=== PATIENT | female | born 1960 | race Caucasian/White ===

== ENCOUNTER 2016-06-07 15:23 | Emergency (ER) | payer MEDICAID ==
[~2016-06-07] VITALS: Ht 172.7 cm; Wt 135.0 kg
[~2016-06-07 15:23] MED LIST: AMIT1TAB79 PO; GABA600T PO; HYDR-3533 PO; INVE9TAB PO; LEVO75TA3 PO; POTA-163 PO; PROC90TA PO; VIST25CA PO; ZOLO100T PO
[2016-06-07 15:30] VITALS: BP 182/88; PULSE 93; RESP 20; TEMP 98.1; O2SAT 94
--- NOTE | 2016-06-07 15:33 | PD ---
HPI Chief Complaint: bleeding Time Seen by Provider: 15:32 Travel History International Travel<30 days: No Contact w/Intl Traveler<30days: No History of Present Illness HPI 55-year-old female with history of CHF, COPD, CVA, DM, GERD, hep C, hypertension recurrent right hip dislocation, status post hip replacement at [facility] presents to the ED for evaluation of postoperative bleeding. According to [facility]pc paperwork the patient has soaked through 2 trauma dressings this morning from her surgical site. On presentation the patient complains of nausea, vomiting, increased urinary urgency, shortness of breath. She endorses chronic, nonproductive cough, no worse today. She denies chest pain, abdominal pain. The patient is a poor historian, unable to provide the details of her recent surgery. PFSH Past Medical History Arthritis: Yes Asthma: No Autoimmune Disease: No Blood Disorders: No Bipolar Disorder: Yes Anxiety: Yes Depression: Yes Heart Rhythm Problems: No Cancer: Yes (tumor utero) Cardiovascular Problems: Yes High Cholesterol: Yes Chemotherapy: No Chest Pain: No Congestive Heart Failure: Yes COPD: Yes Cerebrovascular Accident: Yes Coronary Artery Disease: No Diabetes: Yes Diminished Hearing: No Endocrine: Yes Gastrointestinal Disorders: No GERD: Yes Glaucoma: No Genitourinary: No Headaches: Yes Hepatitis: Yes (HEP C POS) Hiatal Hernia: No Hypertension: Yes Immune Disorder: No Implanted Vascular Access Dvce: Yes Musculoskeletal: Yes Neurologic: Yes Psychiatric: Yes Reproductive: Yes (HYSTERECTOMY) Respiratory: Yes (COPD) Migraines: Yes Myocardial Infarction: No Radiation Therapy: No Seizures: Yes Sickle Cell Disease: No Sleep Apnea: No Thyroid Disease: Yes (Hypothyroidism) Ulcer: No Menopausal: Yes : 4 Para: 2 Miscarriage: 2 Past Surgical History Abdominal Surgery: Yes (APPENDECTOMY) AICD: No Appendectomy: Yes (1997) Arteriovenous Shunt: No Body Medical Devices: BACK FUSION AND ARLENE Cardiac Surgery: No Ear Surgery: No Endocrine Surgery: No Eye Surgery: No Genitourinary Surgery: No Gynecologic Surgery: Yes (HYSTERECTOMY) Hysterectomy: Yes Insulin Pump: No Joint Replacement: Yes (RIGHT HIP) Neurologic Surgery: Yes (EVACUATE SUBDURAL HEMATOMA) Oral Surgery: No Pacemaker: No Thoracic Surgery: No Other Surgery: Yes (BACK SURGERY) Social History Alcohol Use: Yes Tobacco Use: Yes (2 CIGS/DAY) Substance Use: Yes (MARIJUANA) Allergies-Medications (Allergen,Severity, Reaction): Coded Allergies: Dilantin (Verified Allergy, Severe, LIVER PROBLEMS, 05/15/16) *MDRO Multi-Drug Resistant Organism (Verified Adverse Reaction, Unknown, 05/10/16) 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 - 11/19/2015 Reported Meds & Prescriptions Reported Meds & Active Scripts Active Reported Levothyroxine (Levothyroxine Sodium) 25 Mcg Tab 25 Mcg PO DAILY Sertraline (Sertraline HCl) 100 Mg Tab 100 Mg PO DAILY Hydroxyzine HCl 50 Mg Tab 50 Mg PO HS Nifedipine ER 24 HR (Nifedipine) 60 Mg Tab 60 Mg PO DAILY Carvedilol 12.5 Mg Tab 12.5 Mg PO BID K-Tab (Potassium Chloride) 10 Meq Tab 10 Meq PO BID Duoneb (Ipratropium-Albuterol Neb) 0.5-2.5 Mg/3 Ml Neb 1 Nebule INH Q6HR NEB Lisinopril 20 Mg Tab 20 Mg PO DAILY Hydrochlorothiazide 25 Mg Tab 25 Mg PO DAILY Tizanidine (Tizanidine HCl) 4 Mg Cap 4 Mg PO Q12HR Tramadol (Tramadol HCl) 50 Mg Tab 50 Mg PO Q6H PRN Oxycodone (Oxycodone HCl) 5 Mg Cap 5 Mg PO Q4H PRN Invega (Paliperidone ER) 6 Mg Tab 6 Mg PO DAILY Aspirin 325 Mg Tab 325 Mg PO DAILY Review of Systems Except as stated in HPI: all other systems reviewed are Neg Physical Exam Narrative GENERAL: Well-nourished, well-developed chronically ill-appearing white female, occasional retching SKIN: Warm and dry. The surgical incision on the right anterior lateral hip is well healing without signs of infection. There is a subcentimeter area of serosanguineous and bloody drainage. HEAD: Normocephalic. EYES: No scleral icterus. No injection or drainage. NECK: Supple, trachea midline. No JVD or lymphadenopathy. CARDIOVASCULAR: Regular rate and rhythm without murmurs, gallops, or rubs. 2+ DP and radial pulses bilaterally. RESPIRATORY: Breath sounds equal bilaterally. Diffuse expiratory wheezing in all lung [place]. No accessory muscle use. GASTROINTESTINAL: Abdomen soft, non-tender, nondistended. Active bowel sounds. MUSCULOSKELETAL: No cyanosis, or edema. BACK: Nontender without obvious deformity. No CVA tenderness. Data Data Last Documented VS Vital Signs Date Time Temp Pulse Resp B/P Pulse Ox O2 Delivery O2 Flow Rate FiO2 06/07/16 18:00 90 16 160/82 95 Room Air 06/07/16 17:37 2.00 06/07/16 15:30 98.1 Orders Iv Access Insert/Monitor (06/07/16 15:31) Complete Blood Count With Diff (06/07/16 15:31) Act Partial Throm Time (Ptt) (06/07/16 15:31) Prothrombin Time / Inr (Pt) (06/07/16 15:31) Ondansetron Inj (Zofran Inj) (06/07/16 16:30) Morphine Inj (Morphine Inj) (06/07/16 16:30) Sodium Chlorid 0.9% 500 Ml Inj (Ns 500 M (06/07/16 16:30) Promethazine Inj (Phenergan Inj) (06/07/16 17:15) Chest, Single Ap (06/07/16 ) Albuterol-Ipratropium Neb (Duoneb Neb) (06/07/16 17:15) Urinalysis - C+S If Indicated (06/07/16 17:26) Labs Laboratory Tests Test 06/07/16 06/07/16 15:30 17:30 White Blood Count 22.2 TH/MM3 Red Blood Count 3.48 MIL/MM3 Hemoglobin 8.3 GM/DL Hematocrit 25.6 % Mean Corpuscular Volume 73.5 FL Mean Corpuscular Hemoglobin 23.9 PG Mean Corpuscular Hemoglobin 32.5 % Concent Red Cell Distribution Width 18.0 % Platelet Count 296 TH/MM3 Mean Platelet Volume 8.7 FL Neutrophils (%) (Auto) 88.8 % Lymphocytes (%) (Auto) 3.1 % Monocytes (%) (Auto) 7.7 % Eosinophils (%) (Auto) 0.0 % Basophils (%) (Auto) 0.4 % Neutrophils # (Auto) 19.7 TH/MM3 Lymphocytes # (Auto) 0.7 TH/MM3 Monocytes # (Auto) 1.7 TH/MM3 Eosinophils # (Auto) 0.0 TH/MM3 Basophils # (Auto) 0.1 TH/MM3 CBC Comment AUTO DIFF Differential Comment AUTO DIFF CONFIRMED Platelet Estimate NORMAL Platelet Morphology Comment NORMAL Prothrombin Time 10.1 SEC Prothromb Time International 0.9 RATIO Ratio Activated Partial 30.5 SEC Thromboplast Time Urine Color YELLOW Urine Turbidity CLEAR Urine pH 6.5 Urine Specific [place] 1.011 Urine Protein TRACE mg/dL Urine Glucose (UA) NEG mg/dL Urine Ketones NEG mg/dL Urine Occult Blood NEG Urine Nitrite NEG Urine Bilirubin NEG Urine Urobilinogen LESS THAN 2.0 MG/DL Urine Leukocyte Esterase NEG Urine RBC LESS THAN 1 /hpf Urine WBC LESS THAN 1 /hpf Urine Squamous Epithelial 1 /hpf Cells Urine Bacteria RARE /hpf Urine Mucus FEW /lpf Microscopic Urinalysis Comment CULT NOT INDICATED MDM Medical Decision Making Medical Screen Exam Complete: Yes Emergency Medical Condition: Yes Differential Diagnosis Postsurgical bleeding versus wound infection versus anemia versus UTI versus COPD exacerbation versus other Narrative Course 55-year-old female with history of multiple medical comorbidities, status post hip replacement at [facility] presents to the ED for evaluation of postoperative bleeding. According to [facility]pc paperwork the patient has soaked through 2 trauma dressings this morning from her surgical site. On presentation the patient complains of nausea, vomiting, increased urinary urgency, shortness of breath. She endorses chronic, nonproductive cough, no worse today. She denies chest pain, abdominal pain. The patient is a poor historian, unable to provide the details of her recent surgery. Vitals reviewed. Physical exam reveals a chronically ill-appearing white female, occasionally retching. The surgical wound on the right anterior lateral hip is well healing, without signs of infection. There is a subcentimeter break in the suture line that is oozing a small amount of mixed blood and serosanguineous fluid. Pressure was applied to this area for 3 minutes which did improve the bleeding. Patient was administered a 500 mL fluid bolus, IV morphine and Zofran. Retching continued, thus administered IM Phenergan. CBC reveals WBC is 22.2, 88% neutrophils, hemoglobin 8.3. INR 0.9. No culture indicated of the UA. Call was placed to [facility] orthopedic residents. They state the surgery was performed by Dr. Trevon James. Patient was DC'd yesterday with a hemoglobin of 8.2. Follow-up scheduled July 17. They agreed to move the follow-up to June 09. I discussed the patient, workup and plan of care with Dr. Murillo. She agrees that the patient is stable for discharge to the [facility]pc and close follow-up by orthopedics in 2 days in [place]. Diagnosis Primary Impression: Encounter for wound re-check Additional Impressions: COPD exacerbation Bleeding from right hip wound Qualified Code: T79.2XXA - Bleeding from right hip wound, initial encounter Referrals: Orthopedist Additional Instructions: Resume previously prescribed medications. I spoke with the orthopedic team at [facility]. The patient has a follow- up appointment on June 09 for reevaluation of her surgical wound. Follow-up with orthopedist at [facility] as discussed. Return to the ED for any urgent or emergent medical condition. Disposition: 03 DISCHARGE TO SNF Condition: Stable Cookie Zhou Jun 07, 2016 15:33
[2016-06-07] MEDS ORDERED: LISI-515 PO (15:57)
[2016-06-07] MEDS ORDERED: ASPI325T PO (15:57)
[2016-06-07] MEDS ORDERED: CARV12.52 PO (15:57)
[2016-06-07] MEDS ORDERED: LEVO25TA4 PO (15:57)
[2016-06-07] MEDS ORDERED: HYDR25TA5 PO (15:57)
[2016-06-07] MEDS ORDERED: K-TA10TA PO (15:57)
[2016-06-07] MEDS ORDERED: INVE6TAB3 PO (15:57)
[2016-06-07] MEDS ORDERED: HYDR50TA94 PO (15:57)
[2016-06-07] MEDS ORDERED: OXYC1CAP PO (15:57)
[2016-06-07] MEDS ORDERED: NIFE60TA58 PO (15:57)
[2016-06-07] MEDS ORDERED: SERT-129 PO (15:57)
[2016-06-07] MEDS ORDERED: TRAM50TA PO (15:57)
[2016-06-07] MEDS ORDERED: IPRASOL INH (15:57)
[2016-06-07] MEDS ORDERED: TIZA4CAP3 PO (15:57)
[2016-06-07 16:09] LABS: AUTOMATED NEUTROPHIL # 19.7 TH/MM3 (1.8-7.7); BASOPHIL # 0.1 TH/MM3 (0-0.2); BASOPHIL % 0.4 % (0.0-2.0); HEMATOCRIT 25.6 % (35.0-46.0); LYMPH % 3.1 % (9.0-44.0); LYMPHOCYTE # 0.7 TH/MM3 (1.0-4.8); MEAN CELL VOLUME 73.5 FL (80.0-100.0); MEAN CORPUSCULAR HEMOGLOBIN 23.9 PG (27.0-34.0); MEAN CORPUSCULAR HGB CONC 32.5 % (32.0-36.0); MONO % 7.7 % (0.0-8.0); NEUT % 88.8 % (16.0-70.0); PLATELET COUNT 296 TH/MM3 (150-450); RED BLOOD COUNT 3.48 MIL/MM3 (4.00-5.30); WHITE BLOOD COUNT 22.2 TH/MM3 (4.0-11.0)
[2016-06-07 16:10] LABS: HEMO FLAGS AUTO DIFF
[2016-06-07 16:27] LABS: APTT (PATIENT) 30.5 SEC (24.3-30.1); INTERNATIONAL NORMALIZED RATIO 0.9 RATIO; PROTHROMBIN TIME - PATIENT 10.1 SEC (9.8-11.6)
[2016-06-07] MEDS ORDERED: ONDANSETRON HCL 4 MG/2 ML VIAL IV PUSH ONE (16:30)
[2016-06-07] MEDS ORDERED: MORPHINE SULFATE 4 MG/ML INJ IV PUSH ONE (16:30)
[2016-06-07] MEDS ORDERED: SODIUM CHLORID 0.9% 500 ML INJ 500 ML IV ONE (16:30)
[2016-06-07 16:42] LABS: PLATELET ESTIMATE SMEAR NORMAL (NORMAL); PLATELET MORPHOLOGY NORMAL (NORMAL); SCAN/DIFF AUTO DIFF CONFIRMED
[2016-06-07 17:00] VITALS: BP 197/90; PULSE 84; RESP 16; O2SAT 98
[2016-06-07] MEDS ORDERED: PROMETHAZINE INJ 25 MG/ML VIAL IM ONE (17:15)
[2016-06-07] MEDS: RESP: ALBUTEROL 2.5 MG/IPRATROPIUM 0.5 MG NEB (SCH) INH ×2 (17:30→17:34)
[2016-06-07 17:37] VITALS: O2SAT 97
[2016-06-07 18:00] VITALS: BP 160/82; PULSE 90; RESP 16; O2SAT 95
--- NOTE | 2016-06-07 18:02 | RADRPT ---
EXAM DATE/TIME: 06/07/2016 17:15 [facility] COMPARISON: CHEST SINGLE AP, November 21, 2015, 6:43. INDICATIONS : Chest discomfort, abdominal pain starting today MEDICAL HISTORY : Hypertension. Cardiovascular disease. Hepatitis C. SURGICAL HISTORY : None. ENCOUNTER: Initial ACUITY: 1 day PAIN SCORE: 0/10 LOCATION: Bilateral chest FINDINGS: The heart size is normal. The lungs are clear. Costophrenic angles are clear. Surgical hardware is seen in the lower thoracic spine. CONCLUSION: No acute abnormality is seen. Adam Greer MD on June 07, 2016 at 17:59 Board Certified Radiologist. This report was verified electronically.
[2016-06-07 18:50] LABS: BACTERIA, URINE RARE /hpf; BLOOD, URINE NEG (NEG); COMMENT (UR) CULT NOT INDICATED; CULTURE IF INDICATED CULT NOT INDICATED; GLUCOSE,URINE NEG (NEG); KETONE, URINE NEG (NEG); MUCUS URINE FEW /lpf (OCC); NITRITE,URINE NEG (NEG); PH, URINE 6.5 (5.0-8.5); SQUAMOUS EPITHELIAL CELL URINE 1 /hpf (0-5); URINE COLOR YELLOW (YELLW/STRAW)
== END 2016-06-07 21:08 ==
LOC: NEPA 15:23
DX: J44.1 Chronic obstructive pulmonary disease with (acute) exacerbation (principal); M96.830 Postprocedural hemorrhage of a musculoskeletal structure following a musculoskeletal system procedure; R11.2 Nausea with vomiting, unspecified; R05 Cough; I50.9 Heart failure, unspecified; E11.9 Type 2 diabetes mellitus without complications; K21.9 Gastro-esophageal reflux disease without esophagitis; I10 Essential (primary) hypertension; E78.00 Pure hypercholesterolemia, unspecified; B19.20 Unspecified viral hepatitis C without hepatic coma; E03.9 Hypothyroidism, unspecified; Z72.0 Tobacco use; Z86.59 Personal history of other mental and behavioral disorders; Z87.39 Personal history of other diseases of the musculoskeletal system and connective tissue; Z86.73 Personal history of transient ischemic attack (TIA), and cerebral infarction without residual deficits; Y83.8 Other surgical procedures as the cause of abnormal reaction of the patient, or of later complication, without mention of misadventure at the time of the procedure
CPT/HCPCS: 71010; 81001; 85025; 85610; 85730; 94640; 94664; 96361; 96372; 96374; 96375; 99284; J2270; J2405; J2550; J7040

== ENCOUNTER 2016-07-01 15:08 | Inpatient (IN) | payer MEDICAID ==
[~2016-07-01] VITALS: Ht 172.7 cm; Wt 89.0 kg
[~2016-07-01 15:08] MED LIST changes: -AMIT1TAB79 PO; +ASPI325T PO; +CARV12.52 PO; -GABA600T PO; -HYDR-3533 PO; +HYDR25TA5 PO; +HYDR50TA94 PO; +INVE6TAB3 PO; -INVE9TAB PO; +IPRASOL INH; +K-TA10TA PO; +LEVO25TA4 PO; -LEVO75TA3 PO; +LISI-515 PO; +NIFE60TA58 PO; +OXYC1CAP PO; -POTA-163 PO; -PROC90TA PO; +SERT-129 PO; +TIZA4CAP3 PO; +TRAM50TA PO; -VIST25CA PO; -ZOLO100T PO
[2016-07-01] MEDS ORDERED: MORPHINE SULFATE 4 MG/ML INJ IM ONE (15:45)
--- NOTE | 2016-07-01 16:32 | PD ---
HPI Chief Complaint: Pain: Acute or Chronic Time Seen by Provider: 15:33 Travel History International Travel<30 days: No Contact w/Intl Traveler<30days: No History of Present Illness HPI Patient is a 55-year-old female who presents the emergency department with complaint of right knee pain. Patient has previous hip arthroplasty. She had a mechanical fall yesterday, falling and hitting her right anterior knee. Since she has had severe pain and is unable to ambulate. She has been scooting around her house and a [place] office chair. Patient denies any numbness or tingling. EMS noted significant swelling to the right knee, lateral tenderness to palpation but good distal sensation and pulses. Given morphine en route with improvement of her symptoms. PFSH Past Medical History Arthritis: Yes Asthma: No Autoimmune Disease: No Blood Disorders: No Bipolar Disorder: Yes Anxiety: Yes Depression: Yes Heart Rhythm Problems: No Cancer: Yes (tumor utero) Cardiovascular Problems: Yes High Cholesterol: Yes Chemotherapy: No Chest Pain: No Congestive Heart Failure: Yes COPD: Yes Cerebrovascular Accident: Yes Coronary Artery Disease: No Diabetes: Yes Diminished Hearing: No Endocrine: Yes Gastrointestinal Disorders: No GERD: Yes Glaucoma: No Genitourinary: No Headaches: Yes Hepatitis: Yes (HEP C POS) Hiatal Hernia: No Hypertension: Yes Immune Disorder: No Implanted Vascular Access Dvce: Yes Musculoskeletal: Yes Neurologic: Yes Psychiatric: Yes Reproductive: Yes (HYSTERECTOMY) Respiratory: Yes (COPD) Migraines: Yes Myocardial Infarction: No Radiation Therapy: No Seizures: Yes Sickle Cell Disease: No Sleep Apnea: No Thyroid Disease: Yes (Hypothyroidism) Ulcer: No Menopausal: Yes : 4 Para: 2 Miscarriage: 2 Past Surgical History Abdominal Surgery: Yes AICD: No Appendectomy: Yes (1997) Arteriovenous Shunt: No Body Medical Devices: BACK FUSION AND ARLENE Cardiac Surgery: No Ear Surgery: No Endocrine Surgery: No Eye Surgery: No Genitourinary Surgery: No Gynecologic Surgery: Yes Hysterectomy: Yes Insulin Pump: No Joint Replacement: Yes (RIGHT HIP) Neurologic Surgery: Yes (EVACUATE SUBDURAL HEMATOMA) Oral Surgery: No Pacemaker: No Thoracic Surgery: No Other Surgery: Yes (BACK SURGERY) Social History Alcohol Use: Yes Tobacco Use: Yes (2 CIGS/DAY) Substance Use: Yes (MARIJUANA) Allergies-Medications (Allergen,Severity, Reaction): Coded Allergies: Dilantin (Verified Allergy, Severe, LIVER PROBLEMS, 07/01/16) *MDRO Multi-Drug Resistant Organism (Verified Adverse Reaction, Unknown, ) 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 - 11/19/2015 Reported Meds & Prescriptions Reported Meds & Active Scripts Active Reported Levothyroxine (Levothyroxine Sodium) 25 Mcg Tab 25 Mcg PO DAILY Sertraline (Sertraline HCl) 100 Mg Tab 100 Mg PO DAILY Hydroxyzine HCl 50 Mg Tab 50 Mg PO HS Nifedipine ER 24 HR (Nifedipine) 60 Mg Tab 60 Mg PO DAILY Carvedilol 12.5 Mg Tab 12.5 Mg PO BID K-Tab (Potassium Chloride) 10 Meq Tab 10 Meq PO BID Duoneb (Ipratropium-Albuterol Neb) 0.5-2.5 Mg/3 Ml Neb 1 Nebule INH Q6HR NEB Lisinopril 20 Mg Tab 20 Mg PO DAILY Hydrochlorothiazide 25 Mg Tab 25 Mg PO DAILY Tizanidine (Tizanidine HCl) 4 Mg Cap 4 Mg PO Q12HR Tramadol (Tramadol HCl) 50 Mg Tab 50 Mg PO Q6H PRN Oxycodone (Oxycodone HCl) 5 Mg Cap 5 Mg PO Q4H PRN Invega (Paliperidone ER) 6 Mg Tab 6 Mg PO DAILY Aspirin 325 Mg Tab 325 Mg PO DAILY Review of Systems Except as stated in HPI: all other systems reviewed are Neg Physical Exam Narrative GENERAL: Disheveled adult female appearing older than stated age in no acute distress SKIN: Warm and dry. HEAD: Normocephalic. EYES: No scleral icterus. No injection or drainage. ENT: Poor dentition Mucous membranes pink and moist. NECK: Supple no midline tenderness to palpation CARDIOVASCULAR: Regular rate and rhythm. RESPIRATORY: No accessory muscle use. GASTROINTESTINAL: Obese MUSCULOSKELETAL: Right knee with swelling, joint effusion. Patient has lateral tenderness to palpation over the lateral tibial plateau. This extends into the distal fibula. There is no obvious crepitus but her exam is limited due to pain and swelling. Patient is not able to fully extend the knee, preferring to keep it flexed approximately 15 short of full extension. She is able to flex only to 45. Distal sensation and pulses are intact. NEUROLOGICAL: Awake and alert. Normal speech. PSYCHIATRIC: Appropriate mood and affect; insight and judgment normal. Data Data Last Documented VS Vital Signs Date Time Temp Pulse Resp B/P Pulse Ox O2 Delivery O2 Flow Rate FiO2 07/01/16 16:38 99.0 78 20 109/65 97 Orders Femur (Ap & Lat/2vws) (07/01/16 15:33) Hip, Uni(Ap&Lat) Wo Ap Pelvis (07/01/16 15:33) Morphine Inj (Morphine Inj) (07/01/16 15:45) Knee, Complete (4vws) (07/01/16 ) Complete Blood Count With Diff (07/01/16 16:43) Comprehensive Metabolic Panel (07/01/16 16:43) Prothrombin Time / Inr (Pt) (07/01/16 16:43) Act Partial Throm Time (Ptt) (07/01/16 16:43) Type And Screen (07/01/16 16:43) Ct Knee W/O Contrast (07/01/16 ) Support Splint (07/01/16 16:47) Consult Orthopedic (07/01/16 16:55) MDM Medical Decision Making Medical Screen Exam Complete: Yes Emergency Medical Condition: Yes Medical Record Reviewed: Yes Differential Diagnosis 55-year-old female here with complaint of right knee pain after mechanical fall yesterday. Differential includes tibial plateau fracture, joint effusion, ligamentous or meniscal injury, distal fibular fracture, internal derangement of the knee. Narrative Course Patient given 4 mg IM morphine. X-rays of the right hip, femur, knee were obtained and by my read shows a right tibial plateau fracture. I spoke with orthopedic surgery, Dr. Kelly's nurse practitioner who recommends consult with Dr. Flores and admission for further management. Preoperative laboratory testing ordered and patient will be admitted by Dr. Wills. Diagnosis Primary Impression: Tibial plateau fracture, right Qualified Code: S82.141A - Tibial plateau fracture, right, closed, initial encounter Admitting Information Admitting Physician Requests: Admit Aylin Plaza MD Jul 01, 2016 16:32
[2016-07-01 16:38] VITALS: BP 109/65; PULSE 78; RESP 20; TEMP 99; O2SAT 97
--- NOTE | 2016-07-01 17:05 | RADRPT ---
EXAM DATE/TIME: 07/01/2016 15:50 [facility] COMPARISON: No previous studies available for comparison. INDICATIONS : Right knee pain after falling in the kitchen today. MEDICAL HISTORY : Hypertension. Diabetes mellitus type II. Chronic obstructive pulmonary disease. Smoker. Arthritis . SURGICAL HISTORY : Tibial rosemary placement. ENCOUNTER: Initial ACUITY: 1 day PAIN SCORE: 10/10 LOCATION: Right knee. FINDINGS: A standard 4 view examination of the right knee was obtained and demonstrates postsurgical changes wi th intramedullary rosemary tibia. There is a comminuted fracture deformity involving the lateral tibial pl ateau with mild depression of approximately 6-7 mm. There are multiple ill-defined fracture lines rosita t extend into the central portion of the joint. The distal femur and patella are intact. There is an old fracture deformity of the proximal fibula. There is adjacent soft tissue swelling. CONCLUSION: 1. Comminuted fracture deformity of the lateral tibial plateau with mild depression. 2. Osteopenia and postsurgical change. Julio Rosales MD on July 01, 2016 at 17:01 Board Certified Radiologist. This report was verified electronically.
--- NOTE | 2016-07-01 17:06 | RADRPT ---
EXAM DATE/TIME: 07/01/2016 15:50 [facility] COMPARISON: KNEE RIGHT COMPLETE (4VWS), July 01, 2016, 15:50. INDICATIONS : Right femur pain after falling in the kitchen today. MEDICAL HISTORY : Hypertension. Diabetes mellitus type II. Chronic obstructive pulmonary disease. Arthritis. Smoker . SURGICAL HISTORY : Total right hip replacement and a right tibial rosemary placement. ENCOUNTER: Initial ACUITY: 1 day PAIN SCORE: 10/10 LOCATION: Right hip. FINDINGS: AP and lateral views of the right femur were obtained and demonstrate the patient status post right h ip arthroplasty. The arthroplasty components are intact. Diffuse osteopenia. The fractured lateral ti bial plateau is again visualized. CONCLUSION: 1. No evidence of femur fracture. 2. The known fracture of the lateral tibial plateau is again visualized. Julio Rosales MD on July 01, 2016 at 17:03 Board Certified Radiologist. This report was verified electronically.
[2016-07-01 17:16] VITALS: BP 121/76; PULSE 86; RESP 19; O2SAT 93
[2016-07-01 17:22] LABS: AUTOMATED NEUTROPHIL # 15.7 TH/MM3 (1.8-7.7); BASOPHIL # 0.1 TH/MM3 (0-0.2); BASOPHIL % 0.4 % (0.0-2.0); EOSINOPHIL # 0.2 TH/MM3 (0-0.4); EOSINOPHIL % 0.9 % (0.0-4.0); HEMATOCRIT 25.7 % (35.0-46.0); LYMPH % 5.3 % (9.0-44.0); MEAN CELL VOLUME 73.2 FL (80.0-100.0); MEAN CORPUSCULAR HEMOGLOBIN 23.4 PG (27.0-34.0); MEAN CORPUSCULAR HGB CONC 31.9 % (32.0-36.0); MONO % 8.7 % (0.0-8.0); NEUT % 84.7 % (16.0-70.0); PLATELET COUNT 285 TH/MM3 (150-450); RED BLOOD COUNT 3.51 MIL/MM3 (4.00-5.30); RED CELL DISTRIBUTION WIDTH 18.4 % (11.6-17.2); WHITE BLOOD COUNT 18.5 TH/MM3 (4.0-11.0)
--- NOTE | 2016-07-01 17:22 | RADRPT ---
EXAM DATE/TIME: 07/01/2016 15:50 [facility] COMPARISON: HIP RIGHT (AP&LAT 2/3VWS) WO AP PELVIS, May 15, 2016, 19:55. INDICATIONS : Right hip pain after falling in the kitchen today. MEDICAL HISTORY : Hypertension. Chronic obstructive pulmonary disease. Diabetes mellitus type II. Arthritis. Smoker . SURGICAL HISTORY : Total hip replacement. ENCOUNTER: Initial ACUITY: 1 day PAIN SCORE: 10/10 LOCATION: Right hip. FINDINGS: A two view examination of the right hip was performed. There is an intact right total hip arthroplast y. The stem of the femoral component is secured with a cerclage. No dislocation or fracture. There ap pears to be a chronic avulsion fracture presumably off of the greater trochanter, unchanged from henrietta krueger. CONCLUSION: 1. Intact right total hip arthroplasty without fracture or dislocation. 2. Ossific fragment cephalad to the greater trochanter was present previously and is characteristic o f a chronic avulsion injury. Sotero Prabhakar MD on July 01, 2016 at 17:19 Board Certified Radiologist. This report was verified electronically.
[2016-07-01 17:30] LABS: APTT (PATIENT) 21.5 SEC (24.3-30.1); PROTHROMBIN TIME - PATIENT 10.5 SEC (9.8-11.6)
[2016-07-01 17:33] LABS: HEMO FLAGS AUTO DIFF
[2016-07-01 17:37] LABS: ALT (GPT) 28 U/L (10-53); ANION GAP 11 MEQ/L (5-15); AST (GOT) 18 U/L (15-37); BICARBONATE 23.4 MEQ/L (21.0-32.0); BLOOD UREA NITROGEN 25 MG/DL (7-18); CHLORIDE 99 MEQ/L (98-107); GLOMERULAR FILTRATION RATE 32 ML/MIN (>89); POTASSIUM 4.2 MEQ/L (3.5-5.1); SODIUM (NA) 133 MEQ/L (136-145)
[2016-07-01 17:40] LABS: ALKALINE PHOSPHATASE 145 U/L (45-117); TOTAL BILIRUBIN ADULT 0.4 MG/DL (0.2-1.0)
[2016-07-01] MEDS ORDERED: ACETAMINOPHEN 325 MG TAB PO PRN (17:45)
[2016-07-01] MEDS: SODIUM CHLOR 0.9% 1000 ML INJ 1,000 ML IV SCH (18:00)
[2016-07-01 18:04] LABS: BANDS 4 % (0-6); NEUTROPHIL # MANUAL DIFF 15.7 TH/MM3 (1.8-7.7); OVALOCYTES 1+ (NORMAL); PLATELET ESTIMATE SMEAR NORMAL (NORMAL); PLATELET MORPHOLOGY NORMAL (NORMAL); POLYS (SEG NEUTROPHILS) 81 % (16-70); SCAN/DIFF FINAL DIFF MANUAL; WBC DIFF SAMPLE 100
[2016-07-01] MEDS ORDERED: ONDANSETRON HCL 4 MG/2 ML VIAL IV PUSH PRN (18:15)
--- NOTE | 2016-07-01 18:17 | HHI.HP ---
[facility] [place] [facility] Admission Diagnosis right tibial plateau fracture Diagnoses: Chief Complaint: Knee pain Travel History International Travel<30 Days: No Contact w/Intl Traveler <30 Da: No Traveled to Known Affected Are: No History of Present Illness 55-year-old female with a past medical history of HTN, mood disorder, COPD, hep C, GERD, hypothyroidism, chronic back pain who presented with right knee pain after a fall. The patient states that last night she was ambulating at home, tripped on her cane, and landed hard on her right knee. She didn't have a bruise or anything on it, so she did not come to the hospital immediately. She denies any loss of consciousness or head trauma. Today she is having severe pain in her knee, 14/10 in severity. She is having back spasms that radiate down her right leg. She states that she had hip surgery last month and has been in rehabilitation until recently. She is asking for pain medication and to know about the surgery. Review of Systems Except as stated in HPI: all other systems reviewed are Neg Past Family Social History Past Medical History Hypertension Hypothyroidism COPD Chronic back pain Hepatitis C, currently undergoing treatment GERD Anxiety/depression/schizophrenia Past Surgical History Hysterectomy Back surgery Appendectomy Right hip surgery Stomach surgery Left hand surgery Jaw surgery Reported Medications Sertraline (Sertraline HCl) 100 Mg Tab 100 Mg PO DAILY Hydroxyzine HCl 50 Mg Tab 200 Mg PO HS Nifedipine ER 24 HR (Nifedipine) 60 Mg Tab 60 Mg PO DAILY Carvedilol 12.5 Mg Tab 12.5 Mg PO BID K-Tab (Potassium Chloride) 10 Meq Tab 10 Meq PO BID Duoneb (Ipratropium-Albuterol Neb) 0.5-2.5 Mg/3 Ml Neb 1 Nebule INH Q6HR NEB Lisinopril 20 Mg Tab 20 Mg PO DAILY Hydrochlorothiazide 25 Mg Tab 25 Mg PO DAILY Tizanidine (Tizanidine HCl) 4 Mg Cap 4 Mg PO Q12HR Invega (Paliperidone ER) 6 Mg Tab 6 Mg PO DAILY Aspirin 325 Mg Tab 325 Mg PO DAILY Levothyroxine (Levothyroxine Sodium) 25 Mcg Tab 25 Mcg PO DAILY Allergies: Coded Allergies: Dilantin (Verified Allergy, Severe, LIVER PROBLEMS, 07/01/16) *MDRO Multi-Drug Resistant Organism (Verified Adverse Reaction, Unknown, ) 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 - 11/19/2015 Active Ordered Medications Current Medications Medications (Trade) Dose Ordered Sig/Nelly Route Start Time Stop Time Status Last Admin Acetaminophen 650 mg 650 mg Q4H PRN PO 07/01/16 17:45 (NS 1000 ml Inj) 1,000 ml @ 100 mls/hr Q10H IV 07/01/16 17:45 07/01/16 18:00 Family History Hypertension Diabetes COPD Social History Continues to smoke, but is cutting back Denies any alcohol use Lives at home with 2 roommates Uses a rolling walker and a cane for ambulation Physical Exam Vital Signs Vital Signs Date Time Temp Pulse Resp B/P Pulse Ox O2 Delivery O2 Flow Rate FiO2 07/01/16 17:16 86 19 121/76 93 Nasal Cannula 2 07/01/16 16:38 99.0 78 20 109/65 97 Physical Exam GENERAL: Well-developed well-nourished. In no acute distress. SKIN: Warm and dry. Postsurgical scars on the back and right hip. HEENT: Normocephalic. Pupils equal and round. Mucous membranes pink and moist. CARDIOVASCULAR: Regular rate and rhythm. No murmur appreciated. RESPIRATORY: No accessory muscle use. Clear to auscultation. Breath sounds equal bilaterally. No wheezing. GASTROINTESTINAL: Abdomen soft, non-tender, nondistended. Bowel sounds x4. MUSCULOSKELETAL: Right knee immobilizer. No clubbing or cyanosis. No edema. NEUROLOGICAL: Awake and alert. No focal neurological deficits. Moves upper and lower extremities spontaneously. Normal speech. PSYCHIATRIC: Appropriate mood and affect; insight and judgment normal. Laboratory Laboratory Tests Test 07/01/16 17:05 White Blood Count 18.5 Red Blood Count 3.51 Hemoglobin 8.2 Hematocrit 25.7 Mean Corpuscular Volume 73.2 Mean Corpuscular Hemoglobin 23.4 Mean Corpuscular Hemoglobin 31.9 Concent Red Cell Distribution Width 18.4 Platelet Count 285 Mean Platelet Volume 8.5 Neutrophils (%) (Auto) 84.7 Lymphocytes (%) (Auto) 5.3 Monocytes (%) (Auto) 8.7 Eosinophils (%) (Auto) 0.9 Basophils (%) (Auto) 0.4 Neutrophils # (Auto) 15.7 Lymphocytes # (Auto) 1.0 Monocytes # (Auto) 1.6 Eosinophils # (Auto) 0.2 Basophils # (Auto) 0.1 CBC Comment AUTO DIFF Prothrombin Time 10.5 Prothromb Time International 1.0 Ratio Activated Partial 21.5 Thromboplast Time Sodium Level 133 Potassium Level 4.2 Chloride Level 99 Carbon Dioxide Level 23.4 Anion Gap 11 Blood Urea Nitrogen 25 Creatinine 1.67 Estimat Glomerular Filtration 32 Rate Random Glucose 131 Calcium Level 8.5 Total Bilirubin 0.4 Aspartate Amino Transf 18 (AST/SGOT) Alanine Aminotransferase 28 (ALT/SGPT) Alkaline Phosphatase 145 Total Protein 7.0 Albumin 2.8 Blood Type O POSITIVE Result Diagram: 07/01/16 1705 07/01/16 1705 Imaging Last Impressions Hip X-Ray 07/01/16 1533 Signed Impressions: Service Date/Time: Friday, July 01, 2016 15:50 - CONCLUSION: 1. Intact right total hip arthroplasty without fracture or dislocation. 2. Ossific fragment cephalad to the greater trochanter was present previously and is characteristic of a chronic avulsion injury. Sotero Prabhakar MD Femur X-Ray 07/01/16 1533 Signed Impressions: Service Date/Time: Friday, July 01, 2016 15:50 - CONCLUSION: 1. No evidence of femur fracture. 2. The known fracture of the lateral tibial plateau is again visualized. Julio Rosales MD Knee X-Ray 07/01/16 0000 Signed Impressions: Service Date/Time: Friday, July 01, 2016 15:50 - CONCLUSION: 1. Comminuted fracture deformity of the lateral tibial plateau with mild depression. 2. Osteopenia and postsurgical change. Julio Rosales MD Assessment and Plan Assessment and Plan 55-year-old female with a past medical history of HTN, mood disorder, COPD, hep C, GERD, hypothyroidism, chronic back pain who presented with right knee pain after a fall Right tibial plateau fracture: Images reviewed: Knee x-ray revealed comminuted fracture deformity at the lateral tibial plateau with mild depression. Hip x-ray with intact right total hip arthroplasty without fracture or dislocation. Femur x-ray with left femur fracture. -Orthopedics were consulted in the ED, will keep nothing by mouth after midnight -Pain control with IV Dilaudid -Activity and rehabilitation efforts per orthopedic -Hold home aspirin CKD stage III: Creatinine 1.67, previously 1.53 on 04/22/16. Monitor. Avoid nephrotoxins. IVF. Leukocytosis: Chronic upon review of previous labs. Afebrile. Recommended outpatient hematology follow-up. Hypertension: Chronic, stable. Continue home BP medications as indicated. Monitor and adjust medications as needed. COPD: Not in exacerbation. Scheduled nebs. O2 and nebs as needed. GERD: Continue PPI Mood disorder: Continue Zoloft and and vague. Hypothyroidism: Continue levothyroxine. DVT prophylaxis: Per orthopedics. Written by Lance Ruiz, acting as scribe for Dr. Leung on 07/01/16 at 18:05. Discussed Condition With Patient Attending Statement patient was seen and examined. 55 y/o female who presented with pain to the right knee after a fall- found to have tibial fracture. continue with pain control. ortho consulted. rest of assessment and plan as noted above. Lance Ruiz Jul 01, 2016 18:17 Modesto Leung MD Jul 01, 2016 18:34
[2016-07-01 19:26] VITALS: BP 170/66; PULSE 103; RESP 20; O2SAT 98
--- NOTE | 2016-07-01 19:37 | RADRPT ---
EXAM DATE/TIME: 07/01/2016 17:26 [facility] COMPARISON: KNEE RIGHT COMPLETE (4VWS), July 01, 2016, 15:50. INDICATIONS : Fall last night on right knee; status-post hip replacement 4 weeks ago. RADIATION DOSE: 33.39 CTDIvol (mGy) MEDICAL HISTORY : Cardiovascular disease. Hypertension. Hepatitis C. SURGICAL HISTORY : Hip replacement. ENCOUNTER: Initial ACUITY: 1 day PAIN SCALE: 10/10 LOCATION: Right knee TECHNIQUE: Volumetric scanning of the knee was performed. Using automated exposure control and a djustment of the mA and/or kV according to patient size, radiation dose was kept as low as reasonably achievable to obtain optimal diagnostic quality images. FINDINGS: The patient has a comminuted fracture of the tibial plateau involving the lateral and c entral aspects of the tibial plateau. The medial plateau is relatively spared. There is some depres tony of the central aspect of the lateral tibial plateau in the order of 10 to 11 mm. There is also a nondisplaced acute fracture at the proximal aspect of the fibula. There is a healed fracture defor mity at the more distal aspect of the proximal fibula. The patient has an intramedullary rosemary in place in the tibia. The distal femur appears intact. The patella is intact. There is a mild effusion. There is increased soft-tissue swelling in the anterior and lateral soft tissues. CONCLUSION: Comminuted proximal tibial fracture with some depression of the central aspect of the lateral tibial plateau in the order of 10 to 11 mm. Adam Greer MD on July 01, 2016 at 18:24 Board Certified Radiologist. This report was verified electronically.
[2016-07-01] MEDS: HYDROmorphone HCL PF 1 MG/ML VIAL IV PUSH PRN (19:46)
[2016-07-01] MEDS: PANTOPRAZOLE SOD 40 MG DELAYED RELEASE TAB PO SCH (20:00)
[2016-07-01] MEDS: CARVEDILOL 12.5 MG TAB PO SCH (21:00)
[2016-07-01 23:42] VITALS: BP 131/84; PULSE 97; RESP 24; O2SAT 94
[2016-07-02] MEDS: HYDROmorphone HCL PF 1 MG/ML VIAL IV PUSH PRN ×4 (00:08→12:35)
[2016-07-02] MEDS: SODIUM CHLOR 0.9% 1000 ML INJ 1,000 ML IV SCH ×2 (03:45→23:45)
[2016-07-02 03:51] VITALS: O2SAT 94
[2016-07-02 05:05] VITALS: BP 115/72; PULSE 89; RESP 20; O2SAT 98
[2016-07-02] MEDS: LEVOTHYROXINE SODIUM 25 MCG TAB PO SCH (05:52)
[2016-07-02 05:56] VITALS: BP 145/84; PULSE 93; RESP 20
[2016-07-02] MEDS: RESP: ALBUTEROL 1.25 MG/3 ML NEB (PRN) NEB ×2 (05:56→20:32)
[2016-07-02] MEDS ORDERED: PROPOFOL 200 MG/20 ML AMP IV ONE (07:30)
[2016-07-02] MEDS ORDERED: PHENYLEPH/NS 1000 MCG/10 ML SYR IV ONE (07:31)
[2016-07-02] MEDS ORDERED: ONDANSETRON HCL 4 MG/2 ML VIAL IV PUSH ONE (07:31)
[2016-07-02] MEDS ORDERED: LACTATED RINGER'S 1000 ML INJ 1,000 ML IV ONE (07:31)
[2016-07-02] MEDS ORDERED: NEOSTIGMINE 3 MG/3 ML SYR IV ONE (07:31)
--- NOTE | 2016-07-02 07:49 | HHI.PR ---
Subjective Remarks f/u; right tibia fracture complaining of severe pain to the right knee. otherwise no other complaints. Objective Vitals Vital Signs Date Time Temp Pulse Resp B/P Pulse Ox O2 Delivery O2 Flow Rate FiO2 07/02/16 05:56 93 20 145/84 07/02/16 05:05 89 20 115/72 98 Nasal Cannula 2 07/02/16 04:31 16 07/02/16 03:51 94 Nasal Cannula 2.00 07/02/16 01:56 20 07/01/16 23:42 97 24 131/84 94 Nasal Cannula 2 07/01/16 19:26 103 20 170/66 98 Nasal Cannula 07/01/16 17:16 86 19 121/76 93 Nasal Cannula 2 07/01/16 16:38 99.0 78 20 109/65 97 I/O 07/01/16 07/01/16 07/01/16 07/02/16 07/02/16 07/02/16 07:00 15:00 23:00 07:00 15:00 23:00 Output Total 700 ml Balance -700 ml Output Urine Total 700 ml # Voids 0 Result Diagram: 07/01/16 1705 07/01/16 1705 Imaging Last Impressions Hip X-Ray 07/01/16 1533 Signed Impressions: Service Date/Time: Friday, July 01, 2016 15:50 - CONCLUSION: 1. Intact right total hip arthroplasty without fracture or dislocation. 2. Ossific fragment cephalad to the greater trochanter was present previously and is characteristic of a chronic avulsion injury. Sotero Prabhakar MD Femur X-Ray 07/01/16 1533 Signed Impressions: Service Date/Time: Friday, July 01, 2016 15:50 - CONCLUSION: 1. No evidence of femur fracture. 2. The known fracture of the lateral tibial plateau is again visualized. Julio Rosales MD Lower Extremity CT 07/01/16 0000 Signed Impressions: Service Date/Time: Friday, July 01, 2016 17:26 - CONCLUSION: Comminuted proximal tibial fracture with some depression of the central aspect of the lateral tibial plateau in the order of 10 to 11 mm. Adam Greer MD Knee X-Ray 07/01/16 0000 Signed Impressions: Service Date/Time: Bindu, July 01, 2016 15:50 - CONCLUSION: 1. Comminuted fracture deformity of the lateral tibial plateau with mild depression. 2. Osteopenia and postsurgical change. Julio Rosaels MD Objective Remarks GENERAL: This is a well-nourished, well-developed patient, in no apparent distress. CARDIOVASCULAR: Regular rate and regular rhythm without murmurs, gallops, or rubs. RESPIRATORY: Clear to auscultation. Breath sounds equal bilaterally. No wheezes , rales, or rhonchi. GASTROINTESTINAL: Abdomen soft, non-tender, nondistended. Normal, active bowel sounds MUSCULOSKELETAL: right knee in immobilizer NEURO: Alert & Oriented x4 to person, place, time, situation. Moves all ext x4 Procedures none Medications and IVs Current Medications Morphine Sulfate (Morphine Inj) 4 mg ONCE ONCE IM Last administered on 16:37; Start 07/01/16 at 15:45; Stop 07/01/16 at 15:46; Status DC Acetaminophen 650 mg 650 mg Q4H PRN PO FEVER; Start 07/01/16 at 17:45 Sodium Chloride (NS 1000 ml Inj) 1,000 ml @ 100 mls/hr Q10H IV Last administered on 07/02/16 03:45; Start 07/01/16 at 17:45 Hydromorphone HCl (Dilaudid Pf Inj) 0.5 mg Q4H PRN IV PUSH PAIN < 5 Last administered on 07/02/16 02:04; Start 07/01/16 at 18:15 Hydromorphone HCl (Dilaudid Pf Inj) 1 mg Q4H PRN IV PUSH PAIN > 5 Last administered on 07/02/16 05:54; Start 07/01/16 at 18:15 Ondansetron HCl (Zofran Inj) 4 mg Q8HR PRN IV PUSH NAUSEA Last administered on 07/02/16 00:09; Start 07/01/16 at 18:15 Carvedilol (Coreg) 12.5 mg BID PO Last administered on 07/01/16 21:00; Start 07/01/16 at 21:00 Albuterol/ Ipratropium (Duoneb Neb) 1 ampule Q6HR NEB PRN NEB SHORTNESS OF BREATH; Start 07/01/16 at 19:15 Levothyroxine Sodium (Synthroid) 25 mcg DAILY@06 PO Last administered on 05:52; Start 07/02/16 at 06:00 Lisinopril (Prinivil) 20 mg DAILY PO ; Start 07/02/16 at 09:00 Nifedipine (Procardia Xl) 60 mg DAILY PO ; Start 07/02/16 at 09:00 Paliperidone Palmitate (Invega Er) 6 mg DAILY PO ; Start 07/02/16 at 09:00 Sertraline HCl (Zoloft) 100 mg DAILY PO ; Start 07/02/16 at 09:00 Albuterol Sulfate (Albuterol Neb) 1.25 mg Q4HR NEB PRN NEB SHORTNESS OF BREATH Last administered on 07/02/16 05:56; Start 07/01/16 at 18:15 Pantoprazole Sodium (Protonix) 40 mg DAILY PO Last administered on 07/01/16 20 :00; Start 07/01/16 at 20:00 A/P Assessment and Plan A/P Right tibial plateau fracture: Images reviewed: Knee x-ray revealed comminuted fracture deformity at the lateral tibial plateau with mild depression. Hip x-ray with intact right total hip arthroplasty without fracture or dislocation. Femur x-ray with left femur fracture. -Orthopedics consulted. -Pain control with IV Dilaudid -Activity and rehabilitation efforts per orthopedic -Hold home aspirin CKD stage III: Creatinine 1.67, previously 1.53 on 04/22/16. Monitor. Avoid nephrotoxins. IVF. Leukocytosis: Chronic upon review of previous labs. Afebrile. Recommended outpatient hematology follow-up. Hypertension: Chronic, stable. Continue home BP medications as indicated. Monitor and adjust medications as needed. COPD: Not in exacerbation. Scheduled nebs. O2 and nebs as needed. GERD: Continue PPI Mood disorder: Continue Zoloft and and vague. Hypothyroidism: Continue levothyroxine. DVT prophylaxis: Per orthopedics. Modesto Leung MD Jul 02, 2016 07:49
[2016-07-02 08:00] VITALS: BP 121/78; PULSE 90; RESP 18; O2SAT 94
[2016-07-02] MEDS ORDERED: HYDROmorphone HCL PF 1 MG/ML VIAL IV PUSH ONE (08:00)
[2016-07-02] MEDS: PANTOPRAZOLE SOD 40 MG DELAYED RELEASE TAB PO SCH (08:03)
[2016-07-02] MEDS: LISINOPRIL 20 MG TAB PO SCH (08:03)
[2016-07-02] MEDS: CARVEDILOL 12.5 MG TAB PO SCH (08:03)
[2016-07-02 08:24] VITALS: O2SAT 94
[2016-07-02] MEDS: PALIPERIDONE ER 6 MG TAB PO SCH (08:45)
[2016-07-02] MEDS: SERTRALINE HCL 100 MG TAB PO SCH (08:45)
[2016-07-02] MEDS: NIFEdipine 60 MG SUSTAINED RELEASE TAB PO SCH (08:45)
--- NOTE | 2016-07-02 11:54 | MB ---
cc: ILDA SPENCE DATE OF CONSULTATION: 07/02/2016 REASON FOR CONSULTATION Right tibial plateau fracture. CONSULTING PHYSICIAN Dr. Leung. HISTORY OF PRESENT ILLNESS Fay is a 55-year-old female who has a history of hypertension, mood disorder, COPD, hepatitis, reflux, hypothyroidism, chronic back pain. She was at home when she tripped on her cane and fell. She landed hard on her right leg. She had immediate right leg and knee pain. She was unable to stand or ambulate. She denies hitting her head. She had no loss of consciousness. She denies dizziness or syncope. She presented to the emergency room where x-rays revealed a displaced right tibial plateau fracture. She is currently awake and alert in the emergency department. Her only complaint is her right knee pain. She is also having some muscle spasms in her back. PAST MEDICAL HISTORY ILLNESSES 1. Hypertension. 2. Hypothyroidism. 3. COPD. 4. Hepatitis C. 5. Reflux. SURGERIES 1. Hysterectomy. 2. Appendectomy. 3. Right hip surgery. 4. Left hand surgery. 5. Lumbar spine surgery. MEDICATIONS Medications include: 1. Sertraline. 2. Nifedipine. 3. Carvedilol. 4. Potassium. 5. DuoNeb. 6. Lisinopril - hydrochlorothiazide. 7. Tizanidine. 8. Aspirin. 9. Levothyroxine. ALLERGIES DILANTIN. FAMILY HISTORY Positive for hypertension, diabetes and COPD. SOCIAL HISTORY The patient smokes. She denies alcohol use. She lives at home with a roommate. She uses a walker or a cane for ambulation. REVIEW OF SYSTEMS The patient denies headache, visual changes, neck pain, chest pain, shortness of breath, abdominal pain, nausea, vomiting or recent weight loss. She complains of some muscle spasms in her back as well as right knee pain. PHYSICAL EXAMINATION GENERAL: The patient is a well-developed, well-nourished 55-year-old female in no acute distress. She is awake and alert. She is alert and oriented x3. VITAL SIGNS: Temperature 99.0, pulse 97, respirations 24, blood pressure 131/84, O2 sat 94% on 2 liters nasal cannula. HEAD: The patient is normocephalic. Pupils are equal. NECK: Soft, nontender. Trachea is midline. ABDOMEN: Soft, nontender, nondistended. EXTREMITIES: Examination of bilateral upper extremities reveals no significant pain with shoulder, elbow or wrist motion. She has intact sensation in all fingers. She has good cap refill in all fingers. Radial pulses are palpable. Examination of the left leg reveals no pain with hip, knee or ankle motion. Skin is intact. Sensation is intact in the left foot. Dorsalis pedis pulse is palpable. Examination of right leg reveals no tenderness on her hip, ankle or foot. Calf and thigh compartments are soft. She has pain with knee motion. She has mild swelling around the knee. Skin is intact. She has pain with any motion. Sensation is intact to right foot. X-RAYS X-rays of right knee were reviewed. X-rays reveal a comminuted depressed right lateral tibial plateau fracture. She has intramedullary nail in the right tibia. IMPRESSION 1. COPD. 2. Hypertension. 3. Hypothyroidism. 4. Hepatitis C. 5. Displaced right lateral tibial plateau fracture. PLAN Treatment options were discussed with the patient. At this point I would recommend open reduction, internal fixation of right tibial plateau with allograft bone grafting. Risks of surgery include bleeding, infection, injuries to arteries, nerves and blood vessels, knee stiffness, knee arthritis, painful hardware, as well as medical complications including blood clot, stroke, heart attack and . All questions were answered. I will plan on surgery today. A mid-level provider in my office (nurse practitioner or physician urgent care physician assistant) may see this patient on follow-up visits and continue to implement the objectives of this plan including: Starting or adjusting medications, injections , cast application, orthotics, brace application, physical therapy, radiological studies (including x-ray, MRI, CT, ultrasound, bone scan), vascular studies, neurologic studies, specialist consultation, and proceeding with surgical management, as appropriate. MD KIRILL Sage/JULY /11:26 AM /11:38 AM SHAHLA
[2016-07-02] MEDS ORDERED: INSULIN HUMAN REGULAR 1,000 UNITS/10 ML VIAL SQ PRN (12:00)
[2016-07-02] MEDS ORDERED: SODIUM CHLORID 0.9% 500 ML IV SCH (12:00)
[2016-07-02] MEDS ORDERED: METOPROLOL TARTRATE 25 MG TAB PO PRN (12:00)
[2016-07-02] MEDS ORDERED: LACTATED RINGER'S 1000 ML IV SCH (12:00)
[2016-07-02 12:26] LABS: AUTOMATED NEUTROPHIL # 16.1 TH/MM3 (1.8-7.7); BASOPHIL # 0.1 TH/MM3 (0-0.2); BASOPHIL % 0.3 % (0.0-2.0); EOSINOPHIL # 0.3 TH/MM3 (0-0.4); EOSINOPHIL % 1.6 % (0.0-4.0); HEMATOCRIT 24.3 % (35.0-46.0); LYMPH % 5.1 % (9.0-44.0); MEAN CELL VOLUME 72.8 FL (80.0-100.0); MEAN CORPUSCULAR HEMOGLOBIN 23.1 PG (27.0-34.0); MEAN CORPUSCULAR HGB CONC 31.7 % (32.0-36.0); MONO % 7.7 % (0.0-8.0); NEUT % 85.3 % (16.0-70.0); PLATELET COUNT 243 TH/MM3 (150-450); RED BLOOD COUNT 3.33 MIL/MM3 (4.00-5.30); RED CELL DISTRIBUTION WIDTH 17.9 % (11.6-17.2); WHITE BLOOD COUNT 18.9 TH/MM3 (4.0-11.0)
[2016-07-02 12:30] LABS: HEMO FLAGS AUTO DIFF
[2016-07-02 12:36] LABS: BICARBONATE 26.3 MEQ/L (21.0-32.0); POTASSIUM 4.4 MEQ/L (3.5-5.1)
[2016-07-02 13:19] LABS: OVALOCYTES 1+ (NORMAL)
[2016-07-02 13:20] LABS: SCAN/DIFF AUTO DIFF CONFIRMED
[2016-07-02] MEDS ORDERED: GENTAMICIN SULFATE 80 MG/2 ML VIAL ONE (17:49)
[2016-07-02] MEDS ORDERED: BUPIVACAINE/EPINEPHRINE 0.25% PF 30 ML VIAL ONE (17:54)
[2016-07-02] MEDS ORDERED: VANCOMYCIN HCL 1000 MG VIAL ONE (18:34)
[2016-07-02] MEDS ORDERED: ACETAMINOPHEN 1000 MG/100 ML VIAL IV ONE (18:47)
[2016-07-02] MEDS ORDERED: HYDROmorphone HCL PF 2 MG/ML VIAL ONE (19:27)
--- NOTE | 2016-07-02 20:05 | PD.OP ---
cc: Nic Flores MD Operative Report Date of Surgery: Jul 02, 2016 Preoperative Diagnosis: Comminuted right tibial plateau fracture Postoperative Diagnosis: Procedure: Open reduction internal fixation right lateral tibial plateau Anesthesia: Gen. Surgeon: Nic Flores Income Tax Administrator(s): Eduar Richards PA-C The surgical procedure was assisted by my physician faculty i on call medical assistant. My P.A. presence was necessary throughout this case for the manipulation and positioning of the surgical extremity. My P.A. was assisting me throughout the duration of this procedure. The skill set of a physician faculty i on call medical assistant was medically necessary to complete this procedure. During the surgical case the surgical services coordinator was working at the back table and the physician faculty i on call medical assistant was directly assisting me. Operation and Findings: This patient was seen and evaluated preoperatively. Patient sustained an injury resulting a tibial plateau fracture. Informed consent was obtained preoperatively after detailed discussion of the risks and benefits of surgery. Risk of surgery including bleeding, infection, nonunion, painful hardware, stiffness, loss of motion, arthritis, need for knee replacement, as well as medical complications including blood clots, stroke, heart attack, and were discussed. I also discussed the possibility of using allograft bone graft . Preoperatively the operative site was marked. Patient was brought to the operating room and placed on the operating room table. Intravenous sedation and general endotracheal anesthesia were administered. IV antibiotics were given and a time out procedure was preformed. The operative leg was prepped with alcohol followed by Hibiclens and draped in the usual sterile fashion. Procedure began with a 4-inch curvilinear incision over the anterolateral knee. Subcutaneous tissue was treated with Bovie. Iliotibial band was split in line with fibers. A sub-meniscal arthrotomy was created and the lateral articular surface was visualized. There was significant comminution and depression of the articular surface. A window was made in the metaphyseal region and bone tamps used to elevate the articular surface. Articular surface reduced into excellent alignment. K-wires were used for provisional fixation. At this point cancellous bone graft was packed under the articular surface using a bone tamp. The cortical fragments were now reduced. Fluoroscopy revealed excellent alignment of fracture. A Synthes proximal tibial plate was selected. The plate was provisionally held with K-wires. 3.5 cortical screws were used compress plate to bone distally, and a periarticular clamp was used to compress the medial and lateral tibial plateau fracture fragments together. Multiple locking screws were now placed proximally. Additional screws were placed in the shaft. K-wires were removed. Final fluoroscopy showed excellent alignment of fracture with well- placed hardware. The incision was thoroughly irrigated. Arthrotomy and iliotibial band closed with #1 Vicryl,. Subcutaneous tissues closed with 3-0 Vicryl and skin was closed with felipe. Sterile dressings were applied. The patient was transferred to recovery in stable condition. Nic Flores MD Jul 02, 2016 20:05
--- NOTE | 2016-07-02 20:10 | RADRPT ---
EXAM DATE/TIME: 07/02/2016 19:48 [facility] COMPARISON: No previous studies available for comparison. INDICATIONS : ORIF right tibial plateau. MEDICAL HISTORY : None. SURGICAL HISTORY : ORIF right tibia IM rosemary. ENCOUNTER: Subsequent ACUITY: 2 days PAIN SCORE: Non-responsive. LOCATION: Right proximal tibia. FINDINGS: 3 views of the right knee have been obtained from the OR. There is a rosemary through the tibia. There is a surgical plate along the lateral proximal tibia secured by multiple screws. The knee joint appears normally aligned. There is a healed fracture deformity of the proximal fibula. CONCLUSION: Status post ORIF. Adam Greer MD on July 02, 2016 at 20:06 Board Certified Radiologist. This report was verified electronically.
[2016-07-02] MEDS ORDERED: MISCELLANEOUS PHARMACY INFORMATION XX ONE (20:15)
[2016-07-02] MEDS ORDERED: Post-op Orders (for Pharmacy) MISC XX ONE (20:15)
[2016-07-02] MEDS ORDERED: ACETAMINOPHEN/HYDROcodone 325 MG/10 MG TAB PO PRN ×2 (20:15)
[2016-07-02] MEDS ORDERED: MORPHINE SULFATE 4 MG/ML INJ IV PUSH PRN (20:15)
[2016-07-02] MEDS ORDERED: SODIUM CHLORIDE 0.9% FLUSH 5 ML FLUSH IVF PRN (20:15)
[2016-07-02] MEDS ORDERED: NALOXONE HCL 0.4 MG/ML AMP IV PRN (20:15)
[2016-07-02] MEDS ORDERED: MISCELLANEOUS NURSING INFORMATION XX PRN (20:15)
[2016-07-02] MEDS ORDERED: DO NOT ADM ANY ANTICOAGULANT DRUGS XX PRN (20:34)
[2016-07-02] MEDS ORDERED: fentaNYL CITRATE 250 MCG/5 ML AMP ONE (20:37)
[2016-07-02] MEDS ORDERED: MIDAZOLAM HCL 2 MG/2 ML VIAL ONE (20:37)
[2016-07-02] MEDS ORDERED: ERGOCALCIFEROL (VIT D2) 50,000 UNIT CAP PO SCH (21:00)
[2016-07-02] MEDS: KETOROLAC TROMETHAMINE 30 MG/ML (IVP) VIAL IVP SCH (22:00)
[2016-07-02] MEDS: PCA - TOTAL MG MORPHINE DELIVERED PER SHIFT SCH (22:00)
[2016-07-03] MEDS: ceFAZolin 2 GM PREMIX 50 ML IV SCH ×3 (02:00→18:05)
[2016-07-03 04:02] LABS: HEMATOCRIT 21.6 % (35.0-46.0)
[2016-07-03 04:10] LABS: REVIEW FLAG FINAL
[2016-07-03] MEDS: MORPHINE SULFATE 30 MG/30 ML PCA IV SCH ×2 (04:57→09:43)
[2016-07-03] MEDS: VANCOMYCIN INJ 1,000 MG in SODIUM CHLOR 0.9% 250 ML INJ 250 ML IV SCH ×2 (06:00→18:05)
[2016-07-03] MEDS: PCA - TOTAL MG MORPHINE DELIVERED PER SHIFT SCH ×3 (06:00→22:00)
[2016-07-03] MEDS: KETOROLAC TROMETHAMINE 30 MG/ML (IVP) VIAL IVP SCH ×2 (06:00→13:25)
[2016-07-03] MEDS: LEVOTHYROXINE SODIUM 25 MCG TAB PO SCH (06:00)
--- NOTE | 2016-07-03 07:40 | PD.ORT.PN ---
Subjective Subjective Remarks Fall with significant pain to right knee. X-rays diagnosed tibia plateau fracture Objective Vitals Vital Signs Date Time Temp Pulse Resp B/P Pulse Ox O2 Delivery O2 Flow Rate FiO2 07/03/16 04:57 14 07/02/16 22:00 85 14 135/78 95 Nasal Cannula 4 07/02/16 21:30 98.8 85 16 142/82 95 Nasal Cannula 4 07/02/16 21:15 85 15 127/83 95 Nasal Cannula 4 07/02/16 21:00 86 16 139/86 92 Simple Mask 10 07/02/16 20:45 92 15 130/83 95 Simple Mask 10 07/02/16 20:30 98.7 86 14 128/65 95 Simple Mask 10 07/02/16 08:24 94 Nasal Cannula 5.00 07/02/16 08:00 90 18 121/78 94 Nasal Cannula 3 I/O 07/02/16 07/02/16 07/02/16 07/03/16 07/03/16 07/03/16 07:00 15:00 23:00 07:00 15:00 23:00 Intake Total 1000 ml Output Total 700 ml 1000 ml Balance -700 ml 0 ml Intake Other 1000 ml Output Urine Total 700 ml 950 ml Estimated Blood Loss 50 ml # Voids 0 Result Diagram: 07/03/16 0343 07/02/16 1212 Imaging Last 72 hours Impressions Knee X-Ray 07/02/16 0000 Signed Impressions: Service Date/Time: Saturday, July 02, 2016 19:48 - CONCLUSION: Status post ORIF. Adam Greer MD Hip X-Ray 07/01/16 1533 Signed Impressions: Service Date/Time: Friday, July 01, 2016 15:50 - CONCLUSION: 1. Intact right total hip arthroplasty without fracture or dislocation. 2. Ossific fragment cephalad to the greater trochanter was present previously and is characteristic of a chronic avulsion injury. Sotero Prabhakar MD Femur X-Ray 07/01/16 1533 Signed Impressions: Service Date/Time: Friday, July 01, 2016 15:50 - CONCLUSION: 1. No evidence of femur fracture. 2. The known fracture of the lateral tibial plateau is again visualized. Anna Rosales MD Lower Extremity CT 07/01/16 0000 Signed Impressions: Service Date/Time: Friday, July 01, 2016 17:26 - CONCLUSION: Comminuted proximal tibial fracture with some depression of the central aspect of the lateral tibial plateau in the order of 10 to 11 mm. Adam Greer MD Knee X-Ray 07/01/16 0000 Signed Impressions: Service Date/Time: Friday, July 01, 2016 15:50 - CONCLUSION: 1. Comminuted fracture deformity of the lateral tibial plateau with mild depression. 2. Osteopenia and postsurgical change. Anna Rosales MD Objective Remarks Bilateral upper extremities: Full range of motion neurovascular intact Left lower extremity: Full range of motion neurovascular intact Right lower extremity: Clean dry dressings intact. Knee immobilizer in place. Distally intact sensation with strong dorsal flexion plantar flexion of foot Assessment & Plan Assessment and Plan Right severely comminuted tibial plateau fracture status post open reduction internal fixation POD 1 Nonweightbearing right lower extremity No active leglifts or quad sets Lovenox Transfuse 2 units of packed red blood cells due to low H&H with hemoglobin of 6.8 Repeat H&H tomorrow morning Rehabilitation versus home discharge ANNA VAZQUEZ PA-C Jul 03, 2016 07:40
[2016-07-03] MEDS ORDERED: ENOXAPARIN SODIUM 30 MG/0.3 ML SYRINGE SQ SCH (08:00)
[2016-07-03 08:13] VITALS: O2SAT 98
[2016-07-03] MEDS: RESP: ALBUTEROL 2.5 MG/IPRATROPIUM 0.5 MG NEB (PRN) NEB ×2 (08:13→11:18)
[2016-07-03 08:20] VITALS: TEMP 97.9
[2016-07-03] MEDS: LACTATED RINGER'S 1000 ML INJ 1,000 ML IV SCH ×2 (08:32→09:31)
[2016-07-03] MEDS: CALCIUM/VITAMIN D 250 MG/125 U TAB PO SCH ×3 (09:00→18:06)
[2016-07-03] MEDS: SERTRALINE HCL 100 MG TAB PO SCH (09:00)
[2016-07-03] MEDS: DOCUSATE SODIUM 50 MG/SENNA 8.6 MG TAB PO SCH ×2 (09:00→21:00)
[2016-07-03] MEDS: NIFEdipine 60 MG SUSTAINED RELEASE TAB PO SCH (09:00)
[2016-07-03] MEDS: CHOLECALCIFEROL (VIT D3) 1000 UNIT TAB PO SCH (09:00)
[2016-07-03] MEDS: PANTOPRAZOLE SOD 40 MG DELAYED RELEASE TAB PO SCH (09:00)
[2016-07-03] MEDS: PALIPERIDONE ER 6 MG TAB PO SCH (09:36)
[2016-07-03] MEDS: LISINOPRIL 20 MG TAB PO SCH (09:36)
[2016-07-03] MEDS: SODIUM CHLORIDE 0.9% FLUSH 5 ML FLUSH IVF SCH ×2 (09:44→21:00)
[2016-07-03] MEDS: CARVEDILOL 12.5 MG TAB PO SCH ×2 (09:45→21:00)
[2016-07-03] MEDS: SODIUM CHLOR 0.9% 1000 ML INJ 1,000 ML IV SCH ×3 (09:45→19:45)
[2016-07-03 12:45] VITALS: BP 130/60; PULSE 83; RESP 18; TEMP 97; O2SAT 96
--- NOTE | 2016-07-03 13:32 | HHI.PR ---
Subjective Remarks with mild wheezing but in no acute distress. pain is fairly controlled. received PRBC transfusion. d/w the RN. Objective Vitals Vital Signs Date Time Temp Pulse Resp B/P Pulse Ox O2 Delivery O2 Flow Rate FiO2 07/03/16 12:45 97.0 83 18 130/60 96 07/03/16 11:15 98.2 79 15 110/65 95 Nasal Cannula 2 07/03/16 09:43 15 07/03/16 08:30 97.9 78 14 96/71 95 Nasal Cannula 2 07/03/16 08:20 97.9 07/03/16 08:13 98 Nasal Cannula 4.00 07/03/16 07:00 79 13 109/46 94 Nasal Cannula 2 07/03/16 06:00 98.0 80 15 116/80 96 Nasal Cannula 2 07/03/16 05:00 78 16 109/57 97 Nasal Cannula 2 07/03/16 04:57 14 07/03/16 04:00 98.1 78 15 97/52 93 Nasal Cannula 2 07/03/16 03:00 78 15 100/57 93 Nasal Cannula 2 07/03/16 02:00 79 16 119/65 97 Nasal Cannula 2 07/03/16 01:00 85 16 119/65 97 Nasal Cannula 4 07/03/16 00:00 98.1 79 13 126/65 95 Nasal Cannula 4 07/02/16 23:00 84 15 136/67 94 Nasal Cannula 4 07/02/16 22:00 85 14 135/78 95 Nasal Cannula 4 07/02/16 21:30 98.8 85 16 142/82 95 Nasal Cannula 4 07/02/16 21:15 85 15 127/83 95 Nasal Cannula 4 07/02/16 21:00 86 16 139/86 92 Simple Mask 10 07/02/16 20:45 92 15 130/83 95 Simple Mask 10 07/02/16 20:30 98.7 86 14 128/65 95 Simple Mask 10 I/O 07/02/16 07/02/16 07/02/16 07/03/16 07/03/16 07/03/16 07:00 15:00 23:00 07:00 15:00 23:00 Intake Total 1550 ml 453 ml 945 ml Output Total 700 ml 1300 ml 350 ml 150 ml Balance -700 ml 250 ml 103 ml 795 ml Intake Oral 200 ml 150 ml 100 ml IV Total 350 ml 303 ml 345 ml Packed Cells 500 ml Other 1000 ml Output Urine Total 700 ml 1250 ml 350 ml 150 ml Estimated Blood Loss 50 ml # Voids 0 Result Diagram: 07/03/16 0343 07/02/16 1212 Imaging Last Impressions Knee X-Ray 07/02/16 0000 Signed Impressions: Service Date/Time: Saturday, July 02, 2016 19:48 - CONCLUSION: Status post ORIF. Adma Greer MD Hip X-Ray 07/01/16 1533 Signed Impressions: Service Date/Time: Friday, July 01, 2016 15:50 - CONCLUSION: 1. Intact right total hip arthroplasty without fracture or dislocation. 2. Ossific fragment cephalad to the greater trochanter was present previously and is characteristic of a chronic avulsion injury. Sotero Prabhakar MD Femur X-Ray 07/01/16 1533 Signed Impressions: Service Date/Time: Friday, July 01, 2016 15:50 - CONCLUSION: 1. No evidence of femur fracture. 2. The known fracture of the lateral tibial plateau is again visualized. Julio Rosales MD Lower Extremity CT 07/01/16 0000 Signed Impressions: Service Date/Time: Friday, July 01, 2016 17:26 - CONCLUSION: Comminuted proximal tibial fracture with some depression of the central aspect of the lateral tibial plateau in the order of 10 to 11 mm. Adam Greer MD Objective Remarks GENERAL: This is a well-nourished, well-developed patient, in no apparent distress. CARDIOVASCULAR: Regular rate and regular rhythm without murmurs, gallops, or rubs. RESPIRATORY: Clear to auscultation. Breath sounds equal bilaterally. No wheezes , rales, or rhonchi. GASTROINTESTINAL: Abdomen soft, non-tender, nondistended. Normal, active bowel sounds MUSCULOSKELETAL: right knee in immobilizer NEURO: Alert & Oriented x4 to person, place, time, situation. Moves all ext x4 Procedures ORIF right tibia fracture Medications and IVs Current Medications Morphine Sulfate (Morphine Inj) 4 mg ONCE ONCE IM Last administered on t 16:37; Start 07/01/16 at 15:45; Stop 07/01/16 at 15:46; Status DC Acetaminophen 650 mg 650 mg Q4H PRN PO FEVER; Start 07/01/16 at 17:45 Sodium Chloride (NS 1000 ml Inj) 1,000 ml @ 100 mls/hr Q10H IV Last administered on 07/02/16 03:45; Start 07/01/16 at 17:45 Hydromorphone HCl (Dilaudid Pf Inj) 0.5 mg Q4H PRN IV PUSH PAIN < 5 Last administered on 07/02/16 02:04; Start 07/01/16 at 18:15 Hydromorphone HCl (Dilaudid Pf Inj) 1 mg Q4H PRN IV PUSH PAIN > 5 Last administered on 07/02/16 12:35; Start 07/01/16 at 18:15 Ondansetron HCl (Zofran Inj) 4 mg Q8HR PRN IV PUSH NAUSEA Last administered on 07/02/16 00:09; Start 07/01/16 at 18:15 Carvedilol (Coreg) 12.5 mg BID PO Last administered on 07/03/16 09:45; Start 07/01/16 at 21:00 Albuterol/ Ipratropium (Duoneb Neb) 1 ampule Q6HR NEB PRN NEB SHORTNESS OF BREATH Last administered on 07/03/16 11:18; Start 07/01/16 at 19:15 Levothyroxine Sodium (Synthroid) 25 mcg DAILY@06 PO Last administered on 06:00; Start 07/02/16 at 06:00 Lisinopril (Prinivil) 20 mg DAILY PO Last administered on 07/03/16 09:36; Start 07/02/16 at 09:00 Nifedipine (Procardia Xl) 60 mg DAILY PO Last administered on 07/03/16 09:00; Start 07/02/16 at 09:00 Paliperidone Palmitate (Invega Er) 6 mg DAILY PO Last administered on 09:36; Start 07/02/16 at 09:00 Sertraline HCl (Zoloft) 100 mg DAILY PO Last administered on 07/03/16 09:00; Start 07/02/16 at 09:00 Albuterol Sulfate (Albuterol Neb) 1.25 mg Q4HR NEB PRN NEB SHORTNESS OF BREATH Last administered on 07/02/16 20:32; Start 07/01/16 at 18:15 Pantoprazole Sodium (Protonix) 40 mg DAILY PO Last administered on 07/03/16 09 :00; Start 07/01/16 at 20:00 Hydromorphone HCl 0.5 mg 0.5 mg ONCE ONCE IV PUSH Last administered on 08:03; Start 07/02/16 at 08:00; Stop 07/02/16 at 08:01; Status DC Lactated Ringer's 1,000 ml @ 30 mls/hr Q24H IV ; Start 07/02/16 at 12:00; Stop 07/02/16 at 21:13; Status DC Sodium Chloride (NS 500 ml Inj) 500 ml @ 30 mls/hr [id number] IV ; Start 07/02/16 at 12:00; Stop 07/02/16 at 21:13; Status DC Insulin Human Regular (NovoLIN R INJ) See Protocol Table ... UNSCH X1 PRN SQ SEE PROTOCOL; Start 07/02/16 at 12:00; Stop 07/03/16 at 11:59; Status DC Metoprolol Tartrate (Lopressor) 25 mg UNSCH X1 PRN PO SEE LABEL COMMENTS; Start 07/02/16 at 12:00; Stop 07/03/16 at 11:59; Status DC Gentamicin Sulfate (Gentamicin Inj) 240 mg STK-MED ONCE .ROUTE Last administered on 07/02/16 19:13; Start 07/02/16 at 17:49; Stop 07/02/16 at 17:50 ; Status DC Bupivacaine HCl/ Epinephrine Bitart (Marcaine-Epi Pf 0.25% Inj) 30 ml STK-MED ONCE .ROUTE ; Start 07/02/16 at 17:54; Stop 07/02/16 at 17:55; Status DC Vancomycin HCl (Vancomycin Inj) 1,000 mg STK-MED ONCE .ROUTE ; Start 07/02/16 at 18:34; Stop 07/02/16 at 18:35; Status DC Acetaminophen (Ofirmev Inj) 1,000 mg STK-MED ONCE IV ; Start 07/02/16 at 18:47; Stop 07/02/16 at 18:48; Status DC Hydromorphone HCl 2 mg 2 mg STK-MED ONCE .ROUTE ; Start 07/02/16 at 19:27; Stop 07/02/16 at 19:28; Status DC Lactated Ringer's (Lr 1000 ml Inj) 1,000 ml @ 80 mls/hr [id number] IV Last administered on 07/03/16 09:31; Start 07/02/16 at 20:02 IV Flush (NS Flush) 2 ml UNSCH PRN IVF FLUSH AFTER USING IV ACCESS; Start 07/02 at 20:15 IV Flush (NS Flush) 2 ml BID IVF Last administered on 07/03/16 09:44; Start at 21:00 Miscellaneous Information (Post-op Orders (for Pharmacy)) STAT ONCE XX ; Start 07/02/16 at 20:15; Stop 07/02/16 at 20:22; Status DC Enoxaparin Sodium (Lovenox Inj) 30 mg Q24H SQ ; Start 07/03/16 at 08:00; Stop at 08:53; Status DC Senna/Docusate Sodium 1 tab 1 tab BID PO Last administered on 07/03/16 09:00; Start 07/02/16 at 21:00 Cefazolin Sodium/ Dextrose 50 ml @ 100 mls/hr Q8H IV Last administered on 07/03 11:26; Start 07/03/16 at 02:00; Stop 07/04/16 at 18:29 Vancomycin HCl/ Sodium Chloride (Vancomycin Inj/ NS 250 ml Inj) 250 ml @ 250 mls/hr Q12H IV Last administered on 07/03/16 06:00; Start 07/03/16 at 06:00; Stop 07/04/16 at 06:59 Miscellaneous Information UNSCH PRN XX SEE LABEL COMMENTS; Start 07/02/16 at 20:15 Miscellaneous Medication ([facility] Information) ONCE ONCE XX ; Start at 20:15; Stop 07/02/16 at 20:21; Status DC Acetaminophen/ Hydrocodone Bitart ([place] 10-325 Mg) 1 tab Q3H PRN PO PAIN LESS THAN 5 ON SCALE; Start 07/02/16 at 20:15 Acetaminophen/ Hydrocodone Bitart ([place] 10-325 Mg) 2 tab Q6H PRN PO PAIN GREATER THAN/EQUAL TO 5; Start 07/02/16 at 20:15 Ketorolac Tromethamine (Toradol Inj) 30 mg Q8HR IVP Last administered on 13:25; Start 07/02/16 at 22:00; Stop 07/03/16 at 22:01 Calcium/Vitamin D (Oscal-D 250-125) 250 mg TID PO Last administered on 13:25; Start 07/03/16 at 09:00 Naloxone HCl (Narcan Inj) 0.4 mg UNSCH PRN IV RESPIRATORY RATE LESS THAN 10; Start 07/02/16 at 20:15 Morphine Sulfate (Morphine 1 Mg/ ml [employer]) 30 mg UNSCH IV Last administered on 09:43; Start 07/02/16 at 20:15; Stop 07/04/16 at 20:14 [employer] Dosage Infused (Pha) 1 Q8HR .XX ; Start 07/02/16 at 22:00; Stop 07/04/16 at 21:59 Morphine Sulfate (Morphine Inj) 4 mg Q3H PRN IV PUSH break thru pain; Start at 20:15 Cholecalciferol (Vitamin D3) 1,000 units DAILY PO Last administered on 09:00; Start 07/03/16 at 09:00 Ergocalciferol (Drisdol) 50,000 units Q7D PO Last administered on 07/02/16 21: 00; Start 07/02/16 at 21:00 Midazolam HCl (Versed Inj) 2 mg STK-MED ONCE .ROUTE ; Start 07/02/16 at 20:37; Stop 07/02/16 at 20:38; Status DC Fentanyl Citrate (fentaNYL INJ) 250 mcg STK-MED ONCE .ROUTE ; Start 07/02/16 at 20:37; Stop 07/02/16 at 20:38; Status DC Miscellaneous Information ALL NURSING DEPARTME... UNSCH PRN XX SEE LABEL COMMENTS; Start 07/02/16 at 20:34; Stop 07/03/16 at 20:33 Enoxaparin Sodium (Lovenox Inj) 30 mg Q24H SQ ; Start 07/03/16 at 19:00 A/P Assessment and Plan A/P Right tibial plateau fracture: Knee x-ray revealed comminuted fracture deformity at the lateral tibial plateau with mild depression. Hip x-ray with intact right total hip arthroplasty without fracture or dislocation. Femur x-ray with left femur fracture. -s/p ORIF -continue with pain control -continue PT -ortho following. -anemia; post-op; transfused with PRBC today- will check CBC in am. CKD stage III: stable- will monitor. Leukocytosis: Chronic upon review of previous labs. Afebrile. Recommended outpatient hematology follow-up. Hypertension: Chronic, stable. Continue home BP medications as indicated. Monitor and adjust medications as needed. COPD: Scheduled nebs. O2 and nebs as needed. GERD: Continue PPI Mood disorder: Continue Zoloft and and vague. Hypothyroidism: Continue levothyroxine. DVT prophylaxis: on lovenox- Per orthopedics. Modesto Leung MD Jul 03, 2016 13:32
[2016-07-03 16:00] VITALS: BP 95/54; PULSE 88; RESP 18; TEMP 96.9; O2SAT 92
[2016-07-03] MEDS: ENOXAPARIN SODIUM 30 MG/0.3 ML SYRINGE SQ SCH (18:13)
[2016-07-03 20:00] VITALS: BP 110/57; PULSE 94; RESP 22; TEMP 98.2; O2SAT 90
[2016-07-03] MEDS ORDERED: HYDR-3366 PO (21:58)
[2016-07-03] MEDS ORDERED: XARE10TA PO (21:58)
[2016-07-03] MEDS ORDERED: WALKER/ADULT/FO1 MIS (22:01)
[2016-07-03] MEDS ORDERED: MISC-163 (22:01)
[2016-07-04] VITALS: BP 119/74; PULSE 93; RESP 20; TEMP 97.5; O2SAT 90
[2016-07-04] MEDS: KETOROLAC TROMETHAMINE 30 MG/ML (IVP) VIAL IVP SCH (00:11)
[2016-07-04] MEDS: LACTATED RINGER'S 1000 ML INJ 1,000 ML IV SCH ×2 (00:12→10:18)
[2016-07-04] MEDS: MORPHINE SULFATE 30 MG/30 ML PCA IV SCH (00:25)
[2016-07-04] MEDS: ceFAZolin 2 GM PREMIX 50 ML IV SCH ×3 (01:27→17:03)
[2016-07-04 04:00] VITALS: BP 121/72; PULSE 85; RESP 20; TEMP 95.6; O2SAT 95
[2016-07-04] MEDS: SODIUM CHLOR 0.9% 1000 ML INJ 1,000 ML IV SCH ×2 (05:45→15:45)
--- NOTE | 2016-07-04 06:38 | PD.ORT.PN ---
Subjective Subjective Remarks Pain controlled no new complaints Objective Vitals Vital Signs Date Time Temp Pulse Resp B/P Pulse Ox O2 Delivery O2 Flow Rate FiO2 07/04/16 00:25 18 07/04/16 00:00 97.5 93 20 119/74 90 07/03/16 22:00 18 07/03/16 20:00 98.2 94 22 110/57 90 07/03/16 16:00 96.9 88 18 95/54 92 07/03/16 13:27 16 07/03/16 12:45 97.0 83 18 130/60 96 07/03/16 11:15 98.2 79 15 110/65 95 Nasal Cannula 2 07/03/16 09:43 15 07/03/16 09:30 07/03/16 08:30 97.9 78 14 96/71 95 Nasal Cannula 2 07/03/16 08:20 97.9 07/03/16 08:13 98 Nasal Cannula 4.00 07/03/16 07:00 79 13 109/46 94 Nasal Cannula 2 I/O 07/03/16 07/03/16 07/03/16 07/04/16 07/04/16 07/04/16 07:00 15:00 23:00 07:00 15:00 23:00 Intake Total 453 ml 1185 ml 780 ml Output Total 350 ml 150 ml 700 ml Balance 103 ml 1035 ml 80 ml Intake Oral 150 ml 340 ml 780 ml IV Total 303 ml 345 ml Packed Cells 500 ml Output Urine Total 350 ml 150 ml 700 ml # Bowel Movements 1 Result Diagram: 07/03/16 0343 07/02/16 1212 Imaging Last 72 hours Impressions Knee X-Ray 07/02/16 0000 Signed Impressions: Service Date/Time: Saturday, July 02, 2016 19:48 - CONCLUSION: Status post ORIF. Adam Greer MD Hip X-Ray 07/01/16 1533 Signed Impressions: Service Date/Time: Friday, July 01, 2016 15:50 - CONCLUSION: 1. Intact right total hip arthroplasty without fracture or dislocation. 2. Ossific fragment cephalad to the greater trochanter was present previously and is characteristic of a chronic avulsion injury. Sotero Prabhakar MD Femur X-Ray 07/01/16 1533 Signed Impressions: Service Date/Time: Friday, July 01, 2016 15:50 - CONCLUSION: 1. No evidence of femur fracture. 2. The known fracture of the lateral tibial plateau is again visualized. Julio Rosales MD Lower Extremity CT 07/01/16 0000 Signed Impressions: Service Date/Time: Friday, July 01, 2016 17:26 - CONCLUSION: Comminuted proximal tibial fracture with some depression of the central aspect of the lateral tibial plateau in the order of 10 to 11 mm. Adam Greer MD Knee X-Ray 07/01/16 0000 Signed Impressions: Service Date/Time: Friday, July 01, 2016 15:50 - CONCLUSION: 1. Comminuted fracture deformity of the lateral tibial plateau with mild depression. 2. Osteopenia and postsurgical change. Julio Rosales MD Objective Remarks Bilateral upper extremities: Full range of motion neurovascular intact Left lower extremity: Full range of motion neurovascular intact Right lower extremity: Clean dry dressings intact. Knee immobilizer in place. Distally intact sensation with strong dorsal flexion plantar flexion of foot Assessment & Plan Assessment and Plan Right severely comminuted tibial plateau fracture status post open reduction internal fixation POD 2 Nonweightbearing right lower extremity No active leglifts or quad sets Lovenox Plan for discharge to rehabilitation Thursday or when bed available Follow-up with Dr. Flores or JOSE in 2 weeks JULIO VAZQUEZ PA-C Jul 04, 2016 06:38
[2016-07-04] MEDS: VANCOMYCIN INJ 1,000 MG in SODIUM CHLOR 0.9% 250 ML INJ 250 ML IV SCH (06:48)
[2016-07-04 07:04] LABS: AUTOMATED NEUTROPHIL # 14.3 TH/MM3 (1.8-7.7); BASOPHIL # 0.1 TH/MM3 (0-0.2); BASOPHIL % 0.5 % (0.0-2.0); EOSINOPHIL # 0.4 TH/MM3 (0-0.4); EOSINOPHIL % 2.1 % (0.0-4.0); HEMATOCRIT 29.2 % (35.0-46.0); LYMPH % 6.8 % (9.0-44.0); LYMPHOCYTE # 1.2 TH/MM3 (1.0-4.8); MEAN CELL VOLUME 75.5 FL (80.0-100.0); MEAN CORPUSCULAR HEMOGLOBIN 24.5 PG (27.0-34.0); MEAN CORPUSCULAR HGB CONC 32.5 % (32.0-36.0); MONO % 9.3 % (0.0-8.0); NEUT % 81.3 % (16.0-70.0); PLATELET COUNT 184 TH/MM3 (150-450); RED BLOOD COUNT 3.86 MIL/MM3 (4.00-5.30); RED CELL DISTRIBUTION WIDTH 18.5 % (11.6-17.2); WHITE BLOOD COUNT 17.6 TH/MM3 (4.0-11.0)
[2016-07-04 07:10] LABS: HEMO FLAGS AUTO DIFF
[2016-07-04 07:57] LABS: BANDS 5 % (0-6); EOSINOPHILS 2 % (0-4); NEUTROPHIL # MANUAL DIFF 15.3 TH/MM3 (1.8-7.7); POLYS (SEG NEUTROPHILS) 82 % (16-70); WBC DIFF SAMPLE 100
[2016-07-04 07:58] LABS: PLATELET ESTIMATE SMEAR NORMAL (NORMAL); PLATELET MORPHOLOGY NORMAL (NORMAL); SCAN/DIFF FINAL DIFF MANUAL
[2016-07-04 08:00] VITALS: BP 158/82; PULSE 96; RESP 20; TEMP 97.6; O2SAT 93
[2016-07-04 09:03] VITALS: O2SAT 88
[2016-07-04] MEDS: PCA - TOTAL MG MORPHINE DELIVERED PER SHIFT SCH ×2 (09:18→13:31)
[2016-07-04] MEDS: PANTOPRAZOLE SOD 40 MG DELAYED RELEASE TAB PO SCH (09:19)
[2016-07-04] MEDS: PALIPERIDONE ER 6 MG TAB PO SCH (09:19)
[2016-07-04] MEDS: SODIUM CHLORIDE 0.9% FLUSH 5 ML FLUSH IVF SCH (09:19)
[2016-07-04] MEDS: CARVEDILOL 12.5 MG TAB PO SCH (09:20)
[2016-07-04] MEDS: DOCUSATE SODIUM 50 MG/SENNA 8.6 MG TAB PO SCH (09:20)
[2016-07-04] MEDS: SERTRALINE HCL 100 MG TAB PO SCH (09:20)
[2016-07-04] MEDS: CHOLECALCIFEROL (VIT D3) 1000 UNIT TAB PO SCH (09:20)
[2016-07-04] MEDS: NIFEdipine 60 MG SUSTAINED RELEASE TAB PO SCH (09:21)
[2016-07-04] MEDS: LISINOPRIL 20 MG TAB PO SCH (09:21)
[2016-07-04] MEDS: CALCIUM/VITAMIN D 250 MG/125 U TAB PO SCH ×3 (09:21→17:03)
[2016-07-04 12:00] VITALS: BP 121/80; PULSE 88; RESP 20; TEMP 96.1; O2SAT 94
--- NOTE | 2016-07-04 12:33 | HHI.PR ---
Subjective Remarks in no acute distress. pain is fairly controlled. no fever. Objective Vitals Vital Signs Date Time Temp Pulse Resp B/P Pulse Ox O2 Delivery O2 Flow Rate FiO2 07/04/16 09:18 18 07/04/16 09:03 88 Nasal Cannula 4.00 07/04/16 08:00 97.6 96 20 158/82 93 07/04/16 04:00 95.6 85 20 121/72 95 07/04/16 00:25 18 07/04/16 00:00 97.5 93 20 119/74 90 07/03/16 22:00 18 07/03/16 20:00 98.2 94 22 110/57 90 07/03/16 16:00 96.9 88 18 95/54 92 07/03/16 13:27 16 07/03/16 12:45 97.0 83 18 130/60 96 I/O 07/03/16 07/03/16 07/03/16 07/04/16 07/04/16 07/04/16 07:00 15:00 23:00 07:00 15:00 23:00 Intake Total 453 ml 1185 ml 780 ml 240 ml Output Total 350 ml 150 ml 700 ml 315 ml Balance 103 ml 1035 ml 80 ml -75 ml Intake Oral 150 ml 340 ml 780 ml 240 ml IV Total 303 ml 345 ml Packed Cells 500 ml Output Urine Total 350 ml 150 ml 700 ml 315 ml # Bowel Movements 1 0 Result Diagram: 07/04/16 0609 07/02/16 1212 Imaging Last Impressions Knee X-Ray 07/02/16 0000 Signed Impressions: Service Date/Time: Saturday, July 02, 2016 19:48 - CONCLUSION: Status post ORIF. Adam Greer MD Hip X-Ray 07/01/16 1533 Signed Impressions: Service Date/Time: Friday, July 01, 2016 15:50 - CONCLUSION: 1. Intact right total hip arthroplasty without fracture or dislocation. 2. Ossific fragment cephalad to the greater trochanter was present previously and is characteristic of a chronic avulsion injury. Sotero Prabhakar MD Femur X-Ray 07/01/16 1533 Signed Impressions: Service Date/Time: Friday, July 01, 2016 15:50 - CONCLUSION: 1. No evidence of femur fracture. 2. The known fracture of the lateral tibial plateau is again visualized. Julio Rosales MD Lower Extremity CT 07/01/16 0000 Signed Impressions: Service Date/Time: Friday, July 01, 2016 17:26 - CONCLUSION: Comminuted proximal tibial fracture with some depression of the central aspect of the lateral tibial plateau in the order of 10 to 11 mm. Adam Greer MD Objective Remarks GENERAL: This is a well-nourished, well-developed patient, in no apparent distress. CARDIOVASCULAR: Regular rate and regular rhythm without murmurs, gallops, or rubs. RESPIRATORY: Clear to auscultation. Breath sounds equal bilaterally. No wheezes , rales, or rhonchi. GASTROINTESTINAL: Abdomen soft, non-tender, nondistended. Normal, active bowel sounds MUSCULOSKELETAL: right knee in immobilizer NEURO: Alert & Oriented x4 to person, place, time, situation. Moves all ext x4 Procedures ORIF right tibia fracture Medications and IVs Current Medications Morphine Sulfate (Morphine Inj) 4 mg ONCE ONCE IM Last administered on 16:37; Start 07/01/16 at 15:45; Stop 07/01/16 at 15:46; Status DC Acetaminophen 650 mg 650 mg Q4H PRN PO FEVER; Start 07/01/16 at 17:45 Sodium Chloride (NS 1000 ml Inj) 1,000 ml @ 100 mls/hr Q10H IV Last administered on 07/02/16 03:45; Start 07/01/16 at 17:45 Hydromorphone HCl (Dilaudid Pf Inj) 0.5 mg Q4H PRN IV PUSH PAIN < 5 Last administered on 07/02/16 02:04; Start 07/01/16 at 18:15 Hydromorphone HCl (Dilaudid Pf Inj) 1 mg Q4H PRN IV PUSH PAIN > 5 Last administered on 07/02/16 12:35; Start 07/01/16 at 18:15 Ondansetron HCl (Zofran Inj) 4 mg Q8HR PRN IV PUSH NAUSEA Last administered on 07/02/16 00:09; Start 07/01/16 at 18:15 Carvedilol (Coreg) 12.5 mg BID PO Last administered on 07/04/16 09:20; Start 07/01/16 at 21:00 Albuterol/ Ipratropium (Duoneb Neb) 1 ampule Q6HR NEB PRN NEB SHORTNESS OF BREATH Last administered on 07/03/16 11:18; Start 07/01/16 at 19:15 Levothyroxine Sodium (Synthroid) 25 mcg DAILY@06 PO Last administered on 06:00; Start 07/02/16 at 06:00 Lisinopril (Prinivil) 20 mg DAILY PO Last administered on 07/04/16 09:21; Start 07/02/16 at 09:00 Nifedipine (Procardia Xl) 60 mg DAILY PO Last administered on 07/04/16 09:21; Start 07/02/16 at 09:00 Paliperidone Palmitate (Invega Er) 6 mg DAILY PO Last administered on 09:19; Start 07/02/16 at 09:00 Sertraline HCl (Zoloft) 100 mg DAILY PO Last administered on 07/04/16 09:20; Start 07/02/16 at 09:00 Albuterol Sulfate (Albuterol Neb) 1.25 mg Q4HR NEB PRN NEB SHORTNESS OF BREATH Last administered on 07/02/16 20:32; Start 07/01/16 at 18:15 Pantoprazole Sodium (Protonix) 40 mg DAILY PO Last administered on 07/04/16 09 :19; Start 07/01/16 at 20:00 Hydromorphone HCl 0.5 mg 0.5 mg ONCE ONCE IV PUSH Last administered on 08:03; Start 07/02/16 at 08:00; Stop 07/02/16 at 08:01; Status DC Lactated Ringer's 1,000 ml @ 30 mls/hr Q24H IV ; Start 07/02/16 at 12:00; Stop 07/02/16 at 21:13; Status DC Sodium Chloride (NS 500 ml Inj) 500 ml @ 30 mls/hr [id number] IV ; Start 07/02/16 at 12:00; Stop 07/02/16 at 21:13; Status DC Insulin Human Regular (NovoLIN R INJ) See Protocol Table ... UNSCH X1 PRN SQ SEE PROTOCOL; Start 07/02/16 at 12:00; Stop 07/03/16 at 11:59; Status DC Metoprolol Tartrate (Lopressor) 25 mg UNSCH X1 PRN PO SEE LABEL COMMENTS; Start 07/02/16 at 12:00; Stop 07/03/16 at 11:59; Status DC Gentamicin Sulfate (Gentamicin Inj) 240 mg STK-MED ONCE .ROUTE Last administered on 07/02/16t 19:13; Start 07/02/16 at 17:49; Stop 07/02/16 at 17:50 ; Status DC Bupivacaine HCl/ Epinephrine Bitart (Marcaine-Epi Pf 0.25% Inj) 30 ml STK-MED ONCE .ROUTE ; Start 07/02/16 at 17:54; Stop 07/02/16 at 17:55; Status DC Vancomycin HCl (Vancomycin Inj) 1,000 mg STK-MED ONCE .ROUTE ; Start 07/02/16 at 18:34; Stop 07/02/16 at 18:35; Status DC Acetaminophen (Ofirmev Inj) 1,000 mg STK-MED ONCE IV ; Start 07/02/16 at 18:47; Stop 07/02/16 at 18:48; Status DC Hydromorphone HCl 2 mg 2 mg STK-MED ONCE .ROUTE ; Start 07/02/16 at 19:27; Stop 07/02/16 at 19:28; Status DC Lactated Ringer's (Lr 1000 ml Inj) 1,000 ml @ 80 mls/hr [id number] IV Last administered on 07/04/16t 10:18; Start 07/02/16 at 20:02 IV Flush (NS Flush) 2 ml UNSCH PRN IVF FLUSH AFTER USING IV ACCESS; Start 07/02 at 20:15 IV Flush (NS Flush) 2 ml BID IVF Last administered on 07/04/16t 09:19; Start at 21:00 Miscellaneous Information (Post-op Orders (for Pharmacy)) STAT ONCE XX ; Start 07/02/16 at 20:15; Stop 07/02/16 at 20:22; Status DC Enoxaparin Sodium (Lovenox Inj) 30 mg Q24H SQ ; Start 07/03/16 at 08:00; Stop at 08:53; Status DC Senna/Docusate Sodium 1 tab 1 tab BID PO Last administered on 07/04/16 09:20; Start 07/02/16 at 21:00 Cefazolin Sodium/ Dextrose 50 ml @ 100 mls/hr Q8H IV Last administered on 07/04 09:19; Start 07/03/16 at 02:00; Stop 07/04/16 at 18:29 Vancomycin HCl/ Sodium Chloride (Vancomycin Inj/ NS 250 ml Inj) 250 ml @ 250 mls/hr Q12H IV Last administered on 07/04/16 06:48; Start 07/03/16 at 06:00; Stop 07/04/16 at 06:59; Status DC Miscellaneous Information UNSCH PRN XX SEE LABEL COMMENTS; Start 07/02/16 at 20:15 Miscellaneous Medication ([facility] Information) ONCE ONCE XX ; Start at 20:15; Stop 07/02/16 at 20:21; Status DC Acetaminophen/ Hydrocodone Bitart (Barney 10-325 Mg) 1 tab Q3H PRN PO PAIN LESS THAN 5 ON SCALE Last administered on 07/04/16 10:18; Start 07/02/16 at 20:15 Acetaminophen/ Hydrocodone Bitart ([place]ney 10-325 Mg) 2 tab Q6H PRN PO PAIN GREATER THAN/EQUAL TO 5; Start 07/02/16 at 20:15 Ketorolac Tromethamine (Toradol Inj) 30 mg Q8HR IVP Last administered on 00:11; Start 07/02/16 at 22:00; Stop 07/03/16 at 22:01; Status DC Calcium/Vitamin D (Oscal-D 250-125) 250 mg TID PO Last administered on 09:21; Start 07/03/16 at 09:00 Naloxone HCl (Narcan Inj) 0.4 mg UNSCH PRN IV RESPIRATORY RATE LESS THAN 10; Start 07/02/16 at 20:15 Morphine Sulfate (Morphine 1 Mg/ ml BUSINESS OFFICE MANAGER) 30 mg UNSCH IV Last administered on 00:25; Start 07/02/16 at 20:15; Stop 07/04/16 at 20:14 BUSINESS OFFICE MANAGER Dosage Infused (Pha) 1 Q8HR .XX Last administered on 07/04/16 09:18; Start 07/02/16 at 22:00; Stop 07/04/16 at 21:59 Morphine Sulfate (Morphine Inj) 4 mg Q3H PRN IV PUSH break thru pain; Start at 20:15 Cholecalciferol (Vitamin D3) 1,000 units DAILY PO Last administered on 09:20; Start 07/03/16 at 09:00 Ergocalciferol (Drisdol) 50,000 units Q7D PO Last administered on 07/02/16 21: 00; Start 07/02/16 at 21:00 Midazolam HCl (Versed Inj) 2 mg STK-MED ONCE .ROUTE ; Start 07/02/16 at 20:37; Stop 07/02/16 at 20:38; Status DC Fentanyl Citrate (fentaNYL INJ) 250 mcg STK-MED ONCE .ROUTE ; Start 07/02/16 at 20:37; Stop 07/02/16 at 20:38; Status DC Miscellaneous Information ALL NURSING DEPARTME... UNSCH PRN XX SEE LABEL COMMENTS; Start 07/02/16 at 20:34; Stop 07/03/16 at 20:33; Status DC Enoxaparin Sodium (Lovenox Inj) 30 mg Q24H SQ Last administered on 07/03/16 18 :13; Start 07/03/16 at 19:00 A/P Assessment and Plan A/P Right tibial plateau fracture: Knee x-ray revealed comminuted fracture deformity at the lateral tibial plateau with mild depression. Hip x-ray with intact right total hip arthroplasty without fracture or dislocation. Femur x-ray with left femur fracture. -s/p ORIF -continue with pain control -continue PT -ortho following. -anemia; post-op; transfused with PRBC- H/H improved. CKD stage III: stable- will monitor. Leukocytosis: Chronic upon review of previous labs. Afebrile. Recommended outpatient hematology follow-up. Hypertension: Chronic, stable. Continue home BP medications as indicated. Monitor and adjust medications as needed. COPD: Scheduled nebs. O2 and nebs as needed. GERD: Continue PPI Mood disorder: Continue Zoloft and and vague. Hypothyroidism: Continue levothyroxine. DVT prophylaxis: on lovenox- Per orthopedics. Modesto Leung MD Jul 04, 2016 12:33
[2016-07-04] MEDS ORDERED: VITA100018 PO (17:07)
[2016-07-04] MEDS ORDERED: OYST250T4 PO (17:07)
--- NOTE | 2016-07-04 17:10 | HHI.DS ---
Discharge Summary Admission Date Jul 01, 2016 at 16:59 Discharge Date: Jul 04, 2016 Admitting Diagnosis right tibial plateau fracture (1) Tibial plateau fracture, right ICD Code: S82.141A Diagnosis: Principal Procedures ORIF right tibia fracture Brief History - From Admission 55-year-old female with a past medical history of HTN, mood disorder, COPD, hep C, GERD, hypothyroidism, chronic back pain who presented with right knee pain after a fall. The patient states that last night she was ambulating at home, tripped on her cane, and landed hard on her right knee. She didn't have a bruise or anything on it, so she did not come to the hospital immediately. She denies any loss of consciousness or head trauma. Today she is having severe pain in her knee, 14/10 in severity. She is having back spasms that radiate down her right leg. She states that she had hip surgery last month and has been in rehabilitation until recently. She is asking for pain medication and to know about the surgery. CBC/BMP: 07/04/16 0609 07/02/16 1212 Significant Findings Laboratory Tests Test 07/02/16 07/03/16 07/04/16 12:12 03:43 06:09 White Blood Count 18.9 TH/MM3 17.6 TH/MM3 (4.0-11.0) (4.0-11.0) Red Blood Count 3.33 MIL/MM3 3.86 MIL/MM3 (4.00-5.30) (4.00-5.30) Hemoglobin 7.7 GM/DL 6.8 GM/DL 9.5 GM/DL (11.6-15.3) (11.6-15.3) (11.6-15.3) Hematocrit 24.3 % 21.6 % 29.2 % (35.0-46.0) (35.0-46.0) (35.0-46.0) Mean Corpuscular Volume 72.8 FL 75.5 FL (80.0-100.0) (80.0-100.0) Mean Corpuscular Hemoglobin 23.1 PG 24.5 PG (27.0-34.0) (27.0-34.0) Mean Corpuscular Hemoglobin 31.7 % Concent (32.0-36.0) Red Cell Distribution Width 17.9 % 18.5 % (11.6-17.2) (11.6-17.2) Neutrophils (%) (Auto) 85.3 % 81.3 % (16.0-70.0) (16.0-70.0) Lymphocytes (%) (Auto) 5.1 % 6.8 % (9.0-44.0) (9.0-44.0) Neutrophils # (Auto) 16.1 TH/MM3 14.3 TH/MM3 (1.8-7.7) (1.8-7.7) Monocytes # (Auto) 1.5 TH/MM3 1.6 TH/MM3 (0-0.9) (0-0.9) Basophilic Stippling FAINT (NORMAL) Ovalocytes 1+ (NORMAL) Sodium Level 132 MEQ/L (136-145) Blood Urea Nitrogen 19 MG/DL (7-18) Creatinine 1.17 MG/DL (0.50-1.00) Estimat Glomerular Filtration 48 ML/MIN (>89) Rate Random Glucose 126 MG/DL (74-106) Monocytes (%) (Auto) 9.3 % (0.0-8.0) Neutrophils % (Manual) 82 % (16-70) Lymphocytes % 6 % (9-44) Neutrophils # (Manual) 15.3 TH/MM3 (1.8-7.7) PE at Discharge GENERAL: This is a well-nourished, well-developed patient, in no apparent distress. CARDIOVASCULAR: Regular rate and regular rhythm without murmurs, gallops, or rubs. RESPIRATORY: Clear to auscultation. Breath sounds equal bilaterally. No wheezes , rales, or rhonchi. GASTROINTESTINAL: Abdomen soft, non-tender, nondistended. Normal, active bowel sounds MUSCULOSKELETAL: right knee in immobilizer NEURO: Alert & Oriented x4 to person, place, time, situation. Moves all ext x4 Hospital Course Right tibial plateau fracture: Knee x-ray revealed comminuted fracture deformity at the lateral tibial plateau with mild depression. Hip x-ray with intact right total hip arthroplasty without fracture or dislocation. Femur x-ray with left femur fracture. -s/p ORIF -continue with pain control -continue PT -ortho following. -anemia; post-op; transfused with PRBC- H/H improved. CKD stage III: stable- will monitor. Leukocytosis: Chronic upon review of previous labs. Afebrile. Recommended outpatient hematology follow-up. Hypertension: Chronic, stable. Continue home BP medications as indicated. Monitor and adjust medications as needed. COPD: Scheduled nebs. O2 and nebs as needed. GERD: Continue PPI Mood disorder: Continue Zoloft and and vague. Hypothyroidism: Continue levothyroxine. DVT prophylaxis: on lovenox- Per orthopedics. voiding trial at SNF. Pt Condition on Discharge: Fair Discharge Disposition: Discharge to SNF Discharge Time: <= 30 minutes Discharge Instructions DIET: Follow Instructions for: Heart Healthy Diet Activities you can perform: Regular-No Restrictions Other Activity Instructions: per ortho. Follow up Referrals: Orthopedics - 2 Weeks @ [facility] with Nic Gordon MD PCP Follow-up New Medications: 3-in-1 Bedside Toilet (3-in-1 Bedside Toilet) 1 Mis Mis 1 EA .ROUTE DIRECTED #1 EA Hydrocodone-Acetaminophen ([place]) 10-325 Mg Tab 1 TAB PO Q4H PRN PAIN #60 Ref 0 TAB Rivaroxaban (Xarelto) 10 Mg Tab 10 MG PO DAILY Blood Clot Prevention #21 Ref 0 TAB Walker/Adult/Folding (Walker/Adult/Folding) 1 Mis Mis 1 EA .ROUTE DIRECTED #1 Ref 0 EA Calcium Carbonate-Cholecalciferol (Oyster Shell Calcium/Vitamin D) 250-125 Mg- Unit Tab 250 MG PO TID vitamin supplement Days 30 Ref 0 TAB Cholecalciferol (Vitamin D3) 1,000 Unit Tab 1000 UNITS PO DAILY vitamin supplement Days 30 Ref 0 TAB Continued Medications: Carvedilol (Carvedilol) 12.5 Mg Tab 12.5 MG PO BID #60 Ref 0 TAB Hydrochlorothiazide (Hydrochlorothiazide) 25 Mg Tab 25 MG PO DAILY #30 Ref 0 TAB Hydroxyzine HCl (Hydroxyzine HCl) 50 Mg Tab 200 MG PO HS Ref 0 TAB Ipratropium-Albuterol Neb (Duoneb) 0.5-2.5 Mg/3 Ml Neb 1 NEBULE INH Q6HR NEB Breathing Treatment #120 Ref 0 NEBULE Levothyroxine (Levothyroxine) 25 Mcg Tab 25 MCG PO DAILY Thyroid #30 Ref 0 TAB Lisinopril (Lisinopril) 20 Mg Tab 20 MG PO DAILY #30 Ref 0 TAB Nifedipine ER 24 HR (Nifedipine ER 24 HR) 60 Mg Tab 60 MG PO DAILY #30 Ref 0 TAB Paliperidone ER (Invega) 6 Mg Tab 6 MG PO DAILY Schizophrenia #30 Ref 0 TAB Potassium Chloride ER (K-Tab) 10 Meq Tab 10 MEQ PO BID Electrolyte Replacement #60 Ref 0 TAB Sertraline (Sertraline) 100 Mg Tab 100 MG PO DAILY #30 Ref 0 TAB Tizanidine (Tizanidine) 4 Mg Cap 4 MG PO Q12HR Muscle Spasm Ref 0 CAP Discontinued Medications: Aspirin (Aspirin) 325 Mg Tab 325 MG PO DAILY #30 Ref 0 TAB Modesto Leung MD Jul 04, 2016 17:10
--- NOTE | 2016-07-04 17:13 | HHI.DCPOC ---
Discharge Care Plan Diagnosis: (1) Tibial plateau fracture, right Your Health Problems Are: Difficulty with ADL Chronic Pain Goals to Promote Your Health * To prevent worsening of your condition and complications * To maintain your health at the optimal level Directions to Meet Your Goals Take your medications as prescribed Follow your dietary instruction Follow activity as directed Keep your appointments as scheduled Take your immunizations and boosters as scheduled If your symptoms worsen call your PCP, if no PCP go to Urgent Care Center or Emergency Room Smoking is Dangerous to Your Health. Avoid second hand smoke Call the 24-hour hour crisis hotline for domestic abuse at Modesto Leung MD Jul 04, 2016 17:13
[2016-07-04] MEDS: ENOXAPARIN SODIUM 30 MG/0.3 ML SYRINGE SQ SCH (18:46)
--- NOTE | 2016-07-05 13:43 | PQ ---
Physician Query Response Document PATIENT: KEYONA PABLO : 1960 ADMIT DATE: 07/01/2016 4:59 PM DISCH DATE: 07/04/2016 7:00 PM RESPONDING PROVIDER #: [email or web address] QUERY TEXT: Anemia Type Anemia is documented in the Medical Record. Please specify the cause (includes suspected or probable cause) Such as: -- Due to acute blood loss -- Due to chronic blood loss -- Due to iron deficiency -- Due to postoperative blood loss -- Due to chronic disease -- Other, please specify The patient's Clinical Indicators include: 07/01/16 Admission Diagnosis right tibial plateau fracture 07/02/16 S/P ORIF RT TIBIAL PLATEAU FX 07/03/16 PER PROGRESS NOTE - -anemia; post-op; transfused with PRBC today- will check CBC in am. CLINICAL INDICATORS: 07/01/16 H/H - 8.2 / 25.7 L 07/02/16 H/H - 7.7 / 24.3 L 07/03/16 H/H - 6.8 (Critical Low) / 21.6 L Query created by: Janna Geiger on 07/03/2016 2:12 PM RESPONSE TEXT: Anemia/ due to post-op blood loss. Electronically signed by: Modesto Leung MD 07/05/2016 1:39 PM
== END 2016-07-04 19:00 | DRG 493 ==
LOC: NEPA 15:08 → NEDA 16:59 → NEDH 23:31 → HPAC 07-03 00:07 → N06B 07-03 12:50
PROVIDERS: ADMIT Internal Medicine; ATTEND Internal Medicine
PROC: 0QSG04Z Reposition Right Tibia with Internal Fixation Device, Open Approach (ICD-10-PCS; principal; 2016-07-01)
PROC: 30273N1 Transfusion of Nonautologous Red Blood Cells into Products of Conception, Circulatory, Percutaneous Approach (ICD-10-PCS; 2016-07-03)
DX: S82.141A Displaced bicondylar fracture of right tibia, initial encounter for closed fracture (principal); D62 Acute posthemorrhagic anemia; E11.22 Type 2 diabetes mellitus with diabetic chronic kidney disease; I13.0 Hypertensive heart and chronic kidney disease with heart failure and stage 1 through stage 4 chronic kidney disease, or unspecified chronic kidney disease; I50.9 Heart failure, unspecified; R56.9 Unspecified convulsions; D72.829 Elevated white blood cell count, unspecified; B19.20 Unspecified viral hepatitis C without hepatic coma; E03.9 Hypothyroidism, unspecified; E78.00 Pure hypercholesterolemia, unspecified; F17.200 Nicotine dependence, unspecified, uncomplicated; J44.9 Chronic obstructive pulmonary disease, unspecified; N18.3 Chronic kidney disease, stage 3 (moderate); W01.0XXA Fall on same level from slipping, tripping and stumbling without subsequent striking against object, initial encounter; Y92.009 Unspecified place in unspecified non-institutional (private) residence as the place of occurrence of the external cause; Z86.73 Personal history of transient ischemic attack (TIA), and cerebral infarction without residual deficits; Z96.641 Presence of right artificial hip joint; K21.9 Gastro-esophageal reflux disease without esophagitis; G43.909 Migraine, unspecified, not intractable, without status migrainosus; M54.9 Dorsalgia, unspecified; M19.90 Unspecified osteoarthritis, unspecified site
CPT/HCPCS: 36430; 73502; 73552; 73560; 73564; 73700; 76000; 80048; 80053; 82652; 85007; 85014; 85018; 85025; 85027; 85610; 85730; 86850; 86900; 86901; 86920; 94150; 94640; 94664; 96374; C1713; J0131; J0690; J1170; J1580; J1650; J1885; J2250; J2270; J2370; J2405; J2710; J3010; J3370; J7030; J7050; J7120; J7613; L1830; P9016

== ENCOUNTER → 2016-11-26 | Outpatient (CLI) | payer MEDICAID ==
[~2016-11-26] MED LIST changes: -ASPI325T PO; +HYDR-3366 PO; +MISC-163; -OXYC1CAP PO; +OYST250T4 PO; -TRAM50TA PO; +VITA100018 PO; +WALKER/ADULT/FO1 MIS; +XARE10TA PO
== END ==
LOC: HORT 09:13
PROVIDERS: ATTEND Physician Assistant
DX: Z47.89 Encounter for other orthopedic aftercare (principal)
CPT/HCPCS: L1810

== ENCOUNTER 2017-02-19 05:15 | Observation (INO) | payer MEDICAID ==
[~2017-02-19] VITALS: Ht 174 cm; Wt 95.0 kg
[2017-02-19] MEDS ORDERED: LACTATED RINGER'S 1000 ML IV PRN (05:45)
[2017-02-19] MEDS ORDERED: METOPROLOL TARTRATE 25 MG TAB PO PRN (05:45)
[2017-02-19] MEDS ORDERED: POVIDONE IODINE 5% (ANTISEPSIS KIT) 4 APPLICATIONS EACH NARE PRN (05:45)
[2017-02-19] MEDS ORDERED: SODIUM CHLORID 0.9% 500 ML IV PRN (05:45)
[2017-02-19] MEDS ORDERED: CHLORHEXIDINE GLUCONATE 2 % 1 PACK (2 CLOTHS) TOPICAL PRN (05:45)
[2017-02-19] MEDS ORDERED: INSULIN HUMAN REGULAR 1,000 UNITS/10 ML VIAL SQ PRN (05:45)
[2017-02-19] MEDS ORDERED: CHLORHEXIDINE GLUCONATE 4% SOLN 120 ML BTL TOPICAL SCH (06:00)
[2017-02-19] MEDS ORDERED: VANCOMYCIN HCL 1000 MG VIAL ONE (06:57)
[2017-02-19] MEDS ORDERED: GENTAMICIN SULFATE 80 MG/2 ML VIAL ONE (06:58)
[2017-02-19] MEDS ORDERED: ceFAZolin INJ 1,000 MG VIAL ONE (06:58)
[2017-02-19] MEDS ORDERED: ACETAMINOPHEN 1000 MG/100 ML 0 ML IV ONE (07:00)
[2017-02-19] MEDS ORDERED: FAMOTIDINE 20 MG/2 ML VIAL ONE (07:00)
[2017-02-19 09:29] LABS: HEMATOCRIT 29.6 % (35.0-46.0); MEAN CELL VOLUME 81.7 FL (80.0-100.0); MEAN CORPUSCULAR HEMOGLOBIN 27.2 PG (27.0-34.0); MEAN CORPUSCULAR HGB CONC 33.2 % (32.0-36.0); PLATELET COUNT 239 TH/MM3 (150-450); RED BLOOD COUNT 3.62 MIL/MM3 (4.00-5.30); RED CELL DISTRIBUTION WIDTH 17.1 % (11.6-17.2); REVIEW FLAG FINAL; WHITE BLOOD COUNT 10.2 TH/MM3 (4.0-11.0)
[2017-02-19 09:53] LABS: BICARBONATE 24.1 MEQ/L (21.0-32.0); POTASSIUM 4.4 MEQ/L (3.5-5.1)
[2017-02-19] MEDS ORDERED: HYDR-3366 PO (10:07)
--- NOTE | 2017-02-19 10:12 | PD.OP ---
cc: Nic Flores MD Operative Report Date of Surgery: Feb 19, 2017 Preoperative Diagnosis: Painful hardware right tibia, post traumatic arthritis right knee Postoperative Diagnosis: Procedure: Removal of proximal tibial plate, removal intramedullary nail right tibia Anesthesia: Gen. Surgeon: Nic Flores [place] Polisher(s): ALIZE Antonio PA-C The surgical procedure was assisted by my physician personalized living assistant. My P.A. presence was necessary throughout this case for the manipulation and positioning of the surgical extremity. My P.A. was assisting me throughout the duration of this procedure. The skill set of a physician personalized living assistant was medically necessary to complete this procedure. During the surgical case the ophthalmic surgical assistant was working at the back table and the physician personalized living assistant was directly assisting me. Operation and Findings: Fay previously sustained a severely comminuted right tibial plateau fracture and tibial shaft fracture treated with surgical open reduction internal fixation and intramedullary nail fixation. Informed consent was obtained for removal of hardware including the intramedullary nail in the tibial plate. Patient developed significant posttraumatic arthritis as well as painful hardware. Operative site was marked. She wass brought to operating and IV sedation and general anesthesia. IV antibiotics were administered. Timeout procedure was performed. Right leg was prepped with alcohol followed by Hibiclens and draped usual sterile fashion. Procedure began with removal of the proximal tibial plate. A 4 inch incision was made through previous scar along the anterior lateral tibia. Subcutaneous tissues dissected with Bovie. Iliotibial band was split in line with fibers. The proximal plate was exposed. Screws were loosened and removed. The plate was elevated and removed. There were multiple additional screws proximally. These were each removed through small percutaneous incisions. Next attention was turned intramedullary nail. A 2 inch incision was made over the medial aspect of the patellar tendon. A medial parapatellar arthrotomy was created. Fluoroscopy was used to help localize the nail. At this 3 of the distal interlocking screws were removed. Small percutaneous incisions were made directly over the screws. Each screw was removed with a screwdriver. The fourth distal screw was also identified. Next an insertion handle was screwed into the top of the nail. Once the extraction handle was attached to the nail, the fourth distal screw was removed. The nail was now back slapped and completely removed. Fluoroscopy confirmed removal of all hardware. Patient is developing significant posttraumatic arthritis of the knee. She will likely need future total knee replacement. Incisions were thoroughly irrigated. Fascia was closed with #1 Vicryl, subcutaneous tissues closed with 3-0 Vicryl, and skin was closed with felipe. Sterile dressings were applied. Patient was transferred to recovery room in stable condition. Nic Flores MD Feb 19, 2017 10:12
[2017-02-19] MEDS ORDERED: ONDANSETRON HCL 4 MG/2 ML VIAL IV PUSH PRN (10:15)
[2017-02-19] MEDS ORDERED: SODIUM CHLORIDE 0.9% FLUSH 10 ML FLUSH IV FLUSH PRN (10:15)
[2017-02-19] MEDS ORDERED: DO NOT ADM ANY ANTICOAGULANT DRUGS PRN (10:44)
[2017-02-19] MEDS ORDERED: *RESP: ALBUTEROL 2.5 MG/3 ML NEB (PRN) PERIprocedural Use ONLY NEB ONE (11:19)
[2017-02-19] MEDS ORDERED: *morphine SULFATE 8 MG/ML PERIprocedure ONLY ONE (11:19)
[2017-02-19] MEDS ORDERED: ACETAMINOPHEN/HYDROcodone 325 MG/7.5 MG TAB PO PRN (11:30)
[2017-02-19] MEDS: MORPHINE SULFATE 4 MG/ML INJ IV PUSH PRN ×2 (13:49→17:19)
--- NOTE | 2017-02-19 14:06 | EKG ---
Date Performed: 02/19/2017 Time Performed: 07:03:39 PTAGE: 56 years EKG: Sinus rhythm LOW QRS VOLTAGE IN PRECORDIAL LEADS POSSIBLE ANTERIOR MYOCARDIAL INFARCTION , OF INDETERMINATE AGE M ODERATE T-WAVE ABNORMALITY, CONSIDER LATERAL ISCHEMIA ABNORMAL ECG PREVIOUS TRACING : 11/18/2015 08.15 Since prior tracing, the anterior infarct age undetermined is new. Diffuse T-wave changes are new, consider ischemia. Clinical correlation recommended. DOCTOR: Vahe Ruelas Interpretating Date/Time 02/19/2017 14:04:56
[2017-02-19] MEDS ORDERED: NEOSTIGMINE 3 MG/3 ML SYR IV ONE (14:15)
[2017-02-19] MEDS ORDERED: ROCURONIUM INJ 50 MG/5 ML SYRINGE IV PUSH ONE (14:15)
[2017-02-19] MEDS ORDERED: DEXAMETHASONE SOD PHOS 4 MG/ML VIAL IV ONE (14:15)
[2017-02-19] MEDS ORDERED: PROPOFOL 200 MG/20 ML AMP IV ONE (14:15)
[2017-02-19] MEDS ORDERED: LIDOCAINE HCL 1% PF 5 ML AMPULE OTHER ONE (14:15)
[2017-02-19] MEDS ORDERED: MIDAZOLAM HCL 2 MG/2 ML VIAL IV ONE (14:15)
[2017-02-19] MEDS ORDERED: ONDANSETRON HCL 4 MG/2 ML VIAL IV PUSH ONE (14:15)
[2017-02-19] MEDS ORDERED: GLYCOPYRROLATE 1 MG/5 ML SYRINGE IV PUSH ONE (14:15)
[2017-02-19] MEDS ORDERED: SODIUM CHLOR 0.9% 1000 ML INJ 1,000 ML IV SCH (14:30)
--- NOTE | 2017-02-19 14:43 | PD.CONS ---
HPI Service [facility] Hospitalists Consult Requested By Dr. Flores Reason for Consult Medical management Primary Care Physician Adam Orozco MD Diagnoses: (1) Chronic diastolic CHF (congestive heart failure) (2) Hyponatremia (3) Hypothyroid (4) COPD (chronic obstructive pulmonary disease) (5) CKD (chronic kidney disease), stage III (6) Hypertension (7) Diabetes History of Present Illness The patient is a 56-year-old female seen in PACU following surgical removal of hardware in the right tibia. Hospitalist consultation was requested for medical management. Patient was noted on labs this morning to have a sodium of 122. Repeat 3 hours later was 124. She was given 1 L of LR and 1 L of normal saline during the surgery. She is now on normal saline at 30 mL per hour. She is awake and does answer questions, although she just received morphine for pain control , and is somewhat sedated. She denies headache or vision changes. She reports chronic cough and shortness of breath that is unchanged recently. This is attributed to COPD. She denies chest pain, nausea, vomiting, diarrhea, constipation. Review of Systems Constitutional: DENIES: Fever, Chills, Night Sweats Eyes: DENIES: Blurred vision, Vision loss Ears, nose, mouth, throat: DENIES: Hearing loss Respiratory: COMPLAINS OF: Cough, Wheezing, Shortness of breath, DENIES: Sputum production Cardiovascular: DENIES: Chest pain, Palpitations, Dyspnea on Exertion, Lower Extremity Edema Gastrointestinal: DENIES: Abdominal pain, Constipation, Diarrhea, Nausea, Vomiting Genitourinary: DENIES: Urinary frequency, Urinary incontinence, Urgency, Hematuria, Dysuria, Nocturia Musculoskeletal: COMPLAINS OF: Joint pain, DENIES: Muscle aches Integumentary: DENIES: Pruritus, Rash Hematologic/lymphatic: DENIES: Bruising Neurologic: DENIES: Headache Past Family Social History Allergies: Coded Allergies: phenytoin (Unverified Allergy, Severe, LIVER PROBLEMS, 02/19/17) *MDRO Multi-Drug Resistant Organism (Verified Adverse Reaction, Unknown, 02/19/17) 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 - 11/19/2015 Past Medical History Hypertension Hypothyroidism COPD Chronic back pain Hepatitis C GERD Anxiety/depression Schizophrenia Chronic diastolic CHF Past Surgical History Hysterectomy Back surgery Appendectomy Right hip surgery Stomach surgery Left hand surgery Jaw surgery Reported Medications DuoNeb every 6 hours Tizanidine 4 mg every 12 hours Carvedilol 12.5 mg twice a day Nifedipine ER 60 mg daily Lisinopril 20 mg daily [place] 10/325 as needed Sertraline 100 mg daily Invega 6 mg daily Hydroxyzine 200 mg daily at bedtime Calcium with vitamin D 3 times a day Potassium chloride 10 mEq twice a day HCTZ 25 mg daily Levothyroxine 25 g daily Vitamin D3 1000 units daily Family History Mother had bone cancer. Hypertension Diabetes COPD Social History Quit smoking 6 months ago. Denies alcohol or illicit drug use. Physical Exam Vital Signs Vital Signs Date Time Temp Pulse Resp B/P (MAP) Pulse Ox O2 Delivery O2 Flow Rate FiO2 02/19/17 13:54 15 02/19/17 10:40 97.8 75 16 138/80 (99) 93 Nasal Cannula 4 02/19/17 06:54 97.0 64 24 116/72 (87) 96 Physical Exam GENERAL: Obese female in no acute distress. Seen in PACU. HEENT: Normocephalic, atraumatic. Pupils equal, round and reactive. Extraocular movements intact. No scleral icterus. No injection or drainage. Oropharynx is clear. Mucous membranes are moist. CARDIOVASCULAR: Regular rate and rhythm without murmurs, gallops, or rubs. RESPIRATORY: Clear to auscultation. No wheezes, rales, or rhonchi. Breathing is non-labored. GASTROINTESTINAL: Abdomen soft, non-tender, nondistended. EXTREMITIES: No lower extremity edema. No calf tenderness. Right lower extremity heavily bandaged and in a splint. PSYCH: Somewhat sedated from pain medication, but answers questions appropriately. Laboratory Laboratory Tests Test 02/19/17 09:01 02/19/17 12:18 White Blood Count 10.2 Red Blood Count 3.62 Hemoglobin 9.8 Hematocrit 29.6 Mean Corpuscular Volume 81.7 Mean Corpuscular Hemoglobin 27.2 Mean Corpuscular Hemoglobin Concent 33.2 Red Cell Distribution Width 17.1 Platelet Count 239 Mean Platelet Volume 8.9 Blood Urea Nitrogen 22 Creatinine 1.58 Random Glucose 86 Calcium Level 8.6 Sodium Level 122 124 Potassium Level 4.4 Chloride Level 89 Carbon Dioxide Level 24.1 Anion Gap 9 Estimat Glomerular Filtration Rate 34 Result Diagram: 02/19/17 0901 02/19/17 1218 Assessment and Plan Assessment and Plan 1. Status post removal of hardware from tibia. Management per orthopedic surgery. Continue pain control. 2. Hyponatremia: We'll give IV normal saline. Sodium has increased slightly during the day today. Caution with IV fluids due to reported history of CHF. Recheck sodium level later today and again tomorrow. 3. Anxiety/depression: Resume home medications. 4. Hypertension: Continue nifedipine, lisinopril, carvedilol, HCTZ. 5. Hypothyroidism: Continue Synthroid. 6. COPD: Continue supplemental oxygen, bronchodilators. 7. Chronic diastolic congestive heart failure: Caution with IV fluids. Check 2- D echocardiogram. Most recent echocardiogram available was more than a year ago and showed grade 1 diastolic dysfunction with normal systolic function. 8. DVT prophylaxis: Per orthopedic surgery. Brent Cota MD Feb 19, 2017 14:43
--- NOTE | 2017-02-19 15:55 | RADRPT ---
EXAM DATE/TIME: 02/19/2017 09:58 [facility] COMPARISON: KNEE RIGHT LTD (1 OR 2 VWS), July 02, 2016, 19:48. KNEE RIGHT COMPLETE (4VWS), July 01, 2016 , 15:50. INDICATIONS : Hardware removal right tib. MEDICAL HISTORY : None. SURGICAL HISTORY : ORIF right tibia IM rosemary. ORIF right tibial plateau. ENCOUNTER: Initial ACUITY: 1 day PAIN SCORE: Non-responsive. LOCATION: Right Tib fib. FINDINGS: Limited single projection examination of the right tibia and fibula reveals interval removal of IM ro d in proximal tibial lateral cortical sideplate and screws. CONCLUSION: Hardware removal as above Adam Kenny MD on February 19, 2017 at 15:52 Board Certified Radiologist. This report was verified electronically.
[2017-02-19] MEDS: RESP: ALBUTEROL 2.5 MG/IPRATROPIUM 0.5 MG NEB (SCH) INH (16:00)
[2017-02-19] MEDS: CALCIUM/VITAMIN D 250 MG/125 U TAB PO SCH (18:00)
[2017-02-19 19:15] VITALS: BP 140/77; PULSE 75; RESP 18; TEMP 97.2; O2SAT 98
[2017-02-19] MEDS: CARVEDILOL 12.5 MG TAB PO SCH (20:07)
[2017-02-19] MEDS: SODIUM CHLORIDE 0.9% FLUSH 10 ML FLUSH IV FLUSH SCH (20:07)
[2017-02-19] MEDS ORDERED: hydrOXYzine HCL 50 MG TAB PO SCH (21:00)
[2017-02-19] MEDS: ACETAMINOPHEN/HYDROcodone 325 MG/10 MG TAB PO PRN (22:15)
[2017-02-19 23:30] VITALS: BP 133/72; PULSE 71; RESP 18; TEMP 98; O2SAT 98
[2017-02-20] MEDS: RESP: ALBUTEROL 2.5 MG/IPRATROPIUM 0.5 MG NEB (SCH) INH ×4 (01:26→16:00)
[2017-02-20] MEDS: ACETAMINOPHEN/HYDROcodone 325 MG/10 MG TAB PO PRN ×3 (03:35→13:14)
[2017-02-20 03:50] VITALS: BP 119/64; PULSE 72; RESP 18; TEMP 96.7; O2SAT 93
[2017-02-20 05:11] VITALS: O2SAT 98
[2017-02-20] MEDS ORDERED: LEVOTHYROXINE SODIUM 25 MCG TAB PO SCH (06:00)
--- NOTE | 2017-02-20 06:38 | PD.ORT.PN ---
Subjective Subjective Remarks POD 1 s/p NICHOLAS right tibia reports pain. has not been out of bed yet. reports that has stairs at home and has no help. she is concerned about going home Objective Vitals Vital Signs Date Time Temp Pulse Resp B/P (MAP) Pulse Ox O2 Delivery O2 Flow Rate FiO2 02/20/17 05:11 98 Nasal Cannula 2.00 02/20/17 03:50 96.7 72 18 119/64 (82) 93 02/19/17 23:30 98.0 71 18 133/72 (92) 98 02/19/17 19:15 97.2 75 18 140/77 (98) 98 02/19/17 17:00 74 23 141/60 (87) 94 Nasal Cannula 2 02/19/17 16:00 98.8 75 19 141/73 (95) 97 Nasal Cannula 2 02/19/17 15:00 72 22 125/76 (92) 97 Nasal Cannula 2 02/19/17 14:45 77 16 105/65 (78) 95 Nasal Cannula 3 02/19/17 14:00 75 16 100/66 (77) 94 Nasal Cannula 3 02/19/17 13:54 15 02/19/17 13:00 72 16 142/68 (92) 97 Nasal Cannula 2 02/19/17 12:00 97.7 74 16 125/73 (90) 95 Nasal Cannula 2 02/19/17 11:45 74 15 128/68 (88) 97 Nasal Cannula 3 02/19/17 11:30 75 15 141/67 (91) 96 Nasal Cannula 3 02/19/17 11:15 74 15 138/69 (92) 95 Nasal Cannula 3 02/19/17 11:00 72 15 150/73 (98) 97 Nasal Cannula 4 02/19/17 10:45 76 15 138/80 (99) 95 Nasal Cannula 4 02/19/17 10:40 97.8 75 16 138/80 (99) 93 Nasal Cannula 4 02/19/17 06:54 97.0 64 24 116/72 (87) 96 I/O 02/19/17 02/19/17 02/19/17 02/20/17 02/20/17 02/20/17 07:00 15:00 23:00 07:00 15:00 23:00 Intake Total 2000 ml 440 ml 120 ml Output Total 1650 ml 250 ml Balance 350 ml 190 ml 120 ml Intake Oral 440 ml 120 ml Other 2000 ml Output Urine Total 1600 ml 250 ml Estimated Blood Loss 50 ml # Voids 2 5 # Bowel Movements 0 0 Result Diagram: 02/19/17 0902/19/172021 Objective Remarks RLE: Dressings clean and dry. intact. NVI. +ROM brace Assessment & Plan Assessment and Plan 1) Right Tibia Fxs s/p removal for HW - POD 1 -TTWB -ROM brace at all times -CM for potential rehab placement -orthotech to adjust brace -ortho clear for DC to rehab when medical clears -f/u with Evan or JOSE in 2 weeks Luisito Nash Feb 20, 2017 06:38
[2017-02-20] MEDS ORDERED: WALKER/ADULT/FO1 MIS (06:40)
[2017-02-20] MEDS ORDERED: WHEEMIS3 (06:40)
[2017-02-20 07:06] LABS: AUTOMATED NEUTROPHIL # 9.4 TH/MM3 (1.8-7.7); BASOPHIL # 0.1 TH/MM3 (0-0.2); BASOPHIL % 0.5 % (0.0-2.0); EOSINOPHIL % 0.2 % (0.0-4.0); HEMATOCRIT 26.9 % (35.0-46.0); HEMO FLAGS DIFF FINAL; LYMPH % 7.2 % (9.0-44.0); LYMPHOCYTE # 0.8 TH/MM3 (1.0-4.8); MEAN CELL VOLUME 82.3 FL (80.0-100.0); MEAN CORPUSCULAR HEMOGLOBIN 27.2 PG (27.0-34.0); MEAN CORPUSCULAR HGB CONC 33.1 % (32.0-36.0); MONO % 9.9 % (0.0-8.0); NEUT % 82.2 % (16.0-70.0); PLATELET COUNT 216 TH/MM3 (150-450); RED BLOOD COUNT 3.26 MIL/MM3 (4.00-5.30); RED CELL DISTRIBUTION WIDTH 17.1 % (11.6-17.2); WHITE BLOOD COUNT 11.5 TH/MM3 (4.0-11.0)
[2017-02-20 07:25] LABS: BICARBONATE 26.6 MEQ/L (21.0-32.0); MAGNESIUM 1.5 MG/DL (1.5-2.5); POTASSIUM 4.8 MEQ/L (3.5-5.1)
[2017-02-20 08:00] VITALS: BP 130/68; PULSE 74; RESP 24; TEMP 96; O2SAT 95
[2017-02-20] MEDS: CALCIUM/VITAMIN D 250 MG/125 U TAB PO SCH ×2 (08:54→13:14)
[2017-02-20] MEDS: CARVEDILOL 12.5 MG TAB PO SCH (08:54)
[2017-02-20] MEDS: SODIUM CHLORIDE 0.9% FLUSH 10 ML FLUSH IV FLUSH SCH (08:59)
[2017-02-20] MEDS ORDERED: PALIPERIDONE ER 6 MG TAB PO SCH (09:00)
[2017-02-20] MEDS ORDERED: SERTRALINE HCL 100 MG TAB PO SCH (09:00)
[2017-02-20] MEDS ORDERED: LISINOPRIL 20 MG TAB PO SCH (09:00)
[2017-02-20] MEDS ORDERED: NIFEdipine 60 MG SUSTAINED RELEASE TAB PO SCH (09:00)
[2017-02-20] MEDS ORDERED: HYDROCHLOROTHIAZIDE 25 MG TAB PO SCH (09:00)
[2017-02-20 10:19] VITALS: O2SAT 99
[2017-02-20 12:00] VITALS: BP 134/63; PULSE 70; RESP 20; TEMP 96.2; O2SAT 94
[2017-02-20] MEDS ORDERED: HYDR25TA5 PO (13:34)
--- NOTE | 2017-02-20 13:36 | HHI.FF ---
Face to Face Verification Diagnosis: (1) Obesity (2) Difficulty walking Physical Therapy Order: Evaluate and Treat Home Health Nursing Order: Nursing assessment with vital signs Instructions: nurse for medication management. communicate with PCP Dr Orozco I have seen patient Fay Small on 02/20/17. My clinical findings support the need for the requested home health care services because: Deconditioned w/ increased weakness Med compliance is questionable I certify that my clinical findings support that this patient is homebound because: Unsafe to leave home unassisted Tank Ortiz MD Feb 20, 2017 13:36
--- NOTE | 2017-02-20 19:48 | HHI.PR ---
Subjective Remarks Patient seen today around noon. Says she is feeling all right. Bedbug found in her bedding during exam. Advised patient to seek treatment for bedbugs at home. Objective Vital Signs Date Time Temp Pulse Resp B/P (MAP) Pulse Ox O2 Delivery O2 Flow Rate FiO2 02/20/17 12:00 96.2 70 20 134/63 (86) 94 02/20/17 10:19 99 02/20/17 08:00 96.0 74 24 130/68 (88) 95 02/20/17 05:11 98 Nasal Cannula 2.00 02/20/17 03:50 96.7 72 18 119/64 (82) 93 02/19/17 23:30 98.0 71 18 133/72 (92) 98 I/O 02/19/17 02/19/17 02/19/17 02/20/17 02/20/17 02/20/17 07:00 15:00 23:00 07:00 15:00 23:00 Intake Total 2000 ml 440 ml 120 ml Output Total 1650 ml 250 ml Balance 350 ml 190 ml 120 ml Intake Oral 440 ml 120 ml Other 2000 ml Output Urine Total 1600 ml 250 ml Estimated Blood Loss 50 ml # Voids 2 5 # Bowel Movements 0 0 Result Diagram: 02/20/17 0552 02/20/17 0552 Objective Remarks GENERAL: patient lying in bed. Appears comfortable.alert and oriented 3. SKIN: Warm and dry. HEAD: Normocephalic. EYES: No scleral icterus. No injection or drainage. NECK: Supple, trachea midline. No JVD. CARDIOVASCULAR: Regular rate and rhythm without murmurs, gallops, or rubs. RESPIRATORY: Breath sounds equal bilaterally. No accessory muscle use. GASTROINTESTINAL: Abdomen soft, non-tender, nondistended. MUSCULOSKELETAL: No cyanosis, or edema. BACK: Nontender without obvious deformity. No CVA tenderness. A/P Assessment and Plan //Status post removal of hardware from tibia. Management per orthopedic surgery. Continue pain control. //Hyponatremia: We'll give IV normal saline. Sodium has increased slightly during the day today. Caution with IV fluids due to reported history of CHF. Recheck sodium level later today and again tomorrow. = 02/20. Sodium improved.130 Patient has chronic hyponatremia. We will decrease hydrochlorothiazide. Follow-up with primary care as outpatient. //Anxiety/depression: Continue home medications. //Hypertension: Continue nifedipine, lisinopril, carvedilol, HCTZ. //Hypothyroidism: Continue Synthroid. //COPD: Continue supplemental oxygen, bronchodilators. //Chronic diastolic congestive heart failure: Caution with IV fluids. Most recent echocardiogram available was more than a year ago and showed grade 1 diastolic dysfunction with normal systolic function. -2-D echocardiogram unnecessary at this time. Follow-up with primary care as outpatient. //DVT prophylaxis: Per orthopedic surgery. Discharge Planning patient medically stable for discharge. Will need follow-up with primary care within 1 week Tank Ortiz MD Feb 20, 2017 19:48
== END 2017-02-20 17:04 | disposition home or self-care (01) ==
LOC: HSDC 05:15 → HSDI 11:12 → N06A 17:44
PROVIDERS: ADMIT Orthopaedic Surgery Orthopaedic Trauma; ATTEND Orthopaedic Surgery Orthopaedic Trauma
DX: T84.84XA Pain due to internal orthopedic prosthetic devices, implants and grafts, initial encounter (principal); I13.0 Hypertensive heart and chronic kidney disease with heart failure and stage 1 through stage 4 chronic kidney disease, or unspecified chronic kidney disease; I50.32 Chronic diastolic (congestive) heart failure; N18.3 Chronic kidney disease, stage 3 (moderate); E11.22 Type 2 diabetes mellitus with diabetic chronic kidney disease; E87.1 Hypo-osmolality and hyponatremia; E03.9 Hypothyroidism, unspecified; J44.9 Chronic obstructive pulmonary disease, unspecified; F41.9 Anxiety disorder, unspecified; F32.9 Major depressive disorder, single episode, unspecified; F20.9 Schizophrenia, unspecified; K21.9 Gastro-esophageal reflux disease without esophagitis; Z87.891 Personal history of nicotine dependence; Y83.1 Surgical operation with implant of artificial internal device as the cause of abnormal reaction of the patient, or of later complication, without mention of misadventure at the time of the procedure
CPT/HCPCS: 01392; 20680; 73590; 76000; 80048; 83735; 84295; 85025; 85027; 93005; 94640; 94664; 96374; 97162; G0378; G8987; G8988; J0690; J1100; J1580; J2250; J2270; J2405; J2710; J3010; J3370; J7030; J7120; J7613; L1845; J0131

== ENCOUNTER 2017-03-19 17:59 | Inpatient (IN) | payer MEDICAID ==
[2017-03-19] VITALS (14 sets, daily range): BP systolic 78–186; BP diastolic 46–101; PULSE 65–115; RESP 16–18; TEMP 98.2–98.7; O2SAT 96–100
[~2017-03-19] VITALS: Ht 165.1 cm; Wt 118.5 kg
[2017-03-19] MEDS: CHLORHEXIDINE GLUCONATE 2 % 1 PACK (2 CLOTHS) TOP SCH (03:55)
[~2017-03-19 17:59] MED LIST changes: -MISC-163; +WHEEMIS3; -XARE10TA PO
[2017-03-19] MEDS ORDERED: PROPOFOL 1000 MG/100 ML INJ 100 ML ONE (18:14)
[2017-03-19] MEDS ORDERED: SODIUM CHLORIDE 0.9% FLUSH 5 ML FLUSH IV FLUSH PRN (18:15)
--- NOTE | 2017-03-19 18:29 | RADRPT ---
EXAM DATE/TIME: 03/19/2017 18:23 [facility] COMPARISON: CHEST SINGLE AP, June 07, 2016, 17:15. INDICATIONS : Post code blue. Status post intubation. MEDICAL HISTORY : Congestive heart failure. Hypercholesterolemia. Hypertension. COPD SURGICAL HISTORY : None. ENCOUNTER: Initial ACUITY: 1 day PAIN SCORE: Non-responsive. LOCATION: Bilateral chest FINDINGS: A single AP supine portable view of the chest was obtained it demonstrates interval intubation with t he endotracheal tube tip 2-3 cm above the yifan. A nasogastric tube has been placed and is seen cour sing through the esophagus and into the stomach. There are overlying electrocardiogram leads. The hea rt size is at the upper limits of normal with mild atherosclerotic change in the aorta. There are no confluent infiltrates or effusions. The bony thorax is intact. There is overlying artifact. CONCLUSION: 1. Interval intubation and placement of nasogastric tube. 2. The lungs remain clear. Julio Rosales MD on March 19, 2017 at 18:24 Board Certified Radiologist. This report was verified electronically.
[2017-03-19 18:38] LABS: BLOOD GAS BASE EXCESS -6.1 mmol/L (-2-2); BLOOD GAS HCO3 20 mmol/L (22-26); BLOOD GAS METHEMOGLOBIN 0.5 % (0-2); BLOOD GAS O2 HGB SATURATION 93 % (90-100); BLOOD GAS OXYGEN CONTENT 12.7 Vol % (12.0-20.0); BLOOD GAS PCO2 50 mmHg (38-42); BLOOD GAS PO2 403 mmHG (61-120); BLOOD GAS TOTAL HGB 8.8 G/DL (12.0-16.0); TEMP CORR TO 98.6
[2017-03-19 18:39] LABS: CRITICAL VALUE YES; DRAW SITE LT RADIAL; FIO2 100 %; NUMBER OF ARTERIAL PUNCTURES 1; OXYGEN DEVICE VENTILATOR; STAT YES; ULNAR PULSE PRESENT; VENT SETTINGS PRVC/16/550/1.0/+5
[2017-03-19 18:47] LABS: AUTOMATED NEUTROPHIL # 8.2 TH/MM3 (1.8-7.7); BASOPHIL # 0.1 TH/MM3 (0-0.2); BASOPHIL % 1.1 % (0.0-2.0); EOSINOPHIL # 0.3 TH/MM3 (0-0.4); EOSINOPHIL % 2.7 % (0.0-4.0); HEMATOCRIT 32.5 % (35.0-46.0); LYMPHOCYTE # 2.3 TH/MM3 (1.0-4.8); MEAN CELL VOLUME 79.7 FL (80.0-100.0); MEAN CORPUSCULAR HEMOGLOBIN 25.2 PG (27.0-34.0); MEAN CORPUSCULAR HGB CONC 31.7 % (32.0-36.0); MONO % 10.8 % (0.0-8.0); NEUT % 66.4 % (16.0-70.0); PLATELET COUNT 312 TH/MM3 (150-450); RED BLOOD COUNT 4.08 MIL/MM3 (4.00-5.30); RED CELL DISTRIBUTION WIDTH 19.2 % (11.6-17.2); WHITE BLOOD COUNT 12.3 TH/MM3 (4.0-11.0)
[2017-03-19 18:48] LABS: BLOOD, URINE NEG (NEG); COMMENT (UR) CATH-CULT NOT IND; CULTURE IF INDICATED CATH CULTURE NOT IND; GLUCOSE,URINE NEG (NEG); KETONE, URINE NEG (NEG); NITRITE,URINE NEG (NEG); SQUAMOUS EPITHELIAL CELL URINE <1 /hpf (0-5); URINE COLOR YELLOW (YELLW/STRAW)
[2017-03-19 18:54] LABS: PROTHROMBIN TIME - PATIENT 10.9 SEC (9.8-11.6)
[2017-03-19 18:55] LABS: HEMO FLAGS AUTO DIFF
[2017-03-19 19:00] LABS: ANION GAP 14 MEQ/L (5-15); AST (GOT) 21 U/L (15-37); BICARBONATE 21.5 MEQ/L (21.0-32.0); BLOOD UREA NITROGEN 13 MG/DL (7-18); CHLORIDE 97 MEQ/L (98-107); GLOMERULAR FILTRATION RATE 34 ML/MIN (>89); POTASSIUM 4.6 MEQ/L (3.5-5.1); SODIUM (NA) 132 MEQ/L (136-145)
[2017-03-19 19:01] LABS: ACETAMINOPHEN LESS THAN 2.0 MCG/ML (10.0-30.0); ALT (GPT) 21 U/L (10-53)
[2017-03-19 19:05] LABS: I-STAT POTASSIUM 3.9 MMOL/L (3.5-4.9)
[2017-03-19 19:11] LABS: ALKALINE PHOSPHATASE 141 U/L (45-117); TOTAL BILIRUBIN ADULT 0.2 MG/DL (0.2-1.0)
[2017-03-19 19:15] LABS: ALCOHOL 77 MG/DL (0-5); CREATINE KINASE 67 U/L (26-192)
[2017-03-19] MEDS ORDERED: MISCELLANEOUS NURSING INFORMATION XX SCH (19:15)
[2017-03-19] MEDS ORDERED: CHLORHEXIDINE GLUCONATE 2 % 1 PACK (2 CLOTHS) TOP PRN (19:15)
[2017-03-19] MEDS ORDERED: ONDANSETRON HCL 4 MG/2 ML VIAL IV PUSH PRN (19:15)
[2017-03-19] MEDS ORDERED: LACTULOSE SYRUP 20 GM/30 ML CUP PO PRN (19:15)
[2017-03-19] MEDS ORDERED: BISACODYL 10 MG SUPP RECTAL PRN (19:15)
[2017-03-19] MEDS ORDERED: SENNOSIDES 8.6 MG TAB PO PRN (19:15)
[2017-03-19] MEDS ORDERED: RESP: ALBUTEROL 2.5 MG/IPRATROPIUM 0.5 MG NEB (PRN) INH (19:15)
[2017-03-19] MEDS ORDERED: MAGNESIUM HYDROXIDE SUSP 30 ML CUP PO PRN (19:15)
[2017-03-19] MEDS ORDERED: ACETAMINOPHEN 325 MG TAB PO PRN (19:15)
[2017-03-19 19:30] LABS: ACANTHOCYTES OCC (NORMAL); BANDS 2 % (0-6); EOSINOPHILS 3 % (0-4); METAMYELOCYTES 2 % (0-1); MYELOCYTES 1 % (0-0); NEUTROPHIL # MANUAL DIFF 9.7 TH/MM3 (1.8-7.7); PLATELET ESTIMATE SMEAR NORMAL (NORMAL); PLATELET MORPHOLOGY NORMAL (NORMAL); POLYS (SEG NEUTROPHILS) 74 % (16-70); SCAN/DIFF FINAL DIFF MANUAL; WBC DIFF SAMPLE 100
--- NOTE | 2017-03-19 19:30 | PD ---
HPI Chief Complaint: Code Blue Time Seen by Provider: 18:08 Travel History International Travel<30 days: No Contact w/Intl Traveler<30days: No Traveled to known affect area: No History of Present Illness HPI 56-year-old female was a witnessed arrest. There was no CPR started initially until the EMS arrived. As per the faculty research physician the patient was on the ground unresponsive for 10 minutes prior to EMS arrival. Upon arrival patient did not have a pulse and was asystole on the monitor. She was given 2 rounds of Epi was given and return of spontaneous circulation was obtained. Patient was intubated at the scene. She was brought in being bagged. Upon arrival the blood pressure was 130/68 and a heart rate in the 60s. Patient obviously is unable to give any history. [facility] Past Medical History Narrative Medical List of her past medical, surgical, social and family history is reviewed from the nursing note. Arthritis: Yes Asthma: No Autoimmune Disease: No Blood Disorders: No Bipolar Disorder: Yes Anxiety: Yes Depression: Yes Heart Rhythm Problems: No Cancer: Yes (tumor utero) Cardiovascular Problems: Yes (CHF) High Cholesterol: Yes Chemotherapy: No Chest Pain: No Congestive Heart Failure: Yes COPD: Yes Cerebrovascular Accident: Yes Coronary Artery Disease: No Diabetes: Yes Patient Takes Glucophage: Yes Diminished Hearing: No Endocrine: Yes Gastrointestinal Disorders: No GERD: Yes Glaucoma: No Genitourinary: No Headaches: Yes Hepatitis: Yes (HEP C POS) Hiatal Hernia: No Hypertension: Yes Immune Disorder: No Implanted Vascular Access Dvce: Yes Musculoskeletal: Yes (OA, CHR PAIN) Neurologic: Yes (CVA) Psychiatric: Yes Reproductive: Yes (HYSTERECTOMY) Respiratory: Yes (COPD) Migraines: Yes Myocardial Infarction: No Radiation Therapy: No Seizures: Yes Sickle Cell Disease: No Sleep Apnea: No Thyroid Disease: Yes (Hypothyroidism) Ulcer: No Tetanus Vaccination: < 5 Years Influenza Vaccination: Yes ?: Not Menopausal: Yes : 4 Para: 2 Miscarriage: 2 Past Surgical History Abdominal Surgery: Yes AICD: No Appendectomy: Yes (1997) Arteriovenous Shunt: No Body Medical Devices: BACK FUSION AND ARLENE Cardiac Surgery: No Ear Surgery: No Endocrine Surgery: No Eye Surgery: No Genitourinary Surgery: No Gynecologic Surgery: Yes Hysterectomy: Yes Insulin Pump: No Joint Replacement: Yes (RIGHT HIP) Neurologic Surgery: Yes (EVACUATE SUBDURAL HEMATOMA) Oral Surgery: No Pacemaker: No Thoracic Surgery: No Other Surgery: Yes (BACK SURGERY) Social History Alcohol Use: Yes Tobacco Use: Yes (2 CIGS/DAY) Substance Use: Yes (MARIJUANA) Allergies-Medications (Allergen,Severity, Reaction): Coded Allergies: phenytoin (Unverified Allergy, Severe, LIVER PROBLEMS, 03/19/17) *MDRO Multi-Drug Resistant Organism (Verified Adverse Reaction, Unknown, 03/19/17) 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 - 11/19/2015 Comments List of her allergies reviewed from the nursing note. Reported Meds & Prescriptions Reported Meds & Active Scripts Active Hydrochlorothiazide 25 Mg Tab 12.5 Mg PO DAILY Wheelchair (Device) 1 Mis Mis Ea .ROUTE DIRECTED Walker/Adult/Folding (Device) 1 Mis Mis Ea .ROUTE DIRECTED [place] (Hydrocodone-Acetaminophen) 10-325 Mg Tab 1 Tab PO Q4H PRN Vitamin D3 (Cholecalciferol) 1,000 Unit Tab 1,000 Units PO DAILY 30 Days Oyster Shell Calcium/Vitamin D (Calcium Carbonate-Cholecalciferol) 250-125 Mg- Unit Tab 250 Mg PO TID 30 Days Walker/Adult/Folding (Device) 1 Mis Mis 1 Ea .ROUTE DIRECTED [place] (Hydrocodone-Acetaminophen) 10-325 Mg Tab 1 Tab PO Q4H PRN Reported Levothyroxine (Levothyroxine Sodium) 25 Mcg Tab 25 Mcg PO DAILY Nifedipine ER 24 HR (Nifedipine) 60 Mg Tab 60 Mg PO DAILY Carvedilol 12.5 Mg Tab 12.5 Mg PO BID K-Tab (Potassium Chloride) 10 Meq Tab 10 Meq PO BID Duoneb (Ipratropium-Albuterol Neb) 0.5-2.5 Mg/3 Ml Neb 1 Nebule INH Q6HR NEB Lisinopril 20 Mg Tab 20 Mg PO DAILY Tizanidine (Tizanidine HCl) 4 Mg Cap 4 Mg PO Q12HR Invega (Paliperidone ER) 6 Mg Tab 6 Mg PO DAILY Narrative Medication List of her home medications reviewed from the nursing note. Review of Systems ROS Limitations: Intubated, Unresponsive Except as stated in HPI: all other systems reviewed are Neg Physical Exam Narrative GENERAL: Unresponsive, intubated, obese SKIN: Focused skin assessment warm/dry. HEAD: Atraumatic. Normocephalic. EYES: Pupils equal and round. No scleral icterus. No injection or drainage. ENT: No nasal bleeding or discharge. Mucous membranes pink and moist. Intubated NECK: Trachea midline. No JVD. CARDIOVASCULAR: Regular rate and rhythm. No murmur appreciated. RESPIRATORY: No accessory muscle use. Clear to auscultation. Breath sounds equal bilaterally. GASTROINTESTINAL: Abdomen soft, non-tender, nondistended. Hepatic and splenic margins not palpable. MUSCULOSKELETAL: No obvious deformities. No clubbing. No cyanosis. No edema. NEUROLOGICAL: GCS of 13 Data Data Last Documented VS Vital Signs Date Time Temp Pulse Resp B/P (MAP) Pulse Ox O2 Delivery O2 Flow Rate FiO2 03/19/17 18:58 70 18 78/52 (61) 100 Auto-Vent 03/19/17 18:42 50 03/19/17 18:01 98.7 Orders Orders Chest, Single Ap (03/19/17 ) Electrocardiogram (03/19/17 18:09) Ammonia (03/19/17 18:09) Complete Blood Count With Diff (03/19/17 18:09) Comprehensive Metabolic Panel (03/19/17 18:09) Creatine Kinase (Cpk) (03/19/17 18:09) Prothrombin Time / Inr (Pt) (03/19/17 18:09) Troponin I (03/19/17 18:09) Thyroid Stimulating Hormone (03/19/17 18:09) Urinalysis - C+S If Indicated (03/19/17 18:09) Lactic Acid Sepsis Protocol (03/19/17 18:09) Arterial Blood Gas (Abg) (03/19/17 18:09) Blood Culture (03/19/17 18:09) Ct Brain W/O Iv Contrast(Rout) (03/19/17 18:09) Blood Glucose (03/19/17 18:09) Ecg Monitoring (03/19/17 18:09) Iv Access Insert/Monitor (03/19/17 18:09) Oximetry (03/19/17 18:09) Sodium Chloride 0.9% Flush (Ns Flush) (03/19/17 18:15) Drug Screen, Random Urine (03/19/17 18:09) Alcohol (Ethanol) (03/19/17 18:09) Tylenol (Acetaminophen) (03/19/17 18:09) Salicylates (Aspirin) (03/19/17 18:09) Ct Pulmonary Angiogram (03/19/17 ) I-Stat Profile (03/19/17 18:13) Propofol 1000 Mg/100 Ml Inj (Diprivan 10 (03/19/17 18:14) Urinary Catheter Insert/Apply (03/19/17 18:23) Restraints Non-Violent ANA LUISA.Q3H (03/19/17 18:33) Admit Order (Ed Use Only) (03/19/17 19:02) Labs Laboratory Tests Test 03/19/17 18:15 03/19/17 18:25 03/19/17 18:26 03/19/17 18:40 White Blood Count 12.3 TH/MM3 Red Blood Count 4.08 MIL/MM3 Hemoglobin 10.3 GM/DL Hematocrit 32.5 % Mean Corpuscular Volume 79.7 FL Mean Corpuscular Hemoglobin 25.2 PG Mean Corpuscular Hemoglobin Concent 31.7 % Red Cell Distribution Width 19.2 % Platelet Count 312 TH/MM3 Mean Platelet Volume 7.7 FL Neutrophils (%) (Auto) 66.4 % Lymphocytes (%) (Auto) 19.0 % Monocytes (%) (Auto) 10.8 % Eosinophils (%) (Auto) 2.7 % Basophils (%) (Auto) 1.1 % Neutrophils # (Auto) 8.2 TH/MM3 Lymphocytes # (Auto) 2.3 TH/MM3 Monocytes # (Auto) 1.3 TH/MM3 Eosinophils # (Auto) 0.3 TH/MM3 Basophils # (Auto) 0.1 TH/MM3 CBC Comment AUTO DIFF Differential Total Cells Counted 100 Neutrophils % (Manual) 74 % Band Neutrophils % 2 % Lymphocytes % 14 % Monocytes % 4 % Eosinophils % 3 % Neutrophils # (Manual) 9.7 TH/MM3 Metamyelocytes 2 % Myelocytes 1 % Differential Comment FINAL DIFF MANUAL Atypical Lymphocytes % Platelet Estimate NORMAL Platelet Morphology Comment NORMAL Ovalocytes 1+ Helmet Cells OCC Acanthocytes OCC Prothrombin Time 10.9 SEC Prothromb Time International Ratio 1.0 RATIO Urine Color YELLOW Urine Turbidity CLEAR Urine pH 6.0 Urine Specific [place] 1.024 Urine Protein 100 mg/dL Urine Glucose (UA) NEG mg/dL Urine Ketones NEG mg/dL Urine Occult Blood NEG Urine Nitrite NEG Urine Bilirubin NEG Urine Urobilinogen 2.0 MG/DL Urine Leukocyte Esterase NEG Urine RBC 15 /hpf Urine WBC 2 /hpf Urine Squamous Epithelial Cells <1 /hpf Urine Amorphous Sediment RARE Microscopic Urinalysis Comment CATH-CULT NOT IND Blood Urea Nitrogen 13 MG/DL Creatinine 1.58 MG/DL Random Glucose 148 MG/DL Total Protein 7.1 GM/DL Albumin 2.9 GM/DL Calcium Level 8.6 MG/DL Alkaline Phosphatase 141 U/L Aspartate Amino Transf (AST/SGOT) 21 U/L Alanine Aminotransferase (ALT/SGPT) 21 U/L Total Bilirubin 0.2 MG/DL Sodium Level 132 MEQ/L Potassium Level 4.6 MEQ/L Chloride Level 97 MEQ/L Carbon Dioxide Level 21.5 MEQ/L Anion Gap 14 MEQ/L Estimat Glomerular Filtration Rate 34 ML/MIN Lactic Acid Level 6.4 mmol/L Total Creatine Kinase 67 U/L 58 U/L Troponin I LESS THAN 0.02 NG/ML LESS THAN 0.02 NG/ML Thyroid Stimulating Hormone 3rd Gen 12.600 uIU/ML Salicylates Level 2.0 MG/DL Urine Opiates Screen POS Acetaminophen Level LESS THAN 2.0 MCG/ML Urine Barbiturates Screen NEG Urine Amphetamines Screen NEG Urine Benzodiazepines Screen NEG Urine Cocaine Screen NEG Urine Cannabinoids Screen POS Ethyl Alcohol Level 77 MG/DL Ammonia 40 MCMOL/L Blood Gas Puncture Site LT RADIAL Blood Gas Patient Temperature 98.6 Blood Gas HCO3 20 mmol/L Blood Gas Base Excess -6.1 mmol/L Blood Gas Oxygen Saturation 93 % Arterial Blood pH 7.23 Arterial Blood Partial Pressure CO2 50 mmHg Arterial Blood Partial Pressure O2 403 mmHG Arterial Blood Oxygen Content 12.7 Vol % Arterial Blood Carboxyhemoglobin 6.0 % Arterial Blood Methemoglobin 0.5 % Blood Gas Hemoglobin 8.8 G/DL Oxygen Delivery Device VENTILATOR Blood Gas Ventilator Setting [facility]/16/550/1.0/+5 Blood Gas Inspired Oxygen 100 % Bedside Hemoglobin 8.5 G/DL Bedside Hematocrit 25.0 % Bedside Sodium 137 MMOL/L Bedside Potassium 3.9 MMOL/L Bedside Chloride 101 MMOL/L Bedside Blood Urea Nitrogen 11 MG/DL Bedside Glucose 109 MG/DL [facility] Medical Decision Making Medical Screen Exam Complete: Yes Emergency Medical Condition: Yes Medical Record Reviewed: Yes Interpretation(s) Twelve-lead EKG was reviewed by me. Normal sinus rhythm, normal axis, nonspecific ST-T wave changes. Heart rate of 89 bpm. Differential Diagnosis Cardiac arrest, PE, electrolyte abnormality, metabolic encephalopathy, intracranial bleed Narrative Course 7:28 PM awaiting for the blood test results. Patient is being ventilated. Case has been admitted to the gasoline dragline operator Dr. Nelson Critical Care Narrative Aggregate critical care time was 45 minutes. Time to perform other separately billable procedures was not included in the critical care time. My time did not include minutes spent treating any other patients simultaneously or on activities that did not directly contribute to the patient's treatment. The services I provided to this patient were to treat and/or prevent clinically significant deterioration that could result in: Post code, ventilator management I provided critical care services requiring my management, as noted below: Chart data review, documentation time, medication orders and management, vital sign assessments/reviewing monitor data, ordering and reviewing lab tests, ordering and interpreting/reviewing x-rays and diagnostic studies, care of the patient and discussion of the patient with the admitting physicians. Procedures EKG Prior to Arrival: No Physician Communication Physician Communication Dr. Nelson Diagnosis Primary Impression: Cardiac arrest Additional Impression: Respiratory failure Qualified Codes: J96.00 - Acute respiratory failure, unspecified whether with hypoxia or hypercapnia Admitting Information Admitting Physician Requests: Faizan Thomas MD Mar 19, 2017 19:30
[2017-03-19 19:31] LABS: HELMET CELLS OCC (NORMAL); OVALOCYTES 1+ (NORMAL)
[2017-03-19] MEDS: CHLORHEXIDINE 0.12% (ORAL KIT) 15 ML CUP MT SCH (20:00)
[2017-03-19] MEDS ORDERED: IODIXANOL 320 MG/ML 50 ML VIAL (for Rad CT) IVCONTRAST ONE (20:06)
--- NOTE | 2017-03-19 20:09 | RADRPT ---
EXAM DATE/TIME: 03/19/2017 19:46 [facility] COMPARISON: CT BRAIN W/O CONTRAST, February 05, 2014, 5:32. INDICATIONS : Altered mental status. History of known encephalomalacia. RADIATION DOSE: 56.35 CTDIvol (mGy) MEDICAL HISTORY : Cerebrovascular disease. Congestive heart failure. Diabetes mellitus type 2.COPD. SURGICAL HISTORY : None. ENCOUNTER: Initial ACUITY: 1 day PAIN SCALE: Non-responsive LOCATION: Bilateral cranial TECHNIQUE: Multiple contiguous axial images were obtained of the head. Using automated exposure control and adj ustment of the mA and/or kV according to patient size, radiation dose was kept as low as reasonably a chievable to obtain optimal diagnostic quality images. DICOM format image data is available electro nically for review and comparison. FINDINGS: CEREBRUM: Mild to moderate atrophic changes again noted. There is a focal air encephalomalacia noted involving the frontal lobes left greater than right.. No evidence of midline shift, mass lesion, hemorrhage or acute infarction. No extra-axial fluid collections are seen. POSTERIOR FOSSA: The cerebellum and brainstem are intact. The 4th ventricle is midline. The cerebellopontine angle i s unremarkable. EXTRACRANIAL: The visualized portion of the orbits is intact. SKULL: The calvaria is intact. No evidence of skull fracture. CONCLUSION: 1. No acute hemorrhage or mass effect. 2. The stable old areas of encephalomalacia in the frontal lobes left greater than right. 3. Mild to moderate atrophy. Julio Rosales MD on March 19, 2017 at 20:05 Board Certified Radiologist. This report was verified electronically.
--- NOTE | 2017-03-19 20:10 | RADRPT ---
EXAM DATE/TIME: 03/19/2017 19:43 [facility] COMPARISON: HIP RIGHT AP ONLY W AP PELVIS, March 28, 2016, 16:13. INDICATIONS : Right hip pain. History of dislocation.. MEDICAL HISTORY : None. SURGICAL HISTORY : ORIF right tibia IM rosemary. ORIF right tibial plateau. Right hip replacement, Left troch nail. ENCOUNTER: Initial ACUITY: 1 day PAIN SCORE: Non-responsive. LOCATION: Right Hip FINDINGS: AP view the pelvis was obtained as well as an AP view of the right hip. This demonstrates the patient is status post right hip arthroplasty. There is no evidence of fracture or dislocation. Arthroplasty components are intact. Stable postsurgical changes are noted in the left. There is diffuse osteopeni a. Sacrum is not well visualized. CONCLUSION: 1. Status post right hip arthroplasty with no evidence of fracture or dislocation. 2. Osteopenia and postoperative changes in the left hip. Julio Rosales MD on March 19, 2017 at 20:07 Board Certified Radiologist. This report was verified electronically.
--- NOTE | 2017-03-19 20:23 | RADRPT ---
EXAM DATE/TIME: 03/19/2017 19:58 [facility] COMPARISON: CT PULMONARY ANGIOGRAM, February 05, 2014, 8:15. CHEST SINGLE AP, September 21, 2014, 12:50. INDICATIONS : Short of breath, evaluate for embolism. IV CONTRAST: 50 cc Visipaque (iodixanol) IV RADIATION DOSE: 23.81 CTDIvol (mGy) MEDICAL HISTORY : Cerebrovascular disease. Diabetes mellitus type 2. Congestive heart failure.COPD. SURGICAL HISTORY : None. ENCOUNTER: Initial ACUITY: 1 day PAIN SCALE: Non-responsive LOCATION: Bilateral chest TECHNIQUE: Volumetric scanning of the chest was performed using a pulmonary embolism protocol MIP images were re constructed. Using automated exposure control and adjustment of the mA and/or kV according to patien t size, radiation dose was kept as low as reasonably achievable to obtain optimal diagnostic quality images. DICOM format image data is available electronically for review and comparison. Follow-up recommendations for detected pulmonary nodules are based at a minimum on nodule size and pa tient risk factors according to Fleischner Society Guidelines. FINDINGS: PULMONARY ARTERIES: No filling defects are seen in the pulmonary arteries through the segmental level. LUNGS: There is no pneumothorax . No concerning pulmonary nodule is visualized. The there are new areas of mild consolidative opacity along the posterior right upper lobe abutting the fissure. There are small focal areas of scattered pleural-parenchymal change with pleural nodularity greatest in the left pos ter lateral lung base. PLEURAE: There is no pleural thickening or pleural effusion. MEDIASTINUM: There is good visualization of the great vessels of the middle mediastinum. No evidence of mediastin al or hilar adenopathy/mass. An endotracheal tube and nasogastric tube are noted. MUSCULOSKELETAL: Within normal limits for patient age. MISCELLANEOUS: The visualized upper abdominal organs demonstrate no acute abnormality. CONCLUSION: 1. No evidence of pulmonary embolism. 2. Small areas of focal pleural-parenchymal change which may be infectious or inflammatory. Julio Rosales MD on March 19, 2017 at 20:18 Board Certified Radiologist. This report was verified electronically.
--- NOTE | 2017-03-19 20:37 | HHI.HP ---
HPI Service Critical Care Medicine Primary Care Physician Unknown Admission Diagnosis postcode, respiratory failure Diagnosis: Travel History International Travel<30 Days: No Contact w/Intl Traveler <30 Da: No Traveled to Known Affected Are: No History of Present Illness 56-year-old female presents after she was a witnessed arrest. There was no CPR started initially until the EMS arrived. As per the electrical controls technician report the patient was on the ground unresponsive for 10 minutes prior to EMS arrival. Upon arrival patient did not have a pulse and was asystole on the monitor. She was given 2 rounds of epinephrine and and then returned of spontaneous circulation. Patient was intubated at the scene by paramedics. Upon arrival in the emergency department her blood pressure was 130/68 and a heart rate in the 60s. She is on multiple pain medications and muscle relaxants as an outpatient. She has multiple ER visits due to dislocated hip in the past. Review of Systems ROS Unobtainable patient is sedated and intubated Past Family Social History Allergies: Coded Allergies: phenytoin (Unverified Allergy, Severe, LIVER PROBLEMS, 03/19/17) *MDRO Multi-Drug Resistant Organism (Verified Adverse Reaction, Unknown, 03/19/17) 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 - 11/19/2015 Past Medical History Hypertension Hypothyroidism COPD Chronic back pain Hepatitis C, currently undergoing treatment GERD Anxiety/depression/schizophrenia Past Surgical History Hysterectomy Back surgery Appendectomy Right hip surgery Stomach surgery Left hand surgery Jaw surgery Reported Medications Reported Meds & Active Scripts Active Hydrochlorothiazide 25 Mg Tab 12.5 Mg PO DAILY Wheelchair (Device) 1 Mis Mis Ea .ROUTE DIRECTED Walker/Adult/Folding (Device) 1 Mis Mis Ea .ROUTE DIRECTED Brilliant (Hydrocodone-Acetaminophen) 10-325 Mg Tab 1 Tab PO Q4H PRN Vitamin D3 (Cholecalciferol) 1,000 Unit Tab 1,000 Units PO DAILY 30 Days Oyster Shell Calcium/Vitamin D (Calcium Carbonate-Cholecalciferol) 250-125 Mg- Unit Tab 250 Mg PO TID 30 Days Walker/Adult/Folding (Device) 1 Mis Mis 1 Ea .ROUTE DIRECTED Brilliant (Hydrocodone-Acetaminophen) 10-325 Mg Tab 1 Tab PO Q4H PRN Reported Levothyroxine (Levothyroxine Sodium) 25 Mcg Tab 25 Mcg PO DAILY Sertraline (Sertraline HCl) 100 Mg Tab 100 Mg PO DAILY Hydroxyzine HCl 50 Mg Tab 200 Mg PO HS Nifedipine ER 24 HR (Nifedipine) 60 Mg Tab 60 Mg PO DAILY Carvedilol 12.5 Mg Tab 12.5 Mg PO BID K-Tab (Potassium Chloride) 10 Meq Tab 10 Meq PO BID Duoneb (Ipratropium-Albuterol Neb) 0.5-2.5 Mg/3 Ml Neb 1 Nebule INH Q6HR NEB Lisinopril 20 Mg Tab 20 Mg PO DAILY Tizanidine (Tizanidine HCl) 4 Mg Cap 4 Mg PO Q12HR Invega (Paliperidone ER) 6 Mg Tab 6 Mg PO DAILY Active Ordered Medications Current Medications Medications (Trade) Dose Ordered Sig/Nelly Route PRN Reason Start Time Stop Time Status Last Admin Dose Admin IV Flush (NS Flush) 2 ml UNSCH PRN IV FLUSH FLUSH AFTER USING IV ACCESS 03/19/17 18:15 Calcium/Vitamin D (Oscal-D 250-125) 250 mg TID PO 03/20/17 09:00 Carvedilol (Coreg) 12.5 mg BID PO 03/19/17 21:00 Cholecalciferol (Vitamin D3) 1,000 units DAILY PO 03/20/17 09:00 Hydroxyzine HCl (Atarax) 200 mg HS PO 03/19/17 21:00 Levothyroxine Sodium (Synthroid) 25 mcg DAILY@0600 PO 03/20/17 06:00 Lisinopril (Prinivil) 20 mg DAILY PO 03/20/17 09:00 Sertraline HCl (Zoloft) 100 mg DAILY PO 03/20/17 09:00 Sodium Chloride 1,000 ml @ 184 mls/hr Q5H27M IV 03/19/17 19:13 Sodium Chloride (NS Flush) 2 ml UNSCH PRN IV FLUSH FLUSH AFTER USING IV ACCESS 03/19/17 19:15 Sodium Chloride (NS Flush) 2 ml BID IV FLUSH 03/19/17 21:00 Acetaminophen (Tylenol) 650 mg Q6H PRN PO PAIN 1-5 AND/OR FEVER >101F 03/19/17 19:15 Morphine Sulfate (Morphine Inj) 2 mg Q2H PRN IV PUSH PAIN SCALE 6 TO 10 03/19/17 19:15 Midazolam HCl (Versed Inj) 2 mg Q1H PRN IV PUSH SEDATION 03/19/17 19:15 Artificial Tears (Tears Naturale Opth Soln) 1 drop TID EACH EYE 03/20/17 09:00 Ondansetron HCl (Zofran Inj) 4 mg Q6H PRN IV PUSH NAUSEA OR VOMITING 03/19/17 19:15 Albuterol/ Ipratropium (Duoneb Neb) 1 ampule Q6HR NEB INH 03/19/17 22:00 Albuterol/ Ipratropium (Duoneb Neb) 1 ampule Q2HR NEB PRN INH WHEEZING 03/19/17 19:15 Heparin Sodium (Porcine) (Heparin Inj) 5,000 units Q8H SQ 03/19/17 20:00 Miscellaneous Information 1 Q361D XX 03/19/17 19:15 03/19/17 19:15 Chlorhexidine Gluconate (Chlorhexidine 2% Cloth) 3 pack Taper DAILY@04 TOP 03/20/17 04:00 03/16/18 03:59 Chlorhexidine Gluconate (Chlorhexidine 2% Cloth) 3 pack UNSCH PRN [facility] 03/19/17 19:15 Senna/Docusate Sodium (Tracee-Colace) 1 tab BID PO 03/19/17 21:00 Magnesium Hydroxide (Milk Of Magnesia Liq) 30 ml Q12H PRN PO Mild constipation 03/19/17 19:15 Sennosides (Senokot) 17.2 mg Q12H PRN PO Moderate constipation 03/19/17 19:15 Bisacodyl (Dulcolax Supp) 10 mg DAILY PRN RECTAL SEVERE CONSITIPATION 03/19/17 19:15 Lactulose (Lactulose Liq) 30 ml DAILY PRN PO SEVERE CONSITIPATION 03/19/17 19:15 Propofol 100 ml @ 3.3 mls/hr TITRATE PRN IV SEDATION 03/19/17 19:15 Chlorhexidine Gluconate (Peridex 0.12% Liq) 15 ml BID@08,20 MT 03/19/17 20:00 Famotidine (Pepcid Inj) 20 mg DAILY IV PUSH 03/20/17 09:00 Family History Hypertension Diabetes COPD Social History Continues to smoke, but is cutting back per medical record Denies any alcohol use Lives at home with 2 roommates Uses a rolling walker and a cane for ambulation Physical Exam Vital Signs Vital Signs Date Time Temp Pulse Resp B/P (MAP) Pulse Ox O2 Delivery O2 Flow Rate FiO2 03/19/17 19:57 03/19/17 19:41 65 122/75 (91) 03/19/17 19:07 96 50 03/19/17 18:58 70 18 78/52 (61) 100 Auto-Vent 03/19/17 18:42 100 50 03/19/17 18:41 73 18 83/50 (61) 100 Auto-Vent 50 03/19/17 18:41 50 03/19/17 18:28 76 16 93/46 (62) 100 Auto-Vent 100 03/19/17 18:17 16 100 Auto-Vent 03/19/17 18:16 100 03/19/17 18:13 99 100 03/19/17 18:10 81 18 100 Auto-Vent 03/19/17 18:01 98.7 115 18 136/71 (92) 100 Physical Exam GENERAL: Obese female sedated and intubated SKIN: Warm and dry. HEAD: Normocephalic. EYES: No scleral icterus. No injection or drainage. NECK: Supple, trachea midline. No JVD or lymphadenopathy. CARDIOVASCULAR: Regular rate and rhythm without murmurs, gallops, or rubs. RESPIRATORY: Breath sounds equal bilaterally. No accessory muscle use. GASTROINTESTINAL: Abdomen soft, non-tender, nondistended. MUSCULOSKELETAL: No cyanosis, or edema. BACK: Nontender without obvious deformity. NEURO EXAM: Mental Status: Patient is sedated and intubated Cranial Nerves: Pupils are round 4 mm, reactive to light. Reflexes: Biceps, patellar, and Achilles are 2/4 bilaterally. No clonus. Laboratory Laboratory Tests Test 03/19/17 18:15 03/19/17 18:25 03/19/17 18:26 03/19/17 18:40 White Blood Count 12.3 Red Blood Count 4.08 Hemoglobin 10.3 Hematocrit 32.5 Mean Corpuscular Volume 79.7 Mean Corpuscular Hemoglobin 25.2 Mean Corpuscular Hemoglobin Concent 31.7 Red Cell Distribution Width 19.2 Platelet Count 312 Mean Platelet Volume 7.7 Neutrophils (%) (Auto) 66.4 Lymphocytes (%) (Auto) 19.0 Monocytes (%) (Auto) 10.8 Eosinophils (%) (Auto) 2.7 Basophils (%) (Auto) 1.1 Neutrophils # (Auto) 8.2 Lymphocytes # (Auto) 2.3 Monocytes # (Auto) 1.3 Eosinophils # (Auto) 0.3 Basophils # (Auto) 0.1 CBC Comment AUTO DIFF Differential Total Cells Counted 100 Neutrophils % (Manual) 74 Band Neutrophils % 2 Lymphocytes % 14 Monocytes % 4 Eosinophils % 3 Neutrophils # (Manual) 9.7 Metamyelocytes 2 Myelocytes 1 Differential Comment FINAL DIFF MANUAL Atypical Lymphocytes Platelet Estimate NORMAL Platelet Morphology Comment NORMAL Ovalocytes 1+ Helmet Cells OCC Acanthocytes OCC Prothrombin Time 10.9 Prothromb Time International Ratio 1.0 Urine Color YELLOW Urine Turbidity CLEAR Urine pH 6.0 Urine Specific [place] 1.024 Urine Protein 100 Urine Glucose (UA) NEG Urine Ketones NEG Urine Occult Blood NEG Urine Nitrite NEG Urine Bilirubin NEG Urine Urobilinogen 2.0 Urine Leukocyte Esterase NEG Urine RBC 15 Urine WBC 2 Urine Squamous Epithelial Cells <1 Urine Amorphous Sediment RARE Microscopic Urinalysis Comment CATH-CULT NOT IND Blood Urea Nitrogen 13 Creatinine 1.58 Random Glucose 148 Total Protein 7.1 Albumin 2.9 Calcium Level 8.6 Alkaline Phosphatase 141 Aspartate Amino Transf (AST/SGOT) 21 Alanine Aminotransferase (ALT/SGPT) 21 Total Bilirubin 0.2 Sodium Level 132 Potassium Level 4.6 Chloride Level 97 Carbon Dioxide Level 21.5 Anion Gap 14 Estimat Glomerular Filtration Rate 34 Lactic Acid Level 6.4 Total Creatine Kinase 67 Troponin I LESS THAN 0.02 Thyroid Stimulating Hormone 3rd Gen 12.600 Salicylates Level 2.0 Urine Opiates Screen POS Acetaminophen Level LESS THAN 2.0 Urine Barbiturates Screen NEG Urine Amphetamines Screen NEG Urine Benzodiazepines Screen NEG Urine Cocaine Screen NEG Urine Cannabinoids Screen POS Ethyl Alcohol Level 77 Ammonia 40 Blood Gas Puncture Site LT RADIAL Blood Gas Patient Temperature 98.6 Blood Gas HCO3 20 Blood Gas Base Excess -6.1 Blood Gas Oxygen Saturation 93 Arterial Blood pH 7.23 Arterial Blood Partial Pressure CO2 50 Arterial Blood Partial Pressure O2 403 Arterial Blood Oxygen Content 12.7 Arterial Blood Carboxyhemoglobin 6.0 Arterial Blood Methemoglobin 0.5 Blood Gas Hemoglobin 8.8 Oxygen Delivery Device VENTILATOR Blood Gas Ventilator Setting [facility]/16/550/1.0/+5 Blood Gas Inspired Oxygen 100 Bedside Hemoglobin 8.5 Bedside Hematocrit 25.0 Bedside Sodium 137 Bedside Potassium 3.9 Bedside Chloride 101 Bedside Blood Urea Nitrogen 11 Bedside Glucose 109 Date/Time Source Procedure Growth Status 03/19/17 18:15 Blood Peripheral Aerobic Blood Culture Pending Received 03/19/17 18:15 Blood Peripheral Anaerobic Blood Culture Pending Received Result Diagram: 03/19/17181403/19/17 1815 Imaging Last [address] 03/19/17 1809 Signed Impressions: Service Date/Time: March 19:46 - CONCLUSION: 1. No acute hemorrhage or mass effect. 2. The stable old areas of encephalomalacia in the frontal lobes left greater than right. 3. Mild to moderate atrophy. Julio Rosales MD Hip and Pelvis X-Ray 03/19/17 0000 Signed Impressions: Service Date/Time: March 19:43 - CONCLUSION: 1. Status post right hip arthroplasty with no evidence of fracture or dislocation. 2. Osteopenia and postoperative changes in the left hip. Julio Rosales MD Chest X-Ray 03/19/17 0000 Signed Impressions: Service Date/Time: March 18:23 - CONCLUSION: 1. Interval intubation and placement of nasogastric tube. 2. The lungs remain clear. Julio Rosales MD Caprini VTE Risk Assessment Caprini VTE Risk Assessment: Mod/High Risk (score >= 2) Caprini Risk Assessment Model Point Value = 1 Point Value = 2 Point Value = 3 Point Value = 5 Age 41-60 Minor surgery BMI > 25 kg/m2 Swollen legs Varicose veins or History of unexplained or recurrent spontaneous Oral contraceptives or hormone replacement Sepsis (< 1 month) Serious lung disease, including pneumonia (< 1 month) Abnormal pulmonary function Acute myocardial infarction Congestive heart failure (< 1 month) History of inflammatory bowel disease Medical patient at bed rest Age 61-74 Arthroscopic surgery Major open surgery (> 45 min) Laparoscopic surgery (> 45 min) Malignancy Confined to bed (> 72 hours) Immobilizing plaster cast Central venous access Age >= 75 History of VTE Family history of VTE Factor V Leiden Prothrombin [id number] Lupus anticoagulant Anticardiolipin antibodies Elevated serum homocysteine Heparin-induced thrombocytopenia Other congenital or acquired thrombophilia Stroke (< 1 month) Elective arthroplasty Hip, pelvis, or leg fracture Acute spinal cord injury (< 1 month) Prophylaxis Regimen Total Risk Factor Score Risk Level Prophylaxis Regimen 0-1 Low Early ambulation 2 Moderate Order ONE of the following: *Sequential Compression Device (SCD) *Heparin 5000 units SQ BID 3-4 Higher Order ONE of the following medications: *Heparin 5000 units SQ TID *Enoxaparin/Lovenox 40 mg SQ daily (WT < 150 kg, CrCl > 30 mL/min) *Enoxaparin/Lovenox 30 mg SQ daily (WT < 150 kg, CrCl > 10-29 mL/min) *Enoxaparin/Lovenox 30 mg SQ BID (WT < 150 kg, CrCl > 30 mL/min) AND/OR *Sequential Compression Device (SCD) 5 or more Highest Order ONE of the following medications: *Heparin 5000 units SQ TID (Preferred with Epidurals) *Enoxaparin/Lovenox 40 mg SQ daily (WT < 150 kg, CrCl > 30 mL/min) *Enoxaparin/Lovenox 30 mg SQ daily (WT < 150 kg, CrCl > 10-29 mL/min) *Enoxaparin/Lovenox 30 mg SQ BID (WT < 150 kg, CrCl > 30 mL/min) AND *Sequential Compression Device (SCD) Assessment and Plan Assessment and Plan Respiratory failure - Intubated for an airway protection - No weaning until neurologically improved - ABG and CXR daily Cardiac arrest - Status post CPR and PEA arrest - Rule out cardiac event - Series of troponins and EKGs - CT pulmonary angiogram negative for embolism - GCS [id number] not a candidate for Hypothermia protocol - History of polypharmacy with pain medication and muscle relaxants - Follow up 2-D echo Lactic acidosis - Due to arrest - IV fluids resuscitation - Monitor trend - Sepsis less likely Hypertension - Lisinopril - monitor closely creatinine trend - Coreg COPD - No exacerbation - No indication of steroids - DuoNeb scheduled and when necessary Hypothyroidism - Levothyroxine Anxiety and depressions - Sertraline - Hydroxyzine GERD - IV Pepcid every 12 hours DVT GI prophylaxis - Teds SCDs - Subcutaneous heparin - Pepcid Critical Care: The total critical care time was 35 minutes. Time to perform other separately billable procedures was not included in the critical care time. Tarun Nelson MD Mar 19, 2017 20:37
[2017-03-19 20:38] LABS: LACTIC ACID GHOST NOT REPORTABLE
[2017-03-19] MEDS: SODIUM CHLORIDE 0.9% FLUSH 10 ML FLUSH IV FLUSH SCH (21:00)
[2017-03-19] MEDS: DOCUSATE SODIUM 50 MG/SENNA 8.6 MG TAB PO SCH (21:00)
[2017-03-19] MEDS ORDERED: FAMOTIDINE 20 MG/2 ML VIAL IV PUSH SCH (21:00)
[2017-03-19] MEDS ORDERED: hydrOXYzine HCL 50 MG TAB PO SCH (21:00)
[2017-03-19 21:08] LABS: CREATINE KINASE 58 U/L (26-192)
[2017-03-19] MEDS: SODIUM CHLOR 0.9% 1000 ML INJ 1,000 ML IV SCH (21:09)
[2017-03-19] MEDS: RESP: ALBUTEROL 2.5 MG/IPRATROPIUM 0.5 MG NEB (SCH) INH (21:11)
[2017-03-19] MEDS: hydrALAZINE HCL 20 MG/ML VIAL IV PUSH PRN (21:27)
[2017-03-19] MEDS: HEPARIN SODIUM - SQ 10,000 UNITS/ML VIAL SQ SCH (21:41)
[2017-03-19] MEDS: CARVEDILOL 12.5 MG TAB PO SCH (21:42)
[2017-03-19] MEDS: LABETALOL HCL 100 MG/20 ML VIAL IV PUSH PRN (22:31)
[2017-03-20] VITALS (22 sets, daily range): BP systolic 138–196; BP diastolic 61–111; PULSE 70–86; RESP 18–24; TEMP 96.7–99; O2SAT 96–100
[2017-03-20] MEDS: PROPOFOL 1000 MG/100 ML INJ 100 ML IV PRN ×4 (00:10→21:09)
[2017-03-20] MEDS ORDERED: LABETALOL HCL 100 MG/20 ML VIAL IV ONE (01:00)
[2017-03-20] MEDS: hydrALAZINE HCL 20 MG/ML VIAL IV PUSH PRN ×5 (02:45→20:20)
[2017-03-20] MEDS: SODIUM CHLOR 0.9% 1000 ML INJ 1,000 ML IV SCH ×3 (02:45→22:07)
--- NOTE | 2017-03-20 03:07 | RADRPT ---
EXAM DATE/TIME: 03/20/2017 02:42 [facility] COMPARISON: CHEST SINGLE AP, March 19, 2017, 18:23. INDICATIONS : Respiratory failure- Evaluate for pnuemonia MEDICAL HISTORY : Diabetes mellitus type II. Cerebrovascular disease. Chronic obstructive pulmonary disease. CHF SURGICAL HISTORY : None. ENCOUNTER: Subsequent ACUITY: 2 days PAIN SCORE: Non-responsive. LOCATION: Bilateral chest FINDINGS: Focal parenchymal consolidation again seen left lung base. Right lung remains reasonably clear. No la rge effusion. No pneumothorax. Endotracheal tube tip is approximately 3.7 cm above the yifan. Nasogastric tube courses into the sto mach. CONCLUSION: No significant change. Focal left base consolidation again seen. Adam Houser MD on March 20, 2017 at 3:04 Board Certified Radiologist. This report was verified electronically.
[2017-03-20] MEDS: RESP: ALBUTEROL 2.5 MG/IPRATROPIUM 0.5 MG NEB (SCH) INH ×5 (04:02→23:03)
[2017-03-20] MEDS: HEPARIN SODIUM - SQ 10,000 UNITS/ML VIAL SQ SCH ×3 (05:04→21:09)
[2017-03-20] MEDS: LEVOTHYROXINE SODIUM 25 MCG TAB PO SCH (05:04)
[2017-03-20] MEDS: LABETALOL HCL 100 MG/20 ML VIAL IV PUSH PRN ×2 (05:59→23:25)
[2017-03-20 06:00] LABS: AUTOMATED NEUTROPHIL # 9.4 TH/MM3 (1.8-7.7); BASOPHIL % 0.4 % (0.0-2.0); EOSINOPHIL % 0.2 % (0.0-4.0); HEMATOCRIT 32.3 % (35.0-46.0); HEMO FLAGS DIFF FINAL; LYMPH % 4.9 % (9.0-44.0); LYMPHOCYTE # 0.6 TH/MM3 (1.0-4.8); MEAN CELL VOLUME 77.2 FL (80.0-100.0); MEAN CORPUSCULAR HEMOGLOBIN 24.6 PG (27.0-34.0); MEAN CORPUSCULAR HGB CONC 31.9 % (32.0-36.0); NEUT % 83.5 % (16.0-70.0); PLATELET COUNT 287 TH/MM3 (150-450); RED BLOOD COUNT 4.18 MIL/MM3 (4.00-5.30); RED CELL DISTRIBUTION WIDTH 18.8 % (11.6-17.2); WHITE BLOOD COUNT 11.2 TH/MM3 (4.0-11.0)
[2017-03-20 06:27] LABS: ANION GAP 10 MEQ/L (5-15); AST (GOT) 24 U/L (15-37); BICARBONATE 25.3 MEQ/L (21.0-32.0); BLOOD UREA NITROGEN 14 MG/DL (7-18); CHLORIDE 99 MEQ/L (98-107); GLOMERULAR FILTRATION RATE 43 ML/MIN (>89); MAGNESIUM 1.6 MG/DL (1.5-2.5); POTASSIUM 4.2 MEQ/L (3.5-5.1); SODIUM (NA) 134 MEQ/L (136-145)
[2017-03-20 06:31] LABS: ALKALINE PHOSPHATASE 143 U/L (45-117); ALT (GPT) 21 U/L (10-53); TOTAL BILIRUBIN ADULT 0.4 MG/DL (0.2-1.0)
[2017-03-20] MEDS: CHLORHEXIDINE 0.12% (ORAL KIT) 15 ML CUP MT SCH ×2 (08:27→21:09)
[2017-03-20] MEDS: SODIUM CHLORIDE 0.9% FLUSH 10 ML FLUSH IV FLUSH SCH ×2 (08:27→21:10)
[2017-03-20] MEDS: CALCIUM/VITAMIN D 250 MG/125 U TAB PO SCH ×3 (08:28→18:23)
[2017-03-20] MEDS: CHOLECALCIFEROL (VIT D3) 1000 UNIT TAB PO SCH (08:28)
[2017-03-20] MEDS: CARVEDILOL 12.5 MG TAB PO SCH (08:28)
[2017-03-20] MEDS: FAMOTIDINE 20 MG/2 ML VIAL IV PUSH SCH (08:28)
[2017-03-20] MEDS: LISINOPRIL 20 MG TAB PO SCH (08:28)
[2017-03-20] MEDS: DOCUSATE SODIUM 50 MG/SENNA 8.6 MG TAB PO SCH ×2 (08:28→21:10)
[2017-03-20] MEDS: ARTIFICIAL TEARS OPTH SOLN 15 ML BTL EACH EYE SCH ×3 (08:29→18:00)
[2017-03-20] MEDS ORDERED: SERTRALINE HCL 100 MG TAB PO SCH (09:00)
--- NOTE | 2017-03-20 09:31 | EKG ---
Date Performed: 03/19/2017 Time Performed: 18:03:08 PTAGE: 56 years EKG: Sinus rhythm WITH OCCASIONAL SUPRAVENTRICULAR PREMATURE COMPLEXES LOW QRS VOLTAGE ABNORMAL ECG INTERPRETATION BAS ED ON A DEFAULT AGE OF 40 YEARS PREVIOUS TRACING 02/19/17 Since prior tracing, previously seen anterolateral T-wave leon es have improved. DOCTOR: Vahe Ruelas Interpretating Date/Time 03/20/2017 09:30:42
[2017-03-20] MEDS ORDERED: ROCURONIUM INJ 50 MG/5 ML VIAL ONE (09:58)
[2017-03-20] MEDS: levETIRAcetam INJ 100 ML IV SCH ×2 (10:47→21:09)
[2017-03-20] MEDS ORDERED: ROCURONIUM INJ 50 MG/5 ML VIAL IV ONE (11:30)
--- NOTE | 2017-03-20 11:32 | MG ---
cc: NIK BOURGEOIS MD Lab No: [id number] Date: 03/20/2017 Age: 56 Sex: F Race: ___ DATE OF [address] Nelson PROCEDURE PERFORMED This is a stat EEG for an intubated the patient. MEDICAL HISTORY Witnessed arrest, no CPR initially started. Found on ground unresponsive for 10 minutes asystole. PAST MEDICAL HISTORY 1. Hypothyroidism 2. Stroke/seizures 3. Evacuated subdural hematoma from head trauma 4. Migraine 5. Congestive heart failure 6. Hypertension 7. Hypercholesterolemia 8. COPD 9. Diabetes 10. Hep C 11. Alcohol, tobacco, caffeine and marijuana use. 12. Multiple falls MEDICATIONS 1. Prinivil 2. Zoloft 3. Pepcid 4. Synthroid 5. Trandate 6. Apresoline 7. Coreg 8. Propofol DESCRIPTION At the beginning of the EEG, there was a slowing of the background activity,but this was severely contaminated with muscle and movement artifact. The patient received 50 microgram of ANGELICA and Diprivan 30 mcg and this was followed by generalized slowing of the EEG with polymorphic delta wave. There were no electrographic seizures or epileptiform discharges noted. Hyperventilation was not done. Photic stimulation did not elicit a driving response. INTERPRETATION This EEG is abnormal with severe background slowing and generalized slowing that occurred after the patient received sedation, initially contaminated with severe muscle and movement artifact. No electrographic seizures or epileptiform discharges were noted. Clinical correlation is recommended. MD DEAN Barone/FAVIO /11:03 AM /11:23 AM [facility] CENTERDerek
--- NOTE | 2017-03-20 13:39 | HHI.CCPN ---
Subjective Remarks/Hospital Course 56-year-old female presents after she was a witnessed arrest. There was no CPR started initially until the EMS arrived. As per the water pumper report the patient was on the ground unresponsive for 10 minutes prior to EMS arrival. Upon arrival patient did not have a pulse and was asystole on the monitor. She was given 2 rounds of epinephrine and and then returned of spontaneous circulation. Patient was intubated at the scene by paramedics. Upon arrival in the emergency department her blood pressure was 130/68 and a heart rate in the 60s. She is on multiple pain medications and muscle relaxants as an outpatient. She has multiple ER visits due to dislocated hip in the past. SUBJ 03/20: Neuro exam remains poor. On sedation hold ice on hold up, intermittent myoclonus. Propofol increased and when necessary Versed ordered for myoclonus. EEG shows severe encephalopathy, will get MRI and neuro consult. Keppra started Objective Vital Signs Date Time Temp Pulse Resp B/P (MAP) Pulse Ox O2 Delivery O2 Flow Rate FiO2 03/20/17 12:11 98 35 03/20/17 12:00 96.7 75 24 164/77 (106) 03/19/17 18:58 Auto-Vent Intake and Output 03/20/17 03/20/17 03/21/17 08:00 16:00 00:00 Intake Total 1583.5 ml 824 ml Output Total 525 ml Balance 1058.5 ml 824 ml Result Diagram: 03/20/17 0550 03/20/17 0550 Other Results Laboratory Tests Test 03/19/17 18:26 Blood Gas Puncture Site LT RADIAL Blood Gas Patient Temperature 98.6 Blood Gas HCO3 20 mmol/L (22-26) Blood Gas Base Excess -6.1 mmol/L (-2-2) Blood Gas Oxygen Saturation 93 % (90-100) Arterial Blood pH 7.23 (7.380-7.420) Arterial Blood Partial Pressure CO2 50 mmHg (38-42) Arterial Blood Partial Pressure O2 403 mmHG (61-120) Arterial Blood Oxygen Content 12.7 Vol % (12.0-20.0) Arterial Blood Carboxyhemoglobin 6.0 % (0-4) Arterial Blood Methemoglobin 0.5 % (0-2) Blood Gas Hemoglobin 8.8 G/DL (12.0-16.0) Oxygen Delivery Device VENTILATOR Blood Gas Ventilator Setting PRVC/16/550/1.0/+5 Blood Gas Inspired Oxygen 100 % Imaging Last [address] 03/19/17 1809 Signed Impressions: Service Date/Time: March 19:46 - CONCLUSION: 1. No acute hemorrhage or mass effect. 2. The stable old areas of encephalomalacia in the frontal lobes left greater than right. 3. Mild to moderate atrophy. Julio Rosales MD Hip and Pelvis X-Ray 03/19/17 0000 Signed Impressions: Service Date/Time: March 19:43 - CONCLUSION: 1. Status post right hip arthroplasty with no evidence of fracture or dislocation. 2. Osteopenia and postoperative changes in the left hip. Julio Rosales MD Chest X-Ray 03/19/17 0000 Signed Impressions: Service Date/Time: March 18:23 - CONCLUSION: 1. Interval intubation and placement of nasogastric tube. 2. The lungs remain clear. Julio Rosales MD Objective Remarks GENERAL: Obese female sedated and intubated. Intermittent myoclonic jerking SKIN: Warm and dry. HEAD: Normocephalic. EYES: No scleral icterus. No injection or drainage. NECK: Supple, trachea midline. No JVD or lymphadenopathy. CARDIOVASCULAR: Regular rate and rhythm without murmurs, gallops, or rubs. RESPIRATORY: Breath sounds equal bilaterally. Bilateral expiratory wheezes GASTROINTESTINAL: Abdomen soft, non-tender, nondistended. MUSCULOSKELETAL: No cyanosis, or edema. BACK: Nontender without obvious deformity. NEURO EXAM: Patient is sedated and intubated. JOSE. No purposeful movements. Intermittent myoclonus on stimulation A/P Assessment and Plan NEURO: Anoxic brain injury Myoclonus - EEG shows severe encephalopathy. Check MRI, get neurology consult - Started on Keppra. Continue propofol and when necessary IV Versed - Hold home sertraline and hydroxyzine RESP: Respiratory failure COPD exacerbation - Intubated for an airway protection - No weaning until neurologically improved - ABG and CXR daily - DuoNeb every 6 hours scheduled and when necessary - IV Solu Medrol 60 mg every 12 CVS: Cardiac arrest - Status post CPR and PEA arrest - Rule out cardiac event. Series of troponin -negative - CT pulmonary angiogram negative for embolism - Initial GCS [id number] not a candidate for Hypothermia protocol - History of polypharmacy with pain medication and muscle relaxants - Follow up 2-D echo - Lactic acidosis Due to arrest - IV fluids resuscitation - Monitor trend - Sepsis less likely - On Lisinopril and Coreg for hypotension Endo: Hypothyroidism - Levothyroxine GI: GERD - IV Pepcid every 12 hours DVT GI prophylaxis - Teds SCDs - Subcutaneous heparin - Pepcid Critical Care: The total critical care time was 35 minutes. Time to perform other separately billable procedures was not included in the critical care time. Lino Medina MD Mar 20, 2017 13:39
[2017-03-20] MEDS ORDERED: RESP: ALBUTEROL 2.5 MG/IPRATROPIUM 0.5 MG NEB (SCH) NEB ×2 (14:00→16:00)
[2017-03-20] MEDS: methylPREDNISolone SOD SUCC 125 MG/2 ML VIAL IV PUSH SCH (14:42)
--- NOTE | 2017-03-20 18:00 | RADRPT ---
EXAM DATE/TIME: 03/20/2017 17:29 [facility] COMPARISON: No previous studies available for comparison. INDICATIONS : Anoxic brain injury. MEDICAL HISTORY : Hypertension. Hepatitis C. Chronic obstructive pulmonary disease. SURGICAL HISTORY : Fusion, lumbar. Appendectomy. Hysterectomy. Bilateral hip replacecment. ENCOUNTER: Initial ACUITY: 1 day PAIN SCORE: 0/10 LOCATION: cranial TECHNIQUE: Multiplanar, multisequence MRI of the brain was performed without contrast. FINDINGS: MRI of the brain is performed in sagittal, axial and coronal planes. The craniocervical junction and midline structures are unremarkable. Diffusion weighted images demonstrate no abnormality. There is n o evidence of acute cortical infarction, acute hemorrhage, mass effect or midline shift is seen. Ther e is periventricular hyperintensity on the T2 weighted images consistent with small vessel vascular d isease slightly more than expected in a patient of this age.there is encephalomalacia in the left orb ital frontal region. Small arachnoid cyst is present in the left middle cranial fossa measuring 15 mm . Posterior fossa structures are unremarkable. There is mucosal disease in the ethmoid and sphenoid s inuses. CONCLUSION: 1. No evidence of acute intracranial pathology. No masses are identified. 2. Left frontal encephalomalacia Tito Lincoln MD on March 20, 2017 at 17:55 Board Certified Radiologist. This report was verified electronically.
--- NOTE | 2017-03-20 18:56 | ECHRPT ---
Indication: CARDIOMYOPATHY CONCLUSIONS The left ventricular systolic function is grossly normal on limited imaging around 55%. Mild mitral valve regurgitation. There is mild to moderate tricuspid valve regurgitation. BP: 138 / 68 HR: 78 Rhythm: Sinus MEASUREMENTS (Male / Female) Normal Values Technical Quality:Fair 2D ECHO LV Diastolic Diameter PLAX 5.2 cm 4.2 - 5.9 / 3.9 - 5.3 cm LV Systolic Diameter PLAX 3.4 cm IVS Diastolic Thickness 0.9 cm 0.6 - 1.0 / 0.6 - 0.9 cm LVPW Diastolic Thickness 0.9 cm 0.6 - 1.0 / 0.6 - 0.9 cm LV Relative Wall Thickness 0.3 LVOT Diameter 1.9 cm Aortic Root Diameter 3.0 cm LA Systolic Diameter LX 3.6 cm 3.0 - 4.0 / 2.7 - 3.8 cm M-MODE AV Cusp Separation MM 2.1 cm DOPPLER AV Peak Velocity 171.0 cm/s AV Peak Gradient 11.7 mmHg AV Mean Gradient 5.0 mmHg AV Velocity Time Integral 32.5 cm LVOT Peak Velocity 107.0 cm/s LVOT Peak Gradient 4.6 mmHg LVOT Velocity Time Integral 23.1 cm LVOT Cardiac Index 2160.8 cm/minm AV Area Cont Eq vti 2.0 cm AV Area Cont Eq pk 1.8 cm Mitral E Point Velocity 88.8 cm/s Mitral A Point Velocity 72.6 cm/s Mitral E to A Ratio 1.2 LV E' Lateral Velocity 9.9 cm/s Mitral E to LV E' Lateral Ratio 8.9 LV E' Septal Velocity 2.9 cm/s Mitral E to LV E' Septal Ratio 30.8 TR Peak Velocity 261.0 cm/s TR Peak Gradient 27.2 mmHg Right Atrial Pressure 10.0 mmHg Pulmonary Artery Systolic Pressu 37.2 mmHg Right Ventricular Systolic Press 37.2 mmHg PV Peak Velocity 57.1 cm/s PV Peak Gradient 1.3 mmHg FINDINGS LEFT VENTRICLE Normal left ventricular size. Wall thickness is normal. The left ventricular systolic function is grossly normal on limited imaging around 55%. RIGHT VENTRICLE The right ventricle is mildly dilated. The right ventricular systoilc function is normal. LEFT ATRIUM The left atrial size is moderately dilated. RIGHT ATRIUM The right atrial size is moderately dilated. ATRIAL SEPTUM Normal atrial septal thickness without atrial level shunting by limited color doppler interrogation. AORTA The aortic root and proximal ascending aorta are normal in size on limited imaging. MITRAL VALVE Structurally normal mitral valve. No mitral valve stenosis. Mild mitral valve regurgitation. AORTIC VALVE Trileaflet aortic valve. No aortic valve stenosis or regurgitation. TRICUSPID VALVE There is mild to moderate tricuspid valve regurgitation. The estimated pulmonary arterial pressure is 37.2 mmHg. PULMONARY VALVE No pulmonary valve regurgitation or stenosis. VESSELS The inferior vena cava is normal in size. PERICARDIUM No pericardial effusion. Steven Casas DO (Electronically Signed) Final Date:20 March 2017 18:54
--- NOTE | 2017-03-20 21:24 | MB ---
cc: NIK BOURGEOIS MD DATE OF CONSULTATION: 03/20/2017. REASON FOR CONSULTATION: Myoclonus. HISTORY OF PRESENT ILLNESS: Ms. Small is intubated and sedated; thus, the medical history was obtained from the registered nurse and medical records. A 56-year-old female presented to the [facility] after a witnessed arrest while she was at her friend's house. There was no CPR started initially until EMS arrived as per the equipment validation specialist report, the patient was on the ground unresponsive for ten minutes prior to their arrival. The patient was pulseless and there was asystole on the monitor. CPR was done with return of spontaneous circulation was resumed, intubated at the scene by the paramedics. The patient is on multiple pain medications and muscle relaxants as an outpatient and she has multiple emergency room visits for a dislocated hip in the past. The patient was noted to have upper extremity and face myoclonic movements intermittent, Versed was given, Keppra was started by the chiropractor assistant. REVIEW OF SYSTEMS: Unable to obtain. The patient is sedated and intubated. PAST MEDICAL HISTORY: From medical records: 1. Hypertension. 2. Hypothyroidism. 3. COPD. 4. Chronic back pain. 5. Hepatitis C. 6. Anxiety. 7. Depression. 8. Schizophrenia. PAST SURGICAL HISTORY: 1. Hysterectomy. 2. Back surgery. 3. Appendectomy. 4. Right hip surgery. 5. Stomach surgery. 6. Left hand surgery. 7. Jaw surgery. ALLERGIES: 1. PHENYTOIN. MEDICATIONS: 1. Levothyroxine. 2. Sertraline. 3. Hydroxyzine. 4. Newton. 5. Hydrochlorothiazide. 6. Potassium tablets. 7. DuoNeb. 8. Lisinopril. 9. Tizanidine. 10. Invega. FAMILY HISTORY: Hypertension, diabetes, COPD. SOCIAL HISTORY: As per the medical records, a smoker. No alcohol use. Uses a rolling walker and cane for ambulation at baseline. PHYSICAL EXAMINATION: GENERAL: The patient is overweight, intubated and sedated. HEAD, EYES, EARS, NOSE, THROAT: Normocephalic and atraumatic. NECK: The neck is supple. Trachea is midline. CARDIOVASCULAR: Regular rate and rhythm. RESPIRATORY: Equal breath sounds. No accessory muscle use. No wheezes. GASTROINTESTINAL: The abdomen is soft. Not distended. MUSCULOSKELETAL: No cyanosis, clubbing or edema. NEUROLOGICAL EXAMINATION: Sedated and intubated. Pupils are 4 to 5 mm with very sluggish reaction to light. Positive cough and gag reflex. Positive corneal reflex. No gaze deviation. LABORATORY STUDIES: WBCs 11.2, hemoglobin 10.3, MCV 77.2. Sodium 134, potassium 4.2, anion gap 10, creatinine 1.3, BUN 14, lactic acid 2, calcium 8.4, alkaline phosphatase is 143 , AST 24, ALT 21, albumin 2.7. Urine drug screen positive for opiates and ethyl alcohol. INR 1. DIAGNOSTIC IMAGING: - Head CT: No acute hemorrhage or mass effect. Stable old areas of encephalomalacia in the cortical lobes, left greater than right. - Brain MRI shows no evidence of acute intracranial pathology. No masses identified. Left frontal encephalomalacia. - EEG shows encephalopathic pattern after received sedation. The EEG would be more informative if the patient is off sedation. DIAGNOSTIC IMPRESSION: 1. Encephalopathy. 2. Anoxic brain injury with myoclonus. 3. Respiratory failure. 4. Status post cardiac arrest. 5. Hypothyroidism. PLAN: 1. Neuro checks q. 1 hourly. 2. Continue Keppra 1000 milligrams twice a day. 3. Continue supportive medical therapy. 4. Seizure prophylaxis. 5. DVT prophylaxis. 6. GI prophylaxis. Thank you for the opportunity to participate in the care of your patient. MD DEAN Barone/ROXANA /8:39 PM /9:08 PM SHAHLA
[2017-03-21] VITALS (21 sets, daily range): BP systolic 138–186; BP diastolic 68–89; PULSE 73–96; RESP 16–18; TEMP 97.4–99.3; O2SAT 97–100
[2017-03-21] MEDS: hydrALAZINE HCL 20 MG/ML VIAL IV PUSH PRN ×3 (00:43→12:09)
[2017-03-21] MEDS: PROPOFOL 1000 MG/100 ML INJ 100 ML IV PRN ×6 (01:23→22:38)
[2017-03-21] MEDS: RESP: ALBUTEROL 2.5 MG/IPRATROPIUM 0.5 MG NEB (SCH) INH ×6 (03:42→23:55)
[2017-03-21] MEDS: CHLORHEXIDINE GLUCONATE 2 % 1 PACK (2 CLOTHS) TOP SCH (04:00)
[2017-03-21] MEDS: HEPARIN SODIUM - SQ 10,000 UNITS/ML VIAL SQ SCH ×3 (04:09→20:31)
[2017-03-21] MEDS: methylPREDNISolone SOD SUCC 125 MG/2 ML VIAL IV PUSH SCH ×2 (04:09→15:04)
[2017-03-21] MEDS: LEVOTHYROXINE SODIUM 25 MCG TAB PO SCH (05:32)
[2017-03-21] MEDS: DOCUSATE SODIUM 50 MG/SENNA 8.6 MG TAB PO SCH ×2 (08:54→20:30)
[2017-03-21] MEDS: FAMOTIDINE 20 MG/2 ML VIAL IV PUSH SCH (08:54)
[2017-03-21] MEDS: levETIRAcetam INJ 100 ML IV SCH ×2 (08:54→20:30)
[2017-03-21] MEDS: CALCIUM/VITAMIN D 250 MG/125 U TAB PO SCH ×3 (08:54→17:23)
[2017-03-21] MEDS: LISINOPRIL 20 MG TAB PO SCH (08:54)
[2017-03-21] MEDS: CHOLECALCIFEROL (VIT D3) 1000 UNIT TAB PO SCH (08:54)
[2017-03-21] MEDS: SODIUM CHLORIDE 0.9% FLUSH 10 ML FLUSH IV FLUSH SCH ×2 (08:55→20:30)
[2017-03-21] MEDS: SODIUM CHLOR 0.9% 1000 ML INJ 1,000 ML IV SCH ×3 (08:56→20:31)
[2017-03-21] MEDS: CHLORHEXIDINE 0.12% (ORAL KIT) 15 ML CUP MT SCH ×2 (08:56→20:29)
[2017-03-21] MEDS: LABETALOL HCL 100 MG/20 ML VIAL IV PUSH PRN (09:13)
[2017-03-21] MEDS: ARTIFICIAL TEARS OPTH SOLN 15 ML BTL EACH EYE SCH ×3 (09:13→17:24)
--- NOTE | 2017-03-21 12:12 | HHI.CCPN ---
Subjective Remarks/Hospital Course 56-year-old female presents after she was a witnessed arrest. There was no CPR started initially until the EMS arrived. As per the electrical and instrument mechanic report the patient was on the ground unresponsive for 10 minutes prior to EMS arrival. Upon arrival patient did not have a pulse and was asystole on the monitor. She was given 2 rounds of epinephrine and and then returned of spontaneous circulation. Patient was intubated at the scene by paramedics. Upon arrival in the emergency department her blood pressure was 130/68 and a heart rate in the 60s. She is on multiple pain medications and muscle relaxants as an outpatient. She has multiple ER visits due to dislocated hip in the past. SUBJ 03/20: Neuro exam remains poor. On sedation hold ice on hold up, intermittent myoclonus. Propofol increased and when necessary Versed ordered for myoclonus. EEG shows severe encephalopathy, will get MRI and neuro consult. Keppra started 03/21: No improvement in neuro exam. EEG shows severe background slowing. MRI negative for anoxic brain injury findings. Patient has no purposeful movements minimal withdrawal to pain. Opens eyes no tracking, Today's ECG per prelim report shows active seizures. Start phenytoin loading dose and scheduled Objective Vital Signs Date Time Temp Pulse Resp B/P (MAP) Pulse Ox O2 Delivery O2 Flow Rate FiO2 03/21/17 12:03 97 35 03/21/17 10:00 86 03/21/17 08:00 98.6 18 178/81 (113) 03/19/17 18:58 Auto-Vent Intake and Output 03/21/17 03/21/17 03/22/17 08:00 16:00 00:00 Intake Total 976 ml 1100 ml Output Total 425 ml Balance 551 ml 1100 ml Result Diagram: 03/20/17 0550 03/20/17 0550 Imaging Last [address] 03/19/17 1809 Signed Impressions: Service Date/Time: March 19:46 - CONCLUSION: 1. No acute hemorrhage or mass effect. 2. The stable old areas of encephalomalacia in the frontal lobes left greater than right. 3. Mild to moderate atrophy. Julio Rosales MD Hip and Pelvis X-Ray 03/19/17 0000 Signed Impressions: Service Date/Time: March 19:43 - CONCLUSION: 1. Status post right hip arthroplasty with no evidence of fracture or dislocation. 2. Osteopenia and postoperative changes in the left hip. Julio Rosales MD Chest X-Ray 03/19/17 0000 Signed Impressions: Service Date/Time: March 18:23 - CONCLUSION: 1. Interval intubation and placement of nasogastric tube. 2. The lungs remain clear. Julio Rosales MD Objective Remarks GENERAL: Obese female sedated and intubated. No myoclonus noted today SKIN: Warm and dry. HEAD: Normocephalic. EYES: No scleral icterus. No injection or drainage. NECK: Supple, trachea midline. No JVD or lymphadenopathy. CARDIOVASCULAR: Regular rate and rhythm without murmurs, gallops, or rubs. RESPIRATORY: Breath sounds equal bilaterally. Bilateral expiratory wheezes GASTROINTESTINAL: Abdomen soft, non-tender, nondistended. MUSCULOSKELETAL: No cyanosis, or edema. BACK: Nontender without obvious deformity. NEURO EXAM: Patient is sedated and intubated. JOSE. No purposeful movements. Very weak withdrawal. Opens eyes but no tracking. Varying lateral gaze preferences A/P Assessment and Plan NEURO: Probable status epilepticus\ Possible Anoxic brain injury Myoclonus - EEG shows severe encephalopathy. MRI-no acute fining, Neurology consult-Dr. Renteria - Started on Keppra. EEG 03/20/17 showed background slowing. Today's ECG per prelim report shows active seizures - IV load with Cerebyx 1 g 1 and 100 every 8 hours. Will inform neurology - Continue propofol and when necessary IV Versed - Hold home sertraline and hydroxyzine RESP: Respiratory failure COPD exacerbation - Intubated for an airway protection - No weaning until neurologically improved - ABG and CXR daily - DuoNeb every 6 hours scheduled and when necessary - IV Solu Medrol 60 mg every 12 - Per Dr. Nelson, Initial GCS [id number] not a candidate for Hypothermia protocol CVS: Cardiac arrest - Status post CPR and PEA arrest - Series of troponin -negative - CT pulmonary angiogram negative for embolism - History of polypharmacy with pain medication and muscle relaxants - Follow up 2-D echo - Lactic acidosis Due to arrest - IV fluids resuscitation - Monitor trend - Sepsis less likely - On Lisinopril and Coreg for hypotension Endo: Hypothyroidism - Levothyroxine GI: GERD - IV Pepcid every 12 hours DVT GI prophylaxis - Teds SCDs - Subcutaneous heparin - Pepcid Critical Care: The total critical care time was 35 minutes. Time to perform other separately billable procedures was not included in the critical care time. Remains critically ill with probable status epilepticus. Continue Keppra and loading dose of Cerebyx 1 g and continue 100 every 8. Monitor EEG and neuro status closely Lino Medina MD Mar 21, 2017 12:12
[2017-03-21] MEDS ORDERED: FOSPHENYTOIN INJ 1,000 MGPE in SODIUM CHLORIDE 0.9% INJ 50 ML IV ONE (13:45)
[2017-03-21] MEDS ORDERED: FOSPHENYTOIN SODIUM 100 MG PE/2 ML VIAL IV SCH (14:00)
--- NOTE | 2017-03-21 14:14 | MG ---
cc: NIK RENTERIA MD Lab No: Date: 03/21/17 Age: 56 Sex: F Race: DATE OF [address] Medina This is a stat EEG, follow up EEG. MEDICAL HISTORY Female, witnessed arrest. No CPR initially started. Found unresponsive on the ground for 10 minutes. Asystole, noticed to have increased myoclonic activity. This is a repeat EEG. The patient is not waking up off sedation. Neuro status is not improving. History of hypothyroidism, stroke, seizures, evacuation of subdural hematoma, head trauma, migraine, congestive heart failure, hypercholesterolemia, COPD, diabetes, hepatitis C. Alcohol, tobacco, caffeine use. MEDICATIONS 1. Diprivan. 2. Keppra. 3. Lisinopril. 4. Synthroid. 5. Apresoline. 6. Heparin. DESCRIPTION There is generalized periodic epileptic discharge occurring at 2 per second throughout the beginning of the EEG recording. This was done at 12:34 p.m. after the Diprivan has been off since 8 a.m. today. During the recording the Diprivan was resumed and back on 25 micrograms, then upped to 50 micrograms where there was clear suppression of these epileptic discharges subsided, however, there was background slowing and intermittent periodic epileptiform discharges. INTERPRETATION This is an abnormal EEG indicative of generalized periodic epileptic discharges that indicates a nonconvulsive status epilepticus, clearly subsided after Diprivan was introduced. There was background slowing that may indicate a medication effect or encephalopathic pattern. Clinical correlation is recommended. Nik Renteria MD RGO/EO /1:46 PM /1:51 PM SHAHLA
[2017-03-21] MEDS: RESP: BUDESONIDE 0.5 MG/2 ML NEB NEB SCH ×2 (15:43→19:49)
[2017-03-21] MEDS: PHENYTOIN INJ 100 MG/2 ML VIAL IV SCH (20:30)
[2017-03-21] MEDS: CARVEDILOL 12.5 MG TAB OG-TUBE SCH (20:30)
--- NOTE | 2017-03-21 23:27 | HHI.PR ---
Review/Management Diagnosis -Encephalopathy. -Anoxic brain injury with myoclonus. - Non convulsive status -Respiratory failure. -Status post cardiac arrest. -Hypothyroidism. Plan -Neuro checks q. 1 hourly. -Continue Keppra 1000 milligrams twice a day. - Loaded with Dilantin 15mg/kg iv infusion - Dilantin 100mg Q h8 iv - Obtain Dilantin level 6: 00 pm this evening - Obtain Dilantin level next am -Continue supportive medical therapy. -Seizure prophylaxis. -DVT prophylaxis. -GI prophylaxis. Diagnosis/Plan: Subjective Subjective Comments Patient was seen to have non convulsive seizures on EEG recording while Diprivan was off, then the activity would subside when Diprivan was resumed Loaded with Dilantin No change in neurologic status overnight Active Medications Current Medications Medications (Trade) Dose Ordered Sig/Nelly Route Start Time Stop Time Status Last Admin (Oscal-D 250-125) 250 mg TID PO 03/20/17 09:00 03/21/17 17:23 (Vitamin D3) 1,000 units DAILY PO 03/20/17 09:00 03/21/17 08:54 (Atarax) 200 mg HS PO 03/19/17 21:00 Future Hold 03/19/17 22:35 (Synthroid) 25 mcg DAILY@0600 PO 03/20/17 06:00 03/21/17 05:32 (Prinivil) 20 mg DAILY PO 03/20/17 09:00 03/21/17 08:54 (Zoloft) 100 mg DAILY PO 03/20/17 09:00 Future Hold 03/20/17 08:28 Sodium Chloride 1,000 ml @ 100 mls/hr Q10H IV 03/19/17 19:13 03/21/17 17:25 (NS Flush) 2 ml UNSCH PRN IV FLUSH 03/19/17 19:15 (NS Flush) 2 ml BID IV FLUSH 03/19/17 21:00 03/21/17 20:30 (Tylenol) 650 mg Q6H PRN PO 03/19/17 19:15 (Morphine Inj) 2 mg Q2H PRN IV PUSH 03/19/17 19:15 (Versed Inj) 2 mg Q1H PRN IV PUSH 03/19/17 19:15 (Tears Naturale Opth Soln) 1 drop TID EACH EYE 03/20/17 09:00 03/21/17 17:24 (Zofran Inj) 4 mg Q6H PRN IV PUSH 03/19/17 19:15 (Duoneb Neb) 1 ampule Q2HR NEB PRN INH 03/19/17 19:15 (Heparin Inj) 5,000 units Q8H SQ 03/19/17 20:00 03/21/17 20:31 Miscellaneous Information 1 Q361D XX 03/19/17 19:15 03/19/17 19:15 (Chlorhexidine 2% Cloth) 3 pack Taper DAILY@04 TOP 03/20/17 04:00 03/16/18 03:59 03/21/17 04:00 (Chlorhexidine 2% Cloth) 3 pack UNSCH PRN TOP 03/19/17 19:15 (Tracee-Colace) 1 tab BID PO 03/19/17 21:00 03/21/17 20:30 (Milk Of Magnesia Liq) 30 ml Q12H PRN PO 03/19/17 19:15 (Senokot) 17.2 mg Q12H PRN PO 03/19/17 19:15 (Dulcolax Supp) 10 mg DAILY PRN RECTAL 03/19/17 19:15 (Lactulose Liq) 30 ml DAILY PRN PO 03/19/17 19:15 Propofol 100 ml @ 3.3 mls/hr TITRATE PRN IV 03/19/17 19:15 03/21/17 22:38 (Peridex 0.12% Liq) 15 ml BID@08,20 MT 03/19/17 20:00 03/21/17 20:29 (Pepcid Inj) 20 mg DAILY IV PUSH 03/20/17 09:00 03/21/17 08:54 (Trandate Inj) 10 mg Q4H PRN IV PUSH 03/19/17 21:15 03/21/17 09:13 (Apresoline Inj) 20 mg Q4H PRN IV PUSH 03/19/17 21:15 03/21/17 12:09 Levetriacetam 100 ml @ 400 mls/hr Q12HR IV 03/20/17 10:00 03/21/17 20:30 (Duoneb Neb) 1 ampule Q4HR NEB INH 03/20/17 12:00 03/21/17 19:49 (SoluMEDROL INJ) 60 mg Q12H IV PUSH 03/20/17 15:00 03/21/17 15:04 (Pulmicort Respule Neb) 0.5 mg Q12HR NEB NEB 03/21/17 12:15 03/21/17 19:49 (Coreg) 12.5 mg BID OG-TUBE 03/21/17 21:00 03/21/17 20:30 (Dilantin Inj) 100 mg Q8HR IV 03/21/17 22:00 03/21/17 20:30 Allergies Allergies Coded Allergies phenytoin (Unverified Allergy, Severe, LIVER PROBLEMS, 03/19/17) *MDRO Multi-Drug Resistant Organism (Verified Adverse Reaction, Unknown, ) Review of Systems All other ROS: ROS reviewed as documented in chart Exam I&O / VS 03/21/17 03/21/17 03/22/17 15:00 23:00 07:00 Intake Total 1270 ml 1503 ml Output Total 450 ml Balance 1270 ml 1053 ml Intake IV Total 1270 ml 1503 ml Output Urine Total 450 ml Vital Signs Date Time Temp Pulse Resp B/P (MAP) Pulse Ox O2 Delivery O2 Flow Rate FiO2 03/21/17 22:00 73 03/21/17 20:00 91 03/21/17 20:00 35 03/21/17 20:00 99.3 91 18 156/87 (110) 99 03/21/17 19:49 100 35 03/21/17 18:00 87 03/21/17 17:36 99 35 03/21/17 16:00 98.8 83 16 138/68 (91) 98 03/21/17 16:00 83 03/21/17 16:00 35 03/21/17 14:00 92 03/21/17 12:52 99 35 03/21/17 12:03 97 35 03/21/17 12:03 35 03/21/17 12:00 86 03/21/17 12:00 98.8 96 16 164/77 (106) 98 03/21/17 12:00 35 03/21/17 12:00 96 03/21/17 10:00 86 03/21/17 09:35 100 35 03/21/17 08:00 80 03/21/17 08:00 35 03/21/17 08:00 98.6 80 18 178/81 (113) 98 03/21/17 07:25 98 35 03/21/17 06:00 78 03/21/17 04:05 98 35 03/21/17 04:00 35 03/21/17 04:00 97.9 79 18 166/74 (104) 99 03/21/17 04:00 79 03/21/17 02:00 83 03/21/17 01:19 97 35 03/21/17 00:00 78 03/21/17 00:00 97.4 78 18 186/89 (121) 98 03/21/17 00:00 35 Exam Comments GENERAL: The patient is overweight, intubated and sedated. HEAD, EYES, EARS, NOSE, THROAT: Normocephalic and atraumatic. NECK: The neck is supple. Trachea is midline. CARDIOVASCULAR: Regular rate and rhythm. RESPIRATORY: Equal breath sounds. No accessory muscle use. No wheezes. GASTROINTESTINAL: The abdomen is soft. Not distended. MUSCULOSKELETAL: No cyanosis, clubbing or edema. NEUROLOGICAL EXAMINATION: Sedated and intubated. Pupils are 4 to 5 mm with very sluggish reaction to light. Positive cough and gag reflex. Positive corneal reflex. No gaze deviation. Objective Radiology Results Last 72 hours Impressions Chest X-Ray 03/20/17 0000 Signed Impressions: Service Date/Time: Monday, March 20, 2017 02:42 - CONCLUSION: No significant change. Focal left base consolidation again seen. Adam Houser MD Brain MRI 03/20/17 0000 Signed Impressions: Service Date/Time: Monday, March 20, 2017 17:29 - CONCLUSION: 1. No evidence of acute intracranial pathology. No masses are identified. 2. Left frontal encephalomalacia Tito Licnoln MD Head CT 03/19/17 180 Signed Impressions: Service Date/Time: March 19:46 - CONCLUSION: 1. No acute hemorrhage or mass effect. 2. The stable old areas of encephalomalacia in the frontal lobes left greater than right. 3. Mild to moderate atrophy. Julio Rosales MD Hip and Pelvis X-Ray 03/19/17 0000 Signed Impressions: Service Date/Time: March 19:43 - CONCLUSION: 1. Status post right hip arthroplasty with no evidence of fracture or dislocation. 2. Osteopenia and postoperative changes in the left hip. Julio Rosales MD Chest X-Ray 03/19/17 0000 Signed Impressions: Service Date/Time: March 18:23 - CONCLUSION: 1. Interval intubation and placement of nasogastric tube. 2. The lungs remain clear. Julio Rosales MD CT Angiography 03/19/17 0000 Signed Impressions: Service Date/Time: March 19:58 - CONCLUSION: 1. No evidence of pulmonary embolism. 2. Small areas of focal pleural-parenchymal change which may be infectious or inflammatory. Julio Rosales MD Micro and Labs Laboratory Tests Test 03/21/17 19:04 Phenytoin (Dilantin) Level 2.4 Date/Time Source Procedure Growth Status 03/19/17 18:15 Blood Peripheral Aerobic Blood Culture - Preliminary NO GROWTH IN 2 DAYS Resulted 03/19/17 18:15 Blood Peripheral Anaerobic Blood Culture - Preliminary NO GROWTH IN 2 DAYS Resulted Niraj Renteria MD Mar 21, 2017 23:27
[2017-03-22] VITALS (18 sets, daily range): BP systolic 121–186; BP diastolic 63–78; PULSE 69–80; RESP 18; TEMP 98.1–99.1; O2SAT 95–99
[2017-03-22] MEDS: hydrALAZINE HCL 20 MG/ML VIAL IV PUSH PRN ×3 (01:08→18:49)
[2017-03-22] MEDS: PROPOFOL 1000 MG/100 ML INJ 100 ML IV PRN ×7 (01:38→22:06)
[2017-03-22] MEDS: methylPREDNISolone SOD SUCC 125 MG/2 ML VIAL IV PUSH SCH ×2 (03:31→15:15)
[2017-03-22] MEDS: HEPARIN SODIUM - SQ 10,000 UNITS/ML VIAL SQ SCH ×3 (03:32→21:12)
[2017-03-22] MEDS: CHLORHEXIDINE GLUCONATE 2 % 1 PACK (2 CLOTHS) TOP SCH (03:32)
[2017-03-22] MEDS: SODIUM CHLOR 0.9% 1000 ML INJ 1,000 ML IV SCH ×2 (03:33→18:33)
[2017-03-22] MEDS: RESP: ALBUTEROL 2.5 MG/IPRATROPIUM 0.5 MG NEB (SCH) INH ×5 (04:09→20:38)
[2017-03-22] MEDS: PHENYTOIN INJ 100 MG/2 ML VIAL IV SCH ×3 (04:40→21:13)
[2017-03-22] MEDS: LEVOTHYROXINE SODIUM 25 MCG TAB PO SCH (04:40)
[2017-03-22] MEDS: LABETALOL HCL 100 MG/20 ML VIAL IV PUSH PRN (04:41)
[2017-03-22] MEDS: RESP: BUDESONIDE 0.5 MG/2 ML NEB NEB SCH ×4 (07:35→20:38)
[2017-03-22] MEDS: FAMOTIDINE 20 MG/2 ML VIAL IV PUSH SCH (08:01)
[2017-03-22] MEDS: CALCIUM/VITAMIN D 250 MG/125 U TAB PO SCH ×3 (08:01→18:33)
[2017-03-22] MEDS: CARVEDILOL 12.5 MG TAB OG-TUBE SCH ×2 (08:01→21:12)
[2017-03-22] MEDS: levETIRAcetam INJ 100 ML IV SCH ×2 (08:01→21:13)
[2017-03-22] MEDS: LISINOPRIL 20 MG TAB PO SCH (08:01)
[2017-03-22] MEDS: CHLORHEXIDINE 0.12% (ORAL KIT) 15 ML CUP MT SCH ×2 (08:01→21:34)
[2017-03-22] MEDS: DOCUSATE SODIUM 50 MG/SENNA 8.6 MG TAB PO SCH ×2 (08:01→21:00)
[2017-03-22] MEDS: CHOLECALCIFEROL (VIT D3) 1000 UNIT TAB PO SCH (08:01)
[2017-03-22] MEDS: ARTIFICIAL TEARS OPTH SOLN 15 ML BTL EACH EYE SCH ×3 (08:02→18:33)
[2017-03-22] MEDS: SODIUM CHLORIDE 0.9% FLUSH 10 ML FLUSH IV FLUSH SCH ×2 (08:02→21:13)
[2017-03-22 10:09] LABS: ANION GAP 11 MEQ/L (5-15); AST (GOT) 14 U/L (15-37); BICARBONATE 21.6 MEQ/L (21.0-32.0); BLOOD UREA NITROGEN 13 MG/DL (7-18); CHLORIDE 103 MEQ/L (98-107); GLOMERULAR FILTRATION RATE 81 ML/MIN (>89); MAGNESIUM 1.6 MG/DL (1.5-2.5); SODIUM (NA) 136 MEQ/L (136-145)
[2017-03-22 10:13] LABS: ALKALINE PHOSPHATASE 103 U/L (45-117); ALT (GPT) 12 U/L (10-53); TOTAL BILIRUBIN ADULT 0.5 MG/DL (0.2-1.0)
[2017-03-22] MEDS ORDERED: FOSPHENYTOIN INJ 1,500 MGPE in SODIUM CHLORIDE 0.9% INJ 100 ML IV ONE (11:00)
--- NOTE | 2017-03-22 11:10 | EKG ---
Date Performed: 03/20/2017 Time Performed: 00:43:40 PTAGE: 56 years EKG: Sinus rhythm . Low QRS voltages in precordial leads Abnormal ECG PREVIOUS TRACING : 03/19/2017 18.03 DOCTOR: Vince Huffman Interpretating Date/Time 03/22/2017 11:09:49
[2017-03-22] MEDS ORDERED: SODIUM PHOSPHATE INJ 30 MMOL in SODIUM CHLOR 0.9% 250 ML INJ 240 ML IV PRN (11:45)
[2017-03-22] MEDS ORDERED: POTASSIUM PHOSPHATE MONOBASIC 500 MG TAB PO/TUBE PRN (11:45)
[2017-03-22] MEDS ORDERED: POTASSIUM CHLOR 40 MEQ PREMIX 100 ML IV PRN ×2 (11:45)
[2017-03-22] MEDS ORDERED: MAGNESIUM OXIDE 400 MG TAB PO PRN (11:45)
[2017-03-22] MEDS ORDERED: POTASSIUM CHLOR 20 MEQ PREMIX 100 ML IV PRN ×2 (11:45)
[2017-03-22] MEDS ORDERED: POTASSIUM PHOSPHATE MONOBASIC 500 MG TAB PO PRN (11:45)
[2017-03-22] MEDS ORDERED: POTASSIUM PHOSPHATE INJ 30 MMOL in SODIUM CHLOR 0.9% 250 ML INJ 250 ML IV PRN (11:45)
[2017-03-22] MEDS ORDERED: MAGNESIUM SULFATE INJ 2 GM in SODIUM CHLORIDE 0.9% INJ 96 ML IV PRN (11:45)
[2017-03-22] MEDS ORDERED: MAGNESIUM SULFATE INJ 4 GM in SODIUM CHLORIDE 0.9% INJ 92 ML IV PRN (11:45)
--- NOTE | 2017-03-22 11:54 | HHI.CCPN ---
Subjective Remarks/Hospital Course 56-year-old female presents after she was a witnessed arrest. There was no CPR started initially until the EMS arrived. As per the yardmaster report the patient was on the ground unresponsive for 10 minutes prior to EMS arrival. Upon arrival patient did not have a pulse and was asystole on the monitor. She was given 2 rounds of epinephrine and and then returned of spontaneous circulation. Patient was intubated at the scene by paramedics. Upon arrival in the emergency department her blood pressure was 130/68 and a heart rate in the 60s. She is on multiple pain medications and muscle relaxants as an outpatient. She has multiple ER visits due to dislocated hip in the past. SUBJ 03/20: Neuro exam remains poor. On sedation hold ice on hold up, intermittent myoclonus. Propofol increased and when necessary Versed ordered for myoclonus. EEG shows severe encephalopathy, will get MRI and neuro consult. Keppra started 03/21: No improvement in neuro exam. EEG shows severe background slowing. MRI negative for anoxic brain injury findings. Patient has no purposeful movements minimal withdrawal to pain. Opens eyes no tracking, Today's ECG per prelim report shows active seizures. Start phenytoin loading dose and scheduled 03/22: Neuro status unchanged, EEG showed nonconvulsive seizures yesterday. Cerebyx loading and continue Dilantin. Today when sedation is held the patient developed seizure again. Dilantin level subtherapeutic at 3.5, additional 1.5 g loading dose ordered. Daughter at bedside updated Objective Vital Signs Date Time Temp Pulse Resp B/P (MAP) Pulse Ox O2 Delivery O2 Flow Rate FiO2 03/22/17 10:11 97 35 03/22/17 08:00 78 03/22/17 08:00 98.6 18 139/64 (89) 03/19/17 18:58 Auto-Vent Intake and Output 03/22/17 03/22/17 03/23/17 08:00 16:00 00:00 Intake Total 1320 ml 295 ml Output Total 500 ml Balance 820 ml 295 ml Result Diagram: 03/20/17 0550 03/22/17 0509 Imaging Last [address] 03/19/17 1382 Signed Impressions: Service Date/Time: March 19:46 - CONCLUSION: 1. No acute hemorrhage or mass effect. 2. The stable old areas of encephalomalacia in the frontal lobes left greater than right. 3. Mild to moderate atrophy. Julio Rosales MD Hip and Pelvis X-Ray 03/19/17 0000 Signed Impressions: Service Date/Time: March 19:43 - CONCLUSION: 1. Status post right hip arthroplasty with no evidence of fracture or dislocation. 2. Osteopenia and postoperative changes in the left hip. Julio Rosales MD Chest X-Ray 03/19/17 0000 Signed Impressions: Service Date/Time: March 18:23 - CONCLUSION: 1. Interval intubation and placement of nasogastric tube. 2. The lungs remain clear. Julio Rosales MD Objective Remarks GENERAL: Obese female sedated and intubated. EEG shows slowing, sz activity when sedation was held SKIN: Warm and dry. HEAD: Normocephalic. EYES: No scleral icterus. No injection or drainage. NECK: Supple, trachea midline. No JVD or lymphadenopathy. CARDIOVASCULAR: Regular rate and rhythm without murmurs, gallops, or rubs. RESPIRATORY: Breath sounds equal bilaterally. Bilateral expiratory wheezes GASTROINTESTINAL: Abdomen soft, non-tender, nondistended. MUSCULOSKELETAL: No cyanosis, or edema. BACK: Nontender without obvious deformity. NEURO EXAM: Patient is sedated and intubated. JOSE. No purposeful movements. Very weak withdrawal. No eye opening spontaneously A/P Assessment and Plan NEURO: Subclinical seizures Possible Anoxic brain injury Myoclonus - EEG 03/21 subclinical seizures. MRI-no acute fining, Neurology Dr. Renteria - Started on Keppra 03/20. EEG 03/20/17 showed background slowing. - IV load with Cerebyx 1 g 1 and 100 every 8 hours 03/21. Dilantin subtherapeutic at 3.5, additional 1.5 g loading dose of Cerebyx ordered - Continue propofol and when necessary IV Versed - Hold home sertraline and hydroxyzine - Daughter states that several years ago patient had seizure disorder - Per Dr. Nelson, Initial GCS [id number] not a candidate for Hypothermia protocol - History of polypharmacy with pain medication and muscle relaxants RESP: Acute Respiratory failure Acute COPD exacerbation - Intubated for an airway protection - No weaning until neurologically improved, and seizures are better controlled - ABG and CXR as needed - DuoNeb every 6 hours scheduled and when necessary - IV Solu Medrol 60 mg every 12, inhaled budesonide CVS: Cardiac arrest - Status post CPR and PEA arrest - Series of troponin -negative - CT pulmonary angiogram negative for embolism - History of polypharmacy with pain medication and muscle relaxants - Follow up 2-D echo-LVEF 55%. Mild MR. There is mild to moderate TR - Lactic acidosis Due to arrest - On Lisinopril and Coreg for hypotension Endo: Hypothyroidism - Levothyroxine 25 mctg daily, increase to 50 last TSH was 12 - Unclear history of compliance GI: GERD - IV Pepcid every 12 hours - Start tube feeds with Jevity ID - Patient has left lower lobe infiltrate Best no fever or increasing white count - Blood cultures negative, send sputum cultures DVT GI prophylaxis - Teds SCDs - Subcutaneous heparin - Pepcid Critical Care: 35 minutes. Time to perform other separately billable procedures was not included in the critical care time. Remains critically ill with subclinical seizures and encephalopathy. Continue Keppra and Dilantin, additional loading dose of Cerebyx 1.5 g and continue 100 every 8. Monitor EEG and neuro status closely Lino Medina MD Mar 22, 2017 11:54
[2017-03-22] MEDS: MAGNESIUM SULFATE 1 GM PREMIX 100 ML IV SCH ×2 (12:06→13:00)
--- NOTE | 2017-03-22 12:12 | RADRPT ---
EXAM DATE/TIME: 03/22/2017 11:49 [facility] COMPARISON: CHEST SINGLE AP, March 20, 2017, 2:42. INDICATIONS : Respiratory disease MEDICAL HISTORY : Hypertension. Hepatitis C. Chronic obstructive pulmonary disease. SURGICAL HISTORY : Fusion, lumbar. Appendectomy. Hysterectomy. Bilateral hip replacecment. ENCOUNTER: Initial ACUITY: 2 days PAIN SCORE: Non-responsive. LOCATION: chest FINDINGS: A single view of the chest demonstrates the endotracheal tube and nasogastric are both in good positi on. There is loss of left hemidiaphragm margin likely left lower lobe atelectasis or infiltrate The h eart is slightly enlarged. Small lung volumes. Osseous structures are intact. CONCLUSION: ET tube in good position. Lungs remain clear except for left basilar infiltrate versus atelectasis. Vicente Roman MD on March 22, 2017 at 12:09 Board Certified Radiologist. This report was verified electronically.
--- NOTE | 2017-03-22 13:49 | HHI.PR ---
Review/Management Diagnosis -Encephalopathy. -Anoxic brain injury with myoclonus. - Non convulsive status, resolved -Respiratory failure. -Status post cardiac arrest. -Hypothyroidism. Plan -Neuro checks q. 1 hourly. -Continue Keppra 1000 milligrams twice a day. - Loaded with Dilantin 15mg/kg iv infusion, given sub therapeutic levels - Dilantin 100mg Q h8 iv - Obtain Dilantin level 6: 00 pm this evening - Obtain Dilantin level next am -Continue supportive medical therapy. -Seizure prophylaxis. -DVT prophylaxis. -GI prophylaxis. Diagnosis/Plan: Subjective Subjective Comments No acute events reported Continuous Video EEG reveals slowing of the background, currently on Diprivan, no epileptic activity is evident Dilantin level is sub therapeutic 3.5 Active Medications Current Medications Medications (Trade) Dose Ordered Sig/Nelly Route Start Time Stop Time Status Last Admin (Oscal-D 250-125) 250 mg TID PO 03/20/17 09:00 03/22/17 08:01 (Vitamin D3) 1,000 units DAILY PO 03/20/17 09:00 03/22/17 08:01 (Atarax) 200 mg HS PO 03/19/17 21:00 Future Hold 03/19/17 22:35 (Prinivil) 20 mg DAILY PO 03/20/17 09:00 03/22/17 08:01 (Zoloft) 100 mg DAILY PO 03/20/17 09:00 Future Hold 03/20/17 08:28 Sodium Chloride 1,000 ml @ 100 mls/hr Q10H IV 03/19/17 19:13 03/22/17 03:33 (NS Flush) 2 ml UNSCH PRN IV FLUSH 03/19/17 19:15 (NS Flush) 2 ml BID IV FLUSH 03/19/17 21:00 03/22/17 08:02 (Tylenol) 650 mg Q6H PRN PO 03/19/17 19:15 (Morphine Inj) 2 mg Q2H PRN IV PUSH 03/19/17 19:15 (Versed Inj) 2 mg Q1H PRN IV PUSH 03/19/17 19:15 (Tears Naturale Opth Soln) 1 drop TID EACH EYE 03/20/17 09:00 03/22/17 08:02 (Zofran Inj) 4 mg Q6H PRN IV PUSH 03/19/17 19:15 (Duoneb Neb) 1 ampule Q2HR NEB PRN INH 03/19/17 19:15 (Heparin Inj) 5,000 units Q8H SQ 03/19/17 20:00 03/22/17 12:08 Miscellaneous Information 1 Q361D XX 03/19/17 19:15 03/19/17 19:15 (Chlorhexidine 2% Cloth) 3 pack Taper DAILY@04 TOP 03/20/17 04:00 03/16/18 03:59 03/22/17 03:32 (Chlorhexidine 2% Cloth) 3 pack UNSCH PRN TOP 03/19/17 19:15 (Tracee-Colace) 1 tab BID PO 03/19/17 21:00 03/22/17 08:01 (Milk Of Magnesia Liq) 30 ml Q12H PRN PO 03/19/17 19:15 (Senokot) 17.2 mg Q12H PRN PO 03/19/17 19:15 (Dulcolax Supp) 10 mg DAILY PRN RECTAL 03/19/17 19:15 (Lactulose Liq) 30 ml DAILY PRN PO 03/19/17 19:15 Propofol 100 ml @ 3.3 mls/hr TITRATE PRN IV 03/19/17 19:15 03/22/17 12:52 (Peridex 0.12% Liq) 15 ml BID@08,20 MT 03/19/17 20:00 03/22/17 08:01 (Pepcid Inj) 20 mg DAILY IV PUSH 03/20/17 09:00 03/22/17 08:01 (Trandate Inj) 10 mg Q4H PRN IV PUSH 03/19/17 21:15 03/22/17 04:41 (Apresoline Inj) 20 mg Q4H PRN IV PUSH 03/19/17 21:15 03/22/17 07:19 Levetriacetam 100 ml @ 400 mls/hr Q12HR IV 03/20/17 10:00 03/22/17 08:01 (Duoneb Neb) 1 ampule Q4HR NEB INH 03/20/17 12:00 03/22/17 10:57 (SoluMEDROL INJ) 60 mg Q12H IV PUSH 03/20/17 15:00 03/22/17 03:31 (Pulmicort Respule Neb) 0.5 mg Q12HR NEB NEB 03/21/17 12:15 03/22/17 07:35 (Coreg) 12.5 mg BID OG-TUBE 03/21/17 21:00 03/22/17 08:01 (Dilantin Inj) 100 mg Q8HR IV 03/21/17 22:00 03/22/17 04:40 (Mag-Ox) 400 mg Q12HR PO 03/22/17 21:00 (Pulmicort Respule Neb) 0.5 mg Q12HR NEB NEB 03/22/17 11:45 Potassium Chloride 100 ml @ 50 mls/hr Q2H PRN IV 03/22/17 11:45 Potassium Chloride 100 ml @ 50 mls/hr Q2H PRN IV 03/22/17 11:45 (K-Lyte Cl Eff) 50 meq UNSCH PRN PO 03/22/17 11:45 Potassium Chloride 100 ml @ 25 mls/hr UNSCH PRN IV 03/22/17 11:45 Potassium Chloride 100 ml @ 50 mls/hr Q2H PRN IV 03/22/17 11:45 Magnesium Sulfate 4 gm/Sodium Chloride 100 ml @ 50 mls/hr UNSCH PRN IV 03/22/17 11:45 (Mag-Ox) 800 mg UNSCH PRN PO 03/22/17 11:45 Magnesium Sulfate 2 gm/Sodium Chloride 100 ml @ 50 mls/hr UNSCH PRN IV 03/22/17 11:45 (K-Phos) 2,000 mg Q4H PRN PO 03/22/17 11:45 Sodium Phosphate 30 mmol/Sodium Chloride 250 ml @ 42 mls/hr UNSCH PRN IV 03/22/17 11:45 (K-Phos) 2,000 mg UNSCH PRN PO/TUBE 03/22/17 11:45 Potassium Phosphate 30 mmol/ Sodium Chloride 260 ml @ 42 mls/hr UNSCH PRN IV 03/22/17 11:45 (Synthroid) 50 mcg DAILY@0600 PO 03/23/17 06:00 Allergies Allergies Coded Allergies phenytoin (Unverified Allergy, Severe, LIVER PROBLEMS, 03/19/17) *MDRO Multi-Drug Resistant Organism (Verified Adverse Reaction, Unknown, ) Review of Systems All other ROS: ROS reviewed as documented in chart Exam I&O / VS 03/22/17 03/22/17 03/23/17 15:00 23:00 07:00 Intake Total 295 ml Balance 295 ml Intake IV Total 295 ml Vital Signs Date Time Temp Pulse Resp B/P (MAP) Pulse Ox O2 Delivery O2 Flow Rate FiO2 03/22/17 12:54 97 35 03/22/17 10:11 97 35 03/22/17 10:00 72 03/22/17 08:00 35 03/22/17 08:00 78 03/22/17 08:00 98.6 78 18 139/64 (89) 95 03/22/17 07:35 96 35 03/22/17 06:00 70 03/22/17 04:09 99 35 03/22/17 04:00 35 03/22/17 04:00 80 03/22/17 04:00 98.1 80 18 186/78 (114) 99 03/22/17 02:00 77 03/22/17 00:00 99.1 78 18 185/77 (113) 99 03/22/17 00:00 78 03/22/17 00:00 35 03/21/17 23:55 99 35 03/21/17 22:00 73 03/21/17 20:00 91 03/21/17 20:00 35 03/21/17 20:00 99.3 91 18 156/87 (110) 99 03/21/17 19:49 100 35 03/21/17 18:00 87 03/21/17 17:36 99 35 03/21/17 16:00 98.8 83 16 138/68 (91) 98 03/21/17 16:00 83 03/21/17 16:00 35 03/21/17 14:00 92 Exam Comments GENERAL: The patient is overweight, intubated and sedated. HEAD, EYES, EARS, NOSE, THROAT: Normocephalic and atraumatic. NECK: The neck is supple. Trachea is midline. CARDIOVASCULAR: Regular rate and rhythm. RESPIRATORY: Equal breath sounds. No accessory muscle use. No wheezes. GASTROINTESTINAL: The abdomen is soft. Not distended. MUSCULOSKELETAL: No cyanosis, clubbing or edema. NEUROLOGICAL EXAMINATION: Sedated and intubated. Pupils 4-5 mm with very sluggish reaction to light. Positive cough and gag reflex. Positive corneal reflex. No gaze deviation. Objective Radiology Results Last 72 hours Impressions Chest X-Ray 03/22/17 0000 Signed Impressions: Service Date/Time: Wednesday, March 22, 2017 11:49 - CONCLUSION: ET tube in good position. Lungs remain clear except for left basilar infiltrate versus atelectasis. Vicente Roman MD Chest X-Ray 03/20/17 0000 Signed Impressions: Service Date/Time: Monday, March 20, 2017 02:42 - CONCLUSION: No significant change. Focal left base consolidation again seen. Adam Houser MD Brain MRI 03/20/17 0000 Signed Impressions: Service Date/Time: Monday, March 20, 2017 17:29 - CONCLUSION: 1. No evidence of acute intracranial pathology. No masses are identified. 2. Left frontal encephalomalacia Tito Lincoln MD Head CT 03/19/17 180 Signed Impressions: Service Date/Time: March 19:46 - CONCLUSION: 1. No acute hemorrhage or mass effect. 2. The stable old areas of encephalomalacia in the frontal lobes left greater than right. 3. Mild to moderate atrophy. Julio Rosales MD Micro and Labs Laboratory Tests Test 03/21/17 19:04 03/22/17 05:09 Phenytoin (Dilantin) Level 2.4 3.5 Blood Urea Nitrogen 13 Creatinine 0.75 Random Glucose 111 Total Protein 6.4 Albumin 2.4 Calcium Level 8.4 Magnesium Level 1.6 Alkaline Phosphatase 103 Aspartate Amino Transf (AST/SGOT) 14 Alanine Aminotransferase (ALT/SGPT) 12 Total Bilirubin 0.5 Sodium Level 136 Potassium Level 4.0 Chloride Level 103 Carbon Dioxide Level 21.6 Anion Gap 11 Estimat Glomerular Filtration Rate 81 Date/Time Source Procedure Growth Status 03/19/17 18:15 Blood Peripheral Aerobic Blood Culture - Preliminary NO GROWTH IN 3 DAYS Resulted 03/19/17 18:15 Blood Peripheral Anaerobic Blood Culture - Preliminary NO GROWTH IN 3 DAYS Resulted Niraj Renteria MD Mar 22, 2017 13:49
[2017-03-22] MEDS: MAGNESIUM OXIDE 400 MG TAB PO SCH (21:12)
[2017-03-23] VITALS (17 sets, daily range): BP systolic 136–159; BP diastolic 64–74; PULSE 68–83; RESP 18–22; TEMP 98–99; O2SAT 94–100
[2017-03-23] MEDS: PROPOFOL 1000 MG/100 ML INJ 100 ML IV PRN ×8 (01:20→23:06)
[2017-03-23] MEDS: methylPREDNISolone SOD SUCC 125 MG/2 ML VIAL IV PUSH SCH ×2 (03:26→14:32)
[2017-03-23] MEDS: HEPARIN SODIUM - SQ 10,000 UNITS/ML VIAL SQ SCH ×3 (03:26→20:28)
[2017-03-23] MEDS: SODIUM CHLOR 0.9% 1000 ML INJ 1,000 ML IV SCH ×2 (03:27→14:28)
[2017-03-23] MEDS: CHLORHEXIDINE GLUCONATE 2 % 1 PACK (2 CLOTHS) TOP SCH (03:27)
[2017-03-23] MEDS: RESP: ALBUTEROL 2.5 MG/IPRATROPIUM 0.5 MG NEB (SCH) INH ×4 (04:26→11:55)
[2017-03-23] MEDS: LEVOTHYROXINE SODIUM 50 MCG TAB PO SCH (04:30)
[2017-03-23] MEDS: PHENYTOIN INJ 100 MG/2 ML VIAL IV SCH ×3 (04:30→20:30)
[2017-03-23 06:55] LABS: AUTOMATED NEUTROPHIL # 16.2 TH/MM3 (1.8-7.7); BASOPHIL % 0.2 % (0.0-2.0); EOSINOPHIL % 0.1 % (0.0-4.0); HEMATOCRIT 30.4 % (35.0-46.0); HEMO FLAGS DIFF FINAL; LYMPH % 1.8 % (9.0-44.0); LYMPHOCYTE # 0.3 TH/MM3 (1.0-4.8); MEAN CELL VOLUME 75.7 FL (80.0-100.0); MEAN CORPUSCULAR HEMOGLOBIN 24.3 PG (27.0-34.0); MONO % 5.5 % (0.0-8.0); NEUT % 92.4 % (16.0-70.0); PLATELET COUNT 268 TH/MM3 (150-450); RED BLOOD COUNT 4.01 MIL/MM3 (4.00-5.30); RED CELL DISTRIBUTION WIDTH 20.1 % (11.6-17.2); WHITE BLOOD COUNT 17.5 TH/MM3 (4.0-11.0)
[2017-03-23 07:21] LABS: ALT (GPT) 12 U/L (10-53); ANION GAP 10 MEQ/L (5-15); AST (GOT) 15 U/L (15-37); BICARBONATE 23.4 MEQ/L (21.0-32.0); BLOOD UREA NITROGEN 15 MG/DL (7-18); CHLORIDE 102 MEQ/L (98-107); GLOMERULAR FILTRATION RATE 68 ML/MIN (>89); MAGNESIUM 1.9 MG/DL (1.5-2.5); SODIUM (NA) 135 MEQ/L (136-145)
[2017-03-23 07:24] LABS: ALKALINE PHOSPHATASE 97 U/L (45-117); TOTAL BILIRUBIN ADULT 0.5 MG/DL (0.2-1.0)
[2017-03-23] MEDS: RESP: BUDESONIDE 0.5 MG/2 ML NEB NEB SCH ×2 (07:59→19:46)
[2017-03-23] MEDS: CHLORHEXIDINE 0.12% (ORAL KIT) 15 ML CUP MT SCH ×2 (08:05→20:28)
[2017-03-23] MEDS: ARTIFICIAL TEARS OPTH SOLN 15 ML BTL EACH EYE SCH ×3 (08:06→18:25)
[2017-03-23] MEDS: CARVEDILOL 12.5 MG TAB OG-TUBE SCH ×2 (08:06→20:30)
[2017-03-23] MEDS: DOCUSATE SODIUM 50 MG/SENNA 8.6 MG TAB PO SCH ×2 (08:06→20:29)
[2017-03-23] MEDS: CHOLECALCIFEROL (VIT D3) 1000 UNIT TAB PO SCH (08:06)
[2017-03-23] MEDS: LISINOPRIL 20 MG TAB PO SCH (08:06)
[2017-03-23] MEDS: CALCIUM/VITAMIN D 250 MG/125 U TAB PO SCH ×3 (08:06→18:25)
[2017-03-23] MEDS: MAGNESIUM OXIDE 400 MG TAB PO SCH ×2 (08:07→20:30)
[2017-03-23] MEDS: FAMOTIDINE 20 MG/2 ML VIAL IV PUSH SCH (08:07)
[2017-03-23] MEDS: levETIRAcetam INJ 100 ML IV SCH ×2 (08:08→21:05)
[2017-03-23] MEDS: SODIUM CHLORIDE 0.9% FLUSH 10 ML FLUSH IV FLUSH SCH ×2 (08:08→20:32)
[2017-03-23] MEDS ORDERED: RESP: ALBUTEROL 2.5 MG/3 ML NEB (PRN) NEB (13:30)
[2017-03-23] MEDS ORDERED: DEXTROSE 50% IN WATER 50 ML VIAL(D50) IV PUSH PRN (13:45)
[2017-03-23] MEDS ORDERED: GLUCAGON 1 MG/ML VIAL OTHER PRN (13:45)
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
[2017-03-23] MEDS ORDERED: LANSOPRAZOLE SOLUTAB 30 MG TAB NG ONE (14:00)
[2017-03-23] MEDS ORDERED: POLYETHYLENE GLYCOL 17 GM PKG PO ONE (14:00)
[2017-03-23] MEDS: RESP: ALBUTEROL 2.5 MG/IPRATROPIUM 0.5 MG NEB (SCH) NEB ×2 (15:00→19:47)
[2017-03-23] MEDS ORDERED: RESP: ALBUTEROL 2.5 MG/IPRATROPIUM 0.5 MG NEB (SCH) INH (16:00)
[2017-03-23] MEDS: INSULIN NovoLIN REGULAR SUPPLEMENTAL SCALE SQ SCH ×2 (18:00→23:05)
--- NOTE | 2017-03-23 19:57 | MG ---
cc: JEWELS ROMERO M.D. Lab No: Date: 03/23/2017 Age: Sex: F Race: TEST NUMBER [id number] TECHNIQUE 21 channel EEG. DESCRIPTION Background rhythm is abnormal. There appears to be a burst suppression pattern with a frequency of about one every 2 seconds, intermittent activity is slow delta rhythm at 3 Hz. Amplitude 10-20 microvolts. There are no lateralizing features seen. INTERPRETATION Abnormal study consistent with a symmetrical burst suppression pattern consistent with severe encephalopathic process. Photic stimulation was done but there was no significant driving response. MD INES García/NAOMI /7:47 PM /7:55 PM
[2017-03-24] VITALS (14 sets, daily range): BP systolic 111–181; BP diastolic 56–77; PULSE 81–92; RESP 19–22; TEMP 97.2–100.2; O2SAT 93–99
[2017-03-24] MEDS: PROPOFOL 1000 MG/100 ML INJ 100 ML IV PRN ×8 (01:08→18:53)
[2017-03-24] MEDS: CHLORHEXIDINE GLUCONATE 2 % 1 PACK (2 CLOTHS) TOP SCH (02:51)
[2017-03-24] MEDS: methylPREDNISolone SOD SUCC 125 MG/2 ML VIAL IV PUSH SCH ×2 (02:51→13:13)
[2017-03-24] MEDS: HEPARIN SODIUM - SQ 10,000 UNITS/ML VIAL SQ SCH ×3 (02:52→20:01)
[2017-03-24] MEDS: RESP: ALBUTEROL 2.5 MG/IPRATROPIUM 0.5 MG NEB (SCH) NEB ×4 (04:10→20:59)
[2017-03-24] MEDS: LEVOTHYROXINE SODIUM 50 MCG TAB PO SCH (05:23)
[2017-03-24] MEDS: INSULIN NovoLIN REGULAR SUPPLEMENTAL SCALE SQ SCH ×3 (05:23→18:00)
[2017-03-24] MEDS: PHENYTOIN INJ 100 MG/2 ML VIAL IV SCH ×3 (05:23→20:00)
--- NOTE | 2017-03-24 05:43 | RADRPT ---
EXAM DATE/TIME: 03/24/2017 04:26 [facility] COMPARISON: CHEST SINGLE AP, March 22, 2017, 11:49. INDICATIONS : Short of breath. MEDICAL HISTORY : Hypertension. Hepatitis C. Chronic obstructive pulmonary disease. SURGICAL HISTORY : Fusion, lumbar. Appendectomy. Hysterectomy. Bilateral hip replacecment. ENCOUNTER: Subsequent ACUITY: 3 days PAIN SCORE: 0/10 LOCATION: Bilateral chest FINDINGS: The cardiac silhouette is enlarged in transverse diameter. There are findings of congestive heart seb lure with interstitial and alveolar opacity bilaterally. There is left lower lobe atelectasis versus pneumonia. Support lines and tubes are in satisfactory position. CONCLUSION: 1. Cardiomegaly and findings of congestive heart failure. There has been no significant change when c ompared to the prior exam. Tito Lincoln MD on March 24, 2017 at 5:41 Board Certified Radiologist. This report was verified electronically.
[2017-03-24 05:48] LABS: AUTOMATED NEUTROPHIL # 13.4 TH/MM3 (1.8-7.7); BASOPHIL % 0.1 % (0.0-2.0); EOSINOPHIL # 0.1 TH/MM3 (0-0.4); EOSINOPHIL % 0.4 % (0.0-4.0); HEMATOCRIT 28.6 % (35.0-46.0); HEMO FLAGS DIFF FINAL; LYMPH % 4.2 % (9.0-44.0); LYMPHOCYTE # 0.7 TH/MM3 (1.0-4.8); MEAN CELL VOLUME 75.7 FL (80.0-100.0); MEAN CORPUSCULAR HEMOGLOBIN 24.4 PG (27.0-34.0); MEAN CORPUSCULAR HGB CONC 32.2 % (32.0-36.0); MONO % 9.8 % (0.0-8.0); NEUT % 85.5 % (16.0-70.0); PLATELET COUNT 246 TH/MM3 (150-450); RED BLOOD COUNT 3.78 MIL/MM3 (4.00-5.30); RED CELL DISTRIBUTION WIDTH 19.8 % (11.6-17.2); WHITE BLOOD COUNT 15.7 TH/MM3 (4.0-11.0)
[2017-03-24 06:02] LABS: ANION GAP 10 MEQ/L (5-15); AST (GOT) 15 U/L (15-37); BICARBONATE 22.3 MEQ/L (21.0-32.0); BLOOD UREA NITROGEN 15 MG/DL (7-18); CHLORIDE 103 MEQ/L (98-107); GLOMERULAR FILTRATION RATE 75 ML/MIN (>89); MAGNESIUM 1.8 MG/DL (1.5-2.5); POTASSIUM 3.8 MEQ/L (3.5-5.1); SODIUM (NA) 135 MEQ/L (136-145)
[2017-03-24 06:04] LABS: ALT (GPT) 11 U/L (10-53)
[2017-03-24 06:06] LABS: ALKALINE PHOSPHATASE 98 U/L (45-117); TOTAL BILIRUBIN ADULT 0.6 MG/DL (0.2-1.0)
[2017-03-24] MEDS: RESP: BUDESONIDE 0.5 MG/2 ML NEB NEB SCH ×2 (08:04→20:58)
[2017-03-24] MEDS: CALCIUM/VITAMIN D 250 MG/125 U TAB PO SCH ×3 (08:27→18:31)
[2017-03-24] MEDS: MAGNESIUM OXIDE 400 MG TAB PO SCH ×2 (08:27→20:01)
[2017-03-24] MEDS: DOCUSATE SODIUM 50 MG/SENNA 8.6 MG TAB PO SCH ×2 (08:27→20:02)
[2017-03-24] MEDS: CHOLECALCIFEROL (VIT D3) 1000 UNIT TAB PO SCH (08:27)
[2017-03-24] MEDS: LISINOPRIL 20 MG TAB PO SCH (08:27)
[2017-03-24] MEDS: CARVEDILOL 12.5 MG TAB OG-TUBE SCH ×2 (08:27→20:02)
[2017-03-24] MEDS: SODIUM CHLORIDE 0.9% FLUSH 10 ML FLUSH IV FLUSH SCH ×2 (08:28→20:01)
[2017-03-24] MEDS: levETIRAcetam INJ 100 ML IV SCH ×2 (08:28→20:00)
[2017-03-24] MEDS: CHLORHEXIDINE 0.12% (ORAL KIT) 15 ML CUP MT SCH ×2 (08:28→20:01)
[2017-03-24] MEDS: ARTIFICIAL TEARS OPTH SOLN 15 ML BTL EACH EYE SCH ×3 (08:30→18:32)
[2017-03-24] MEDS ORDERED: POLYETHYLENE GLYCOL 17 GM PKG PO SCH (09:00)
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
[2017-03-24] MEDS ORDERED: POTASSIUM CHLORIDE 20 MEQ PWD PACKET PO ONE (12:30)
[2017-03-24] MEDS: PIPERACIL-TAZO 4.5 GM PREMIX 100 ML IV SCH ×2 (13:13→18:32)
[2017-03-24] MEDS: MAGNESIUM SULFATE 1 GM PREMIX 100 ML IV SCH ×2 (13:51→16:47)
[2017-03-24] MEDS: POLYETHYLENE GLYCOL 17 GM PKG PO SCH (21:00)
[2017-03-25] VITALS (17 sets, daily range): BP systolic 108–166; BP diastolic 58–78; PULSE 75–83; RESP 18–27; TEMP 97–99; O2SAT 95–100
[2017-03-25] MEDS: PIPERACIL-TAZO 4.5 GM PREMIX 100 ML IV SCH ×4 (00:20→17:18)
[2017-03-25] MEDS: PROPOFOL 1000 MG/100 ML INJ 100 ML IV PRN ×3 (00:20→08:08)
[2017-03-25] MEDS: methylPREDNISolone SOD SUCC 125 MG/2 ML VIAL IV PUSH SCH (03:27)
[2017-03-25] MEDS: HEPARIN SODIUM - SQ 10,000 UNITS/ML VIAL SQ SCH ×3 (03:27→23:20)
[2017-03-25] MEDS: CHLORHEXIDINE GLUCONATE 2 % 1 PACK (2 CLOTHS) TOP SCH (03:28)
[2017-03-25] MEDS: RESP: ALBUTEROL 2.5 MG/IPRATROPIUM 0.5 MG NEB (SCH) NEB ×4 (04:04→19:44)
--- NOTE | 2017-03-25 04:25 | RADRPT ---
EXAM DATE/TIME: 03/25/2017 03:33 [facility] COMPARISON: CHEST SINGLE AP, March 24, 2017, 4:26. INDICATIONS : Short of breath. MEDICAL HISTORY : Hypertension. Hepatitis C. Chronic obstructive pulmonary disease. SURGICAL HISTORY : Fusion, lumbar. Appendectomy. Hysterectomy. Bilateral hip replacecment. ENCOUNTER: Subsequent ACUITY: 4 - 6 days PAIN SCORE: 0/10 LOCATION: Bilateral chest FINDINGS: The cardiac silhouette is enlarged in transverse diameter. Support lines and tubes are in satisfactor y position. There is prominence of the central pulmonary vasculature with indistinct vascular margins compatible with vascular congestion but no evidence of overt failure. There is left lower lobe atele ctasis versus pneumonia. CONCLUSION: 1. Cardiomegaly and findings of vascular congestion without overt failure. There has been no signific ant change when compared to the prior exam. 2. Left lower lobe atelectasis versus pneumonia. Tito Lincoln MD on March 25, 2017 at 4:24 Board Certified Radiologist. This report was verified electronically.
[2017-03-25] MEDS: LEVOTHYROXINE SODIUM 50 MCG TAB PO SCH (04:54)
[2017-03-25] MEDS: PHENYTOIN INJ 100 MG/2 ML VIAL IV SCH ×3 (04:54→23:20)
[2017-03-25] MEDS: INSULIN NovoLIN REGULAR SUPPLEMENTAL SCALE SQ SCH ×5 (05:16→23:25)
[2017-03-25 05:47] LABS: AUTOMATED NEUTROPHIL # 18.6 TH/MM3 (1.8-7.7); BASOPHIL % 0.2 % (0.0-2.0); EOSINOPHIL # 0.2 TH/MM3 (0-0.4); EOSINOPHIL % 0.8 % (0.0-4.0); HEMATOCRIT 30.9 % (35.0-46.0); HEMO FLAGS DIFF FINAL; LYMPH % 5.1 % (9.0-44.0); LYMPHOCYTE # 1.1 TH/MM3 (1.0-4.8); MEAN CELL VOLUME 75.8 FL (80.0-100.0); MEAN CORPUSCULAR HEMOGLOBIN 24.2 PG (27.0-34.0); MEAN CORPUSCULAR HGB CONC 31.9 % (32.0-36.0); MONO % 8.8 % (0.0-8.0); NEUT % 85.1 % (16.0-70.0); PLATELET COUNT 198 TH/MM3 (150-450); RED BLOOD COUNT 4.07 MIL/MM3 (4.00-5.30); RED CELL DISTRIBUTION WIDTH 20.1 % (11.6-17.2); WHITE BLOOD COUNT 21.9 TH/MM3 (4.0-11.0)
[2017-03-25 06:12] LABS: ALT (GPT) 11 U/L (10-53); ANION GAP 10 MEQ/L (5-15); AST (GOT) 19 U/L (15-37); BICARBONATE 23.1 MEQ/L (21.0-32.0); BLOOD UREA NITROGEN 14 MG/DL (7-18); CHLORIDE 102 MEQ/L (98-107); GLOMERULAR FILTRATION RATE 86 ML/MIN (>89); POTASSIUM 4.1 MEQ/L (3.5-5.1); SODIUM (NA) 135 MEQ/L (136-145)
[2017-03-25 06:14] LABS: ALKALINE PHOSPHATASE 111 U/L (45-117); TOTAL BILIRUBIN ADULT 0.7 MG/DL (0.2-1.0)
[2017-03-25] MEDS: levETIRAcetam INJ 100 ML IV SCH ×2 (08:08→23:19)
[2017-03-25] MEDS: CHOLECALCIFEROL (VIT D3) 1000 UNIT TAB PO SCH (08:13)
[2017-03-25] MEDS: POLYETHYLENE GLYCOL 17 GM PKG PO SCH ×2 (08:13→21:00)
[2017-03-25] MEDS: CALCIUM/VITAMIN D 250 MG/125 U TAB PO SCH ×3 (08:13→17:18)
[2017-03-25] MEDS: MAGNESIUM OXIDE 400 MG TAB PO SCH ×2 (08:13→23:20)
[2017-03-25] MEDS: ARTIFICIAL TEARS OPTH SOLN 15 ML BTL EACH EYE SCH ×3 (08:14→17:18)
[2017-03-25] MEDS: SODIUM CHLORIDE 0.9% FLUSH 10 ML FLUSH IV FLUSH SCH ×2 (08:14→23:22)
[2017-03-25] MEDS: CHLORHEXIDINE 0.12% (ORAL KIT) 15 ML CUP MT SCH ×2 (08:14→23:23)
[2017-03-25] MEDS: CARVEDILOL 12.5 MG TAB OG-TUBE SCH ×2 (08:14→23:20)
[2017-03-25] MEDS: DOCUSATE SODIUM 50 MG/SENNA 8.6 MG TAB PO SCH (08:14)
[2017-03-25] MEDS: LISINOPRIL 20 MG TAB PO SCH (08:14)
--- NOTE | 2017-03-25 09:17 | HHI.PR ---
Review/Management Diagnosis -Encephalopathy. -Anoxic brain injury with myoclonus. - Non convulsive status, resolved -Respiratory failure. -Status post cardiac arrest. -Hypothyroidism. Plan -Neuro checks q. 1 hourly. -Continue Keppra 1000 milligrams twice a day. - Loaded with Dilantin 15mg/kg iv infusion, given sub therapeutic levels - Dilantin 100mg Q h8 iv - Obtain Dilantin level next am -Continue supportive medical therapy. -Seizure prophylaxis. -DVT prophylaxis. -GI prophylaxis - Discussed case with RN. Diagnosis/Plan: Subjective Subjective Comments Intubated, off sedation Sub therapeutic Dilantin levels No reported seizures Active Medications Current Medications Medications (Trade) Dose Ordered Sig/Nelly Route Start Time Stop Time Status Last Admin (Oscal-D 250-125) 250 mg TID PO 03/20/17 09:00 03/25/17 08:13 (Vitamin D3) 1,000 units DAILY PO 03/20/17 09:00 03/25/17 08:13 (Atarax) 200 mg HS PO 03/19/17 21:00 Future Hold 03/19/17 22:35 (Prinivil) 20 mg DAILY PO 03/20/17 09:00 03/25/17 08:14 (Zoloft) 100 mg DAILY PO 03/20/17 09:00 Future Hold 03/20/17 08:28 (NS Flush) 2 ml UNSCH PRN IV FLUSH 03/19/17 19:15 (NS Flush) 2 ml BID IV FLUSH 03/19/17 21:00 03/25/17 08:14 (Tylenol) 650 mg Q6H PRN PO 03/19/17 19:15 (Morphine Inj) 2 mg Q2H PRN IV PUSH 03/19/17 19:15 (Versed Inj) 2 mg Q1H PRN IV PUSH 03/19/17 19:15 (Tears Naturale Opth Soln) 1 drop TID EACH EYE 03/20/17 09:00 03/25/17 08:14 (Zofran Inj) 4 mg Q6H PRN IV PUSH 03/19/17 19:15 (Heparin Inj) 5,000 units Q8H SQ 03/19/17 20:00 03/25/17 03:27 Miscellaneous Information 1 Q361D XX 03/19/17 19:15 03/19/17 19:15 (Chlorhexidine 2% Cloth) Taper DAILY@04 TOP 03/20/17 04:00 03/16/18 03:59 03/25/17 03:28 (Chlorhexidine 2% Cloth) 3 pack UNSCH PRN TOP 03/19/17 19:15 (Tracee-Colace) 1 tab BID PO 03/19/17 21:00 03/25/17 08:14 (Milk Of Magnesia Liq) 30 ml Q12H PRN PO 03/19/17 19:15 (Senokot) 17.2 mg Q12H PRN PO 03/19/17 19:15 (Dulcolax Supp) 10 mg DAILY PRN RECTAL 03/19/17 19:15 (Lactulose Liq) 30 ml DAILY PRN PO 03/19/17 19:15 Propofol 100 ml @ 3.3 mls/hr TITRATE PRN IV 03/19/17 19:15 03/25/17 08:08 (Peridex 0.12% Liq) 15 ml BID@08,20 MT 03/19/17 20:00 03/25/17 08:14 (Trandate Inj) 10 mg Q4H PRN IV PUSH 03/19/17 21:15 03/22/17 04:41 (Apresoline Inj) 20 mg Q4H PRN IV PUSH 03/19/17 21:15 03/22/17 18:49 Levetriacetam 100 ml @ 400 mls/hr Q12HR IV 03/20/17 10:00 03/25/17 08:08 (SoluMEDROL INJ) 60 mg Q12H IV PUSH 03/20/17 15:00 03/25/17 03:27 (Coreg) 12.5 mg BID OG-TUBE 03/21/17 21:00 03/25/17 08:14 (Dilantin Inj) 100 mg Q8HR IV 03/21/17 22:00 03/25/17 04:54 (Mag-Ox) 400 mg Q12HR PO 03/22/17 21:00 03/25/17 08:13 (Pulmicort Respule Neb) 0.5 mg Q12HR NEB NEB 03/22/17 11:45 03/24/17 20:58 Potassium Chloride 100 ml @ 50 mls/hr Q2H PRN IV 03/22/17 11:45 Potassium Chloride 100 ml @ 50 mls/hr Q2H PRN IV 03/22/17 11:45 (K-Lyte Cl Eff) 50 meq UNSCH PRN PO 03/22/17 11:45 Potassium Chloride 100 ml @ 25 mls/hr UNSCH PRN IV 03/22/17 11:45 Potassium Chloride 100 ml @ 50 mls/hr Q2H PRN IV 03/22/17 11:45 Magnesium Sulfate 4 gm/Sodium Chloride 100 ml @ 50 mls/hr UNSCH PRN IV 03/22/17 11:45 (Mag-Ox) 800 mg UNSCH PRN PO 03/22/17 11:45 Magnesium Sulfate 2 gm/Sodium Chloride 100 ml @ 50 mls/hr UNSCH PRN IV 03/22/17 11:45 (K-Phos) 2,000 mg Q4H PRN PO 03/22/17 11:45 Sodium Phosphate 30 mmol/Sodium Chloride 250 ml @ 42 mls/hr UNSCH PRN IV 03/22/17 11:45 (K-Phos) 2,000 mg UNSCH PRN PO/TUBE 03/22/17 11:45 Potassium Phosphate 30 mmol/ Sodium Chloride 260 ml @ 42 mls/hr UNSCH PRN IV 03/22/17 11:45 (Synthroid) 50 mcg DAILY@0600 PO 03/23/17 06:00 03/25/17 04:54 (Albuterol Neb) 2.5 mg Q2HR NEB PRN NEB 03/23/17 13:45 (Duoneb Neb) 1 ampule Q6HR NEB NEB 03/23/17 16:00 03/25/17 08:01 (D50w (Vial) Inj) 50 ml UNSCH PRN IV PUSH 03/23/17 13:45 (Glucagon Inj) 1 mg UNSCH PRN OTHER 03/23/17 13:45 (NovoLIN R SUPPLEMENTAL SCALE) 1 Q6HR SQ 03/23/17 18:00 03/24/17 11:51 (Miralax) 17 gm BID PO 03/24/17 21:00 03/25/17 08:13 Piperacillin Sod/ Tazobactam Sod 100 ml @ 200 mls/hr Q6H IV 03/24/17 13:00 03/25/17 05:16 Allergies Allergies Coded Allergies phenytoin (Unverified Allergy, Severe, LIVER PROBLEMS, 03/19/17) *MDRO Multi-Drug Resistant Organism (Verified Adverse Reaction, Unknown, ) Review of Systems All other ROS: ROS reviewed as documented in chart Exam I&O / VS 03/25/17 03/25/17 03/26/17 15:00 23:00 07:00 Intake Total 203 ml Balance 203 ml IV Total 203 ml Vital Signs Date Time Temp Pulse Resp B/P (MAP) Pulse Ox O2 Delivery O2 Flow Rate FiO2 03/25/17 08:09 98 35 03/25/17 04:05 100 35 03/25/17 04:00 35 03/25/17 04:00 97.0 78 27 166/78 (107) 99 03/25/17 00:53 100 35 03/25/17 00:00 35 03/25/17 00:00 97.3 81 18 162/69 (100) 99 03/24/17 21:00 96 35 03/24/17 20:00 98.1 82 22 152/68 (96) 99 03/24/17 20:00 35 03/24/17 18:00 81 03/24/17 16:00 99.6 83 19 164/70 (101) 94 03/24/17 16:00 83 03/24/17 16:00 35 03/24/17 15:58 95 35 03/24/17 14:00 87 03/24/17 12:00 35 03/24/17 12:00 99.0 84 20 144/63 (90) 94 03/24/17 12:00 84 03/24/17 11:57 94 35 03/24/17 10:00 85 Exam Comments GENERAL: The patient is overweight, intubated, sedated HEAD, EYES, EARS, NOSE, THROAT: Normocephalic and atraumatic. NECK: The neck is supple. Trachea is midline. CARDIOVASCULAR: Regular rate and rhythm. RESPIRATORY: Equal breath sounds. No accessory muscle use. No wheezes. GASTROINTESTINAL: The abdomen is soft. Not distended. MUSCULOSKELETAL: No cyanosis, clubbing or edema. NEUROLOGICAL EXAMINATION: Intubated, sedated, opens eyes to verbal commands, Pupils 3-4 mm with very sluggish reaction to light. Positive cough and gag reflex. Positive corneal reflex. No gaze deviation.Moves extremities to stimulation Objective Radiology Results Last 72 hours Impressions Chest X-Ray 03/25/17 0600 Signed Impressions: Service Date/Time: Saturday, March 25, 2017 03:33 - CONCLUSION: 1. Cardiomegaly and findings of vascular congestion without overt failure. There has been no significant change when compared to the prior exam. 2. Left lower lobe atelectasis versus pneumonia. Tito Lincoln MD Abdomen X-Ray 03/25/17 0000 Signed Impressions: Service Date/Time: Saturday, March 25, 2017 16:53 - CONCLUSION: 1. NGT in the stomach. 2. Nonobstructive bowel gas pattern. Ovidio Galvez MD Chest X-Ray 03/24/17 06 Signed Impressions: Service Date/Time: Friday, March 24, 2017 04:26 - CONCLUSION: 1. Cardiomegaly and findings of congestive heart failure. There has been no significant change when compared to the prior exam. Tito Lincoln MD Micro and Labs Laboratory Tests Test 03/25/17 04:39 White Blood Count 21.9 Red Blood Count 4.07 Hemoglobin 9.9 Hematocrit 30.9 Mean Corpuscular Volume 75.8 Mean Corpuscular Hemoglobin 24.2 Mean Corpuscular Hemoglobin Concent 31.9 Red Cell Distribution Width 20.1 Platelet Count 198 Mean Platelet Volume 7.7 Neutrophils (%) (Auto) 85.1 Lymphocytes (%) (Auto) 5.1 Monocytes (%) (Auto) 8.8 Eosinophils (%) (Auto) 0.8 Basophils (%) (Auto) 0.2 Neutrophils # (Auto) 18.6 Lymphocytes # (Auto) 1.1 Monocytes # (Auto) 1.9 Eosinophils # (Auto) 0.2 Basophils # (Auto) 0.0 CBC Comment DIFF FINAL Differential Comment Blood Urea Nitrogen 14 Creatinine 0.71 Random Glucose 108 Total Protein 6.2 Albumin 1.9 Calcium Level 8.7 Phosphorus Level 2.6 Magnesium Level 2.0 Alkaline Phosphatase 111 Aspartate Amino Transf (AST/SGOT) 19 Alanine Aminotransferase (ALT/SGPT) 11 Total Bilirubin 0.7 Sodium Level 135 Potassium Level 4.1 Chloride Level 102 Carbon Dioxide Level 23.1 Anion Gap 10 Estimat Glomerular Filtration Rate 86 Phenytoin (Dilantin) Level 5.6 Date/Time Source Procedure Growth Status 03/19/17 18:15 Blood Peripheral Aerobic Blood Culture - Final NO GROWTH IN 5 DAYS Complete 03/19/17 18:15 Blood Peripheral Anaerobic Blood Culture - Final NO GROWTH IN 5 DAYS Complete 03/22/17 15:21 Sputum Endotracheal Gram Stain - Final Resulted 03/22/17 15:21 Sputum Culture - Preliminary Pseudomonas Aeruginosa Resulted Niraj Renteria MD Mar 25, 2017 09:17
[2017-03-25] MEDS ORDERED: PHENYTOIN INJ 1,500 MG in SODIUM CHLOR 0.9% 250 ML INJ 250 ML IV ONE (11:00)
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
[2017-03-25] MEDS ORDERED: METHYLNALTREXONE BROMIDE 12 MG/0.6 ML VIAL SQ ONE (13:00)
[2017-03-25] MEDS ORDERED: MINERAL OIL ENEMA 118 ML BTL RECTAL ONE (13:00)
[2017-03-25] MEDS ORDERED: MINERAL OIL LIQUID 30 ML CUP PO ONE (13:00)
[2017-03-25] MEDS: methylPREDNISolone SOD SUCC 40 MG/1 ML VIAL IV PUSH SCH (14:36)
[2017-03-25] MEDS: LACTULOSE SYRUP 20 GM/30 ML CUP PO SCH ×3 (14:55→23:21)
[2017-03-25] MEDS ORDERED: MAGNESIUM CITRATE SOLN 300 ML BTL PO ONE (17:15)
--- NOTE | 2017-03-25 17:27 | RADRPT ---
EXAM DATE/TIME: 03/25/2017 16:53 [facility] COMPARISON: No previous studies available for comparison. INDICATIONS : Constipation. MEDICAL HISTORY : Hypertension. Hepatitis C. Chronic obstructive pulmonary disease. SURGICAL HISTORY : Fusion, lumbar. Appendectomy. Hysterectomy. Bilateral hip replacecment. ENCOUNTER: Initial ACUITY: 2 days PAIN SCORE: Non-responsive. LOCATION: Abdomen, all quadrants. FINDINGS: There is an NGT in the stomach. General paucity of small bowel gas with air seen in the colon and rec gwendolyn. No significant dilated loops of bowel. No gross free air or fluid evaluation is limited due to b josep habitus and supine technique. A right hip arthroplasty in place. The left femoral compression scr ew and intramedullary rosemary. Extensive likely post traumatic degenerative changes of the thoracolumbar spine. CONCLUSION: 1. NGT in the stomach. 2. Nonobstructive bowel gas pattern. Ovidio Galvez MD on March 25, 2017 at 17:24 Board Certified Radiologist. This report was verified electronically.
[2017-03-25] MEDS: RESP: BUDESONIDE 0.5 MG/2 ML NEB NEB SCH (19:44)
--- NOTE | 2017-03-25 20:12 | MG ---
cc: DOMINIQUE BACON M.D. Sex: F DATE OF : 08/02/1950, 56 [id number] INTRODUCTION: This is a stat study in the room 519 intubated with photic only, deep tactile stimulation on all four extremities, withdrew on both lower, negative in uppers, does not follow commands. Last EEG 03/23/17 is abnormal with symmetrical burst suppression pattern. This is consistent with severe encephalopathy. Photic stimulation was done but there was no significant driving response. The patient is off sedation not waking up. History of hypothyroidism, stroke, seizure, evacuation of subdural hematoma, head trauma, migraine, history of diabetes, hepatitis C, alcohol, tobacco, caffeine use, marijuana use. MEDICATIONS: 1. Solu-Medrol 2. Zosyn. 3. Synthroid. 4. Dilantin. 5. Apresoline. 6. Diprivan 7. Trandate 8. Subcu heparin. DESCRIPTION OF RECORD Overall background is significantly attenuated predominately of 3 to 3.5 hertz, at times 4 hertz and then suppressed, looks more of a burst suppressed pattern at times. No epileptiform features. Towards the end of the recording, the patient was given photic stimulation with some mild driving response possible. No epileptiform features. IMPRESSION: Abnormal EEG due to moderately severe slowing with 7 burst suppression. No epileptiform features. Clinical correlation. Dominique Bacon MD DF/JESUS /7:50 PM /8:04 PM
[2017-03-25] MEDS: DOCUSATE SODIUM 100 MG/10 ML UDC PO SCH (21:00)
[2017-03-25] MEDS: SENNOSIDES SYRUP 8.8 MG/5 ML CUP PO SCH (21:00)
[2017-03-25 22:28] LABS: BETA HCG QUANT LESS THAN 1 MIU/ML (0-5)
[2017-03-26] VITALS (17 sets, daily range): BP systolic 153–181; BP diastolic 70–94; PULSE 78–85; RESP 10–25; TEMP 97.2–99.5; O2SAT 96–100
[2017-03-26] MEDS: RESP: ALBUTEROL 2.5 MG/IPRATROPIUM 0.5 MG NEB (SCH) NEB ×4 (03:10→20:02)
[2017-03-26] MEDS: CHLORHEXIDINE GLUCONATE 2 % 1 PACK (2 CLOTHS) TOP SCH (04:00)
[2017-03-26] MEDS: methylPREDNISolone SOD SUCC 40 MG/1 ML VIAL IV PUSH SCH ×2 (05:10→15:00)
[2017-03-26] MEDS: PIPERACIL-TAZO 4.5 GM PREMIX 100 ML IV SCH ×4 (05:10→17:26)
[2017-03-26] MEDS: HEPARIN SODIUM - SQ 10,000 UNITS/ML VIAL SQ SCH ×3 (05:10→20:15)
[2017-03-26] MEDS: PHENYTOIN INJ 100 MG/2 ML VIAL IV SCH ×3 (05:11→20:17)
[2017-03-26] MEDS: LEVOTHYROXINE SODIUM 50 MCG TAB PO SCH (05:11)
[2017-03-26] MEDS: LACTULOSE SYRUP 20 GM/30 ML CUP PO SCH ×2 (05:11→12:44)
[2017-03-26] MEDS: INSULIN NovoLIN REGULAR SUPPLEMENTAL SCALE SQ SCH ×3 (05:29→17:29)
--- NOTE | 2017-03-26 05:59 | RADRPT ---
EXAM DATE/TIME: 03/26/2017 03:32 [facility] COMPARISON: CHEST SINGLE AP, March 25, 2017, 3:33. INDICATIONS : Shortness of breath, possible pulmonary disease. MEDICAL HISTORY : Hypertension. Hepatitis C. Chronic obstructive pulmonary disease. SURGICAL HISTORY : Appendectomy. Hysterectomy. Fusion, lumbar. Bilateral hip arthroplasty ENCOUNTER: Subsequent ACUITY: 1 week PAIN SCORE: 0/10 LOCATION: Bilateral chest FINDINGS: The cardiac silhouette is enlarged in transverse diameter. There is prominence of the central pulmona ry vasculature with indistinct vascular margins compatible with vascular congestion but no evidence o f overt failure. Support lines and tubes are in satisfactory position. There is left lower lobe atele ctasis versus pneumonia. CONCLUSION: 1. Cardiomegaly and findings of vascular congestion without overt failure. Tito Lincoln MD on March 26, 2017 at 5:57 Board Certified Radiologist. This report was verified electronically.
[2017-03-26] MEDS: RESP: BUDESONIDE 0.5 MG/2 ML NEB NEB SCH ×2 (07:49→20:02)
[2017-03-26] MEDS: CHLORHEXIDINE 0.12% (ORAL KIT) 15 ML CUP MT SCH ×2 (08:00→20:15)
[2017-03-26] MEDS: MAGNESIUM OXIDE 400 MG TAB PO SCH ×2 (08:08→20:16)
[2017-03-26] MEDS: CALCIUM/VITAMIN D 250 MG/125 U TAB PO SCH ×3 (08:09→17:26)
[2017-03-26] MEDS: CARVEDILOL 12.5 MG TAB OG-TUBE SCH ×2 (08:09→20:16)
[2017-03-26] MEDS: levETIRAcetam INJ 100 ML IV SCH ×2 (08:09→20:16)
[2017-03-26] MEDS: POLYETHYLENE GLYCOL 17 GM PKG PO SCH (08:09)
[2017-03-26] MEDS: DOCUSATE SODIUM 100 MG/10 ML UDC PO SCH ×2 (08:09→20:16)
[2017-03-26] MEDS: LISINOPRIL 20 MG TAB PO SCH (08:09)
[2017-03-26] MEDS: SENNOSIDES SYRUP 8.8 MG/5 ML CUP PO SCH ×2 (08:09→20:16)
[2017-03-26] MEDS: CHOLECALCIFEROL (VIT D3) 1000 UNIT TAB PO SCH (08:09)
[2017-03-26] MEDS: SODIUM CHLORIDE 0.9% FLUSH 10 ML FLUSH IV FLUSH SCH ×2 (08:09→20:16)
[2017-03-26] MEDS: ARTIFICIAL TEARS OPTH SOLN 15 ML BTL EACH EYE SCH ×3 (08:11→17:27)
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
[2017-03-26] MEDS ORDERED: NITROGLYCERIN 2% OINT 1 GM PACKET TOPICAL PRN (14:00)
[2017-03-26 14:23] LABS: AUTOMATED NEUTROPHIL # 15.3 TH/MM3 (1.8-7.7); BASOPHIL # 0.1 TH/MM3 (0-0.2); BASOPHIL % 0.5 % (0.0-2.0); EOSINOPHIL # 0.3 TH/MM3 (0-0.4); EOSINOPHIL % 1.8 % (0.0-4.0); HEMATOCRIT 29.6 % (35.0-46.0); LYMPH % 4.5 % (9.0-44.0); LYMPHOCYTE # 0.8 TH/MM3 (1.0-4.8); MEAN CELL VOLUME 75.7 FL (80.0-100.0); MEAN CORPUSCULAR HEMOGLOBIN 23.5 PG (27.0-34.0); MEAN CORPUSCULAR HGB CONC 31.1 % (32.0-36.0); MONO % 12.2 % (0.0-8.0); PLATELET COUNT 267 TH/MM3 (150-450); RED BLOOD COUNT 3.91 MIL/MM3 (4.00-5.30); RED CELL DISTRIBUTION WIDTH 19.8 % (11.6-17.2); WHITE BLOOD COUNT 18.9 TH/MM3 (4.0-11.0)
[2017-03-26 14:29] LABS: HEMO FLAGS AUTO DIFF
[2017-03-26 14:33] LABS: BICARBONATE 23.5 MEQ/L (21.0-32.0)
[2017-03-26 14:36] LABS: MAGNESIUM 1.9 MG/DL (1.5-2.5); POTASSIUM 4.6 MEQ/L (3.5-5.1)
[2017-03-26 15:14] LABS: BANDS 1 % (0-6); BASOPHILS 1 % (0-2); EOSINOPHILS 1 % (0-4); METAMYELOCYTES 3 % (0-1); POLYS (SEG NEUTROPHILS) 85 % (16-70); PROMYELOCYTES 1 % (0-0); WBC DIFF SAMPLE 100
[2017-03-26 15:15] LABS: PLATELET MORPHOLOGY ENLARGED (NORMAL)
[2017-03-26 15:17] LABS: SCAN/DIFF FINAL DIFF MANUAL
[2017-03-26] MEDS: LABETALOL HCL 100 MG/20 ML VIAL IV PUSH PRN (17:26)
[2017-03-26] MEDS: hydrALAZINE HCL 20 MG/ML VIAL IV PUSH PRN (20:17)
--- NOTE | 2017-03-26 22:40 | HHI.PR ---
Review/Management Diagnosis -Encephalopathy. -Anoxic/hypoxic brain injury with myoclonus. - Non convulsive status, resolved -Respiratory failure. -Status post cardiac arrest. -Hypothyroidism. Plan -Neuro checks q. 1 hourly. -Continue Keppra 1000 milligrams twice a day. -Dilantin 100mg Q h8 iv - Obtain Dilantin level next am -Continue supportive medical therapy. -Seizure prophylaxis. -DVT prophylaxis. -GI prophylaxis - Discussed case with Dr. Pemberton. Diagnosis/Plan: Subjective Subjective Comments No acute events remains intubated and sedated No family at bed side Dilantin level is therapeutic EEG with evidence of burst suppression pattern Active Medications Current Medications Medications (Trade) Dose Ordered Sig/Nelly Route Start Time Stop Time Status Last Admin (Oscal-D 250-125) 250 mg TID PO 03/20/17 09:00 03/26/17 17:26 (Vitamin D3) 1,000 units DAILY PO 03/20/17 09:00 03/26/17 08:09 (Atarax) 200 mg HS PO 03/19/17 21:00 Future Hold 03/19/17 22:35 (Prinivil) 20 mg DAILY PO 03/20/17 09:00 03/26/17 08:09 (Zoloft) 100 mg DAILY PO 03/20/17 09:00 Future Hold 03/20/17 08:28 (NS Flush) 2 ml UNSCH PRN IV FLUSH 03/19/17 19:15 (NS Flush) 2 ml BID IV FLUSH 03/19/17 21:00 03/26/17 20:16 (Tylenol) 650 mg Q6H PRN PO 03/19/17 19:15 (Morphine Inj) 2 mg Q2H PRN IV PUSH 03/19/17 19:15 (Versed Inj) 2 mg Q1H PRN IV PUSH 03/19/17 19:15 (Tears Naturale Opth Soln) 1 drop TID EACH EYE 03/20/17 09:00 03/26/17 17:27 (Zofran Inj) 4 mg Q6H PRN IV PUSH 03/19/17 19:15 (Heparin Inj) 5,000 units Q8H SQ 03/19/17 20:00 03/26/17 20:15 Miscellaneous Information 1 Q361D XX 03/19/17 19:15 03/19/17 19:15 (Chlorhexidine 2% Cloth) Taper DAILY@04 TOP 03/20/17 04:00 03/16/18 03:59 03/25/17 03:28 (Chlorhexidine 2% Cloth) 3 pack UNSCH PRN TOP 03/19/17 19:15 (Milk Of Magnesia Liq) 30 ml Q12H PRN PO 03/19/17 19:15 (Senokot) 17.2 mg Q12H PRN PO 03/19/17 19:15 (Dulcolax Supp) 10 mg DAILY PRN RECTAL 03/19/17 19:15 Propofol 100 ml @ 3.3 mls/hr TITRATE PRN IV 03/19/17 19:15 03/25/17 08:08 (Peridex 0.12% Liq) 15 ml BID@08,20 MT 03/19/17 20:00 03/26/17 20:15 Levetriacetam 100 ml @ 400 mls/hr Q12HR IV 03/20/17 10:00 03/26/17 20:16 (Dilantin Inj) 100 mg Q8HR IV 03/21/17 22:00 03/26/17 20:17 (Mag-Ox) 400 mg Q12HR PO 03/22/17 21:00 03/26/17 20:16 (Pulmicort Respule Neb) 0.5 mg Q12HR NEB NEB 03/22/17 11:45 03/26/17 20:02 Potassium Chloride 100 ml @ 50 mls/hr Q2H PRN IV 03/22/17 11:45 Potassium Chloride 100 ml @ 50 mls/hr Q2H PRN IV 03/22/17 11:45 (K-Lyte Cl Eff) 50 meq UNSCH PRN PO 03/22/17 11:45 Potassium Chloride 100 ml @ 25 mls/hr UNSCH PRN IV 03/22/17 11:45 Potassium Chloride 100 ml @ 50 mls/hr Q2H PRN IV 03/22/17 11:45 Magnesium Sulfate 4 gm/Sodium Chloride 100 ml @ 50 mls/hr UNSCH PRN IV 03/22/17 11:45 (Mag-Ox) 800 mg UNSCH PRN PO 03/22/17 11:45 Magnesium Sulfate 2 gm/Sodium Chloride 100 ml @ 50 mls/hr UNSCH PRN IV 03/22/17 11:45 (K-Phos) 2,000 mg Q4H PRN PO 03/22/17 11:45 Sodium Phosphate 30 mmol/Sodium Chloride 250 ml @ 42 mls/hr UNSCH PRN IV 03/22/17 11:45 (K-Phos) 2,000 mg UNSCH PRN PO/TUBE 03/22/17 11:45 Potassium Phosphate 30 mmol/ Sodium Chloride 260 ml @ 42 mls/hr UNSCH PRN IV 03/22/17 11:45 (Synthroid) 50 mcg DAILY@0600 PO 03/23/17 06:00 03/26/17 05:11 (Albuterol Neb) 2.5 mg Q2HR NEB PRN NEB 03/23/17 13:45 (Duoneb Neb) 1 ampule Q6HR NEB NEB 03/23/17 16:00 03/26/17 20:02 (D50w (Vial) Inj) 50 ml UNSCH PRN IV PUSH 03/23/17 13:45 (Glucagon Inj) 1 mg UNSCH PRN OTHER 03/23/17 13:45 (NovoLIN R SUPPLEMENTAL SCALE) 1 Q6HR SQ 03/23/17 18:00 03/25/17 11:45 Piperacillin Sod/ Tazobactam Sod 100 ml @ 200 mls/hr Q6H IV 03/24/17 13:00 03/26/17 17:26 (Colace Liq) 100 mg Q12HR PO 03/25/17 21:00 03/26/17 20:16 (Senna Liq) 8.8 mg BID PO 03/25/17 21:00 03/26/17 20:16 (SoluMEDROL INJ) 40 mg Q12H IV PUSH 03/25/17 15:00 03/26/17 15:00 (Coreg) 25 mg BID OG-TUBE 03/26/17 21:00 03/26/17 20:16 (Apresoline Inj) 10 mg Q1HR PRN IV PUSH 03/26/17 14:00 03/26/17 20:17 (Trandate Inj) 10 mg Q1HR PRN IV PUSH 03/26/17 14:00 03/26/17 17:26 (Nitroglycerin 2% Oint) 2 inch Q6HR PRN TOPICAL 03/26/17 14:00 Allergies Allergies Coded Allergies phenytoin (Unverified Allergy, Severe, LIVER PROBLEMS, 03/19/17) *MDRO Multi-Drug Resistant Organism (Verified Adverse Reaction, Unknown, ) Review of Systems All other ROS: ROS reviewed as documented in chart Exam I&O / VS 03/26/17 03/26/17 03/27/17 15:00 23:00 07:00 Intake Total 300 ml 689 ml Output Total 1750 ml Balance 300 ml -1061 ml IV Total 300 ml 100 ml Tube Feeding 589 ml Output Urine Total 750 ml Stool Total 1000 ml Vital Signs Date Time Temp Pulse Resp B/P (MAP) Pulse Ox O2 Delivery O2 Flow Rate FiO2 03/26/17 20:02 100 40 03/26/17 18:00 79 03/26/17 16:00 97.2 80 25 164/74 (104) 100 03/26/17 16:00 40 03/26/17 16:00 100 40 03/26/17 16:00 80 03/26/17 14:00 82 03/26/17 12:00 40 03/26/17 12:00 97.4 81 22 181/70 (107) 98 03/26/17 12:00 81 03/26/17 11:21 99 40 03/26/17 10:00 81 03/26/17 08:30 40 03/26/17 08:00 40 03/26/17 08:00 85 03/26/17 08:00 97.9 85 10 180/94 (122) 97 03/26/17 07:56 40 03/26/17 07:50 96 40 03/26/17 06:00 82 03/26/17 04:05 100 40 03/26/17 04:00 98.2 78 18 153/75 (101) 100 03/26/17 04:00 35 03/26/17 04:00 78 03/26/17 02:00 83 03/26/17 01:17 99 40 03/26/17 00:00 99.5 82 25 98 03/26/17 00:00 35 03/26/17 00:00 82 Exam Comments GENERAL: The patient is overweight, intubated, sedated HEAD, EYES, EARS, NOSE, THROAT: Normocephalic and atraumatic. NECK: The neck is supple. Trachea is midline. CARDIOVASCULAR: Regular rate and rhythm. RESPIRATORY: Equal breath sounds. No accessory muscle use. No wheezes. GASTROINTESTINAL: The abdomen is soft. Not distended. MUSCULOSKELETAL: No cyanosis, clubbing or edema. NEUROLOGICAL EXAMINATION: Intubated, sedated, opens eyes to verbal commands, Pupils 3-4 mm with very sluggish reaction to light. Positive cough and gag reflex. Positive corneal reflex. No gaze deviation.Moves extremities to stimulation Objective Radiology Results Last 72 hours Impressions Chest X-Ray 03/26/17 0600 Signed Impressions: Service Date/Time: March 03:32 - CONCLUSION: 1. Cardiomegaly and findings of vascular congestion without overt failure. Tito Lincoln MD Chest X-Ray 03/25/17 0600 Signed Impressions: Service Date/Time: Saturday, March 25, 2017 03:33 - CONCLUSION: 1. Cardiomegaly and findings of vascular congestion without overt failure. There has been no significant change when compared to the prior exam. 2. Left lower lobe atelectasis versus pneumonia. Tito Lincoln MD Abdomen X-Ray 03/25/17 0000 Signed Impressions: Service Date/Time: Saturday, March 25, 2017 16:53 - CONCLUSION: 1. NGT in the stomach. 2. Nonobstructive bowel gas pattern. Ovidio Galvez MD Chest X-Ray 03/24/17 0600 Signed Impressions: Service Date/Time: Friday, March 24, 2017 04:26 - CONCLUSION: 1. Cardiomegaly and findings of congestive heart failure. There has been no significant change when compared to the prior exam. Tito Lincoln MD Micro and Labs Laboratory Tests Test 03/26/17 14:04 White Blood Count 18.9 Red Blood Count 3.91 Hemoglobin 9.2 Hematocrit 29.6 Mean Corpuscular Volume 75.7 Mean Corpuscular Hemoglobin 23.5 Mean Corpuscular Hemoglobin Concent 31.1 Red Cell Distribution Width 19.8 Platelet Count 267 Mean Platelet Volume 7.8 Neutrophils (%) (Auto) 81.0 Lymphocytes (%) (Auto) 4.5 Monocytes (%) (Auto) 12.2 Eosinophils (%) (Auto) 1.8 Basophils (%) (Auto) 0.5 Neutrophils # (Auto) 15.3 Lymphocytes # (Auto) 0.8 Monocytes # (Auto) 2.3 Eosinophils # (Auto) 0.3 Basophils # (Auto) 0.1 CBC Comment AUTO DIFF Differential Total Cells Counted 100 Neutrophils % (Manual) 85 Band Neutrophils % 1 Lymphocytes % 5 Monocytes % 3 Eosinophils % 1 Basophils % 1 Neutrophils # (Manual) 17.0 Metamyelocytes 3 Promyelocytes 1 Differential Comment FINAL DIFF MANUAL Platelet Morphology Comment ENLARGED Hematology Comments Blood Urea Nitrogen 11 Creatinine 0.74 Random Glucose 117 Calcium Level 8.6 Phosphorus Level 3.1 Magnesium Level 1.9 Sodium Level 137 Potassium Level 4.6 Chloride Level 103 Carbon Dioxide Level 23.5 Anion Gap 11 Estimat Glomerular Filtration Rate 82 Phenytoin (Dilantin) Level 11.5 Date/Time Source Procedure Growth Status 03/19/17 18:15 Blood Peripheral Aerobic Blood Culture - Final NO GROWTH IN 5 DAYS Complete 03/19/17 18:15 Blood Peripheral Anaerobic Blood Culture - Final NO GROWTH IN 5 DAYS Complete 03/22/17 15:21 Sputum Endotracheal Gram Stain - Final Complete 03/22/17 15:21 Sputum Culture - Final Pseudomonas Aeruginosa Complete Niraj Renteria MD Mar 26, 2017 22:40
[2017-03-27] VITALS (31 sets, daily range): BP systolic 128–176; BP diastolic 62–86; PULSE 79–88; RESP 12–30; TEMP 97.4–99.2; O2SAT 96–100
[2017-03-27] MEDS: PIPERACIL-TAZO 4.5 GM PREMIX 100 ML IV SCH ×4 (00:30→18:19)
[2017-03-27] MEDS: HEPARIN SODIUM - SQ 10,000 UNITS/ML VIAL SQ SCH ×3 (03:24→21:21)
[2017-03-27] MEDS: CHLORHEXIDINE GLUCONATE 2 % 1 PACK (2 CLOTHS) TOP SCH (03:24)
[2017-03-27] MEDS: methylPREDNISolone SOD SUCC 40 MG/1 ML VIAL IV PUSH SCH ×2 (03:24→16:04)
[2017-03-27] MEDS: RESP: ALBUTEROL 2.5 MG/IPRATROPIUM 0.5 MG NEB (SCH) NEB ×4 (04:20→20:35)
[2017-03-27] MEDS: PHENYTOIN INJ 100 MG/2 ML VIAL IV SCH ×3 (05:48→21:22)
[2017-03-27] MEDS: LEVOTHYROXINE SODIUM 50 MCG TAB PO SCH (05:49)
[2017-03-27] MEDS: INSULIN NovoLIN REGULAR SUPPLEMENTAL SCALE SQ SCH ×4 (05:52→18:00)
[2017-03-27 06:47] LABS: BASOPHIL # 0.1 TH/MM3 (0-0.2); BASOPHIL % 0.7 % (0.0-2.0); EOSINOPHIL # 0.2 TH/MM3 (0-0.4); EOSINOPHIL % 1.7 % (0.0-4.0); LYMPH % 4.6 % (9.0-44.0); LYMPHOCYTE # 0.6 TH/MM3 (1.0-4.8); MEAN CELL VOLUME 75.7 FL (80.0-100.0); MEAN CORPUSCULAR HEMOGLOBIN 24.2 PG (27.0-34.0); MEAN CORPUSCULAR HGB CONC 31.9 % (32.0-36.0); MONO % 12.6 % (0.0-8.0); NEUT % 80.4 % (16.0-70.0); PLATELET COUNT 297 TH/MM3 (150-450); RED BLOOD COUNT 3.82 MIL/MM3 (4.00-5.30); RED CELL DISTRIBUTION WIDTH 19.9 % (11.6-17.2); WHITE BLOOD COUNT 12.4 TH/MM3 (4.0-11.0)
[2017-03-27 06:51] LABS: HEMO FLAGS AUTO DIFF
[2017-03-27] MEDS: RESP: BUDESONIDE 0.5 MG/2 ML NEB NEB SCH ×2 (07:27→20:35)
[2017-03-27 07:39] LABS: ALKALINE PHOSPHATASE 117 U/L (45-117); ALT (GPT) 23 U/L (10-53); ANION GAP 8 MEQ/L (5-15); AST (GOT) 27 U/L (15-37); BICARBONATE 27.5 MEQ/L (21.0-32.0); BLOOD UREA NITROGEN 12 MG/DL (7-18); CHLORIDE 102 MEQ/L (98-107); GLOMERULAR FILTRATION RATE 83 ML/MIN (>89); MAGNESIUM 1.7 MG/DL (1.5-2.5); POTASSIUM 3.9 MEQ/L (3.5-5.1); SODIUM (NA) 137 MEQ/L (136-145); TOTAL BILIRUBIN ADULT 0.5 MG/DL (0.2-1.0)
[2017-03-27 08:47] LABS: OVALOCYTES 1+ (NORMAL); SCAN/DIFF AUTO DIFF CONFIRMED
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
[2017-03-27] MEDS: levETIRAcetam INJ 100 ML IV SCH ×2 (09:28→21:22)
[2017-03-27] MEDS: CHOLECALCIFEROL (VIT D3) 1000 UNIT TAB PO SCH (09:28)
[2017-03-27] MEDS: CALCIUM/VITAMIN D 250 MG/125 U TAB PO SCH ×3 (09:28→18:20)
[2017-03-27] MEDS: CARVEDILOL 12.5 MG TAB OG-TUBE SCH ×2 (09:28→21:22)
[2017-03-27] MEDS: MAGNESIUM OXIDE 400 MG TAB PO SCH ×2 (09:29→21:22)
[2017-03-27] MEDS: SODIUM CHLORIDE 0.9% FLUSH 10 ML FLUSH IV FLUSH SCH ×2 (09:30→21:20)
[2017-03-27] MEDS: CHLORHEXIDINE 0.12% (ORAL KIT) 15 ML CUP MT SCH ×2 (09:31→21:23)
[2017-03-27] MEDS: ARTIFICIAL TEARS OPTH SOLN 15 ML BTL EACH EYE SCH ×3 (10:09→18:20)
--- NOTE | 2017-03-27 11:00 | PD.CONS ---
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 history of tobacco and marijuana smoking as well as known COPD which is likely to compromise her is the weaning process. Daughter states she had discussed this with her mother, but her mother was reluctant to provide input. At this time daughter is leaning towards trach and PEG pending clarification of brain function. * Pain: Possible sources of pain are bedbound status, intubation, invasive lines , blisters on the right hand, as well as her chronic pain. Morphine available as needed. * Seizures: Receiving Dilantin and Keppra. Neurology following. No seizure activity noted on EEGs. Would recommend seizure precautions. SUMMARY: This is an unfortunate 56-year-old female who suffered a witnessed cardiac arrest and was down for 10 minutes prior to the arrival of EMS with no CPR or ventilation eyes. Her baseline neurology status at this time is unknown. Vent weaning is in process, however it is unknown whether her mentation will allow her to protect her own airway. Attempting family contact but has had no reply at this time to establish decision-maker. If she survives this hospitalization she is likely to require rehabilitation, long-term care or have recurrent hospitalizations Palliative care will continue to follow the patient during hospital course as condition evolves, to assist patient/decision-maker with understanding of their medical conditions, weighing benefits/burdens of treatment options, for clarification of goals of treatment. Additionally will assist with any symptoms of palliative concern. . Thank you for the opportunity to participate in the care of Ms. Small. Attestation To help prompt me to consider important information that might be impacting today's encounter and assessment, information from prior notes written by myself or my colleagues may have been "brought forward" into today's note. My signature on this note, however, is an attestation that I personally performed the exam, history, and/or decision-making noted today, and, unless otherwise indicated, the interactions with patient, family, and staff as well as the review of records all occurred today. I also attest that the listed assessment and stated plan reflect my best clinical judgment today based on the combination of historical information, prior notes, and today's exam/ interactions. When time spent is documented, it refers only to time spent today by the signer, or if indicated, combined time spent today by collaborating physician/nurse practitioner. . Trang Lal Mar 27, 2017 11:00
[2017-03-27] MEDS ORDERED: PHENYTOIN INJ 250 MG/5 ML VIAL IV PUSH ONE (13:30)
[2017-03-27] MEDS: LISINOPRIL 20 MG TAB PO SCH (21:22)
[2017-03-28] VITALS (18 sets, daily range): BP systolic 131–159; BP diastolic 61–78; PULSE 81–93; RESP 17–26; TEMP 97.5–99.8; O2SAT 96–99
[2017-03-28] MEDS: PIPERACIL-TAZO 4.5 GM PREMIX 100 ML IV SCH ×4 (00:14→20:28)
[2017-03-28] MEDS: CHLORHEXIDINE GLUCONATE 2 % 1 PACK (2 CLOTHS) TOP SCH (02:57)
[2017-03-28] MEDS: methylPREDNISolone SOD SUCC 40 MG/1 ML VIAL IV PUSH SCH ×2 (02:57→14:33)
[2017-03-28] MEDS: HEPARIN SODIUM - SQ 10,000 UNITS/ML VIAL SQ SCH ×3 (02:57→20:28)
[2017-03-28] MEDS: LABETALOL HCL 100 MG/20 ML VIAL IV PUSH PRN (02:59)
[2017-03-28] MEDS: RESP: ALBUTEROL 2.5 MG/IPRATROPIUM 0.5 MG NEB (SCH) NEB ×4 (03:26→20:21)
--- NOTE | 2017-03-28 05:16 | RADRPT ---
EXAM DATE/TIME: 03/28/2017 04:25 [facility] COMPARISON: CHEST SINGLE AP, March 26, 2017, 3:32. INDICATIONS : Respiratory failure, post Code MEDICAL HISTORY : Hypertension. Hepatitis C. Chronic obstructive pulmonary disease. SURGICAL HISTORY : Appendectomy. Hysterectomy. Fusion, lumbar. ENCOUNTER: Subsequent ACUITY: 1 week PAIN SCORE: Non-responsive. LOCATION: Bilateral chest FINDINGS: The cardiac silhouette is enlarged in transverse diameter. Support lines and tubes are in satisfactor y position. There is left lower lobe atelectasis versus pneumonia. A small left sided effusion is pre sent. CONCLUSION: 1. Cardiomegaly. 2. Persistent left lower lobe atelectasis versus pneumonia Tito Lincoln MD on March 28, 2017 at 5:14 Board Certified Radiologist. This report was verified electronically.
[2017-03-28] MEDS: LEVOTHYROXINE SODIUM 50 MCG TAB PO SCH (05:28)
[2017-03-28] MEDS: PHENYTOIN INJ 100 MG/2 ML VIAL IV SCH ×3 (05:28→20:29)
[2017-03-28 05:39] LABS: BICARBONATE 26.2 MEQ/L (21.0-32.0); MAGNESIUM 1.7 MG/DL (1.5-2.5); POTASSIUM 3.7 MEQ/L (3.5-5.1)
[2017-03-28] MEDS: INSULIN NovoLIN REGULAR SUPPLEMENTAL SCALE SQ SCH ×4 (06:00→18:00)
[2017-03-28 06:14] LABS: AUTOMATED NEUTROPHIL # 8.4 TH/MM3 (1.8-7.7); BASOPHIL # 0.1 TH/MM3 (0-0.2); BASOPHIL % 0.6 % (0.0-2.0); EOSINOPHIL # 0.2 TH/MM3 (0-0.4); EOSINOPHIL % 2.2 % (0.0-4.0); HEMATOCRIT 27.4 % (35.0-46.0); HEMO FLAGS DIFF FINAL; LYMPH % 6.8 % (9.0-44.0); LYMPHOCYTE # 0.7 TH/MM3 (1.0-4.8); MEAN CORPUSCULAR HEMOGLOBIN 24.5 PG (27.0-34.0); MEAN CORPUSCULAR HGB CONC 32.3 % (32.0-36.0); MONO % 12.5 % (0.0-8.0); NEUT % 77.9 % (16.0-70.0); PLATELET COUNT 265 TH/MM3 (150-450); RED CELL DISTRIBUTION WIDTH 20.3 % (11.6-17.2); WHITE BLOOD COUNT 10.8 TH/MM3 (4.0-11.0)
[2017-03-28] MEDS: RESP: BUDESONIDE 0.5 MG/2 ML NEB NEB SCH ×2 (08:15→20:21)
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
[2017-03-28] MEDS ORDERED: NIFEdipine 10 MG CAP PO SCH (08:30)
[2017-03-28] MEDS ORDERED: POTASSIUM CHLORIDE 20 MEQ PWD PACKET PO ONE (08:30)
[2017-03-28] MEDS: CARVEDILOL 12.5 MG TAB OG-TUBE SCH ×2 (08:40→20:28)
[2017-03-28] MEDS: CALCIUM/VITAMIN D 250 MG/125 U TAB PO SCH ×3 (08:40→17:45)
[2017-03-28] MEDS: CHLORHEXIDINE 0.12% (ORAL KIT) 15 ML CUP MT SCH ×2 (08:40→20:00)
[2017-03-28] MEDS: CHOLECALCIFEROL (VIT D3) 1000 UNIT TAB PO SCH (08:40)
[2017-03-28] MEDS: LISINOPRIL 20 MG TAB PO SCH ×2 (08:40→20:29)
[2017-03-28] MEDS: SODIUM CHLORIDE 0.9% FLUSH 10 ML FLUSH IV FLUSH SCH ×2 (08:41→20:28)
[2017-03-28] MEDS: ARTIFICIAL TEARS OPTH SOLN 15 ML BTL EACH EYE SCH ×3 (08:41→17:45)
[2017-03-28] MEDS: MAGNESIUM SULFATE 1 GM PREMIX 100 ML IV SCH ×2 (08:42→09:53)
[2017-03-28] MEDS: levETIRAcetam 500 MG/5 ML UDC NG SCH ×2 (09:07→20:28)
[2017-03-28] MEDS: MAGNESIUM OXIDE 400 MG TAB PO SCH ×2 (11:29→20:36)
--- NOTE | 2017-03-28 16:16 | MB ---
cc: [facility] DATE OF CONSULTATION: 03/28/2017. REASON FOR CONSULTATION: Blisters of right forearm. REQUESTING PHYSICIAN: The patient is being seen at the request of Dr. Pemberton. HISTORY OF PRESENT ILLNESS: The patient is a 56-year-old female who was admitted 03/19/2017 and at the time she was a witnessed cardiac arrest but according to the record, nobody did CPR and it took ten minutes for the EMS to arrive. The patient was brought in and resuscitated. During admission, it was noted recently that the patient had some blisters on her right forearm. Consultation is requested regarding evaluation of these blisters PAST MEDICAL HISTORY: 1. THE PATIENT APPARENTLY HAS AN ALLERGY TO PHENYTOIN. 2. Positive MRSA screen. 3. Multidrug-resistant organisms. 4. Hypertension. 5. Hypothyroidism. 6. COPD. 7. Chronic back pain. 8. Hepatitis C. 9. Gastroesophageal reflux disease (GERD). 10. Anxiety. PAST SURGICAL HISTORY: 1. Hysterectomy. 2. Back surgery. 3. Appendectomy. 4. Right hip surgery. 5. Stomach surgery. 6. Left hand surgery. 7. Mandible surgery. REVIEW OF SYSTEMS: The review of systems is not obtained. MEDICATIONS: Her medications are on the chart. FAMILY HISTORY: Hypertension. Diabetes. COPD. SOCIAL HISTORY: The patient apparently was a smoker. Denied any alcohol use. PHYSICAL EXAMINATION: On examination, the patient is lying in bed. Examination is restricted to the right upper extremity where there are blisters from the proximal forearm onto the dorsal surface of her hand and forearm. There is some loss of skin dorsally. Some of the blisters do appear to be purulent. The skin is soft. The fingertips appear to be warm and well-perfused. LABORATORY DATA: The patient is growing out Pseudomonas from her sputum that was from March 22. Her hemoglobin and hematocrit is 8.8 and 27.4 with 265,000 platelets. White count is 10.8. There is a shift, but it is diminishing. Her albumin is 2.0 as of yesterday. Her INR on 03/19 was 1.0. IMPRESSION: The patient has some blistering of the right forearm. This may have been due to hypoxia or medications used in the resuscitation or may be related to the cardiovascular events. There is no evidence of a compartment syndrome. The skin is soft. PLAN: 1. The blisters will be cultured. 2. Wound care is ordered. MD SPENCER Gregory/ROXANA /3:44 PM /4:11 PM
[2017-03-28] MEDS: hydrALAZINE HCL 20 MG/ML VIAL IV PUSH PRN (18:38)
[2017-03-28] MEDS: MIDAZOLAM HCL 2 MG/2 ML VIAL IV PUSH PRN ×2 (20:29→22:35)
[2017-03-29] VITALS (18 sets, daily range): BP systolic 106–159; BP diastolic 55–75; PULSE 81–96; RESP 18–28; TEMP 97.2–99.7; O2SAT 80–98
[2017-03-29] MEDS: PIPERACIL-TAZO 4.5 GM PREMIX 100 ML IV SCH ×4 (01:09→17:50)
[2017-03-29] MEDS: methylPREDNISolone SOD SUCC 40 MG/1 ML VIAL IV PUSH SCH ×2 (01:10→13:08)
[2017-03-29] MEDS: MIDAZOLAM HCL 2 MG/2 ML VIAL IV PUSH PRN ×3 (01:10→08:18)
[2017-03-29] MEDS: CHLORHEXIDINE GLUCONATE 2 % 1 PACK (2 CLOTHS) TOP SCH (03:46)
[2017-03-29] MEDS: HEPARIN SODIUM - SQ 10,000 UNITS/ML VIAL SQ SCH ×3 (03:46→21:08)
[2017-03-29] MEDS: RESP: ALBUTEROL 2.5 MG/IPRATROPIUM 0.5 MG NEB (SCH) NEB ×4 (04:14→20:18)
[2017-03-29] MEDS: INSULIN NovoLIN REGULAR SUPPLEMENTAL SCALE SQ SCH ×5 (05:28→23:18)
[2017-03-29] MEDS: LEVOTHYROXINE SODIUM 50 MCG TAB PO SCH (05:28)
[2017-03-29] MEDS: PHENYTOIN INJ 100 MG/2 ML VIAL IV SCH ×3 (05:28→21:09)
[2017-03-29] MEDS: CHOLECALCIFEROL (VIT D3) 1000 UNIT TAB PO SCH (08:18)
[2017-03-29] MEDS: CARVEDILOL 12.5 MG TAB OG-TUBE SCH ×2 (08:18→21:09)
[2017-03-29] MEDS: CALCIUM/VITAMIN D 250 MG/125 U TAB PO SCH ×3 (08:18→17:50)
[2017-03-29] MEDS: ARTIFICIAL TEARS OPTH SOLN 15 ML BTL EACH EYE SCH ×3 (08:19→17:50)
[2017-03-29] MEDS: SODIUM CHLORIDE 0.9% FLUSH 10 ML FLUSH IV FLUSH SCH ×2 (08:19→21:00)
[2017-03-29] MEDS: LISINOPRIL 20 MG TAB PO SCH ×2 (08:19→21:09)
[2017-03-29] MEDS: levETIRAcetam 500 MG/5 ML UDC NG SCH ×2 (08:19→21:08)
[2017-03-29] MEDS: SILVER SULFADIAZINE 1% CR 50 GM JAR TOP SCH (08:19)
[2017-03-29] MEDS: CHLORHEXIDINE 0.12% (ORAL KIT) 15 ML CUP MT SCH ×2 (08:21→21:08)
[2017-03-29] MEDS: POVIDONE IODINE 10% SOLN 118 ML BOTTLE TOP SCH (09:00)
[2017-03-29] MEDS: RESP: BUDESONIDE 0.5 MG/2 ML NEB NEB SCH ×2 (09:05→20:18)
[2017-03-29 09:21] LABS: AUTOMATED NEUTROPHIL # 8.4 TH/MM3 (1.8-7.7); BASOPHIL # 0.1 TH/MM3 (0-0.2); BASOPHIL % 0.6 % (0.0-2.0); EOSINOPHIL # 0.3 TH/MM3 (0-0.4); EOSINOPHIL % 2.8 % (0.0-4.0); HEMATOCRIT 26.8 % (35.0-46.0); HEMO FLAGS DIFF FINAL; LYMPH % 9.3 % (9.0-44.0); MEAN CELL VOLUME 75.8 FL (80.0-100.0); MEAN CORPUSCULAR HEMOGLOBIN 24.2 PG (27.0-34.0); MEAN CORPUSCULAR HGB CONC 31.9 % (32.0-36.0); MONO % 10.3 % (0.0-8.0); PLATELET COUNT 275 TH/MM3 (150-450); RED BLOOD COUNT 3.54 MIL/MM3 (4.00-5.30); RED CELL DISTRIBUTION WIDTH 20.6 % (11.6-17.2); WHITE BLOOD COUNT 10.9 TH/MM3 (4.0-11.0)
[2017-03-29 09:39] LABS: ANION GAP 6 MEQ/L (5-15); AST (GOT) 27 U/L (15-37); BICARBONATE 26.9 MEQ/L (21.0-32.0); BLOOD UREA NITROGEN 12 MG/DL (7-18); CHLORIDE 101 MEQ/L (98-107); GLOMERULAR FILTRATION RATE 87 ML/MIN (>89); MAGNESIUM 1.8 MG/DL (1.5-2.5); SODIUM (NA) 134 MEQ/L (136-145)
[2017-03-29 09:40] LABS: ALT (GPT) 27 U/L (10-53)
[2017-03-29 09:42] LABS: ALKALINE PHOSPHATASE 125 U/L (45-117); TOTAL BILIRUBIN ADULT 0.4 MG/DL (0.2-1.0)
[2017-03-29] MEDS: MORPHINE SULFATE 4 MG/ML INJ IV PUSH PRN ×3 (10:09→21:11)
[2017-03-29] MEDS: MAGNESIUM OXIDE 400 MG TAB PO SCH ×2 (10:57→17:52)
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
[2017-03-29] MEDS ORDERED: FOSPHENYTOIN SODIUM 500 MG PE/10 ML VIAL IV ONE (13:00)
[2017-03-30] VITALS (17 sets, daily range): BP systolic 135–162; BP diastolic 62–106; PULSE 86–95; RESP 16–22; TEMP 97.4–99.7; O2SAT 94–97
[2017-03-30] MEDS: PIPERACIL-TAZO 4.5 GM PREMIX 100 ML IV SCH ×5 (01:19→23:59)
[2017-03-30] MEDS: HEPARIN SODIUM - SQ 10,000 UNITS/ML VIAL SQ SCH ×3 (02:37→21:13)
[2017-03-30] MEDS: methylPREDNISolone SOD SUCC 40 MG/1 ML VIAL IV PUSH SCH ×2 (02:37→14:44)
[2017-03-30] MEDS: CHLORHEXIDINE GLUCONATE 2 % 1 PACK (2 CLOTHS) TOP SCH (02:37)
[2017-03-30] MEDS: MORPHINE SULFATE 4 MG/ML INJ IV PUSH PRN ×5 (03:30→23:59)
[2017-03-30] MEDS: RESP: ALBUTEROL 2.5 MG/IPRATROPIUM 0.5 MG NEB (SCH) NEB ×4 (03:53→20:03)
[2017-03-30] MEDS: PHENYTOIN INJ 100 MG/2 ML VIAL IV SCH ×3 (05:38→21:13)
[2017-03-30] MEDS: INSULIN NovoLIN REGULAR SUPPLEMENTAL SCALE SQ SCH ×3 (05:39→18:00)
[2017-03-30] MEDS: LEVOTHYROXINE SODIUM 50 MCG TAB PO SCH (05:39)
[2017-03-30 05:57] LABS: AUTOMATED NEUTROPHIL # 8.5 TH/MM3 (1.8-7.7); BASOPHIL # 0.1 TH/MM3 (0-0.2); BASOPHIL % 0.6 % (0.0-2.0); EOSINOPHIL # 0.4 TH/MM3 (0-0.4); EOSINOPHIL % 3.4 % (0.0-4.0); HEMATOCRIT 26.4 % (35.0-46.0); HEMO FLAGS DIFF FINAL; MEAN CELL VOLUME 75.5 FL (80.0-100.0); MEAN CORPUSCULAR HEMOGLOBIN 24.2 PG (27.0-34.0); MEAN CORPUSCULAR HGB CONC 32.1 % (32.0-36.0); MONO % 10.7 % (0.0-8.0); NEUT % 76.3 % (16.0-70.0); PLATELET COUNT 271 TH/MM3 (150-450); RED BLOOD COUNT 3.49 MIL/MM3 (4.00-5.30); RED CELL DISTRIBUTION WIDTH 20.3 % (11.6-17.2); WHITE BLOOD COUNT 11.2 TH/MM3 (4.0-11.0)
--- NOTE | 2017-03-30 06:17 | RADRPT ---
EXAM DATE/TIME: 03/30/2017 04:18 [facility] COMPARISON: CHEST SINGLE AP, March 26, 2017, 3:32. CHEST SINGLE AP, March 28, 2017, 4:25. INDICATIONS : Short of breath, cough. MEDICAL HISTORY : Hypertension. Hepatitis C. Chronic obstructive pulmonary disease. SURGICAL HISTORY : Appendectomy. Hysterectomy. Fusion, lumbar. ENCOUNTER: Subsequent ACUITY: 1 week PAIN SCORE: 0/10 LOCATION: Bilateral chest FINDINGS: A single view of the chest demonstrates the endotracheal tube and nasogastric are both in good positi on. Mild atelectasis and small left pleural effusion. Right lung is grossly clear. The cardiomediast inal contours are unremarkable. Osseous structures are intact. CONCLUSION: Endotracheal tube and nasogastric tube in good position. Minimal infiltrate left lung base. Vicente Roman MD on March 30, 2017 at 6:14 Board Certified Radiologist. This report was verified electronically.
[2017-03-30 06:28] LABS: ALT (GPT) 25 U/L (10-53); ANION GAP 7 MEQ/L (5-15); AST (GOT) 28 U/L (15-37); BICARBONATE 30.3 MEQ/L (21.0-32.0); BLOOD UREA NITROGEN 12 MG/DL (7-18); CHLORIDE 99 MEQ/L (98-107); GLOMERULAR FILTRATION RATE 100 ML/MIN (>89); MAGNESIUM 1.9 MG/DL (1.5-2.5); POTASSIUM 3.9 MEQ/L (3.5-5.1); SODIUM (NA) 136 MEQ/L (136-145)
[2017-03-30 06:45] LABS: ALKALINE PHOSPHATASE 124 U/L (45-117); TOTAL BILIRUBIN ADULT 0.4 MG/DL (0.2-1.0)
[2017-03-30] MEDS: RESP: BUDESONIDE 0.5 MG/2 ML NEB NEB SCH ×2 (07:50→20:03)
[2017-03-30] MEDS: CALCIUM/VITAMIN D 250 MG/125 U TAB PO SCH ×3 (08:47→18:20)
[2017-03-30] MEDS: CARVEDILOL 12.5 MG TAB OG-TUBE SCH ×2 (08:47→21:00)
[2017-03-30] MEDS: CHOLECALCIFEROL (VIT D3) 1000 UNIT TAB PO SCH (08:47)
[2017-03-30] MEDS: LISINOPRIL 20 MG TAB PO SCH ×2 (08:47→21:12)
[2017-03-30] MEDS: levETIRAcetam 500 MG/5 ML UDC NG SCH ×2 (08:47→21:12)
[2017-03-30] MEDS: ARTIFICIAL TEARS OPTH SOLN 15 ML BTL EACH EYE SCH ×3 (08:48→18:21)
[2017-03-30] MEDS: SILVER SULFADIAZINE 1% CR 50 GM JAR TOP SCH (08:48)
[2017-03-30] MEDS: SODIUM CHLORIDE 0.9% FLUSH 10 ML FLUSH IV FLUSH SCH ×2 (08:48→21:12)
[2017-03-30] MEDS: CHLORHEXIDINE 0.12% (ORAL KIT) 15 ML CUP MT SCH ×2 (08:56→21:13)
[2017-03-30] MEDS: POVIDONE IODINE 10% SOLN 118 ML BOTTLE TOP SCH (09:00)
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
[2017-03-30 09:40] LABS: BLOOD GAS CARBOXYHEMOGLOBIN 1.7 % (0-4); BLOOD GAS HCO3 31 mmol/L (22-26); BLOOD GAS METHEMOGLOBIN 1.1 % (0-2); BLOOD GAS O2 HGB SATURATION 91 % (90-100); BLOOD GAS OXYGEN CONTENT 10.9 Vol % (12.0-20.0); BLOOD GAS PCO2 54 mmHg (38-42); BLOOD GAS PO2 74 mmHg (61-120); BLOOD GAS TOTAL HGB 8.4 G/DL (12.0-16.0); TEMP CORR TO 98.6
[2017-03-30 09:41] LABS: CRITICAL VALUE YES; OXYGEN DEVICE VENTILATOR
[2017-03-30 09:42] LABS: DRAW SITE LT RADIAL; FIO2 35 %; NUMBER OF ARTERIAL PUNCTURES 1; STAT NO; ULNAR PULSE PRESENT; VENT SETTINGS CPAP+5/PS5
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
[2017-03-30] MEDS: hydrALAZINE HCL 20 MG/ML VIAL IV PUSH PRN (18:38)
--- NOTE | 2017-03-30 18:41 | MG ---
cc: FADI DAVIS M.D. Lab No: Date: 03/30/2017 Age: Sex: F Race: TEST NUMBER [id number] Ruling out seizures, CVA, seizure. MEDICATIONS 1. Dilantin. 2. Keppra. 3. Morphine. DESCRIPTION The patient moves her head from side to side but a diffuse 4 Hz slowing is seen. Other times diffuse 6 Hz rhythms are noted. Some muscle artifact is seen. One sharp wave is seen over the left mid temporal head region at epoch 67 although on the bipolar montage this is more of a diffuse rhythm and phenomenon. This is noted with some mouth movement and head movement. Some small sharply contoured theta waves are seen bitemporally, also at epoch 95, a little bit more posteriorly situated bilaterally. And at times also almost looked metabolic. Other times it looked sharper. No prolonged seizures are noted. IMPRESSION There are some abnormal waves that appear sharp and they are rather diffuse. One sharp wave is also seen over the left mid temporal head region. Some metabolic factor could be indicated, however, some epileptiform factor also is suspected. Clinical correlation is needed. MD KIMMY Wilburn/KK /5:30 PM /6:38 PM
--- NOTE | 2017-03-30 20:53 | HHI.PR ---
Review/Management Diagnosis -Encephalopathy. -Anoxic/hypoxic brain injury with myoclonus. - Non convulsive status, resolved -Respiratory failure. -Status post cardiac arrest. -Hypothyroidism. Plan -Neuro checks q. 1 hourly. -Continue Keppra 1000 milligrams twice a day. -Dilantin 100mg Q h8 iv - Loaded with 1 gm Dilantin iv - Obtain Dilantin level next am -Continue supportive medical therapy. -Seizure prophylaxis. -DVT prophylaxis. -GI prophylaxis - Discussed case with RN. Diagnosis/Plan: Subjective Subjective Comments No acute events reported Dilantin level is sub therapeutic EEG revealed an encephalopathy with sharp activity that may be epileptogenic Active Medications Current Medications Medications (Trade) Dose Ordered Sig/Nelly Route Start Time Stop Time Status Last Admin (Oscal-D 250-125) 250 mg TID PO 03/20/17 09:00 03/30/17 18:20 (Vitamin D3) 1,000 units DAILY PO 03/20/17 09:00 03/30/17 08:47 (Atarax) 200 mg HS PO 03/19/17 21:00 Future Hold 03/19/17 22:35 (Zoloft) 100 mg DAILY PO 03/20/17 09:00 Future Hold 03/20/17 08:28 (NS Flush) 2 ml UNSCH PRN IV FLUSH 03/19/17 19:15 (NS Flush) 2 ml BID IV FLUSH 03/19/17 21:00 03/30/17 08:48 (Tylenol) 650 mg Q6H PRN PO 03/19/17 19:15 03/27/17 13:15 (Morphine Inj) 2 mg Q2H PRN IV PUSH 03/19/17 19:15 03/30/17 19:14 (Versed Inj) 2 mg Q1H PRN IV PUSH 03/19/17 19:15 03/29/17 08:18 (Tears Naturale Opth Soln) 1 drop TID EACH EYE 03/20/17 09:00 03/30/17 18:21 (Zofran Inj) 4 mg Q6H PRN IV PUSH 03/19/17 19:15 (Heparin Inj) 5,000 units Q8H SQ 03/19/17 20:00 03/30/17 12:47 Miscellaneous Information 1 Q361D XX 03/19/17 19:15 03/19/17 19:15 (Chlorhexidine 2% Cloth) Taper DAILY@04 TOP 03/20/17 04:00 03/16/18 03:59 03/25/17 03:28 (Chlorhexidine 2% Cloth) 3 pack UNSCH PRN TOP 03/19/17 19:15 (Milk Of Magnesia Liq) 30 ml Q12H PRN PO 03/19/17 19:15 (Senokot) 17.2 mg Q12H PRN PO 03/19/17 19:15 (Dulcolax Supp) 10 mg DAILY PRN RECTAL 03/19/17 19:15 Propofol 100 ml @ 3.3 mls/hr TITRATE PRN IV 03/19/17 19:15 03/25/17 08:08 (Peridex 0.12% Liq) 15 ml BID@08,20 MT 03/19/17 20:00 03/30/17 08:56 (Dilantin Inj) 100 mg Q8HR IV 03/21/17 22:00 03/30/17 14:44 (Pulmicort Respule Neb) 0.5 mg Q12HR NEB NEB 03/22/17 11:45 03/30/17 20:03 Potassium Chloride 100 ml @ 50 mls/hr Q2H PRN IV 03/22/17 11:45 Potassium Chloride 100 ml @ 50 mls/hr Q2H PRN IV 03/22/17 11:45 (K-Lyte Cl Eff) 50 meq UNSCH PRN PO 03/22/17 11:45 Potassium Chloride 100 ml @ 25 mls/hr UNSCH PRN IV 03/22/17 11:45 Potassium Chloride 100 ml @ 50 mls/hr Q2H PRN IV 03/22/17 11:45 Magnesium Sulfate 4 gm/Sodium Chloride 100 ml @ 50 mls/hr UNSCH PRN IV 03/22/17 11:45 (Mag-Ox) 800 mg UNSCH PRN PO 03/22/17 11:45 Magnesium Sulfate 2 gm/Sodium Chloride 100 ml @ 50 mls/hr UNSCH PRN IV 03/22/17 11:45 (K-Phos) 2,000 mg Q4H PRN PO 03/22/17 11:45 Sodium Phosphate 30 mmol/Sodium Chloride 250 ml @ 42 mls/hr UNSCH PRN IV 03/22/17 11:45 (K-Phos) 2,000 mg UNSCH PRN PO/TUBE 03/22/17 11:45 Potassium Phosphate 30 mmol/ Sodium Chloride 260 ml @ 42 mls/hr UNSCH PRN IV 03/22/17 11:45 (Synthroid) 50 mcg DAILY@0600 PO 03/23/17 06:00 03/30/17 05:39 (Albuterol Neb) 2.5 mg Q2HR NEB PRN NEB 03/23/17 13:45 (D50w (Vial) Inj) 50 ml UNSCH PRN IV PUSH 03/23/17 13:45 (Glucagon Inj) 1 mg UNSCH PRN OTHER 03/23/17 13:45 (NovoLIN R SUPPLEMENTAL SCALE) 1 Q6HR SQ 03/23/17 18:00 03/25/17 11:45 Piperacillin Sod/ Tazobactam Sod 100 ml @ 200 mls/hr Q6H IV 03/24/17 13:00 03/30/17 18:21 (Colace Liq) 100 mg Q12HR PO 03/25/17 21:00 Future Hold 03/26/17 20:16 (Senna Liq) 8.8 mg BID PO 03/25/17 21:00 Future Hold 03/26/17 20:16 (SoluMEDROL INJ) 40 mg Q12H IV PUSH 03/25/17 15:00 03/30/17 14:44 (Coreg) 25 mg BID OG-TUBE 03/26/17 21:00 03/30/17 08:47 (Apresoline Inj) 10 mg Q1HR PRN IV PUSH 03/26/17 14:00 03/30/17 18:38 (Trandate Inj) 10 mg Q1HR PRN IV PUSH 03/26/17 14:00 03/28/17 02:59 (Nitroglycerin 2% Oint) 2 inch Q6HR PRN TOPICAL 03/26/17 14:00 (Prinivil) 20 mg BID PO 03/27/17 21:00 03/30/17 08:47 (Duoneb Neb) 1 ampule Q6HR NEB NEB 03/27/17 16:00 03/30/17 20:03 (Keppra Liq) 1,000 mg Q12HR NG 03/28/17 09:00 03/30/17 08:47 (Silvadene 1% Cream (50 Gm)) 1 applic DAILY TOP 03/29/17 09:00 03/30/17 08:48 (Betadine 10% Top Soln) 1 applic DAILY TOP 03/29/17 09:00 03/29/17 09:00 Allergies Allergies Coded Allergies phenytoin (Unverified Allergy, Severe, LIVER PROBLEMS, 03/19/17) *MDRO Multi-Drug Resistant Organism (Verified Adverse Reaction, Unknown, ) Review of Systems All other ROS: ROS reviewed as documented in chart Exam I&O / VS 03/30/17 03/30/17 03/31/17 15:00 23:00 07:00 Intake Total 100 ml Output Total 1070 ml Balance 100 ml -1070 ml IV Total 100 ml Output Urine Total 950 ml Stool Total 120 ml Vital Signs Date Time Temp Pulse Resp B/P (MAP) Pulse Ox O2 Delivery O2 Flow Rate FiO2 03/30/17 18:00 94 03/30/17 16:38 95 35 03/30/17 16:00 35 03/30/17 16:00 99.6 91 20 137/106 (116) 94 03/30/17 16:00 91 03/30/17 14:00 95 03/30/17 12:59 95 35 03/30/17 12:00 35 03/30/17 12:00 89 03/30/17 12:00 99.7 89 22 162/79 (106) 94 03/30/17 10:00 86 03/30/17 09:49 94 35 03/30/17 09:30 35 03/30/17 08:00 99.7 94 17 148/69 (95) 94 03/30/17 08:00 35 03/30/17 08:00 94 03/30/17 07:50 95 35 03/30/17 04:00 35 03/30/17 04:00 97.8 88 16 151/70 (97) 96 03/30/17 03:53 96 35 03/30/17 01:10 96 35 03/30/17 00:00 35 03/30/17 00:00 97.4 87 17 135/64 (87) 96 03/29/17 21:58 95 35 Exam Comments GENERAL: The patient is overweight, intubated, sedated HEAD, EYES, EARS, NOSE, THROAT: Normocephalic and atraumatic. NECK: The neck is supple. Trachea is midline. CARDIOVASCULAR: Regular rate and rhythm. RESPIRATORY: Equal breath sounds. No accessory muscle use. No wheezes. GASTROINTESTINAL: The abdomen is soft. Not distended. MUSCULOSKELETAL: No cyanosis, clubbing or edema. NEUROLOGICAL EXAMINATION: Intubated, sedated, opens eyes to verbal commands, Pupils 3-4 mm with very sluggish reaction to light. Positive cough and gag reflex. Positive corneal reflex. No gaze deviation.Moves extremities to stimulation Objective Radiology Results Last 72 hours Impressions Chest X-Ray 03/30/17 0600 Signed Impressions: Service Date/Time: Thursday, March 30, 2017 04:18 - CONCLUSION: Endotracheal tube and nasogastric tube in good position. Minimal infiltrate left lung base. Vicente Roman MD Chest X-Ray 03/28/17 06 Signed Impressions: Service Date/Time: Tuesday, March 28, 2017 04:25 - CONCLUSION: 1. Cardiomegaly. 2. Persistent left lower lobe atelectasis versus pneumonia Tito Lincoln MD Micro and Labs Laboratory Tests Test 03/30/17 04:47 03/30/17 09:35 White Blood Count 11.2 Red Blood Count 3.49 Hemoglobin 8.5 Hematocrit 26.4 Mean Corpuscular Volume 75.5 Mean Corpuscular Hemoglobin 24.2 Mean Corpuscular Hemoglobin Concent 32.1 Red Cell Distribution Width 20.3 Platelet Count 271 Mean Platelet Volume 8.4 Neutrophils (%) (Auto) 76.3 Lymphocytes (%) (Auto) 9.0 Monocytes (%) (Auto) 10.7 Eosinophils (%) (Auto) 3.4 Basophils (%) (Auto) 0.6 Neutrophils # (Auto) 8.5 Lymphocytes # (Auto) 1.0 Monocytes # (Auto) 1.2 Eosinophils # (Auto) 0.4 Basophils # (Auto) 0.1 CBC Comment DIFF FINAL Differential Comment Blood Urea Nitrogen 12 Creatinine 0.62 Random Glucose 107 Total Protein 6.1 Albumin 2.1 Calcium Level 8.8 Phosphorus Level 3.8 Magnesium Level 1.9 Alkaline Phosphatase 124 Aspartate Amino Transf (AST/SGOT) 28 Alanine Aminotransferase (ALT/SGPT) 25 Total Bilirubin 0.4 Sodium Level 136 Potassium Level 3.9 Chloride Level 99 Carbon Dioxide Level 30.3 Anion Gap 7 Estimat Glomerular Filtration Rate 100 Phenytoin (Dilantin) Level 8.9 Blood Gas Puncture Site LT RADIAL Blood Gas Patient Temperature 98.6 Blood Gas HCO3 31 Blood Gas Base Excess 6.0 Blood Gas Oxygen Saturation 91 Arterial Blood pH 7.38 Arterial Blood Partial Pressure CO2 54 Arterial Blood Partial Pressure O2 74 Arterial Blood Oxygen Content 10.9 Arterial Blood Carboxyhemoglobin 1.7 Arterial Blood Methemoglobin 1.1 Blood Gas Hemoglobin 8.4 Oxygen Delivery Device VENTILATOR Blood Gas Ventilator Setting CPAP+5/PS5 Blood Gas Inspired Oxygen 35 Date/Time Source Procedure Growth Status 03/19/17 18:15 Blood Peripheral Aerobic Blood Culture - Final NO GROWTH IN 5 DAYS Complete 03/19/17 18:15 Blood Peripheral Anaerobic Blood Culture - Final NO GROWTH IN 5 DAYS Complete 03/22/17 15:21 Sputum Endotracheal Gram Stain - Final Complete 03/22/17 15:21 Sputum Culture - Final Pseudomonas Aeruginosa Complete 03/28/17 15:50 Wound Arm Gram Stain - Final Resulted 03/28/17 15:50 Wound Arm Wound Culture - Preliminary NO GROWTH IN 48 HOURS. Resulted Niraj Renteria MD Mar 30, 2017 20:53
[2017-03-30] MEDS ORDERED: PHENYTOIN INJ 1,000 MG in SODIUM CHLORIDE 0.9% INJ 100 ML IV ONE (21:00)
[2017-03-31] VITALS (19 sets, daily range): BP systolic 119–168; BP diastolic 60–81; PULSE 81–101; RESP 16–34; TEMP 97.4–99.5; O2SAT 93–98
[2017-03-31] MEDS: CHLORHEXIDINE GLUCONATE 2 % 1 PACK (2 CLOTHS) TOP SCH (03:10)
[2017-03-31] MEDS: methylPREDNISolone SOD SUCC 40 MG/1 ML VIAL IV PUSH SCH ×2 (03:10→14:55)
[2017-03-31] MEDS: HEPARIN SODIUM - SQ 10,000 UNITS/ML VIAL SQ SCH ×3 (03:10→20:23)
[2017-03-31] MEDS: RESP: ALBUTEROL 2.5 MG/IPRATROPIUM 0.5 MG NEB (SCH) NEB ×2 (03:43→08:41)
[2017-03-31] MEDS: INSULIN NovoLIN REGULAR SUPPLEMENTAL SCALE SQ SCH ×4 (05:31→18:00)
[2017-03-31] MEDS: PHENYTOIN INJ 100 MG/2 ML VIAL IV SCH ×3 (05:31→20:23)
[2017-03-31] MEDS: LEVOTHYROXINE SODIUM 50 MCG TAB PO SCH (05:31)
[2017-03-31] MEDS: PIPERACIL-TAZO 4.5 GM PREMIX 100 ML IV SCH ×3 (05:32→17:24)
[2017-03-31] MEDS: MORPHINE SULFATE 4 MG/ML INJ IV PUSH PRN ×3 (06:01→20:22)
[2017-03-31 06:48] LABS: AUTOMATED NEUTROPHIL # 9.9 TH/MM3 (1.8-7.7); BASOPHIL # 0.1 TH/MM3 (0-0.2); BASOPHIL % 0.6 % (0.0-2.0); EOSINOPHIL # 0.3 TH/MM3 (0-0.4); EOSINOPHIL % 2.7 % (0.0-4.0); HEMO FLAGS DIFF FINAL; LYMPH % 8.4 % (9.0-44.0); LYMPHOCYTE # 1.1 TH/MM3 (1.0-4.8); MEAN CELL VOLUME 75.9 FL (80.0-100.0); MEAN CORPUSCULAR HEMOGLOBIN 24.5 PG (27.0-34.0); MEAN CORPUSCULAR HGB CONC 32.3 % (32.0-36.0); MONO % 9.7 % (0.0-8.0); NEUT % 78.6 % (16.0-70.0); PLATELET COUNT 288 TH/MM3 (150-450); RED BLOOD COUNT 3.43 MIL/MM3 (4.00-5.30); RED CELL DISTRIBUTION WIDTH 20.8 % (11.6-17.2); WHITE BLOOD COUNT 12.6 TH/MM3 (4.0-11.0)
[2017-03-31 07:15] LABS: BICARBONATE 31.4 MEQ/L (21.0-32.0); POTASSIUM 4.1 MEQ/L (3.5-5.1)
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
[2017-03-31] MEDS: RESP: BUDESONIDE 0.5 MG/2 ML NEB NEB SCH ×2 (08:41→19:46)
[2017-03-31] MEDS: SILVER SULFADIAZINE 1% CR 50 GM JAR TOP SCH (09:00)
[2017-03-31] MEDS: POVIDONE IODINE 10% SOLN 118 ML BOTTLE TOP SCH (09:00)
[2017-03-31] MEDS ORDERED: NYSTATIN 100,000 U/GM PWD 15 GM BTL TOPICAL PRN (09:00)
[2017-03-31] MEDS: CALCIUM/VITAMIN D 250 MG/125 U TAB PO SCH ×3 (09:04→17:23)
[2017-03-31] MEDS: LISINOPRIL 20 MG TAB PO SCH ×2 (09:04→20:23)
[2017-03-31] MEDS: CARVEDILOL 12.5 MG TAB OG-TUBE SCH ×2 (09:04→20:22)
[2017-03-31] MEDS: CHOLECALCIFEROL (VIT D3) 1000 UNIT TAB PO SCH (09:04)
[2017-03-31] MEDS: levETIRAcetam 500 MG/5 ML UDC NG SCH (09:10)
[2017-03-31] MEDS: CHLORHEXIDINE 0.12% (ORAL KIT) 15 ML CUP MT SCH ×2 (09:11→20:24)
[2017-03-31] MEDS: SODIUM CHLORIDE 0.9% FLUSH 10 ML FLUSH IV FLUSH SCH ×2 (09:11→20:24)
[2017-03-31] MEDS: ARTIFICIAL TEARS OPTH SOLN 15 ML BTL EACH EYE SCH ×3 (09:11→17:24)
--- NOTE | 2017-03-31 10:07 | HHI.HCSW ---
Motor [employer] Controls Tester Visit Advance Directive Spoke with RADIOLOGIC TECHNICIANShayy Grant, regarding accurints on son, Maciej. She states no information found when accurints ran on Maciej Day in [place]. Unable to elicit additional possible matches with limited information. . Shireen Vasquez, SUPERVISOR TESTING Mar 31, 2017 10:07
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
[2017-03-31] MEDS: MIDAZOLAM HCL 2 MG/2 ML VIAL IV PUSH PRN (15:31)
[2017-03-31] MEDS: levETIRAcetam INJ 1,500 MG in SODIUM CHLORIDE 0.9% INJ 100 ML IV SCH (20:23)
[2017-04-01] VITALS (25 sets, daily range): BP systolic 113–194; BP diastolic 56–96; PULSE 75–98; RESP 14–24; TEMP 97.2–99.8; O2SAT 37–98
[2017-04-01] MEDS: MORPHINE SULFATE 4 MG/ML INJ IV PUSH PRN ×6 (00:08→23:47)
[2017-04-01] MEDS: PIPERACIL-TAZO 4.5 GM PREMIX 100 ML IV SCH ×5 (00:09→23:49)
[2017-04-01] MEDS: hydrALAZINE HCL 20 MG/ML VIAL IV PUSH PRN (00:09)
[2017-04-01] MEDS: CHLORHEXIDINE GLUCONATE 2 % 1 PACK (2 CLOTHS) TOP SCH (02:10)
[2017-04-01] MEDS: HEPARIN SODIUM - SQ 10,000 UNITS/ML VIAL SQ SCH ×2 (02:10→12:29)
[2017-04-01] MEDS: methylPREDNISolone SOD SUCC 40 MG/1 ML VIAL IV PUSH SCH ×2 (02:10→14:53)
[2017-04-01] MEDS: LEVOTHYROXINE SODIUM 50 MCG TAB PO SCH (05:36)
[2017-04-01] MEDS: INSULIN NovoLIN REGULAR SUPPLEMENTAL SCALE SQ SCH ×4 (05:36→17:40)
[2017-04-01] MEDS: PHENYTOIN INJ 100 MG/2 ML VIAL IV SCH ×3 (05:36→21:46)
[2017-04-01 07:17] LABS: BICARBONATE 31.6 MEQ/L (21.0-32.0); POTASSIUM 4.1 MEQ/L (3.5-5.1)
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
[2017-04-01] MEDS: CALCIUM/VITAMIN D 250 MG/125 U TAB PO SCH ×3 (08:23→17:40)
[2017-04-01] MEDS: CARVEDILOL 12.5 MG TAB OG-TUBE SCH ×2 (08:24→20:25)
[2017-04-01] MEDS: LISINOPRIL 20 MG TAB PO SCH ×2 (08:24→20:25)
[2017-04-01] MEDS: SODIUM CHLORIDE 0.9% FLUSH 10 ML FLUSH IV FLUSH SCH ×2 (08:24→20:25)
[2017-04-01] MEDS: levETIRAcetam INJ 1,500 MG in SODIUM CHLORIDE 0.9% INJ 100 ML IV SCH ×2 (08:25→20:25)
[2017-04-01] MEDS: ARTIFICIAL TEARS OPTH SOLN 15 ML BTL EACH EYE SCH ×3 (08:25→17:41)
[2017-04-01] MEDS: CHLORHEXIDINE 0.12% (ORAL KIT) 15 ML CUP MT SCH ×2 (08:26→20:26)
[2017-04-01] MEDS: SILVER SULFADIAZINE 1% CR 50 GM JAR TOP SCH (08:26)
[2017-04-01] MEDS: POVIDONE IODINE 10% SOLN 118 ML BOTTLE TOP SCH (08:26)
[2017-04-01] MEDS: CHOLECALCIFEROL (VIT D3) 1000 UNIT TAB PO SCH (08:26)
[2017-04-01] MEDS: RESP: ALBUTEROL 2.5 MG/3 ML NEB (PRN) NEB ×2 (08:55→19:53)
[2017-04-01] MEDS: RESP: BUDESONIDE 0.5 MG/2 ML NEB NEB SCH ×2 (08:55→19:54)
--- NOTE | 2017-04-01 09:26 | RADRPT ---
EXAM DATE/TIME: 04/01/2017 08:31 [facility] COMPARISON: CHEST SINGLE AP, March 30, 2017, 4:18. INDICATIONS : Shortness of breath. MEDICAL HISTORY : Hypertension. Hepatitis C. Chronic obstructive pulmonary disease. SURGICAL HISTORY : Appendectomy. Hysterectomy. Fusion, lumbar. ENCOUNTER: Subsequent ACUITY: 1 week PAIN SCORE: Non-responsive. LOCATION: Bilateral chest FINDINGS: ET tube and nasogastric tube are in good position. Right lung is clear. Minimal consolidative proce ss left base. The pulmonary vascularity is normalizing. CONCLUSION: Support apparatus in good position Interval improvement. Gasper Bear MD FACR on April 01, 2017 at 9:23 Board Certified Radiologist. This report was verified electronically.
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
[2017-04-01 13:42] LABS: AUTOMATED NEUTROPHIL # 9.1 TH/MM3 (1.8-7.7); BASOPHIL # 0.1 TH/MM3 (0-0.2); BASOPHIL % 0.9 % (0.0-2.0); EOSINOPHIL # 0.3 TH/MM3 (0-0.4); HEMATOCRIT 25.4 % (35.0-46.0); HEMO FLAGS DIFF FINAL; LYMPH % 8.2 % (9.0-44.0); LYMPHOCYTE # 0.9 TH/MM3 (1.0-4.8); MEAN CORPUSCULAR HEMOGLOBIN 24.7 PG (27.0-34.0); MONO % 8.3 % (0.0-8.0); NEUT % 79.6 % (16.0-70.0); PLATELET COUNT 286 TH/MM3 (150-450); RED CELL DISTRIBUTION WIDTH 21.2 % (11.6-17.2); WHITE BLOOD COUNT 11.5 TH/MM3 (4.0-11.0)
[2017-04-01 13:44] LABS: INTERNATIONAL NORMALIZED RATIO 0.9 RATIO; PROTHROMBIN TIME - PATIENT 10.3 SEC (9.8-11.6)
[2017-04-01] MEDS ORDERED: MISC INFORMATION OTHER ONE (15:00)
[2017-04-01] MEDS: DEXT 5%-NACL 0.9% 1000 ML INJ 1,000 ML IV SCH (15:30)
--- NOTE | 2017-04-01 15:57 | MB ---
cc: PATRICIA GIRON MD DATE OF CONSULTATION 04/01/2017 REASON FOR CONSULTATION Acute respiratory failure, tracheostomy placement. HISTORY OF PRESENT ILLNESS The patient is a 56-year-old female who presented on 03/19/2017 with a cardiac arrest. The patient has been on prolonged ventilator and failed extubation, therefore, requesting consultation for surgery for tracheostomy placement. The patient is nonverbal and history obtained via the notes and nursing staff, but evidently the patient was arrival as a code and underwent resuscitation with ROSC and resuscitated and has been in the ICU since. She has opened eyes to command and slowly regained some motor movement, however again is prolonged intubation and has failed to extubate. At this time she is currently on C-PAP device. PAST MEDICAL HISTORY 1. Hypertension. 2. Hypothyroidism. 3. COPD. 4. Back pain. 5. Hepatitis C. 6. Anxiety. 7. Depression 8. Schizophrenia. PAST SURGICAL HISTORY 1. Hysterectomy. 2. Back surgery. 3. Appendectomy. 4. Right hip surgery. 5. Stomach surgery. 6. Left hand surgery. 7. Jaw surgery. ALLERGIES PHENYTOIN. MEDICATIONS See EMR. FAMILY HISTORY Father with hypertension, diabetes. SOCIAL HISTORY History of smoking, ethyl alcohol, does not appear to be doing so currently. ALLERGIES As stated. REVIEW OF SYSTEMS Unable to obtain. GENERAL: Unable to obtain. HEENT: Unable to obtain. NECK: Able to obtain. CARDIOVASCULAR: Unable to obtain. RESPIRATORY: Unable to obtain, prolonged intubation. GASTROINTESTINAL: Unable to obtain. MUSCULOSKELETAL: Unable to obtain. NEUROLOGIC: Unable to obtain. PHYSICAL EXAMINATION GENERAL: The patient no acute distress. VITAL SIGNS: Temperature 99.4, pulse 91, respirations 14, 94% on 35 FIO2. Blood pressure 143/66. HEENT: Head normocephalic, atraumatic. HEENT: Pupils equal, round, reactive. NECK: Supple. Trachea midline. ET tube in place. LUNGS: Bilateral expansion. Coarse. HEART: S1-S2, regular. ABDOMEN: Soft. Well-healed surgical midline scar. Nondistended. EXTREMITIES: Warm, well-perfused. NEUROLOGIC: Intubated. Moves all extremities. Edema. PSYCHIATRIC: Unable to obtain. Schizophrenia. INTEGUMENTARY: No obvious skin lesions or masses. GENITOURINARY: Within normal limits. LABORATORY AND DIAGNOSTIC DATA WBC 11.5, hemoglobin 8.1, hematocrit 25.4, platelets 286. Sodium 138, potassium 4.1, chloride 99, BUN 10, creatinine 0.7. INR 0.9. IMAGING Reviewed by myself showing recent chest x-ray, good position of the ET tube, some improvements. CT head, MRI brain no acute hemorrhage, encephalomalacia, atrophy. ASSESSMENT The patient acute respiratory failure, prolonged ventilator status. PLAN After full workup the patient with above-named issues including failure to wean from ventilator. At this point discussed with final dressing cutter and staff regarding tracheostomy placement. We will plan to do this tomorrow. The patient will be n.p.o. after midnight. Hold heparin. We will obtain consents and discuss with power of software developer mid level decision maker regarding consents for tracheostomy. MD ERNA Milner/KK /3:30 PM /3:41 PM
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
[2017-04-02] VITALS (23 sets, daily range): BP systolic 124–189; BP diastolic 64–84; PULSE 69–88; RESP 14–19; TEMP 97.4–99.2; O2SAT 94–100
[2017-04-02] MEDS: CHLORHEXIDINE GLUCONATE 2 % 1 PACK (2 CLOTHS) TOP SCH (02:19)
[2017-04-02] MEDS: MIDAZOLAM HCL 2 MG/2 ML VIAL IV PUSH PRN (02:33)
[2017-04-02] MEDS: methylPREDNISolone SOD SUCC 40 MG/1 ML VIAL IV PUSH SCH ×2 (02:33→14:01)
[2017-04-02] MEDS: MORPHINE SULFATE 4 MG/ML INJ IV PUSH PRN ×6 (04:19→16:47)
[2017-04-02] MEDS: LEVOTHYROXINE SODIUM 50 MCG TAB PO SCH (05:50)
[2017-04-02] MEDS: PHENYTOIN INJ 100 MG/2 ML VIAL IV SCH ×3 (05:51→19:42)
[2017-04-02] MEDS: INSULIN NovoLIN REGULAR SUPPLEMENTAL SCALE SQ SCH ×5 (05:51→23:10)
[2017-04-02] MEDS: DEXT 5%-NACL 0.9% 1000 ML INJ 1,000 ML IV SCH ×2 (05:51→19:42)
[2017-04-02] MEDS: PIPERACIL-TAZO 4.5 GM PREMIX 100 ML IV SCH ×3 (06:05→18:20)
[2017-04-02] MEDS: hydrALAZINE HCL 20 MG/ML VIAL IV PUSH PRN ×4 (06:05→19:04)
[2017-04-02 07:07] LABS: BASOPHIL # 0.1 TH/MM3 (0-0.2); BASOPHIL % 0.6 % (0.0-2.0); EOSINOPHIL # 0.2 TH/MM3 (0-0.4); EOSINOPHIL % 1.6 % (0.0-4.0); HEMATOCRIT 25.9 % (35.0-46.0); HEMO FLAGS DIFF FINAL; LYMPH % 4.3 % (9.0-44.0); LYMPHOCYTE # 0.6 TH/MM3 (1.0-4.8); MEAN CELL VOLUME 76.8 FL (80.0-100.0); MEAN CORPUSCULAR HEMOGLOBIN 24.7 PG (27.0-34.0); MEAN CORPUSCULAR HGB CONC 32.1 % (32.0-36.0); NEUT % 89.5 % (16.0-70.0); PLATELET COUNT 289 TH/MM3 (150-450); RED BLOOD COUNT 3.38 MIL/MM3 (4.00-5.30); RED CELL DISTRIBUTION WIDTH 21.1 % (11.6-17.2); WHITE BLOOD COUNT 13.4 TH/MM3 (4.0-11.0)
[2017-04-02] MEDS: CHOLECALCIFEROL (VIT D3) 1000 UNIT TAB PO SCH (07:31)
[2017-04-02] MEDS: CHLORHEXIDINE 0.12% (ORAL KIT) 15 ML CUP MT SCH ×2 (07:31→19:43)
[2017-04-02] MEDS: CARVEDILOL 12.5 MG TAB OG-TUBE SCH ×2 (07:31→19:41)
[2017-04-02] MEDS: ARTIFICIAL TEARS OPTH SOLN 15 ML BTL EACH EYE SCH ×3 (07:31→17:22)
[2017-04-02] MEDS: SODIUM CHLORIDE 0.9% FLUSH 10 ML FLUSH IV FLUSH SCH ×2 (07:32→19:42)
[2017-04-02] MEDS: LISINOPRIL 20 MG TAB PO SCH ×2 (07:32→19:40)
[2017-04-02 07:34] LABS: BICARBONATE 32.6 MEQ/L (21.0-32.0); POTASSIUM 4.3 MEQ/L (3.5-5.1)
[2017-04-02] MEDS: SILVER SULFADIAZINE 1% CR 50 GM JAR TOP SCH (07:39)
[2017-04-02] MEDS: POVIDONE IODINE 10% SOLN 118 ML BOTTLE TOP SCH (07:39)
[2017-04-02] MEDS: CALCIUM/VITAMIN D 250 MG/125 U TAB PO SCH ×3 (07:41→17:21)
[2017-04-02] MEDS: levETIRAcetam INJ 1,500 MG in SODIUM CHLORIDE 0.9% INJ 100 ML IV SCH ×2 (07:42→19:40)
[2017-04-02] MEDS: RESP: ALBUTEROL 2.5 MG/3 ML NEB (PRN) NEB (07:51)
[2017-04-02] MEDS: RESP: BUDESONIDE 0.5 MG/2 ML NEB NEB SCH ×2 (07:51→20:25)
[2017-04-02] MEDS ORDERED: ROCURONIUM INJ 100 MG/10 ML VIAL IV ONE (09:30)
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
[2017-04-02] MEDS ORDERED: POTASSIUM CHLORIDE 20 MEQ PWD PACKET PO ONE (09:45)
[2017-04-02] MEDS: RESP: ALBUTEROL 2.5 MG/IPRATROPIUM 0.5 MG NEB (SCH) NEB ×3 (10:00→20:25)
[2017-04-02] MEDS ORDERED: MIDAZOLAM HCL 5 MG/ML VIAL (1 ML) IV PUSH ONE (10:00)
[2017-04-02] MEDS: oxyCODONE HCL ORAL CONC 5 MG/0.25 ML SYRINGE PO SCH ×3 (10:08→19:41)
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
--- NOTE | 2017-04-02 11:36 | PD.PROCEDR ---
Procedure Note Procedure DATE: 04/02/2017 Bronchoscopy - fiberoptic: INDICATION: percutaneous tracheostomy CONSENT Informed consent for procedure was obtained. DESCRIPTION OF THE PROCEDURE The patient was placed in supine position. The skin was cleansed with Chloraprep. Patient was on PRVC ventilation FiO2 100%. Patient received 100 mg fentanyl, 10 mg midazolam and 50 mg rocuronium. I entered the 8.0 ET tube with fiberoptic bronchoscope. Withdrawn to [address] Ross directly placed # 8 Shiley percutaneous tracheostomy after insertion with needle. Guidewire was placed and site was dilated 4. Postprocedure, trach visualization with bronchoscopy revealed no active bleeding. COMPLICATIONS: No apparent complications. STAT chest x-ray pending at time of dictation Suleman Pemberton MD Apr 02, 2017 11:36
[2017-04-02] MEDS ORDERED: ROCURONIUM INJ 50 MG/5 ML SYRINGE IV PUSH ONE (12:00)
[2017-04-02] MEDS ORDERED: PROPOFOL 200 MG/20 ML AMP IV ONE (12:00)
[2017-04-02] MEDS ORDERED: MIDAZOLAM HCL 2 MG/2 ML VIAL IV ONE (12:00)
--- NOTE | 2017-04-02 12:28 | RADRPT ---
EXAM DATE/TIME: 04/02/2017 11:42 [facility] COMPARISON: CHEST SINGLE AP, April 01, 2017, 8:31. INDICATIONS : Post tracheostomy. MEDICAL HISTORY : Hypertension. Hepatitis C. Chronic obstructive pulmonary disease. SURGICAL HISTORY : Appendectomy. Hysterectomy. Fusion, lumbar. ENCOUNTER: Initial ACUITY: 2 weeks PAIN SCORE: Non-responsive. LOCATION: Bilateral chest FINDINGS: Patient is status post placement tracheostomy tube. The tracheostomy tube appears to be in good posit ion. There is no pneumothorax. There are mild rectal changes the left lung base. Otherwise, the lungs are grossly clear. The heart size is stable. The bony structures are stable. CONCLUSION: Good position of the tracheostomy tube. No evidence of pneumothorax. Mane Sandhu MD on April 02, 2017 at 12:26 Board Certified Radiologist. This report was verified electronically.
[2017-04-02 12:54] LABS: BACTERIA, URINE FEW /hpf; BLOOD, URINE SMALL (NEG); CALCIUM OXALATE CRYSTALS,URINE OCC /hpf; COMMENT (UR) CULTURE INDICATED; CULTURE IF INDICATED CULTURE INDICATED; GLUCOSE,URINE NEG (NEG); KETONE, URINE NEG (NEG); MUCUS URINE FEW /lpf (OCC); NITRITE,URINE NEG (NEG); SQUAMOUS EPITHELIAL CELL URINE 1 /hpf (0-5); URINE COLOR YELLOW (YELLW/STRAW)
[2017-04-02] MEDS: DEXMEDETOMIDINE INJ 200 MCG in SODIUM CHLORIDE 0.9% INJ 50 ML IV PRN ×5 (13:16→23:08)
--- NOTE | 2017-04-02 13:37 | MP ---
cc: PATRICIA ROSS MD DATE OF SURGERY 04/02/2017 PREOPERATIVE DIAGNOSES Acute respiratory failure. Prolonged ventilation status. POSTOPERATIVE DIAGNOSES Acute respiratory failure. Prolonged ventilation status. PROCEDURE PERFORMED Percutaneous tracheostomy with fiberoptic bronchoscope. SURGEON Dr. Patricia Ross [employer] MECH[employer]IC Dr. Suleman Pemberton to assist with the bronchoscopic surveillance. ANESTHESIA Fentanyl 100 mg. Versed 10. Rocuronium 50. IV FLUIDS Maintenance. COMPLICATIONS None. WOUND CLASSIFICATION Clean. SPECIMENS None. FINDINGS 1. Good end-tidal CO2, bilateral breath sounds. Confirmation of adequate placement of tracheostomy via bronchoscopy. 2. Tracheostomy #8, nonfenestrated, cuffed Shiley. INDICATION The patient is a 56-year-old female who presented with post-code. The patient had return of vital signs after resuscitation, however, patient with prolonged ventilatory status, unable to extubate. Therefore, plan for definitive surgical airway including tracheostomy. Consent obtained. DETAILS OF PROCEDURE The patient was prepped and draped at bedside in the usual sterile fashion after a time-out was done. The patient was preoxygenated to 100% FIO2. Attention was directed to the midline neck just superior to the sternal notch. Infiltration of local anesthetic was done, vertical incision made with a 15 blade. Dissection was done with hemostat to the trachea. The second and third tracheal rings were palpated. The introducer needle with Angiocath sheath was placed in after withdrawal of the ET tube on palpation. The introducer needle was placed, and under direct surveillance by Dr. Pemberton, noted to be confirmed in the trachea, adequate position. The guidewire was then advanced over the catheter after the needle was removed. The sheath was then removed. A punch dilator was done x3. Next, Blue Rhino dilator was done to accommodate a #8 Shiley and this was also dilated x3. Following this the wire remained in place and the Blue Rhino with a tracheostomy was threaded over the wire and done under direct visualization again with bronchoscopy. The tracheostomy fit appropriately in place. The wire and contents were removed. The insert was then placed. The vent was then connected and noted good ET postop and also adequate saturations of 97%. The patient had bilateral lung expansion and breath sounds, again confirmation with bronchoscopy and surveillance. The bronchoscope was then reintroduced and visualized distally at the yifan and no evidence of bleeding. The tracheostomy cuff was inflated. The tracheostomy was sutured in place x4 with a 2-0 Prolene. Trache ties were then placed. The patient tolerated the procedures; no complication. The x-ray is pending for placement confirmation. MD ERNA Milner/SUSAN /11:48 AM /1:24 PM
--- NOTE | 2017-04-02 15:31 | PD.PROCEDR ---
GI Procedure PROCEDURE PERFORMED EGD with PEG placement INDICATION FOR PROCEDURE Respiratory failure, dysphagia PROCEDURE: The procedure, risks and benefits were discussed with Ms. Small and informed consent was obtained. Anesthesia sedated her with Diprivan. She was placed in the left lateral decubitus position. EGD: The Pentax videoscope was introduced through the oropharynx and advanced to the second portion of the duodenum under direct visualization. Retroflexion was performed in the stomach. FINDINGS: Esophagus this was normal The stomach this too was unremarkable and within normal limits The duodenum this too was unremarkable and within normal limits Following the evaluation of the stomach and the duodenum the stomach was insufflated with air and the area of PEG placement was identified through indentation and transillumination the area was prepped and draped in usual fashion 5 cc of lidocaine were injected locally a small incision was made then an Angiocath was passed into the stomach through which a guidewire was passed this was retrieved with the scope into that a PEG tube was attached and pulled into place and thereafter secured in usual fashion The patient tolerated procedure well and there are no immediate complications ESTIMATED BLOOD LOSS: None SPECIMENS REMOVED: None COMPLICATIONS: None IMPRESSION: Normal EGD Successful PEG placement PLAN: 1. May use PEG tube for medications today 2. May start feeding tomorrow 3. May obtain nutritional consult for tube feeding 4. Flush tube with 50 cc of water every 4-6 hours 5. Always flush tube after feedings 6. Apply abdominal binder as necessary 7. Clamp G-tube after use and flush. Zachary Peck MD Apr 02, 2017 15:31
[2017-04-02] MEDS ORDERED: CLEVIDIPINE INJ 50 ML IV PRN (19:15)
[2017-04-02] MEDS: QUEtiapine FUMARATE 25 MG TAB PO SCH (19:41)
[2017-04-03] VITALS (18 sets, daily range): BP systolic 137–193; BP diastolic 81–93; PULSE 64–103; RESP 18–24; TEMP 98–99.3; O2SAT 93–100
[2017-04-03] MEDS: hydrALAZINE HCL 20 MG/ML VIAL IV PUSH PRN ×3 (00:40→21:55)
[2017-04-03] MEDS: PIPERACIL-TAZO 4.5 GM PREMIX 100 ML IV SCH ×4 (00:40→19:24)
[2017-04-03] MEDS: DEXMEDETOMIDINE INJ 200 MCG in SODIUM CHLORIDE 0.9% INJ 50 ML IV PRN ×7 (01:38→20:37)
[2017-04-03] MEDS: methylPREDNISolone SOD SUCC 40 MG/1 ML VIAL IV PUSH SCH ×2 (01:41→14:39)
[2017-04-03] MEDS: oxyCODONE HCL ORAL CONC 5 MG/0.25 ML SYRINGE PO SCH ×4 (03:31→20:38)
[2017-04-03] MEDS: CHLORHEXIDINE GLUCONATE 2 % 1 PACK (2 CLOTHS) TOP SCH (03:32)
[2017-04-03] MEDS: RESP: ALBUTEROL 2.5 MG/IPRATROPIUM 0.5 MG NEB (SCH) NEB ×4 (03:49→19:56)
[2017-04-03] MEDS: PHENYTOIN INJ 100 MG/2 ML VIAL IV SCH ×3 (05:16→20:39)
[2017-04-03] MEDS: LEVOTHYROXINE SODIUM 50 MCG TAB PO SCH (05:17)
[2017-04-03] MEDS: INSULIN NovoLIN REGULAR SUPPLEMENTAL SCALE SQ SCH ×3 (05:17→18:00)
[2017-04-03] MEDS: DEXT 5%-NACL 0.9% 1000 ML INJ 1,000 ML IV SCH ×2 (05:17→20:39)
[2017-04-03 06:53] LABS: ALKALINE PHOSPHATASE 152 U/L (45-117); TOTAL BILIRUBIN ADULT 0.6 MG/DL (0.2-1.0)
[2017-04-03 07:00] LABS: ALT (GPT) 28 U/L (10-53); ANION GAP 7 MEQ/L (5-15); AST (GOT) 30 U/L (15-37); BICARBONATE 27.9 MEQ/L (21.0-32.0); BLOOD UREA NITROGEN 10 MG/DL (7-18); CHLORIDE 99 MEQ/L (98-107); GLOMERULAR FILTRATION RATE 76 ML/MIN (>89); MAGNESIUM 1.5 MG/DL (1.5-2.5); POTASSIUM 4.2 MEQ/L (3.5-5.1); SODIUM (NA) 134 MEQ/L (136-145)
[2017-04-03] MEDS: QUEtiapine FUMARATE 25 MG TAB PO SCH ×2 (07:49→20:38)
[2017-04-03] MEDS: CHOLECALCIFEROL (VIT D3) 1000 UNIT TAB PO SCH (07:49)
[2017-04-03] MEDS: CARVEDILOL 12.5 MG TAB OG-TUBE SCH ×2 (07:49→20:38)
[2017-04-03] MEDS: LISINOPRIL 20 MG TAB PO SCH ×2 (07:49→20:39)
[2017-04-03] MEDS: CALCIUM/VITAMIN D 250 MG/125 U TAB PO SCH ×3 (07:49→19:24)
[2017-04-03] MEDS: CHLORHEXIDINE 0.12% (ORAL KIT) 15 ML CUP MT SCH ×2 (08:00→20:00)
[2017-04-03] MEDS: RESP: BUDESONIDE 0.5 MG/2 ML NEB NEB SCH ×2 (08:04→19:56)
[2017-04-03] MEDS: ARTIFICIAL TEARS OPTH SOLN 15 ML BTL EACH EYE SCH ×3 (09:00→18:00)
[2017-04-03] MEDS: POVIDONE IODINE 10% SOLN 118 ML BOTTLE TOP SCH (09:00)
[2017-04-03] MEDS: SODIUM CHLORIDE 0.9% FLUSH 10 ML FLUSH IV FLUSH SCH ×2 (09:00→14:40)
[2017-04-03] MEDS: levETIRAcetam INJ 1,500 MG in SODIUM CHLORIDE 0.9% INJ 100 ML IV SCH ×2 (09:32→20:39)
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
[2017-04-03] MEDS ORDERED: LANSOPRAZOLE SOLUTAB 30 MG TAB NG ONE (10:00)
--- NOTE | 2017-04-03 10:00 | HHI.PR ---
Subjective Subjective Notes Mechanical ventilation via trach Objective Vitals/I&O Vital Signs Date Time Temp Pulse Resp B/P (MAP) Pulse Ox O2 Delivery O2 Flow Rate FiO2 04/03/17 08:04 35 04/03/17 08:04 100 04/03/17 08:00 98.0 74 163/86 (111) 04/03/17 04:00 18 Labs Laboratory Tests Test 04/03/17 05:15 Blood Urea Nitrogen 10 Creatinine 0.79 Random Glucose 112 Total Protein 6.7 Albumin 2.2 Calcium Level 9.5 Phosphorus Level 2.9 Magnesium Level 1.5 Alkaline Phosphatase 152 Aspartate Amino Transf (AST/SGOT) 30 Alanine Aminotransferase (ALT/SGPT) 28 Total Bilirubin 0.6 Sodium Level 134 Potassium Level 4.2 Chloride Level 99 Carbon Dioxide Level 27.9 Anion Gap 7 Estimat Glomerular Filtration Rate 76 Date/Time Source Procedure Growth Status 04/02/17 12:07 Blood Peripheral Aerobic Blood Culture Pending Received 04/02/17 12:07 Blood Peripheral Anaerobic Blood Culture Pending Received 04/01/17 09:25 Sputum Endotracheal Gram Stain - Final Complete 04/01/17 09:25 Sputum Culture - Final Pseudomonas Aeruginosa Complete 04/02/17 09:57 Urine Clean Catch Urine Culture Pending Received 03/28/17 15:50 Wound Arm Gram Stain - Final Complete 03/28/17 15:50 Wound Arm Wound Culture - Final NO GROWTH IN 72 HRS.--AEROBICALLY OR ... Complete Cardiovascular: Regular Lungs: Clear Abdomen: Non-distended, Non-tender Extremities: No edema Narrative Exam Trach in place without any complications A/P Assessment and Plan 56 year old female with VDRF; POD1 trach -Continue routine trach care -CCM following for ventilator management -No issues with trach -General Surgery will sign off; Please call with questions Kathy Siddiqi Apr 03, 2017 10:00
[2017-04-03 12:29] LABS: AUTOMATED NEUTROPHIL # 8.6 TH/MM3 (1.8-7.7); BASOPHIL # 0.1 TH/MM3 (0-0.2); BASOPHIL % 1.1 % (0.0-2.0); EOSINOPHIL # 0.2 TH/MM3 (0-0.4); EOSINOPHIL % 1.5 % (0.0-4.0); HEMATOCRIT 27.2 % (35.0-46.0); HEMO FLAGS DIFF FINAL; LYMPH % 11.8 % (9.0-44.0); LYMPHOCYTE # 1.3 TH/MM3 (1.0-4.8); MEAN CELL VOLUME 76.6 FL (80.0-100.0); MEAN CORPUSCULAR HEMOGLOBIN 24.7 PG (27.0-34.0); MEAN CORPUSCULAR HGB CONC 32.2 % (32.0-36.0); MONO % 8.4 % (0.0-8.0); NEUT % 77.2 % (16.0-70.0); PLATELET COUNT 338 TH/MM3 (150-450); RED BLOOD COUNT 3.55 MIL/MM3 (4.00-5.30); RED CELL DISTRIBUTION WIDTH 21.5 % (11.6-17.2); WHITE BLOOD COUNT 11.1 TH/MM3 (4.0-11.0)
[2017-04-03] MEDS: BENEPROTEIN POWDER 1 PACK G-TUBE SCH ×2 (13:00→18:00)
--- NOTE | 2017-04-03 13:49 | HHI.GIFU ---
Subjective Remarks S/P PEG tube placement yesterday. Site clamped. On T bar. No distress (Gloria Alejandre) Objective Vitals I&O Vital Signs Date Time Temp Pulse Resp B/P (MAP) Pulse Ox O2 Delivery O2 Flow Rate FiO2 04/03/17 10:10 100 T-piece 40 04/03/17 10:00 89 04/03/17 08:04 35 04/03/17 08:04 100 35 04/03/17 08:00 98.0 74 163/86 (111) 99 04/03/17 08:00 35 04/03/17 08:00 89 04/03/17 06:00 82 04/03/17 04:13 94 35 04/03/17 04:00 99.0 76 18 95 04/03/17 04:00 35 04/03/17 04:00 82 04/03/17 02:00 64 04/03/17 01:04 97 35 04/03/17 00:00 65 04/03/17 00:00 35 04/03/17 00:00 99.3 66 18 164/93 (116) 98 04/02/17 22:41 98 35 04/02/17 22:00 69 04/02/17 20:21 98 40 04/02/17 20:00 81 04/02/17 20:00 98.1 85 18 124/67 (86) 100 04/02/17 20:00 40 04/02/17 18:00 71 04/02/17 16:00 82 04/02/17 16:00 98.4 82 18 187/75 (112) 94 04/02/17 16:00 40 04/02/17 15:42 100 40 04/02/17 15:00 72 18 132/65 (87) 100 04/02/17 14:00 82 04/02/17 14:00 82 16 154/83 (106) 100 I/O 04/02/17 04/02/17 04/02/17 04/03/17 04/03/17 04/03/17 07:00 15:00 23:00 07:00 15:00 23:00 Intake Total 1365 ml 215 ml 1174 ml 300 ml 50 ml Output Total 1050 ml 1150 ml 1500 ml Balance 315 ml 215 ml 24 ml -1200 ml 50 ml IV Total 994 ml 215 ml 634 ml 100 ml 50 ml Tube Feeding 311 ml Tube Irrigant 180 ml Other 60 ml 360 ml 200 ml Output Urine Total 750 ml 900 ml 1200 ml Stool Total 300 ml 250 ml 300 ml Laboratory Laboratory Tests Test 04/03/17 05:15 04/03/17 12:11 Blood Urea Nitrogen 10 Creatinine 0.79 Random Glucose 112 Total Protein 6.7 Albumin 2.2 Calcium Level 9.5 Phosphorus Level 2.9 Magnesium Level 1.5 Alkaline Phosphatase 152 Aspartate Amino Transf (AST/SGOT) 30 Alanine Aminotransferase (ALT/SGPT) 28 Total Bilirubin 0.6 Sodium Level 134 Potassium Level 4.2 Chloride Level 99 Carbon Dioxide Level 27.9 Anion Gap 7 Estimat Glomerular Filtration Rate 76 White Blood Count 11.1 Red Blood Count 3.55 Hemoglobin 8.8 Hematocrit 27.2 Mean Corpuscular Volume 76.6 Mean Corpuscular Hemoglobin 24.7 Mean Corpuscular Hemoglobin Concent 32.2 Red Cell Distribution Width 21.5 Platelet Count 338 Mean Platelet Volume 8.1 Neutrophils (%) (Auto) 77.2 Lymphocytes (%) (Auto) 11.8 Monocytes (%) (Auto) 8.4 Eosinophils (%) (Auto) 1.5 Basophils (%) (Auto) 1.1 Neutrophils # (Auto) 8.6 Lymphocytes # (Auto) 1.3 Monocytes # (Auto) 0.9 Eosinophils # (Auto) 0.2 Basophils # (Auto) 0.1 CBC Comment DIFF FINAL Differential Comment Date/Time Source Procedure Growth Status 04/02/17 12:07 Blood Peripheral Aerobic Blood Culture - Preliminary NO GROWTH IN 1 DAY Resulted 04/02/17 12:07 Blood Peripheral Anaerobic Blood Culture - Preliminary NO GROWTH IN 1 DAY Resulted 04/01/17 09:25 Sputum Endotracheal Gram Stain - Final Complete 04/01/17 09:25 Sputum Culture - Final Pseudomonas Aeruginosa Complete 04/02/17 09:57 Urine Clean Catch Urine Culture - Preliminary Annie Albicans Resulted 03/28/17 15:50 Wound Arm Gram Stain - Final Complete 03/28/17 15:50 Wound Arm Wound Culture - Final NO GROWTH IN 72 HRS.--AEROBICALLY OR ... Complete Imaging Last Impressions Chest X-Ray 04/02/17 0000 Signed Impressions: Service Date/Time: March 11:42 - CONCLUSION: Good position of the tracheostomy tube. No evidence of pneumothorax. Mane J. Siragusa, MD Abdomen X-Ray 03/25/17 0000 Signed Impressions: Service Date/Time: Saturday, March 25, 2017 16:53 - CONCLUSION: 1. NGT in the stomach. 2. Nonobstructive bowel gas pattern. Ovidio Galvez MD Brain MRI 03/20/17 0000 Signed Impressions: Service Date/Time: Monday, March 20, 2017 17:29 - CONCLUSION: 1. No evidence of acute intracranial pathology. No masses are identified. 2. Left frontal encephalomalacia Tito Lincoln MD Head CT 03/19/17 1809 Signed Impressions: Service Date/Time: March 19:46 - CONCLUSION: 1. No acute hemorrhage or mass effect. 2. The stable old areas of encephalomalacia in the frontal lobes left greater than right. 3. Mild to moderate atrophy. Julio Rosales MD Hip and Pelvis X-Ray 03/19/17 0000 Signed Impressions: Service Date/Time: March 19:43 - CONCLUSION: 1. Status post right hip arthroplasty with no evidence of fracture or dislocation. 2. Osteopenia and postoperative changes in the left hip. Julio Rosales MD CT Angiography 03/19/17 0000 Signed Impressions: Service Date/Time: March 19:58 - CONCLUSION: 1. No evidence of pulmonary embolism. 2. Small areas of focal pleural-parenchymal change which may be infectious or inflammatory. Julio Rosales MD Physical Exam HEENT: Normocephalic; atraumatic; no jaundice. CHEST: Resp. even/unlabored. Diminished. Tracheostomy- T Bar CARDIAC: RRR ABDOMEN: Soft, obese, nondistended, no hepatosplenomegaly; bowel sounds are present in all four quadrants. PEG tube site without redness, swelling, drainage EXTREMITIES: Generalized edema. LINUX SYSTEM ADMINISTRATOR: Eyes open, not following commands, moving in bed. (Gloria Alejandre) Assessment and Plan Plan ASSESSMENT - Dysphagia. S/P EGD with peg tube placement (04/02/17)---> Normal EGD, Successful PEG placement. Site without redness, swelling, drainage. Assembler Watch Train recommends Vital High Protein at 60cc/hr. - Respiratory failure, COPD. S/P Tracheostomy. On T Bar. - S/P PEA arrest, s/p cpr, possible anoxic brain injury. Eyes open, does not follow commands. Moves spontaneously. - Schizophrenia, Bipolar, seizure, hypothyroidism. Per attending. PLAN - S/P PEG tube placement - Vital High Protein, increase to 60cc/hr - Beneprotein packet TID - GI will sign off, please reconsult as needed - Pt seen by myself and DR Peck and this note is written on his behalf (Gloria Alejandre) Physician Comments Patient seen and examined Agree with above Continue with current supportive care Monitor labs We will sign off (Zachary Peck MD) Gloria Alejandre Apr 03, 2017 13:49 Zachary Peck MD Apr 03, 2017 18:20
--- NOTE | 2017-04-03 16:08 | PD.PLAS.PN ---
Subjective Remarks The patient is intubated and non-communicative. Vital Signs Date Time Temp Pulse Resp B/P (MAP) Pulse Ox O2 Delivery O2 Flow Rate FiO2 04/03/17 10:10 100 T-piece 40 04/03/17 10:00 89 04/03/17 08:04 35 04/03/17 08:04 100 35 04/03/17 08:00 98.0 74 163/86 (111) 99 04/03/17 08:00 35 04/03/17 08:00 89 04/03/17 06:00 82 04/03/17 04:13 94 35 04/03/17 04:00 99.0 76 18 95 04/03/17 04:00 35 04/03/17 04:00 82 04/03/17 02:00 64 04/03/17 01:04 97 35 04/03/17 00:00 65 04/03/17 00:00 35 04/03/17 00:00 99.3 66 18 164/93 (116) 98 04/02/17 22:41 98 35 04/02/17 22:00 69 04/02/17 20:21 98 40 04/02/17 20:00 81 04/02/17 20:00 98.1 85 18 124/67 (86) 100 04/02/17 20:00 40 04/02/17 18:00 71 I/O 04/02/17 04/02/17 04/02/17 04/03/17 04/03/17 04/03/17 07:00 15:00 23:00 07:00 15:00 23:00 Intake Total 1365 ml 215 ml 1174 ml 300 ml 50 ml Output Total 1050 ml 1150 ml 1500 ml Balance 315 ml 215 ml 24 ml -1200 ml 50 ml IV Total 994 ml 215 ml 634 ml 100 ml 50 ml Tube Feeding 311 ml Tube Irrigant 180 ml Other 60 ml 360 ml 200 ml Output Urine Total 750 ml 900 ml 1200 ml Stool Total 300 ml 250 ml 300 ml Laboratory Tests Test 04/03/17 05:15 04/03/17 12:11 Blood Urea Nitrogen 10 Creatinine 0.79 Random Glucose 112 Total Protein 6.7 Albumin 2.2 Calcium Level 9.5 Phosphorus Level 2.9 Magnesium Level 1.5 Alkaline Phosphatase 152 Aspartate Amino Transf (AST/SGOT) 30 Alanine Aminotransferase (ALT/SGPT) 28 Total Bilirubin 0.6 Sodium Level 134 Potassium Level 4.2 Chloride Level 99 Carbon Dioxide Level 27.9 Anion Gap 7 Estimat Glomerular Filtration Rate 76 White Blood Count 11.1 Red Blood Count 3.55 Hemoglobin 8.8 Hematocrit 27.2 Mean Corpuscular Volume 76.6 Mean Corpuscular Hemoglobin 24.7 Mean Corpuscular Hemoglobin Concent 32.2 Red Cell Distribution Width 21.5 Platelet Count 338 Mean Platelet Volume 8.1 Neutrophils (%) (Auto) 77.2 Lymphocytes (%) (Auto) 11.8 Monocytes (%) (Auto) 8.4 Eosinophils (%) (Auto) 1.5 Basophils (%) (Auto) 1.1 Neutrophils # (Auto) 8.6 Lymphocytes # (Auto) 1.3 Monocytes # (Auto) 0.9 Eosinophils # (Auto) 0.2 Basophils # (Auto) 0.1 CBC Comment DIFF FINAL Differential Comment Date/Time Source Procedure Growth Status 04/02/17 12:07 Blood Peripheral Aerobic Blood Culture - Preliminary NO GROWTH IN 1 DAY Resulted 04/02/17 12:07 Blood Peripheral Anaerobic Blood Culture - Preliminary NO GROWTH IN 1 DAY Resulted 04/01/17 09:25 Sputum Endotracheal Gram Stain - Final Complete 04/01/17 09:25 Sputum Culture - Final Pseudomonas Aeruginosa Complete 04/02/17 09:57 Urine Clean Catch Urine Culture - Preliminary Annie Albicans Resulted 03/28/17 15:50 Wound Arm Gram Stain - Final Complete 03/28/17 15:50 Wound Arm Wound Culture - Final NO GROWTH IN 72 HRS.--AEROBICALLY OR ... Complete Result Diagram: 04/03/17 1211 04/03/17 0515 Exam Findings The blisters are healing. The hand remains swollen. No evidence of infection in the right arm. Plan Impression: The patient is improved and the right arm should heal in the next week or two. Plan: Continue with the same dressing to the right arm. Joann Rivera MD Apr 03, 2017 16:08
[2017-04-03] MEDS: HEPARIN SODIUM - SQ 10,000 UNITS/ML VIAL SQ SCH (19:24)
[2017-04-03] MEDS: SILVER SULFADIAZINE 1% CR 50 GM JAR TOP SCH (19:25)
[2017-04-03] MEDS: hydrOXYzine HCL 50 MG TAB PO SCH (20:38)
[2017-04-03] MEDS: SODIUM CHLORIDE 0.9% FLUSH 10 ML FLUSH IV FLUSH PRN ×2 (20:39→21:56)
[2017-04-04] VITALS (17 sets, daily range): BP systolic 106–160; BP diastolic 56–74; PULSE 64–78; RESP 18–27; TEMP 98.6–99.1; O2SAT 94–98
[2017-04-04] MEDS: PIPERACIL-TAZO 4.5 GM PREMIX 100 ML IV SCH ×4 (00:41→18:04)
[2017-04-04] MEDS: HEPARIN SODIUM - SQ 10,000 UNITS/ML VIAL SQ SCH ×3 (00:41→18:04)
[2017-04-04] MEDS: DEXMEDETOMIDINE INJ 200 MCG in SODIUM CHLORIDE 0.9% INJ 50 ML IV PRN ×2 (00:42→02:18)
[2017-04-04] MEDS: methylPREDNISolone SOD SUCC 40 MG/1 ML VIAL IV PUSH SCH (02:15)
[2017-04-04] MEDS: oxyCODONE HCL ORAL CONC 5 MG/0.25 ML SYRINGE PO SCH ×4 (02:16→22:08)
[2017-04-04] MEDS: DEXT 5%-NACL 0.9% 1000 ML INJ 1,000 ML IV SCH (02:16)
[2017-04-04] MEDS ORDERED: DEXMEDETOMIDINE INJ 1,000 MCG in SODIUM CHLOR 0.9% 250 ML INJ 250 ML IV PRN (04:00)
[2017-04-04] MEDS: RESP: ALBUTEROL 2.5 MG/IPRATROPIUM 0.5 MG NEB (SCH) NEB ×4 (04:08→20:04)
[2017-04-04] MEDS: CHLORHEXIDINE GLUCONATE 2 % 1 PACK (2 CLOTHS) TOP SCH (05:00)
[2017-04-04] MEDS: LEVOTHYROXINE SODIUM 50 MCG TAB PO SCH (05:01)
[2017-04-04] MEDS: PHENYTOIN INJ 100 MG/2 ML VIAL IV SCH (05:01)
[2017-04-04] MEDS: INSULIN NovoLIN REGULAR SUPPLEMENTAL SCALE SQ SCH ×4 (05:01→18:00)
[2017-04-04] MEDS: DEXMEDETOMIDINE INJ 1,000 MCG in SODIUM CHLOR 0.9% 250 ML INJ 240 ML IV PRN ×2 (05:02→22:12)
[2017-04-04 05:03] LABS: ALT (GPT) 25 U/L (10-53); ANION GAP 8 MEQ/L (5-15); AST (GOT) 25 U/L (15-37); BICARBONATE 26.9 MEQ/L (21.0-32.0); BLOOD UREA NITROGEN 9 MG/DL (7-18); CHLORIDE 103 MEQ/L (98-107); GLOMERULAR FILTRATION RATE 77 ML/MIN (>89); MAGNESIUM 1.5 MG/DL (1.5-2.5); POTASSIUM 3.6 MEQ/L (3.5-5.1); SODIUM (NA) 138 MEQ/L (136-145)
[2017-04-04 05:05] LABS: ALKALINE PHOSPHATASE 136 U/L (45-117); TOTAL BILIRUBIN ADULT 0.6 MG/DL (0.2-1.0)
[2017-04-04 06:28] LABS: AUTOMATED NEUTROPHIL # 9.9 TH/MM3 (1.8-7.7); BASOPHIL # 0.1 TH/MM3 (0-0.2); BASOPHIL % 0.9 % (0.0-2.0); EOSINOPHIL # 0.1 TH/MM3 (0-0.4); EOSINOPHIL % 0.8 % (0.0-4.0); HEMATOCRIT 27.1 % (35.0-46.0); HEMO FLAGS DIFF FINAL; LYMPH % 4.2 % (9.0-44.0); LYMPHOCYTE # 0.5 TH/MM3 (1.0-4.8); MEAN CELL VOLUME 76.4 FL (80.0-100.0); MEAN CORPUSCULAR HEMOGLOBIN 24.3 PG (27.0-34.0); MEAN CORPUSCULAR HGB CONC 31.8 % (32.0-36.0); NEUT % 90.1 % (16.0-70.0); PLATELET COUNT 320 TH/MM3 (150-450); RED BLOOD COUNT 3.54 MIL/MM3 (4.00-5.30); RED CELL DISTRIBUTION WIDTH 21.8 % (11.6-17.2)
[2017-04-04] MEDS: RESP: BUDESONIDE 0.5 MG/2 ML NEB NEB SCH ×2 (07:43→20:04)
[2017-04-04] MEDS: POVIDONE IODINE 10% SOLN 118 ML BOTTLE TOP SCH (09:00)
[2017-04-04] MEDS: BENEPROTEIN POWDER 1 PACK G-TUBE SCH ×3 (09:00→18:00)
[2017-04-04] MEDS: LISINOPRIL 20 MG TAB PO SCH ×2 (09:24→22:07)
[2017-04-04] MEDS: MAGNESIUM SULFATE 1 GM PREMIX 100 ML IV SCH ×2 (09:25→11:55)
[2017-04-04] MEDS: CHOLECALCIFEROL (VIT D3) 1000 UNIT TAB PO SCH (09:26)
[2017-04-04] MEDS: LANSOPRAZOLE SOLUTAB 30 MG TAB NG SCH (09:26)
[2017-04-04] MEDS: QUEtiapine FUMARATE 25 MG TAB PO SCH ×2 (09:26→22:06)
[2017-04-04] MEDS: CALCIUM/VITAMIN D 250 MG/125 U TAB PO SCH ×3 (09:26→18:04)
[2017-04-04] MEDS: CARVEDILOL 12.5 MG TAB OG-TUBE SCH ×2 (09:26→22:08)
[2017-04-04] MEDS: SILVER SULFADIAZINE 1% CR 50 GM JAR TOP SCH (09:27)
[2017-04-04] MEDS ORDERED: POTASSIUM CHLORIDE 20 MEQ PWD PACKET PEG ONE (09:30)
[2017-04-04] MEDS: levETIRAcetam 500 MG/5 ML UDC PEG SCH ×2 (09:40→22:06)
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
[2017-04-04] MEDS ORDERED: FOSPHENYTOIN INJ 1,000 MGPE in SODIUM CHLORIDE 0.9% INJ 50 ML IV ONE (10:00)
[2017-04-04] MEDS ORDERED: FLUCONAZOLE SUSP 40 MG/ML 35 ML BTL PO SCH (10:00)
[2017-04-04] MEDS: ARTIFICIAL TEARS OPTH SOLN 15 ML BTL EACH EYE SCH ×3 (10:03→18:00)
[2017-04-04] MEDS: SODIUM CHLORIDE 0.9% FLUSH 10 ML FLUSH IV FLUSH SCH ×2 (10:03→22:08)
[2017-04-04] MEDS: CHLORHEXIDINE 0.12% (ORAL KIT) 15 ML CUP MT SCH ×2 (10:54→22:09)
[2017-04-04] MEDS: MAGNESIUM OXIDE 400 MG TAB PO SCH ×2 (10:55→22:06)
[2017-04-04] MEDS: SERTRALINE HCL 100 MG TAB PO SCH (10:55)
[2017-04-04] MEDS: FLUCONAZOLE 200 MG TAB PO SCH (11:44)
[2017-04-04] MEDS: PHENYTOIN SODIUM 100 MG CAP PO SCH ×2 (13:14→22:06)
[2017-04-04] MEDS ORDERED: PHENYTOIN SUSP 100 MG/4 ML CUP PO SCH (14:00)
[2017-04-04] MEDS: hydrOXYzine HCL 50 MG TAB PO SCH (22:07)
[2017-04-05] VITALS (14 sets, daily range): BP systolic 108–159; BP diastolic 60–85; PULSE 65–77; RESP 17–27; TEMP 97.2–99.1; O2SAT 94–99
[2017-04-05] MEDS: PIPERACIL-TAZO 4.5 GM PREMIX 100 ML IV SCH ×4 (00:26→18:38)
[2017-04-05] MEDS: HEPARIN SODIUM - SQ 10,000 UNITS/ML VIAL SQ SCH ×3 (00:27→18:38)
[2017-04-05] MEDS: CHLORHEXIDINE GLUCONATE 2 % 1 PACK (2 CLOTHS) TOP SCH (04:00)
[2017-04-05] MEDS: RESP: ALBUTEROL 2.5 MG/IPRATROPIUM 0.5 MG NEB (SCH) NEB ×4 (04:06→19:31)
[2017-04-05 05:39] LABS: AUTOMATED NEUTROPHIL # 7.7 TH/MM3 (1.8-7.7); BASOPHIL # 0.1 TH/MM3 (0-0.2); EOSINOPHIL # 0.4 TH/MM3 (0-0.4); EOSINOPHIL % 3.5 % (0.0-4.0); HEMO FLAGS DIFF FINAL; LYMPH % 8.4 % (9.0-44.0); LYMPHOCYTE # 0.9 TH/MM3 (1.0-4.8); MEAN CELL VOLUME 76.1 FL (80.0-100.0); MEAN CORPUSCULAR HEMOGLOBIN 24.2 PG (27.0-34.0); MEAN CORPUSCULAR HGB CONC 31.7 % (32.0-36.0); NEUT % 76.1 % (16.0-70.0); PLATELET COUNT 311 TH/MM3 (150-450); RED BLOOD COUNT 3.29 MIL/MM3 (4.00-5.30); WHITE BLOOD COUNT 10.1 TH/MM3 (4.0-11.0)
--- NOTE | 2017-04-05 05:42 | RADRPT ---
EXAM DATE/TIME: 04/05/2017 03:57 [facility] COMPARISON: CT PULMONARY ANGIOGRAM, March 19, 2017, 19:58. CHEST SINGLE AP, April 01, 2017, 8:31. CHEST S LOS AP, April 02, 2017, 11:42. INDICATIONS : Evaluate for pneumonia MEDICAL HISTORY : Hypertension. Hepatitis C. Chronic obstructive pulmonary disease. SURGICAL HISTORY : Appendectomy. Hysterectomy. Fusion, lumbar. ENCOUNTER: Subsequent ACUITY: 2 weeks PAIN SCORE: Non-responsive. LOCATION: Bilateral chest FINDINGS: Tracheostomy in place. Persistent patchy infiltrates in the left lower lung with air bronchograms. The right lung is clear. Old fracture posterior right 9th rib. The heart is upper limits normal siz e for AP technique. CONCLUSION: Persistent patchy left lower lung infiltrates. Clyde Felix MD on April 05, 2017 at 5:36 Board Certified Radiologist. This report was verified electronically.
[2017-04-05] MEDS: INSULIN NovoLIN REGULAR SUPPLEMENTAL SCALE SQ SCH ×4 (06:00→18:00)
[2017-04-05 06:05] LABS: ANION GAP 8 MEQ/L (5-15); AST (GOT) 18 U/L (15-37); BLOOD UREA NITROGEN 13 MG/DL (7-18); CHLORIDE 101 MEQ/L (98-107); GLOMERULAR FILTRATION RATE 65 ML/MIN (>89); MAGNESIUM 1.7 MG/DL (1.5-2.5); POTASSIUM 3.9 MEQ/L (3.5-5.1); SODIUM (NA) 136 MEQ/L (136-145)
[2017-04-05 06:06] LABS: ALT (GPT) 26 U/L (10-53)
[2017-04-05 06:08] LABS: ALKALINE PHOSPHATASE 154 U/L (45-117); TOTAL BILIRUBIN ADULT 0.4 MG/DL (0.2-1.0)
[2017-04-05] MEDS: PHENYTOIN SODIUM 100 MG CAP PO SCH ×3 (06:22→21:56)
[2017-04-05] MEDS: LEVOTHYROXINE SODIUM 50 MCG TAB PO SCH (06:22)
[2017-04-05] MEDS: oxyCODONE HCL ORAL CONC 5 MG/0.25 ML SYRINGE PO SCH ×4 (06:23→21:57)
[2017-04-05] MEDS: DEXMEDETOMIDINE INJ 1,000 MCG in SODIUM CHLOR 0.9% 250 ML INJ 240 ML IV PRN ×2 (07:22→15:22)
[2017-04-05] MEDS: RESP: BUDESONIDE 0.5 MG/2 ML NEB NEB SCH ×2 (07:35→19:32)
[2017-04-05] MEDS: CHLORHEXIDINE 0.12% (ORAL KIT) 15 ML CUP MT SCH ×2 (08:24→20:15)
[2017-04-05] MEDS: ARTIFICIAL TEARS OPTH SOLN 15 ML BTL EACH EYE SCH ×3 (08:24→18:37)
[2017-04-05] MEDS: SODIUM CHLORIDE 0.9% FLUSH 10 ML FLUSH IV FLUSH SCH ×2 (08:24→20:13)
[2017-04-05] MEDS: methylPREDNISolone SOD SUCC 40 MG/1 ML VIAL IV PUSH SCH (08:25)
[2017-04-05] MEDS: FLUCONAZOLE 200 MG TAB PO SCH (08:25)
[2017-04-05] MEDS: LANSOPRAZOLE SOLUTAB 30 MG TAB NG SCH (08:26)
[2017-04-05] MEDS: SERTRALINE HCL 100 MG TAB PO SCH (08:26)
[2017-04-05] MEDS: CALCIUM/VITAMIN D 250 MG/125 U TAB PO SCH ×3 (08:26→18:38)
[2017-04-05] MEDS: QUEtiapine FUMARATE 25 MG TAB PO SCH ×2 (08:26→20:12)
[2017-04-05] MEDS: CHOLECALCIFEROL (VIT D3) 1000 UNIT TAB PO SCH (08:26)
[2017-04-05] MEDS: levETIRAcetam 500 MG/5 ML UDC PEG SCH ×2 (08:26→20:14)
[2017-04-05] MEDS: MAGNESIUM OXIDE 400 MG TAB PO SCH (08:26)
[2017-04-05] MEDS: LISINOPRIL 20 MG TAB PO SCH ×2 (08:26→20:12)
[2017-04-05] MEDS: CARVEDILOL 12.5 MG TAB OG-TUBE SCH ×2 (08:27→20:12)
[2017-04-05] MEDS: POVIDONE IODINE 10% SOLN 118 ML BOTTLE TOP SCH (08:27)
[2017-04-05] MEDS: SILVER SULFADIAZINE 1% CR 50 GM JAR TOP SCH (08:27)
[2017-04-05] MEDS: BENEPROTEIN POWDER 1 PACK G-TUBE SCH ×3 (08:30→18:00)
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
[2017-04-05] MEDS: hydrOXYzine HCL 50 MG TAB PO SCH (20:12)
[2017-04-06] VITALS (14 sets, daily range): BP systolic 117–174; BP diastolic 58–90; PULSE 65–80; RESP 17–28; TEMP 97.3–99.2; O2SAT 95–98
[2017-04-06] MEDS: PIPERACIL-TAZO 4.5 GM PREMIX 100 ML IV SCH (01:21)
[2017-04-06] MEDS: DEXMEDETOMIDINE INJ 1,000 MCG in SODIUM CHLOR 0.9% 250 ML INJ 240 ML IV PRN ×2 (01:21→11:35)
[2017-04-06] MEDS: HEPARIN SODIUM - SQ 10,000 UNITS/ML VIAL SQ SCH ×3 (01:21→18:42)
[2017-04-06] MEDS: RESP: ALBUTEROL 2.5 MG/IPRATROPIUM 0.5 MG NEB (SCH) NEB ×4 (03:40→19:54)
[2017-04-06] MEDS: CHLORHEXIDINE GLUCONATE 2 % 1 PACK (2 CLOTHS) TOP SCH (04:00)
[2017-04-06 05:16] LABS: HEMATOCRIT 24.6 % (35.0-46.0); MEAN CELL VOLUME 77.4 FL (80.0-100.0); MEAN CORPUSCULAR HEMOGLOBIN 25.1 PG (27.0-34.0); MEAN CORPUSCULAR HGB CONC 32.4 % (32.0-36.0); PLATELET COUNT 286 TH/MM3 (150-450); RED BLOOD COUNT 3.17 MIL/MM3 (4.00-5.30); RED CELL DISTRIBUTION WIDTH 22.8 % (11.6-17.2); REVIEW FLAG FINAL
[2017-04-06 05:38] LABS: BICARBONATE 26.9 MEQ/L (21.0-32.0)
[2017-04-06] MEDS: LEVOTHYROXINE SODIUM 50 MCG TAB PO SCH (05:42)
[2017-04-06] MEDS: PHENYTOIN SODIUM 100 MG CAP PO SCH ×3 (05:42→22:42)
[2017-04-06] MEDS: oxyCODONE HCL ORAL CONC 5 MG/0.25 ML SYRINGE PO SCH ×4 (05:42→22:43)
[2017-04-06] MEDS: INSULIN NovoLIN REGULAR SUPPLEMENTAL SCALE SQ SCH ×4 (05:42→18:00)
[2017-04-06] MEDS: CHLORHEXIDINE 0.12% (ORAL KIT) 15 ML CUP MT SCH (08:00)
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
[2017-04-06] MEDS: RESP: BUDESONIDE 0.5 MG/2 ML NEB NEB SCH ×2 (08:28→19:54)
[2017-04-06] MEDS: BENEPROTEIN POWDER 1 PACK G-TUBE SCH ×3 (09:00→18:00)
[2017-04-06] MEDS: SODIUM CHLORIDE 0.9% FLUSH 10 ML FLUSH IV FLUSH SCH (09:00)
[2017-04-06] MEDS: SILVER SULFADIAZINE 1% CR 50 GM JAR TOP SCH (09:00)
[2017-04-06] MEDS: POVIDONE IODINE 10% SOLN 118 ML BOTTLE TOP SCH (09:00)
[2017-04-06] MEDS: ARTIFICIAL TEARS OPTH SOLN 15 ML BTL EACH EYE SCH ×3 (09:00→18:00)
[2017-04-06] MEDS: CARVEDILOL 12.5 MG TAB OG-TUBE SCH ×2 (09:17→21:16)
[2017-04-06] MEDS: CALCIUM/VITAMIN D 250 MG/125 U TAB PO SCH ×3 (09:17→18:42)
[2017-04-06] MEDS: LISINOPRIL 20 MG TAB PO SCH ×2 (09:17→21:16)
[2017-04-06] MEDS: QUEtiapine FUMARATE 25 MG TAB PO SCH ×2 (09:17→21:17)
[2017-04-06] MEDS: SERTRALINE HCL 100 MG TAB PO SCH (09:17)
[2017-04-06] MEDS: FLUCONAZOLE 200 MG TAB PO SCH (09:17)
[2017-04-06] MEDS: LANSOPRAZOLE SOLUTAB 30 MG TAB NG SCH (09:17)
[2017-04-06] MEDS: methylPREDNISolone SOD SUCC 40 MG/1 ML VIAL IV PUSH SCH (09:18)
[2017-04-06] MEDS: levETIRAcetam 500 MG/5 ML UDC PEG SCH ×2 (09:18→21:17)
[2017-04-06] MEDS: CHOLECALCIFEROL (VIT D3) 1000 UNIT TAB PO SCH (09:18)
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
[2017-04-06] MEDS: hydrOXYzine HCL 50 MG TAB PO SCH (21:17)
[2017-04-07] VITALS (16 sets, daily range): BP systolic 132–189; BP diastolic 76–103; PULSE 62–101; RESP 16–26; TEMP 97.7–99; O2SAT 91–96
[2017-04-07] MEDS: RESP: ALBUTEROL 2.5 MG/IPRATROPIUM 0.5 MG NEB (SCH) NEB ×4 (03:20→20:01)
[2017-04-07] MEDS: HEPARIN SODIUM - SQ 10,000 UNITS/ML VIAL SQ SCH ×3 (04:08→17:24)
[2017-04-07] MEDS: oxyCODONE HCL ORAL CONC 5 MG/0.25 ML SYRINGE PO SCH ×4 (04:09→21:04)
[2017-04-07] MEDS: MORPHINE SULFATE 4 MG/ML INJ IV PUSH PRN ×2 (04:09→16:28)
[2017-04-07] MEDS: LEVOTHYROXINE SODIUM 50 MCG TAB PO SCH (05:56)
[2017-04-07] MEDS: PHENYTOIN SODIUM 100 MG CAP PO SCH ×3 (05:56→21:04)
[2017-04-07] MEDS: INSULIN NovoLIN REGULAR SUPPLEMENTAL SCALE SQ SCH ×5 (05:57→23:31)
[2017-04-07] MEDS: CHLORHEXIDINE 0.12% (ORAL KIT) 15 ML CUP MT SCH ×2 (08:00→20:00)
[2017-04-07] MEDS: RESP: BUDESONIDE 0.5 MG/2 ML NEB NEB SCH ×2 (08:35→20:01)
[2017-04-07] MEDS: LISINOPRIL 20 MG TAB PO SCH ×2 (09:16→21:03)
[2017-04-07] MEDS: LANSOPRAZOLE SOLUTAB 30 MG TAB NG SCH (09:16)
[2017-04-07] MEDS: CALCIUM/VITAMIN D 250 MG/125 U TAB PO SCH ×3 (09:16→17:24)
[2017-04-07] MEDS: FLUCONAZOLE 200 MG TAB PO SCH (09:16)
[2017-04-07] MEDS: CHOLECALCIFEROL (VIT D3) 1000 UNIT TAB PO SCH (09:16)
[2017-04-07] MEDS: methylPREDNISolone SOD SUCC 40 MG/1 ML VIAL IV PUSH SCH (09:16)
[2017-04-07] MEDS: SERTRALINE HCL 100 MG TAB PO SCH (09:16)
[2017-04-07] MEDS: CARVEDILOL 12.5 MG TAB OG-TUBE SCH ×2 (09:16→21:04)
[2017-04-07] MEDS: QUEtiapine FUMARATE 25 MG TAB PO SCH ×2 (09:17→21:04)
[2017-04-07] MEDS: ARTIFICIAL TEARS OPTH SOLN 15 ML BTL EACH EYE SCH ×3 (09:18→17:28)
[2017-04-07] MEDS: levETIRAcetam 500 MG/5 ML UDC PEG SCH ×2 (09:18→21:03)
[2017-04-07] MEDS: SODIUM CHLORIDE 0.9% FLUSH 10 ML FLUSH IV FLUSH SCH ×2 (09:21→21:03)
[2017-04-07] MEDS: BENEPROTEIN POWDER 1 PACK G-TUBE SCH ×3 (09:22→17:25)
[2017-04-07] MEDS: POVIDONE IODINE 10% SOLN 118 ML BOTTLE TOP SCH (09:24)
[2017-04-07] MEDS: SILVER SULFADIAZINE 1% CR 50 GM JAR TOP SCH (09:24)
[2017-04-07] MEDS: hydrALAZINE HCL 20 MG/ML VIAL IV PUSH PRN ×4 (11:37→17:29)
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
[2017-04-07] MEDS ORDERED: METOCLOPRAMIDE HCL 10 MG/2 ML VIAL IV PUSH PRN (14:30)
[2017-04-07] MEDS ORDERED: NIFEdipine 20 MG CAP PO ONE (14:30)
[2017-04-07] MEDS: METOCLOPRAMIDE HCL 10 MG/2 ML VIAL IV PUSH SCH (17:23)
[2017-04-07] MEDS: hydrOXYzine HCL 50 MG TAB PO SCH (21:03)
[2017-04-07] MEDS: PADIMATE (CHAPSTICK) 4.5 GM TUBE TOPICAL PRN (21:05)
[2017-04-08] VITALS (15 sets, daily range): BP systolic 108–189; BP diastolic 56–88; PULSE 75–97; RESP 14–32; TEMP 98.1–99.5; O2SAT 93–98
[2017-04-08] MEDS: MORPHINE SULFATE 4 MG/ML INJ IV PUSH PRN ×2 (00:32→05:16)
[2017-04-08] MEDS: hydrALAZINE HCL 20 MG/ML VIAL IV PUSH PRN ×3 (00:32→05:15)
[2017-04-08] MEDS: CHLORHEXIDINE GLUCONATE 2 % 1 PACK (2 CLOTHS) TOP SCH (00:44)
[2017-04-08] MEDS: HEPARIN SODIUM - SQ 10,000 UNITS/ML VIAL SQ SCH ×3 (01:12→16:44)
[2017-04-08] MEDS: oxyCODONE HCL ORAL CONC 5 MG/0.25 ML SYRINGE PO SCH ×4 (03:28→20:48)
[2017-04-08] MEDS: RESP: ALBUTEROL 2.5 MG/IPRATROPIUM 0.5 MG NEB (SCH) NEB ×4 (03:36→20:52)
[2017-04-08] MEDS: PHENYTOIN SODIUM 100 MG CAP PO SCH ×3 (05:11→20:33)
[2017-04-08] MEDS: LEVOTHYROXINE SODIUM 50 MCG TAB PO SCH (05:11)
[2017-04-08] MEDS: INSULIN NovoLIN REGULAR SUPPLEMENTAL SCALE SQ SCH ×3 (05:11→16:44)
[2017-04-08] MEDS: SODIUM CHLORIDE 0.9% FLUSH 10 ML FLUSH IV FLUSH PRN (05:16)
--- NOTE | 2017-04-08 05:39 | RADRPT ---
EXAM DATE/TIME: 04/08/2017 04:00 [facility] COMPARISON: CHEST SINGLE AP, April 05, 2017, 3:57. INDICATIONS : Short of breath. MEDICAL HISTORY : Hypertension. Hepatitis C. Chronic obstructive pulmonary disease. SURGICAL HISTORY : Appendectomy. Hysterectomy. Fusion, lumbar. ENCOUNTER: Subsequent ACUITY: 3 weeks PAIN SCORE: 0/10 LOCATION: Bilateral chest FINDINGS: Mild left greater than right basilar consolidation not significantly changed. Small left pleural effu tony again suspected. No pneumothorax. Heart size stable, upper limits of normal. Tracheostomy tube again seen. CONCLUSION: Bibasilar consolidation and small left pleural effusion not significantly changed. Adam Houser MD on April 08, 2017 at 5:37 Board Certified Radiologist. This report was verified electronically.
[2017-04-08 06:17] LABS: MEAN CELL VOLUME 77.3 FL (80.0-100.0); MEAN CORPUSCULAR HEMOGLOBIN 24.3 PG (27.0-34.0); MEAN CORPUSCULAR HGB CONC 31.5 % (32.0-36.0); PLATELET COUNT 399 TH/MM3 (150-450); RED BLOOD COUNT 3.36 MIL/MM3 (4.00-5.30); REVIEW FLAG FINAL; WHITE BLOOD COUNT 13.4 TH/MM3 (4.0-11.0)
[2017-04-08 06:49] LABS: MAGNESIUM 1.6 MG/DL (1.5-2.5); POTASSIUM 3.9 MEQ/L (3.5-5.1)
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
[2017-04-08] MEDS: CHLORHEXIDINE 0.12% (ORAL KIT) 15 ML CUP MT SCH ×2 (08:00→20:32)
[2017-04-08] MEDS: FLUCONAZOLE 200 MG TAB PO SCH (08:39)
[2017-04-08] MEDS: CARVEDILOL 12.5 MG TAB OG-TUBE SCH ×2 (08:39→20:33)
[2017-04-08] MEDS: CHOLECALCIFEROL (VIT D3) 1000 UNIT TAB PO SCH (08:39)
[2017-04-08] MEDS: LANSOPRAZOLE SOLUTAB 30 MG TAB NG SCH (08:39)
[2017-04-08] MEDS: SERTRALINE HCL 100 MG TAB PO SCH (08:39)
[2017-04-08] MEDS: CALCIUM/VITAMIN D 250 MG/125 U TAB PO SCH ×3 (08:40→16:45)
[2017-04-08] MEDS: QUEtiapine FUMARATE 25 MG TAB PO SCH ×2 (08:40→20:33)
[2017-04-08] MEDS: LISINOPRIL 20 MG TAB PO SCH ×2 (08:40→20:33)
[2017-04-08] MEDS: levETIRAcetam 500 MG/5 ML UDC PEG SCH ×2 (08:40→20:39)
[2017-04-08] MEDS: METOCLOPRAMIDE HCL 10 MG/2 ML VIAL IV PUSH SCH ×3 (08:41→16:45)
[2017-04-08] MEDS: BENEPROTEIN POWDER 1 PACK G-TUBE SCH ×3 (08:42→16:45)
[2017-04-08] MEDS: ARTIFICIAL TEARS OPTH SOLN 15 ML BTL EACH EYE SCH ×3 (08:42→16:45)
[2017-04-08] MEDS: SODIUM CHLORIDE 0.9% FLUSH 10 ML FLUSH IV FLUSH SCH ×2 (08:42→20:34)
[2017-04-08] MEDS: NIFEdipine 20 MG CAP PEG SCH ×2 (08:57→16:44)
[2017-04-08] MEDS: POVIDONE IODINE 10% SOLN 118 ML BOTTLE TOP SCH (09:00)
[2017-04-08] MEDS ORDERED: NIFEdipine 60 MG SUSTAINED RELEASE TAB PO SCH (09:00)
[2017-04-08] MEDS: RESP: BUDESONIDE 0.5 MG/2 ML NEB NEB SCH ×2 (09:33→20:52)
[2017-04-08] MEDS: SILVER SULFADIAZINE 1% CR 50 GM JAR TOP SCH (12:16)
--- NOTE | 2017-04-08 14:51 | HHI.PR ---
Review/Management Diagnosis -Encephalopathy. -Anoxic/hypoxic brain injury with myoclonus. - Myoclonus, resolved - Non convulsive status, resolved -Respiratory failure. -Status post cardiac arrest. -Hypothyroidism. Plan -Neuro checks q. 1 hourly. -Continue Keppra 1500 milligrams twice a day. -Dilantin 100mg Q h8 iv -Continue supportive medical therapy. -Seizure prophylaxis. -DVT prophylaxis. -GI prophylaxis - Discussed case with Dr. Pratt Diagnosis/Plan: Subjective Subjective Comments No acute events reported No reported seizure activity Dilantin level is subtherapeutic 8.6 Intubated, off sedation MRI brain revealed remote left frontal encephalomalacia Active Medications Current Medications Medications (Trade) Dose Ordered Sig/Nelly Route Start Time Stop Time Status Last Admin (Oscal-D 250-125) 250 mg TID PO 03/20/17 09:00 04/08/17 12:17 (Vitamin D3) 1,000 units DAILY PO 03/20/17 09:00 04/08/17 08:39 (NS Flush) 2 ml UNSCH PRN IV FLUSH 03/19/17 19:15 04/08/17 05:16 (NS Flush) 2 ml BID IV FLUSH 03/19/17 21:00 04/08/17 08:42 (Morphine Inj) 2 mg Q2H PRN IV PUSH 03/19/17 19:15 04/08/17 05:16 (Tears Naturale Opth Soln) 1 drop TID EACH EYE 03/20/17 09:00 04/08/17 08:42 (Zofran Inj) 4 mg Q6H PRN IV PUSH 03/19/17 19:15 04/07/17 13:26 Miscellaneous Information 1 Q361D XX 03/19/17 19:15 03/19/17 19:15 (Chlorhexidine 2% Cloth) 3 pack Taper DAILY@04 TOP 03/20/17 04:00 03/16/18 03:59 04/04/17 05:00 (Chlorhexidine 2% Cloth) 3 pack UNSCH PRN TOP 03/19/17 19:15 (Milk Of Magnesia Liq) 30 ml Q12H PRN PO 03/19/17 19:15 (Senokot) 17.2 mg Q12H PRN PO 03/19/17 19:15 (Dulcolax Supp) 10 mg DAILY PRN RECTAL 03/19/17 19:15 (Peridex 0.12% Liq) 15 ml BID@08,20 MT 03/19/17 20:00 04/08/17 08:00 (Pulmicort Respule Neb) 0.5 mg Q12HR NEB NEB 03/22/17 11:45 04/08/17 09:33 Potassium Chloride 100 ml @ 50 mls/hr Q2H PRN IV 03/22/17 11:45 Potassium Chloride 100 ml @ 50 mls/hr Q2H PRN IV 03/22/17 11:45 (K-Lyte Cl Eff) 50 meq UNSCH PRN PO 03/22/17 11:45 Potassium Chloride 100 ml @ 25 mls/hr UNSCH PRN IV 03/22/17 11:45 Potassium Chloride 100 ml @ 50 mls/hr Q2H PRN IV 03/22/17 11:45 Magnesium Sulfate 4 gm/Sodium Chloride 100 ml @ 50 mls/hr UNSCH PRN IV 03/22/17 11:45 (Mag-Ox) 800 mg UNSCH PRN PO 03/22/17 11:45 Magnesium Sulfate 2 gm/Sodium Chloride 100 ml @ 50 mls/hr UNSCH PRN IV 03/22/17 11:45 (K-Phos) 2,000 mg Q4H PRN PO 03/22/17 11:45 Sodium Phosphate 30 mmol/Sodium Chloride 250 ml @ 42 mls/hr UNSCH PRN IV 03/22/17 11:45 (K-Phos) 2,000 mg UNSCH PRN PO/TUBE 03/22/17 11:45 Potassium Phosphate 30 mmol/ Sodium Chloride 260 ml @ 42 mls/hr UNSCH PRN IV 03/22/17 11:45 (Synthroid) 50 mcg DAILY@0600 PO 03/23/17 06:00 04/08/17 05:11 (Albuterol Neb) 2.5 mg Q2HR NEB PRN NEB 03/23/17 13:45 04/02/17 07:51 (D50w (Vial) Inj) 50 ml UNSCH PRN IV PUSH 03/23/17 13:45 (Glucagon Inj) 1 mg UNSCH PRN OTHER 03/23/17 13:45 (NovoLIN R SUPPLEMENTAL SCALE) 1 Q6HR SQ 03/23/17 18:00 03/25/17 11:45 (Colace Liq) 100 mg Q12HR PO 03/25/17 21:00 Future Hold 03/26/17 20:16 (Senna Liq) 8.8 mg BID PO 03/25/17 21:00 Future Hold 03/26/17 20:16 (Coreg) 25 mg BID OG-TUBE 03/26/17 21:00 04/08/17 08:39 (Apresoline Inj) 10 mg Q1HR PRN IV PUSH 03/26/17 14:00 04/08/17 05:15 (Trandate Inj) 10 mg Q1HR PRN IV PUSH 03/26/17 14:00 03/28/17 02:59 (Nitroglycerin 2% Oint) 2 inch Q6HR PRN TOPICAL 03/26/17 14:00 (Prinivil) 20 mg BID PO 03/27/17 21:00 04/08/17 08:40 (Silvadene 1% Cream (50 Gm)) 1 applic DAILY TOP 03/29/17 09:00 04/08/17 12:16 (Betadine 10% Top Soln) 1 applic DAILY TOP 03/29/17 09:00 04/08/17 09:00 (Mycostatin Powder) 1 applic Q12HR PRN TOPICAL 03/31/17 09:00 (Roxicodone Intensol Liq) 5 mg Q6H PO 04/02/17 10:00 04/08/17 12:17 (SEROquel) 25 mg BID PO 04/02/17 21:00 04/08/17 08:40 (Tylenol 650 Mg/ 20 ml Liq) 650 mg Q6H PRN PEG 04/02/17 09:30 (Beneprotein Powder) 1 pack TID G-TUBE 04/03/17 13:00 04/08/17 12:18 (Heparin Inj) 5,000 units Q8H SQ 04/03/17 18:00 04/08/17 08:58 (Atarax) 200 mg HS PO 04/03/17 21:00 04/07/17 21:03 (Prevacid Odt) 30 mg DAILY NG 04/04/17 09:00 04/08/17 08:39 (Zoloft) 100 mg DAILY PO 04/04/17 10:00 04/08/17 08:39 (Keppra Liq) 1,500 mg Q12HR PEG 04/04/17 10:00 04/08/17 08:40 (Dilantin Liq) 100 mg Q8HR PO 04/04/17 14:00 Future Hold (Diflucan) 200 mg DAILY PO 04/04/17 12:00 04/18/17 11:59 04/08/17 08:39 (Dilantin) 100 mg Q8HR PO 04/04/17 14:00 04/08/17 08:40 (Duoneb Neb) 1 ampule Q6HR NEB NEB 04/06/17 10:00 04/08/17 09:33 (Chapstick) 1 applic UNSCH PRN TOPICAL 04/06/17 08:30 04/07/17 21:05 (Reglan Inj) 5 mg TID IV PUSH 04/07/17 18:00 04/08/17 12:18 (Procardia) 60 mg Q8H PEG 04/08/17 08:00 04/08/17 08:57 Allergies Allergies Coded Allergies phenytoin (Unverified Allergy, Severe, LIVER PROBLEMS, 03/19/17) Review of Systems All other ROS: ROS reviewed as documented in chart Exam I&O / VS Vital Signs Date Time Temp Pulse Resp B/P (MAP) Pulse Ox O2 Delivery O2 Flow Rate FiO2 04/08/17 12:00 98.9 75 19 112/56 (74) 96 04/08/17 12:00 75 04/08/17 09:33 93 T-piece 6.00 50 04/08/17 08:00 86 04/08/17 08:00 99.0 86 17 153/85 (107) 96 04/08/17 08:00 96 T-Piece 5.00 04/08/17 06:00 91 04/08/17 04:00 92 04/08/17 04:00 98.4 92 32 154/88 (110) 96 04/08/17 02:00 91 04/08/17 00:00 97 04/08/17 00:00 99.5 97 23 189/83 (118) 94 04/07/17 22:00 101 04/07/17 20:01 95 T-piece 5.00 50 04/07/17 20:00 99.0 101 23 178/97 (124) 94 04/07/17 20:00 101 04/07/17 19:00 92 T-Piece 35 04/07/17 18:00 99 04/07/17 17:00 92 T-piece 6.00 50 04/07/17 16:54 24 04/07/17 16:33 22 04/07/17 16:00 97 04/07/17 16:00 97.7 97 22 132/76 (94) 91 Exam Comments GENERAL: The patient is overweight, intubated, not sedated HEAD, EYES, EARS, NOSE, THROAT: Normocephalic and atraumatic. NECK: The neck is supple. Tracheostomy, and tube in place. CARDIOVASCULAR: Regular rate and rhythm. RESPIRATORY: Equal breath sounds. No accessory muscle use. No wheezes. GASTROINTESTINAL: The abdomen is soft. Not distended. MUSCULOSKELETAL: No cyanosis, clubbing or edema. NEUROLOGICAL EXAMINATION: Intubated, opens eyes to verbal commands, Pupils 3-4 mm reacting, no gaze deviation, tracks objects, moves head side to side non purposefully, non purposeful extremity movements. Objective Radiology Results Last 72 hours Impressions Chest X-Ray 04/08/17 0600 Signed Impressions: Service Date/Time: Saturday, April 08, 2017 04:00 - CONCLUSION: Bibasilar consolidation and small left pleural effusion not significantly changed. Adam Houser MD Micro and Labs Laboratory Tests Test 04/08/17 05:27 White Blood Count 13.4 Red Blood Count 3.36 Hemoglobin 8.2 Hematocrit 26.0 Mean Corpuscular Volume 77.3 Mean Corpuscular Hemoglobin 24.3 Mean Corpuscular Hemoglobin Concent 31.5 Red Cell Distribution Width 24.0 Platelet Count 399 Mean Platelet Volume 8.3 Blood Urea Nitrogen 15 Creatinine 0.68 Random Glucose 101 Calcium Level 9.8 Phosphorus Level 2.7 Magnesium Level 1.6 Sodium Level 137 Potassium Level 3.9 Chloride Level 101 Carbon Dioxide Level 27.0 Anion Gap 9 Estimat Glomerular Filtration Rate 90 Thyroid Stimulating Hormone 3rd Gen 2.310 Date/Time Source Procedure Growth Status 04/02/17 12:07 Blood Peripheral Aerobic Blood Culture - Final NO GROWTH IN 5 DAYS Complete 04/02/17 12:07 Blood Peripheral Anaerobic Blood Culture - Final NO GROWTH IN 5 DAYS Complete 04/01/17 09:25 Sputum Endotracheal Gram Stain - Final Complete 04/01/17 09:25 Sputum Culture - Final Pseudomonas Aeruginosa Complete 04/02/17 09:57 Urine Clean Catch Urine Culture - Final Annie Albicans Complete 03/28/17 15:50 Wound Arm Gram Stain - Final Complete 03/28/17 15:50 Wound Arm Wound Culture - Final NO GROWTH IN 72 HRS.--AEROBICALLY OR ... Complete Niraj Renteria MD Apr 08, 2017 14:51
[2017-04-08] MEDS: hydrOXYzine HCL 50 MG TAB PO SCH (20:33)
[2017-04-09] VITALS (22 sets, daily range): BP systolic 108–192; BP diastolic 54–133; PULSE 69–97; RESP 13–32; TEMP 98.5–99.9; O2SAT 94–100
[2017-04-09] MEDS: NIFEdipine 20 MG CAP PEG SCH ×4 (01:44→23:23)
[2017-04-09] MEDS: HEPARIN SODIUM - SQ 10,000 UNITS/ML VIAL SQ SCH ×3 (01:45→17:17)
[2017-04-09] MEDS: MORPHINE SULFATE 4 MG/ML INJ IV PUSH PRN ×3 (02:03→17:13)
[2017-04-09] MEDS: CHLORHEXIDINE GLUCONATE 2 % 1 PACK (2 CLOTHS) TOP SCH (03:57)
[2017-04-09] MEDS: oxyCODONE HCL ORAL CONC 5 MG/0.25 ML SYRINGE PO SCH ×4 (03:57→23:23)
[2017-04-09] MEDS: RESP: ALBUTEROL 2.5 MG/IPRATROPIUM 0.5 MG NEB (SCH) NEB ×4 (04:15→20:44)
[2017-04-09] MEDS: LEVOTHYROXINE SODIUM 50 MCG TAB PO SCH (05:38)
[2017-04-09] MEDS: PHENYTOIN SODIUM 100 MG CAP PO SCH ×2 (05:38→14:00)
[2017-04-09] MEDS: INSULIN NovoLIN REGULAR SUPPLEMENTAL SCALE SQ SCH ×5 (05:47→23:34)
[2017-04-09] MEDS: RESP: BUDESONIDE 0.5 MG/2 ML NEB NEB SCH ×2 (07:51→20:44)
[2017-04-09] MEDS: ACETAMINOPHEN 650 MG/20.3 ML UDC PEG PRN (08:30)
[2017-04-09] MEDS: LISINOPRIL 20 MG TAB PO SCH ×2 (08:31→20:41)
[2017-04-09] MEDS: SODIUM CHLORIDE 0.9% FLUSH 10 ML FLUSH IV FLUSH SCH ×2 (08:31→20:41)
[2017-04-09] MEDS: SODIUM CHLORIDE 0.9% FLUSH 10 ML FLUSH IV FLUSH PRN (08:31)
[2017-04-09] MEDS: PADIMATE (CHAPSTICK) 4.5 GM TUBE TOPICAL PRN (08:32)
[2017-04-09] MEDS: CARVEDILOL 12.5 MG TAB OG-TUBE SCH ×2 (08:34→20:41)
[2017-04-09] MEDS: CHLORHEXIDINE 0.12% (ORAL KIT) 15 ML CUP MT SCH ×2 (08:35→20:40)
[2017-04-09] MEDS: BENEPROTEIN POWDER 1 PACK G-TUBE SCH ×3 (09:00→17:37)
[2017-04-09] MEDS: POVIDONE IODINE 10% SOLN 118 ML BOTTLE TOP SCH (09:00)
[2017-04-09] MEDS: CALCIUM/VITAMIN D 250 MG/125 U TAB PO SCH ×3 (09:00→17:17)
[2017-04-09] MEDS: QUEtiapine FUMARATE 25 MG TAB PO SCH ×2 (09:58→20:41)
[2017-04-09] MEDS: FLUCONAZOLE 200 MG TAB PO SCH (09:58)
[2017-04-09] MEDS: levETIRAcetam 500 MG/5 ML UDC PEG SCH ×2 (09:58→20:41)
[2017-04-09] MEDS: METOCLOPRAMIDE HCL 10 MG/2 ML VIAL IV PUSH SCH ×3 (09:58→17:17)
[2017-04-09] MEDS: SERTRALINE HCL 100 MG TAB PO SCH (09:58)
[2017-04-09] MEDS: CHOLECALCIFEROL (VIT D3) 1000 UNIT TAB PO SCH (09:58)
[2017-04-09] MEDS: LANSOPRAZOLE SOLUTAB 30 MG TAB NG SCH (09:59)
[2017-04-09] MEDS: ARTIFICIAL TEARS OPTH SOLN 15 ML BTL EACH EYE SCH ×3 (10:00→17:37)
[2017-04-09] MEDS: SILVER SULFADIAZINE 1% CR 50 GM JAR TOP SCH (10:00)
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
[2017-04-09] MEDS: PHENYTOIN SUSP 100 MG/4 ML CUP PEG SCH (20:41)
[2017-04-09] MEDS: hydrOXYzine HCL 50 MG TAB PO SCH (20:41)
[2017-04-10] VITALS (20 sets, daily range): BP systolic 61–155; BP diastolic 62–102; PULSE 78–95; RESP 20–32; TEMP 99–100.3; O2SAT 93–99
[2017-04-10] MEDS: HEPARIN SODIUM - SQ 10,000 UNITS/ML VIAL SQ SCH ×3 (03:51→16:38)
[2017-04-10] MEDS: CHLORHEXIDINE GLUCONATE 2 % 1 PACK (2 CLOTHS) TOP SCH (03:51)
[2017-04-10] MEDS: oxyCODONE HCL ORAL CONC 5 MG/0.25 ML SYRINGE PO SCH ×4 (03:51→20:22)
[2017-04-10] MEDS: RESP: ALBUTEROL 2.5 MG/IPRATROPIUM 0.5 MG NEB (SCH) NEB ×2 (04:00→08:06)
[2017-04-10] MEDS: LEVOTHYROXINE SODIUM 50 MCG TAB PO SCH (05:22)
[2017-04-10] MEDS: MORPHINE SULFATE 4 MG/ML INJ IV PUSH PRN ×2 (05:23→14:10)
[2017-04-10] MEDS: PHENYTOIN SUSP 100 MG/4 ML CUP PEG SCH ×3 (05:23→20:22)
[2017-04-10] MEDS: INSULIN NovoLIN REGULAR SUPPLEMENTAL SCALE SQ SCH ×3 (05:32→16:45)
[2017-04-10] MEDS: CHLORHEXIDINE 0.12% (ORAL KIT) 15 ML CUP MT SCH ×2 (08:00→20:23)
[2017-04-10] MEDS: RESP: BUDESONIDE 0.5 MG/2 ML NEB NEB SCH ×2 (08:06→19:55)
[2017-04-10] MEDS: NIFEdipine 20 MG CAP PEG SCH ×2 (08:12→16:36)
[2017-04-10] MEDS: METOCLOPRAMIDE HCL 10 MG/2 ML VIAL IV PUSH SCH ×3 (08:13→16:38)
[2017-04-10] MEDS: CALCIUM/VITAMIN D 250 MG/125 U TAB PO SCH ×3 (08:13→16:36)
[2017-04-10] MEDS: FLUCONAZOLE 200 MG TAB PO SCH (08:13)
[2017-04-10] MEDS: CHOLECALCIFEROL (VIT D3) 1000 UNIT TAB PO SCH (08:14)
[2017-04-10] MEDS: SERTRALINE HCL 100 MG TAB PO SCH (08:14)
[2017-04-10] MEDS: LANSOPRAZOLE SOLUTAB 30 MG TAB NG SCH (08:14)
[2017-04-10] MEDS: CARVEDILOL 12.5 MG TAB OG-TUBE SCH ×2 (08:14→20:21)
[2017-04-10] MEDS: QUEtiapine FUMARATE 25 MG TAB PO SCH ×2 (08:14→20:23)
[2017-04-10] MEDS: LISINOPRIL 20 MG TAB PO SCH ×2 (08:14→20:23)
[2017-04-10] MEDS: levETIRAcetam 500 MG/5 ML UDC PEG SCH ×2 (08:15→20:22)
[2017-04-10] MEDS: SODIUM CHLORIDE 0.9% FLUSH 10 ML FLUSH IV FLUSH SCH ×2 (08:15→20:23)
[2017-04-10] MEDS: ARTIFICIAL TEARS OPTH SOLN 15 ML BTL EACH EYE SCH ×3 (08:17→16:39)
[2017-04-10] MEDS: BENEPROTEIN POWDER 1 PACK G-TUBE SCH ×3 (08:17→16:39)
[2017-04-10] MEDS: SILVER SULFADIAZINE 1% CR 50 GM JAR TOP SCH (08:23)
[2017-04-10] MEDS: POVIDONE IODINE 10% SOLN 118 ML BOTTLE TOP SCH (08:24)
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
[2017-04-10] MEDS: hydrALAZINE HCL 20 MG/ML VIAL IV PUSH PRN (14:10)
[2017-04-10] MEDS: ACETAMINOPHEN 650 MG/20.3 ML UDC PEG PRN (20:21)
[2017-04-10] MEDS: hydrOXYzine HCL 50 MG TAB PO SCH (20:23)
[2017-04-11] VITALS (16 sets, daily range): BP systolic 109–189; BP diastolic 58–94; PULSE 73–93; RESP 16–38; TEMP 99.3–99.9; O2SAT 94–98
[2017-04-11] MEDS: HEPARIN SODIUM - SQ 10,000 UNITS/ML VIAL SQ SCH ×4 (00:04→23:30)
[2017-04-11] MEDS: NIFEdipine 20 MG CAP PEG SCH ×4 (00:04→23:30)
[2017-04-11] MEDS: CHLORHEXIDINE GLUCONATE 2 % 1 PACK (2 CLOTHS) TOP SCH (04:00)
--- NOTE | 2017-04-11 04:11 | RADRPT ---
EXAM DATE/TIME: 04/11/2017 02:29 [facility] COMPARISON: CHEST SINGLE AP, April 08, 2017, 4:00. INDICATIONS : Shortness of breath, respiratory failure. MEDICAL HISTORY : Hypertension. Hepatitis C. Chronic obstructive pulmonary disease. SURGICAL HISTORY : Appendectomy. Hysterectomy. Fusion, lumbar. Tracheostomy ENCOUNTER: Subsequent ACUITY: 3 weeks PAIN SCORE: Non-responsive. LOCATION: Bilateral chest FINDINGS: A single view of the chest demonstrates the lungs to be symmetrically aerated without evidence of mas s, infiltrate or effusion. The cardiomediastinal contours are unremarkable. Osseous structures are intact. A tracheostomy tube remains in place. There are multiple overlying electrocardiogram leads. T here is hazy opacity in the perihilar regions. CONCLUSION: Single view Midinspiratory exam with mild hazy opacity in the perihilar regions. This could represent early pulmonary edema. Julio Rosales MD on April 11, 2017 at 4:09 Board Certified Radiologist. This report was verified electronically.
[2017-04-11] MEDS: oxyCODONE HCL ORAL CONC 5 MG/0.25 ML SYRINGE PO SCH ×4 (04:23→20:36)
[2017-04-11] MEDS: RESP: ALBUTEROL 2.5 MG/3 ML NEB (PRN) NEB (04:23)
[2017-04-11] MEDS: INSULIN NovoLIN REGULAR SUPPLEMENTAL SCALE SQ SCH ×5 (04:32→23:29)
[2017-04-11] MEDS: hydrALAZINE HCL 20 MG/ML VIAL IV PUSH PRN ×2 (04:33→17:44)
[2017-04-11] MEDS: PHENYTOIN SUSP 100 MG/4 ML CUP PEG SCH ×3 (04:33→20:36)
[2017-04-11] MEDS: LEVOTHYROXINE SODIUM 50 MCG TAB PO SCH (04:33)
[2017-04-11] MEDS: MORPHINE SULFATE 4 MG/ML INJ IV PUSH PRN (04:38)
[2017-04-11 07:06] LABS: AUTOMATED NEUTROPHIL # 7.5 TH/MM3 (1.8-7.7); BASOPHIL % 0.4 % (0.0-2.0); EOSINOPHIL # 0.1 TH/MM3 (0-0.4); EOSINOPHIL % 1.5 % (0.0-4.0); HEMATOCRIT 24.1 % (35.0-46.0); HEMO FLAGS DIFF FINAL; LYMPH % 8.7 % (9.0-44.0); LYMPHOCYTE # 0.8 TH/MM3 (1.0-4.8); MEAN CORPUSCULAR HEMOGLOBIN 24.8 PG (27.0-34.0); MEAN CORPUSCULAR HGB CONC 32.2 % (32.0-36.0); MONO % 9.5 % (0.0-8.0); NEUT % 79.9 % (16.0-70.0); PLATELET COUNT 339 TH/MM3 (150-450); RED BLOOD COUNT 3.13 MIL/MM3 (4.00-5.30); RED CELL DISTRIBUTION WIDTH 24.2 % (11.6-17.2); WHITE BLOOD COUNT 9.4 TH/MM3 (4.0-11.0)
[2017-04-11 07:17] LABS: BICARBONATE 33.2 MEQ/L (21.0-32.0); MAGNESIUM 1.3 MG/DL (1.5-2.5); POTASSIUM 3.2 MEQ/L (3.5-5.1)
[2017-04-11] MEDS: RESP: BUDESONIDE 0.5 MG/2 ML NEB NEB SCH ×2 (09:44→20:16)
[2017-04-11] MEDS: POTASSIUM CHLORIDE 25 MEQ EFFERVESCENT TAB PO PRN (09:58)
[2017-04-11] MEDS: CALCIUM/VITAMIN D 250 MG/125 U TAB PO SCH ×3 (09:58→17:42)
[2017-04-11] MEDS: CHOLECALCIFEROL (VIT D3) 1000 UNIT TAB PO SCH (09:59)
[2017-04-11] MEDS: LANSOPRAZOLE SOLUTAB 30 MG TAB NG SCH (09:59)
[2017-04-11] MEDS: LISINOPRIL 20 MG TAB PO SCH ×2 (09:59→20:36)
[2017-04-11] MEDS: FLUCONAZOLE 200 MG TAB PO SCH (10:00)
[2017-04-11] MEDS: levETIRAcetam 500 MG/5 ML UDC PEG SCH ×2 (10:00→20:36)
[2017-04-11] MEDS: METOCLOPRAMIDE HCL 10 MG/2 ML VIAL IV PUSH SCH ×3 (10:00→17:41)
[2017-04-11] MEDS: CARVEDILOL 12.5 MG TAB OG-TUBE SCH ×2 (10:00→20:36)
[2017-04-11] MEDS: POVIDONE IODINE 10% SOLN 118 ML BOTTLE TOP SCH (10:02)
[2017-04-11] MEDS: SILVER SULFADIAZINE 1% CR 50 GM JAR TOP SCH (10:02)
[2017-04-11] MEDS: SODIUM CHLORIDE 0.9% FLUSH 10 ML FLUSH IV FLUSH SCH ×2 (10:06→20:35)
[2017-04-11] MEDS: BENEPROTEIN POWDER 1 PACK G-TUBE SCH ×3 (10:06→17:42)
[2017-04-11] MEDS: SERTRALINE HCL 100 MG TAB PO SCH (10:06)
[2017-04-11] MEDS: QUEtiapine FUMARATE 25 MG TAB PO SCH ×2 (10:06→20:36)
[2017-04-11] MEDS: ARTIFICIAL TEARS OPTH SOLN 15 ML BTL EACH EYE SCH ×3 (10:07→17:42)
[2017-04-11] MEDS: CHLORHEXIDINE 0.12% (ORAL KIT) 15 ML CUP MT SCH ×2 (10:07→20:35)
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
[2017-04-11] MEDS: hydrOXYzine HCL 50 MG TAB PO SCH (20:36)
[2017-04-11 20:39] LABS: POTASSIUM 3.6 MEQ/L (3.5-5.1)
[2017-04-11 20:40] LABS: MAGNESIUM 1.2 MG/DL (1.5-2.5)
[2017-04-12] VITALS (22 sets, daily range): BP systolic 99–183; BP diastolic 59–96; PULSE 70–91; RESP 17–37; TEMP 98.9–99.5; O2SAT 68–99
[2017-04-12] MEDS: MORPHINE SULFATE 4 MG/ML INJ IV PUSH PRN ×4 (02:59→16:49)
[2017-04-12] MEDS: CHLORHEXIDINE GLUCONATE 2 % 1 PACK (2 CLOTHS) TOP SCH (04:00)
[2017-04-12] MEDS: oxyCODONE HCL ORAL CONC 5 MG/0.25 ML SYRINGE PO SCH ×4 (04:32→20:34)
[2017-04-12] MEDS: PHENYTOIN SUSP 100 MG/4 ML CUP PEG SCH ×3 (04:32→20:34)
[2017-04-12] MEDS: LEVOTHYROXINE SODIUM 50 MCG TAB PO SCH (04:33)
[2017-04-12] MEDS: INSULIN NovoLIN REGULAR SUPPLEMENTAL SCALE SQ SCH ×4 (06:00→23:59)
[2017-04-12] MEDS: CALCIUM/VITAMIN D 250 MG/125 U TAB PO SCH ×3 (08:23→16:42)
[2017-04-12] MEDS: levETIRAcetam 500 MG/5 ML UDC PEG SCH ×2 (08:23→20:34)
[2017-04-12] MEDS: QUEtiapine FUMARATE 25 MG TAB PO SCH ×2 (08:23→20:34)
[2017-04-12] MEDS: LISINOPRIL 20 MG TAB PO SCH ×2 (08:23→20:34)
[2017-04-12] MEDS: SERTRALINE HCL 100 MG TAB PO SCH (08:23)
[2017-04-12] MEDS: CARVEDILOL 12.5 MG TAB OG-TUBE SCH ×2 (08:23→20:34)
[2017-04-12] MEDS: CHOLECALCIFEROL (VIT D3) 1000 UNIT TAB PO SCH (08:23)
[2017-04-12] MEDS: NIFEdipine 20 MG CAP PEG SCH ×3 (08:23→23:58)
[2017-04-12] MEDS: SODIUM CHLORIDE 0.9% FLUSH 10 ML FLUSH IV FLUSH SCH ×2 (08:24→20:33)
[2017-04-12] MEDS: FLUCONAZOLE 200 MG TAB PO SCH (08:24)
[2017-04-12] MEDS: LANSOPRAZOLE SOLUTAB 30 MG TAB NG SCH (08:24)
[2017-04-12] MEDS: METOCLOPRAMIDE HCL 10 MG/2 ML VIAL IV PUSH SCH ×3 (08:24→16:42)
[2017-04-12] MEDS: SODIUM CHLORIDE 0.9% FLUSH 10 ML FLUSH IV FLUSH PRN (08:24)
[2017-04-12] MEDS: BENEPROTEIN POWDER 1 PACK G-TUBE SCH ×3 (08:24→16:42)
[2017-04-12] MEDS: RESP: BUDESONIDE 0.5 MG/2 ML NEB NEB SCH ×2 (08:31→19:57)
[2017-04-12] MEDS: RESP: ALBUTEROL 2.5 MG/3 ML NEB (PRN) NEB (08:31)
[2017-04-12] MEDS: POVIDONE IODINE 10% SOLN 118 ML BOTTLE TOP SCH (08:35)
[2017-04-12] MEDS: CHLORHEXIDINE 0.12% (ORAL KIT) 15 ML CUP MT SCH ×2 (08:35→20:34)
[2017-04-12] MEDS: ARTIFICIAL TEARS OPTH SOLN 15 ML BTL EACH EYE SCH ×3 (08:35→16:43)
[2017-04-12] MEDS: SILVER SULFADIAZINE 1% CR 50 GM JAR TOP SCH (08:35)
[2017-04-12] MEDS: HEPARIN SODIUM - SQ 10,000 UNITS/ML VIAL SQ SCH ×3 (10:18→23:59)
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
[2017-04-12] MEDS: ACETAMINOPHEN 650 MG/20.3 ML UDC PEG PRN (20:34)
[2017-04-12] MEDS: hydrOXYzine HCL 50 MG TAB PO SCH (20:35)
[2017-04-13] VITALS (26 sets, daily range): BP systolic 114–195; BP diastolic 70–97; PULSE 78–106; RESP 18–42; TEMP 98.5–102; O2SAT 92–98
[2017-04-13] MEDS: MORPHINE SULFATE 4 MG/ML INJ IV PUSH PRN (02:47)
[2017-04-13] MEDS: CHLORHEXIDINE GLUCONATE 2 % 1 PACK (2 CLOTHS) TOP SCH (04:00)
[2017-04-13] MEDS: oxyCODONE HCL ORAL CONC 5 MG/0.25 ML SYRINGE PO SCH ×4 (04:36→22:07)
[2017-04-13] MEDS: PHENYTOIN SUSP 100 MG/4 ML CUP PEG SCH ×3 (04:36→21:52)
[2017-04-13] MEDS: LEVOTHYROXINE SODIUM 50 MCG TAB PO SCH (04:36)
[2017-04-13] MEDS: INSULIN NovoLIN REGULAR SUPPLEMENTAL SCALE SQ SCH ×3 (04:37→18:00)
[2017-04-13] MEDS: RESP: BUDESONIDE 0.5 MG/2 ML NEB NEB SCH ×2 (07:47→20:22)
[2017-04-13] MEDS: CHLORHEXIDINE 0.12% (ORAL KIT) 15 ML CUP MT SCH ×2 (08:00→20:00)
[2017-04-13] MEDS: ARTIFICIAL TEARS OPTH SOLN 15 ML BTL EACH EYE SCH ×3 (09:00→18:00)
[2017-04-13] MEDS: SILVER SULFADIAZINE 1% CR 50 GM JAR TOP SCH (09:00)
[2017-04-13] MEDS: BENEPROTEIN POWDER 1 PACK G-TUBE SCH ×3 (09:00→18:00)
[2017-04-13] MEDS: POVIDONE IODINE 10% SOLN 118 ML BOTTLE TOP SCH (09:00)
[2017-04-13] MEDS: SODIUM CHLORIDE 0.9% FLUSH 10 ML FLUSH IV FLUSH SCH ×2 (09:00→21:51)
[2017-04-13] MEDS: QUEtiapine FUMARATE 25 MG TAB PO SCH ×2 (09:02→21:51)
[2017-04-13] MEDS: CHOLECALCIFEROL (VIT D3) 1000 UNIT TAB PO SCH (09:02)
[2017-04-13] MEDS: levETIRAcetam 500 MG/5 ML UDC PEG SCH ×2 (09:02→21:53)
[2017-04-13] MEDS: CARVEDILOL 12.5 MG TAB OG-TUBE SCH ×2 (09:02→21:52)
[2017-04-13] MEDS: FLUCONAZOLE 200 MG TAB PO SCH (09:02)
[2017-04-13] MEDS: NIFEdipine 20 MG CAP PEG SCH ×2 (09:03→18:11)
[2017-04-13] MEDS: SERTRALINE HCL 100 MG TAB PO SCH (09:03)
[2017-04-13] MEDS: CALCIUM/VITAMIN D 250 MG/125 U TAB PO SCH ×3 (09:03→18:11)
[2017-04-13] MEDS: LISINOPRIL 20 MG TAB PO SCH ×2 (09:03→21:52)
[2017-04-13] MEDS: LANSOPRAZOLE SOLUTAB 30 MG TAB NG SCH (09:03)
[2017-04-13] MEDS: METOCLOPRAMIDE HCL 10 MG/2 ML VIAL IV PUSH SCH ×3 (09:04→18:11)
[2017-04-13] MEDS: HEPARIN SODIUM - SQ 10,000 UNITS/ML VIAL SQ SCH ×2 (09:04→18:11)
[2017-04-13] MEDS ORDERED: QUEtiapine FUMARATE 25 MG TAB PO ONE (11:15)
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
[2017-04-13] MEDS: hydrALAZINE HCL 20 MG/ML VIAL IV PUSH PRN (13:57)
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
[2017-04-13] MEDS: RESP: ALBUTEROL 2.5 MG/3 ML NEB (PRN) NEB (16:17)
[2017-04-13] MEDS: hydrOXYzine HCL 50 MG TAB PO SCH (21:52)
[2017-04-14] VITALS (26 sets, daily range): BP systolic 110–176; BP diastolic 58–88; PULSE 73–101; RESP 18–36; TEMP 98.8–102.5; O2SAT 94–99
[2017-04-14] MEDS: NIFEdipine 20 MG CAP PEG SCH ×3 (01:28→16:57)
[2017-04-14] MEDS: HEPARIN SODIUM - SQ 10,000 UNITS/ML VIAL SQ SCH ×3 (01:45→18:11)
[2017-04-14] MEDS: CHLORHEXIDINE GLUCONATE 2 % 1 PACK (2 CLOTHS) TOP SCH (04:00)
[2017-04-14] MEDS: oxyCODONE HCL ORAL CONC 5 MG/0.25 ML SYRINGE PO SCH ×4 (04:13→22:04)
[2017-04-14] MEDS: ACETAMINOPHEN 650 MG/20.3 ML UDC PEG PRN ×3 (04:13→16:56)
[2017-04-14] MEDS: PHENYTOIN SUSP 100 MG/4 ML CUP PEG SCH ×3 (05:32→22:04)
[2017-04-14] MEDS: LEVOTHYROXINE SODIUM 50 MCG TAB PO SCH (05:32)
[2017-04-14] MEDS: INSULIN NovoLIN REGULAR SUPPLEMENTAL SCALE SQ SCH ×4 (05:33→18:00)
[2017-04-14] MEDS: RESP: BUDESONIDE 0.5 MG/2 ML NEB NEB SCH ×2 (08:13→19:51)
[2017-04-14] MEDS: BENEPROTEIN POWDER 1 PACK G-TUBE SCH ×3 (09:00→18:00)
[2017-04-14] MEDS: SILVER SULFADIAZINE 1% CR 50 GM JAR TOP SCH (09:00)
[2017-04-14] MEDS: POVIDONE IODINE 10% SOLN 118 ML BOTTLE TOP SCH (09:00)
[2017-04-14] MEDS: ARTIFICIAL TEARS OPTH SOLN 15 ML BTL EACH EYE SCH ×3 (09:00→18:00)
[2017-04-14] MEDS: CHLORHEXIDINE 0.12% (ORAL KIT) 15 ML CUP MT SCH ×2 (09:14→22:14)
[2017-04-14] MEDS: levETIRAcetam 500 MG/5 ML UDC PEG SCH ×2 (09:15→22:04)
[2017-04-14] MEDS: CARVEDILOL 12.5 MG TAB OG-TUBE SCH ×2 (09:15→22:04)
[2017-04-14] MEDS: QUEtiapine FUMARATE 25 MG TAB PO SCH ×2 (09:15→22:05)
[2017-04-14] MEDS: LANSOPRAZOLE SOLUTAB 30 MG TAB NG SCH (09:16)
[2017-04-14] MEDS: SERTRALINE HCL 100 MG TAB PO SCH (09:16)
[2017-04-14] MEDS: CHOLECALCIFEROL (VIT D3) 1000 UNIT TAB PO SCH (09:16)
[2017-04-14] MEDS: LISINOPRIL 20 MG TAB PO SCH ×2 (09:16→22:05)
[2017-04-14] MEDS: CALCIUM/VITAMIN D 250 MG/125 U TAB PO SCH ×3 (09:16→18:00)
[2017-04-14] MEDS: FLUCONAZOLE 200 MG TAB PO SCH (09:16)
[2017-04-14] MEDS: SODIUM CHLORIDE 0.9% FLUSH 10 ML FLUSH IV FLUSH SCH ×2 (09:17→22:04)
[2017-04-14] MEDS: MORPHINE SULFATE 4 MG/ML INJ IV PUSH PRN ×2 (10:35→22:03)
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
[2017-04-14 13:28] LABS: URINE COLOR YELLOW (YELLW/STRAW)
[2017-04-14 13:29] LABS: BLOOD, URINE LARGE (NEG); GLUCOSE,URINE NEG (NEG); KETONE, URINE NEG (NEG); NITRITE,URINE NEG (NEG)
[2017-04-14 13:31] LABS: SQUAMOUS EPITHELIAL CELL URINE 0-5 /hpf (0-5)
[2017-04-14 13:32] LABS: BACTERIA, URINE MOD /hpf; TRANSITIONAL EPI CELLS, URINE 0-5 /hpf
[2017-04-14 13:34] LABS: COMMENT (UR) CATH-CULTURE IND; CULTURE IF INDICATED CATH CULTURE IND
[2017-04-14 13:41] LABS: AUTOMATED NEUTROPHIL # 7.9 TH/MM3 (1.8-7.7); BASOPHIL % 0.3 % (0.0-2.0); EOSINOPHIL # 0.1 TH/MM3 (0-0.4); EOSINOPHIL % 0.5 % (0.0-4.0); HEMATOCRIT 22.3 % (35.0-46.0); HEMO FLAGS DIFF FINAL; LYMPH % 14.5 % (9.0-44.0); LYMPHOCYTE # 1.6 TH/MM3 (1.0-4.8); MEAN CELL VOLUME 77.4 FL (80.0-100.0); MEAN CORPUSCULAR HEMOGLOBIN 25.5 PG (27.0-34.0); MONO % 10.8 % (0.0-8.0); NEUT % 73.9 % (16.0-70.0); PLATELET COUNT 241 TH/MM3 (150-450); RED BLOOD COUNT 2.88 MIL/MM3 (4.00-5.30); RED CELL DISTRIBUTION WIDTH 24.3 % (11.6-17.2); WHITE BLOOD COUNT 10.7 TH/MM3 (4.0-11.0)
[2017-04-14 13:58] LABS: ALT (GPT) 34 U/L (10-53); ANION GAP 9 MEQ/L (5-15); AST (GOT) 27 U/L (15-37); BICARBONATE 31.1 MEQ/L (21.0-32.0); BLOOD UREA NITROGEN 24 MG/DL (7-18); CHLORIDE 106 MEQ/L (98-107); GLOMERULAR FILTRATION RATE 78 ML/MIN (>89); POTASSIUM 3.3 MEQ/L (3.5-5.1); SODIUM (NA) 146 MEQ/L (136-145)
[2017-04-14 14:00] LABS: ALKALINE PHOSPHATASE 137 U/L (45-117); TOTAL BILIRUBIN ADULT 0.5 MG/DL (0.2-1.0)
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
[2017-04-14] MEDS: POTASSIUM CHLORIDE 25 MEQ EFFERVESCENT TAB PO PRN (16:56)
[2017-04-14] MEDS: CEFEPIME INJ 2,000 MG in SODIUM CHLORIDE 0.9% INJ 100 ML IV SCH ×2 (16:57→22:05)
[2017-04-14] MEDS: hydrOXYzine HCL 50 MG TAB PO SCH (22:05)
[2017-04-15] VITALS (27 sets, daily range): BP systolic 110–181; BP diastolic 59–107; PULSE 66–85; RESP 16–28; TEMP 98.6–100.2; O2SAT 94–100
[2017-04-15] MEDS: NIFEdipine 20 MG CAP PEG SCH ×3 (00:12→17:04)
[2017-04-15] MEDS: CHLORHEXIDINE GLUCONATE 2 % 1 PACK (2 CLOTHS) TOP SCH (04:00)
[2017-04-15] MEDS: oxyCODONE HCL ORAL CONC 5 MG/0.25 ML SYRINGE PO SCH ×4 (04:27→20:13)
[2017-04-15] MEDS: HEPARIN SODIUM - SQ 10,000 UNITS/ML VIAL SQ SCH ×3 (04:27→17:05)
[2017-04-15] MEDS: LEVOTHYROXINE SODIUM 50 MCG TAB PO SCH (05:44)
[2017-04-15] MEDS: PHENYTOIN SUSP 100 MG/4 ML CUP PEG SCH ×3 (05:44→20:11)
[2017-04-15] MEDS: CEFEPIME INJ 2,000 MG in SODIUM CHLORIDE 0.9% INJ 100 ML IV SCH ×2 (05:45→14:34)
[2017-04-15] MEDS: INSULIN NovoLIN REGULAR SUPPLEMENTAL SCALE SQ SCH ×4 (05:51→17:04)
[2017-04-15] MEDS: POVIDONE IODINE 10% SOLN 118 ML BOTTLE TOP SCH (09:00)
[2017-04-15] MEDS: BENEPROTEIN POWDER 1 PACK G-TUBE SCH ×3 (09:00→17:04)
[2017-04-15] MEDS: RESP: BUDESONIDE 0.5 MG/2 ML NEB NEB SCH ×2 (09:04→20:09)
[2017-04-15] MEDS: SILVER SULFADIAZINE 1% CR 50 GM JAR TOP SCH (09:13)
[2017-04-15] MEDS: ARTIFICIAL TEARS OPTH SOLN 15 ML BTL EACH EYE SCH ×3 (09:13→17:04)
[2017-04-15] MEDS: levETIRAcetam 500 MG/5 ML UDC PEG SCH ×2 (09:14→20:11)
[2017-04-15] MEDS: LISINOPRIL 20 MG TAB PO SCH ×2 (09:14→20:12)
[2017-04-15] MEDS: SERTRALINE HCL 100 MG TAB PO SCH (09:14)
[2017-04-15] MEDS: CALCIUM/VITAMIN D 250 MG/125 U TAB PO SCH ×3 (09:14→17:05)
[2017-04-15] MEDS: QUEtiapine FUMARATE 25 MG TAB PO SCH ×2 (09:14→20:15)
[2017-04-15] MEDS: CARVEDILOL 12.5 MG TAB OG-TUBE SCH ×2 (09:14→20:11)
[2017-04-15] MEDS: CHOLECALCIFEROL (VIT D3) 1000 UNIT TAB PO SCH (09:14)
[2017-04-15] MEDS: SODIUM CHLORIDE 0.9% FLUSH 10 ML FLUSH IV FLUSH SCH ×2 (09:15→20:15)
[2017-04-15] MEDS: FLUCONAZOLE 200 MG TAB PO SCH (09:15)
[2017-04-15] MEDS: LANSOPRAZOLE SOLUTAB 30 MG TAB NG SCH (09:15)
[2017-04-15] MEDS: CHLORHEXIDINE 0.12% (ORAL KIT) 15 ML CUP MT SCH ×2 (09:16→20:13)
[2017-04-15] MEDS: hydrALAZINE HCL 20 MG/ML VIAL IV PUSH PRN (10:24)
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
[2017-04-15] MEDS ORDERED: SODIUM CHLORIDE 0.9% IV ONE (17:00)
[2017-04-15] MEDS ORDERED: TOBRAMYCIN IV ONE (17:00)
[2017-04-15] MEDS: cloNIDine HCL 0.1 MG/24 HR PATCH T-DERMAL SCH (17:05)
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
[2017-04-15] MEDS: hydrOXYzine HCL 50 MG TAB PO SCH (20:12)
[2017-04-15] MEDS: metroNIDAZOLE 500 MG TAB PO SCH (20:12)
[2017-04-15 20:37] LABS: C. DIFF EPI 027 PRESUMPTIVE NEGATIVE (NEGATIVE)
[2017-04-16] VITALS (19 sets, daily range): BP systolic 132–181; BP diastolic 74–98; PULSE 78–87; RESP 21–28; TEMP 98.8–100; O2SAT 55–100
[2017-04-16] MEDS: NIFEdipine 20 MG CAP PEG SCH ×3 (02:09→15:50)
[2017-04-16] MEDS: CEFEPIME INJ 2,000 MG in SODIUM CHLORIDE 0.9% INJ 100 ML IV SCH ×4 (02:09→22:06)
[2017-04-16] MEDS: HEPARIN SODIUM - SQ 10,000 UNITS/ML VIAL SQ SCH ×3 (02:10→17:47)
[2017-04-16] MEDS: CHLORHEXIDINE GLUCONATE 2 % 1 PACK (2 CLOTHS) TOP SCH (04:00)
[2017-04-16] MEDS: PHENYTOIN SUSP 100 MG/4 ML CUP PEG SCH ×3 (04:55→22:05)
[2017-04-16] MEDS: oxyCODONE HCL ORAL CONC 5 MG/0.25 ML SYRINGE PO SCH ×4 (04:55→22:05)
[2017-04-16] MEDS: INSULIN NovoLIN REGULAR SUPPLEMENTAL SCALE SQ SCH ×4 (04:56→17:48)
[2017-04-16] MEDS: metroNIDAZOLE 500 MG TAB PO SCH ×3 (04:56→22:04)
[2017-04-16] MEDS: LEVOTHYROXINE SODIUM 50 MCG TAB PO SCH (04:56)
--- NOTE | 2017-04-16 05:44 | RADRPT ---
EXAM DATE/TIME: 04/16/2017 04:24 [facility] COMPARISON: CHEST SINGLE AP, April 11, 2017, 2:29. INDICATIONS : Shortness of breath, possible pulmonary disease. MEDICAL HISTORY : Hypertension. Hepatitis C. Chronic obstructive pulmonary disease. SURGICAL HISTORY : Appendectomy. Hysterectomy. Fusion, lumbar. Tracheostomy ENCOUNTER: Subsequent ACUITY: 3 weeks PAIN SCORE: Non-responsive. LOCATION: Bilateral chest FINDINGS: There is a tracheostomy tube in place. The heart size is normal. The lungs demonstrate diffuse alveol ar density. There is silhouetting of the left hemidiaphragm. CONCLUSION: Diffuse consolidation likely related to edema. This appears worse when compared to the prior exam. Adam Greer MD on April 16, 2017 at 5:42 Board Certified Radiologist. This report was verified electronically.
[2017-04-16] MEDS: hydrALAZINE HCL 20 MG/ML VIAL IV PUSH PRN (06:43)
[2017-04-16] MEDS: RESP: BUDESONIDE 0.5 MG/2 ML NEB NEB SCH ×2 (08:07→19:56)
[2017-04-16] MEDS: CHLORHEXIDINE 0.12% (ORAL KIT) 15 ML CUP MT SCH ×2 (08:54→20:00)
[2017-04-16] MEDS: POVIDONE IODINE 10% SOLN 118 ML BOTTLE TOP SCH (08:54)
[2017-04-16] MEDS: SILVER SULFADIAZINE 1% CR 50 GM JAR TOP SCH (08:54)
[2017-04-16] MEDS: ARTIFICIAL TEARS OPTH SOLN 15 ML BTL EACH EYE SCH ×3 (08:54→17:47)
[2017-04-16] MEDS: levETIRAcetam 500 MG/5 ML UDC PEG SCH ×2 (08:55→22:05)
[2017-04-16] MEDS: FLUCONAZOLE 200 MG TAB PO SCH (08:55)
[2017-04-16] MEDS: LANSOPRAZOLE SOLUTAB 30 MG TAB NG SCH (08:55)
[2017-04-16] MEDS: CHOLECALCIFEROL (VIT D3) 1000 UNIT TAB PO SCH (08:55)
[2017-04-16] MEDS: QUEtiapine FUMARATE 25 MG TAB PO SCH ×2 (08:55→22:04)
[2017-04-16] MEDS: LISINOPRIL 20 MG TAB PO SCH ×2 (08:55→22:04)
[2017-04-16] MEDS: CALCIUM/VITAMIN D 250 MG/125 U TAB PO SCH ×3 (08:55→17:46)
[2017-04-16] MEDS: SERTRALINE HCL 100 MG TAB PO SCH (08:55)
[2017-04-16] MEDS: BENEPROTEIN POWDER 1 PACK G-TUBE SCH ×3 (08:55→17:47)
[2017-04-16] MEDS: CARVEDILOL 12.5 MG TAB OG-TUBE SCH ×2 (08:55→22:04)
[2017-04-16] MEDS: SODIUM CHLORIDE 0.9% FLUSH 10 ML FLUSH IV FLUSH SCH ×2 (08:56→21:00)
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
[2017-04-16] MEDS: hydrOXYzine HCL 50 MG TAB PO SCH (22:04)
[2017-04-17] VITALS (24 sets, daily range): BP systolic 94–160; BP diastolic 53–124; PULSE 66–84; RESP 18–29; TEMP 98.5–99.2; O2SAT 88–100
[2017-04-17] MEDS: HEPARIN SODIUM - SQ 10,000 UNITS/ML VIAL SQ SCH ×3 (02:02→17:32)
[2017-04-17] MEDS: NIFEdipine 20 MG CAP PEG SCH ×4 (02:02→23:49)
[2017-04-17] MEDS: CHLORHEXIDINE GLUCONATE 2 % 1 PACK (2 CLOTHS) TOP SCH (04:00)
[2017-04-17] MEDS: INSULIN NovoLIN REGULAR SUPPLEMENTAL SCALE SQ SCH ×5 (06:00→23:50)
[2017-04-17] MEDS: oxyCODONE HCL ORAL CONC 5 MG/0.25 ML SYRINGE PO SCH ×4 (06:01→20:46)
[2017-04-17] MEDS: CEFEPIME INJ 2,000 MG in SODIUM CHLORIDE 0.9% INJ 100 ML IV SCH ×3 (06:02→23:49)
[2017-04-17] MEDS: metroNIDAZOLE 500 MG TAB PO SCH ×2 (06:02→14:02)
[2017-04-17] MEDS: PHENYTOIN SUSP 100 MG/4 ML CUP PEG SCH ×3 (06:02→20:46)
[2017-04-17] MEDS: LEVOTHYROXINE SODIUM 50 MCG TAB PO SCH (06:02)
[2017-04-17] MEDS: CARVEDILOL 12.5 MG TAB OG-TUBE SCH ×2 (07:59→20:45)
[2017-04-17] MEDS: FLUCONAZOLE 200 MG TAB PO SCH (07:59)
[2017-04-17] MEDS: levETIRAcetam 500 MG/5 ML UDC PEG SCH ×2 (07:59→20:45)
[2017-04-17] MEDS: LISINOPRIL 20 MG TAB PO SCH ×2 (08:00→20:45)
[2017-04-17] MEDS: LANSOPRAZOLE SOLUTAB 30 MG TAB NG SCH (08:00)
[2017-04-17] MEDS: SERTRALINE HCL 100 MG TAB PO SCH (08:00)
[2017-04-17] MEDS: CALCIUM/VITAMIN D 250 MG/125 U TAB PO SCH ×3 (08:00→17:32)
[2017-04-17] MEDS: QUEtiapine FUMARATE 25 MG TAB PO SCH ×2 (08:00→20:45)
[2017-04-17] MEDS: CHOLECALCIFEROL (VIT D3) 1000 UNIT TAB PO SCH (08:00)
[2017-04-17] MEDS: CHLORHEXIDINE 0.12% (ORAL KIT) 15 ML CUP MT SCH ×2 (08:01→20:44)
[2017-04-17] MEDS: SODIUM CHLORIDE 0.9% FLUSH 10 ML FLUSH IV FLUSH SCH ×2 (08:02→20:45)
[2017-04-17] MEDS: SILVER SULFADIAZINE 1% CR 50 GM JAR TOP SCH (08:02)
[2017-04-17] MEDS: POVIDONE IODINE 10% SOLN 118 ML BOTTLE TOP SCH (08:02)
[2017-04-17] MEDS: ARTIFICIAL TEARS OPTH SOLN 15 ML BTL EACH EYE SCH ×2 (08:03→17:02)
[2017-04-17] MEDS: BENEPROTEIN POWDER 1 PACK G-TUBE SCH ×3 (08:03→17:32)
[2017-04-17] MEDS: RESP: ALBUTEROL 2.5 MG/3 ML NEB (PRN) NEB (08:46)
[2017-04-17] MEDS: RESP: BUDESONIDE 0.5 MG/2 ML NEB NEB SCH ×2 (08:46→20:07)
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
[2017-04-17] MEDS: RESP: TOBRAMYCIN SULFATE 80 MG/2 ML NEB NEB SCH (20:07)
[2017-04-17] MEDS: hydrOXYzine HCL 50 MG TAB PO SCH (20:45)
[2017-04-17] MEDS: MORPHINE SULFATE 4 MG/ML INJ IV PUSH PRN (20:46)
[2017-04-18] VITALS (19 sets, daily range): BP systolic 101–159; BP diastolic 56–101; PULSE 71–86; RESP 17–35; TEMP 97.6–100.7; O2SAT 92–99
[2017-04-18] MEDS: MORPHINE SULFATE 4 MG/ML INJ IV PUSH PRN ×4 (01:41→14:56)
[2017-04-18] MEDS: HEPARIN SODIUM - SQ 10,000 UNITS/ML VIAL SQ SCH ×3 (01:41→17:03)
[2017-04-18] MEDS: CHLORHEXIDINE GLUCONATE 2 % 1 PACK (2 CLOTHS) TOP SCH (04:00)
[2017-04-18] MEDS: oxyCODONE HCL ORAL CONC 5 MG/0.25 ML SYRINGE PO SCH ×4 (04:14→21:32)
[2017-04-18] MEDS: PHENYTOIN SUSP 100 MG/4 ML CUP PEG SCH ×3 (04:15→21:32)
[2017-04-18] MEDS: LEVOTHYROXINE SODIUM 50 MCG TAB PO SCH (04:15)
[2017-04-18] MEDS: INSULIN NovoLIN REGULAR SUPPLEMENTAL SCALE SQ SCH ×3 (06:00→17:04)
[2017-04-18] MEDS: CEFEPIME INJ 2,000 MG in SODIUM CHLORIDE 0.9% INJ 100 ML IV SCH ×2 (07:18→14:57)
[2017-04-18] MEDS: RESP: TOBRAMYCIN SULFATE 80 MG/2 ML NEB NEB SCH ×2 (07:35→19:45)
[2017-04-18] MEDS: RESP: BUDESONIDE 0.5 MG/2 ML NEB NEB SCH ×2 (08:19→19:46)
[2017-04-18] MEDS: levETIRAcetam 500 MG/5 ML UDC PEG SCH ×2 (08:51→21:31)
[2017-04-18] MEDS: CALCIUM/VITAMIN D 250 MG/125 U TAB PO SCH ×3 (08:52→17:03)
[2017-04-18] MEDS: NIFEdipine 20 MG CAP PEG SCH ×2 (08:52→15:09)
[2017-04-18] MEDS: QUEtiapine FUMARATE 25 MG TAB PO SCH ×2 (08:52→21:33)
[2017-04-18] MEDS: SERTRALINE HCL 100 MG TAB PO SCH (08:52)
[2017-04-18] MEDS: LISINOPRIL 20 MG TAB PO SCH ×2 (08:52→21:33)
[2017-04-18] MEDS: CARVEDILOL 12.5 MG TAB OG-TUBE SCH ×2 (08:52→21:32)
[2017-04-18] MEDS: FLUCONAZOLE 200 MG TAB PO SCH (08:52)
[2017-04-18] MEDS: LANSOPRAZOLE SOLUTAB 30 MG TAB NG SCH (08:52)
[2017-04-18] MEDS: CHOLECALCIFEROL (VIT D3) 1000 UNIT TAB PO SCH (08:52)
[2017-04-18] MEDS: POVIDONE IODINE 10% SOLN 118 ML BOTTLE TOP SCH (08:53)
[2017-04-18] MEDS: SILVER SULFADIAZINE 1% CR 50 GM JAR TOP SCH (08:53)
[2017-04-18] MEDS: CHLORHEXIDINE 0.12% (ORAL KIT) 15 ML CUP MT SCH ×2 (08:54→21:30)
[2017-04-18] MEDS: ARTIFICIAL TEARS OPTH SOLN 15 ML BTL EACH EYE SCH ×3 (08:55→17:03)
[2017-04-18] MEDS: SODIUM CHLORIDE 0.9% FLUSH 10 ML FLUSH IV FLUSH SCH ×2 (08:55→21:33)
[2017-04-18] MEDS: BENEPROTEIN POWDER 1 PACK G-TUBE SCH ×3 (08:55→17:03)
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
[2017-04-18] MEDS: hydrOXYzine HCL 50 MG TAB PO SCH (21:33)
[2017-04-19] VITALS (24 sets, daily range): BP systolic 92–145; BP diastolic 51–98; PULSE 65–96; RESP 18–35; TEMP 96.4–100.1; O2SAT 93–100
[2017-04-19] MEDS: CEFEPIME INJ 2,000 MG in SODIUM CHLORIDE 0.9% INJ 100 ML IV SCH ×3 (00:13→15:00)
[2017-04-19] MEDS: NIFEdipine 20 MG CAP PEG SCH ×3 (00:13→15:53)
[2017-04-19] MEDS: HEPARIN SODIUM - SQ 10,000 UNITS/ML VIAL SQ SCH ×3 (02:00→17:01)
[2017-04-19] MEDS: oxyCODONE HCL ORAL CONC 5 MG/0.25 ML SYRINGE PO SCH ×4 (03:34→22:07)
[2017-04-19] MEDS: MORPHINE SULFATE 4 MG/ML INJ IV PUSH PRN ×4 (03:35→22:08)
[2017-04-19] MEDS: CHLORHEXIDINE GLUCONATE 2 % 1 PACK (2 CLOTHS) TOP SCH (03:46)
[2017-04-19] MEDS: INSULIN NovoLIN REGULAR SUPPLEMENTAL SCALE SQ SCH ×4 (06:00→17:57)
[2017-04-19] MEDS: LEVOTHYROXINE SODIUM 50 MCG TAB PO SCH (06:32)
[2017-04-19] MEDS: PHENYTOIN SUSP 100 MG/4 ML CUP PEG SCH ×3 (06:32→22:07)
[2017-04-19] MEDS: RESP: TOBRAMYCIN SULFATE 80 MG/2 ML NEB NEB SCH ×2 (07:32→19:31)
[2017-04-19] MEDS: CHLORHEXIDINE 0.12% (ORAL KIT) 15 ML CUP MT SCH ×2 (07:40→22:05)
[2017-04-19] MEDS: RESP: BUDESONIDE 0.5 MG/2 ML NEB NEB SCH ×2 (08:05→19:30)
[2017-04-19] MEDS: BENEPROTEIN POWDER 1 PACK G-TUBE SCH ×3 (09:00→17:01)
[2017-04-19] MEDS: POVIDONE IODINE 10% SOLN 118 ML BOTTLE TOP SCH (09:00)
[2017-04-19] MEDS: ARTIFICIAL TEARS OPTH SOLN 15 ML BTL EACH EYE SCH ×3 (09:39→17:01)
[2017-04-19] MEDS: SILVER SULFADIAZINE 1% CR 50 GM JAR TOP SCH (09:39)
[2017-04-19] MEDS: LISINOPRIL 20 MG TAB PO SCH ×2 (09:40→22:07)
[2017-04-19] MEDS: levETIRAcetam 500 MG/5 ML UDC PEG SCH ×2 (09:40→22:07)
[2017-04-19] MEDS: LANSOPRAZOLE SOLUTAB 30 MG TAB NG SCH (09:41)
[2017-04-19] MEDS: CHOLECALCIFEROL (VIT D3) 1000 UNIT TAB PO SCH (09:41)
[2017-04-19] MEDS: QUEtiapine FUMARATE 25 MG TAB PO SCH (09:41)
[2017-04-19] MEDS: SERTRALINE HCL 100 MG TAB PO SCH (09:41)
[2017-04-19] MEDS: SODIUM CHLORIDE 0.9% FLUSH 10 ML FLUSH IV FLUSH SCH ×2 (09:41→22:06)
[2017-04-19] MEDS: CARVEDILOL 12.5 MG TAB OG-TUBE SCH ×2 (09:41→22:06)
[2017-04-19] MEDS: CALCIUM/VITAMIN D 250 MG/125 U TAB PO SCH ×3 (09:41→17:00)
[2017-04-19] MEDS ORDERED: QUEtiapine FUMARATE 100 MG TAB PO ONE (16:30)
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
[2017-04-19] MEDS: QUEtiapine FUMARATE 100 MG TAB PO SCH (22:06)
[2017-04-19] MEDS: hydrOXYzine HCL 50 MG TAB PO SCH (22:06)
[2017-04-20] VITALS (13 sets, daily range): BP systolic 116–178; BP diastolic 67–113; PULSE 74–100; RESP 14–36; TEMP 98.8–100.6; O2SAT 93–100
[2017-04-20] MEDS: CEFEPIME INJ 2,000 MG in SODIUM CHLORIDE 0.9% INJ 100 ML IV SCH ×4 (00:17→22:13)
[2017-04-20] MEDS: NIFEdipine 20 MG CAP PEG SCH ×3 (00:17→16:26)
[2017-04-20] MEDS: MORPHINE SULFATE 4 MG/ML INJ IV PUSH PRN ×3 (00:17→08:22)
[2017-04-20] MEDS: HEPARIN SODIUM - SQ 10,000 UNITS/ML VIAL SQ SCH ×3 (02:00→16:29)
[2017-04-20] MEDS: CHLORHEXIDINE GLUCONATE 2 % 1 PACK (2 CLOTHS) TOP SCH (04:00)
[2017-04-20] MEDS: oxyCODONE HCL ORAL CONC 5 MG/0.25 ML SYRINGE PO SCH ×4 (05:30→22:11)
[2017-04-20] MEDS: LEVOTHYROXINE SODIUM 50 MCG TAB PO SCH (06:00)
[2017-04-20] MEDS: PHENYTOIN SUSP 100 MG/4 ML CUP PEG SCH ×3 (06:00→22:09)
[2017-04-20] MEDS: INSULIN NovoLIN REGULAR SUPPLEMENTAL SCALE SQ SCH ×4 (06:00→18:00)
[2017-04-20] MEDS: RESP: BUDESONIDE 0.5 MG/2 ML NEB NEB SCH ×2 (08:06→20:04)
[2017-04-20] MEDS: RESP: TOBRAMYCIN SULFATE 80 MG/2 ML NEB NEB SCH ×2 (08:53→20:04)
[2017-04-20] MEDS: POVIDONE IODINE 10% SOLN 118 ML BOTTLE TOP SCH (09:00)
[2017-04-20] MEDS: BENEPROTEIN POWDER 1 PACK G-TUBE SCH ×3 (09:00→16:29)
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
[2017-04-20] MEDS: levETIRAcetam 500 MG/5 ML UDC PEG SCH ×2 (10:20→22:12)
[2017-04-20] MEDS: LISINOPRIL 20 MG TAB PO SCH ×2 (10:20→22:09)
[2017-04-20] MEDS: LANSOPRAZOLE SOLUTAB 30 MG TAB NG SCH (10:20)
[2017-04-20] MEDS: QUEtiapine FUMARATE 100 MG TAB PO SCH ×2 (10:20→22:09)
[2017-04-20] MEDS: CHOLECALCIFEROL (VIT D3) 1000 UNIT TAB PO SCH (10:21)
[2017-04-20] MEDS: CARVEDILOL 12.5 MG TAB OG-TUBE SCH ×2 (10:21→22:08)
[2017-04-20] MEDS: CALCIUM/VITAMIN D 250 MG/125 U TAB PO SCH ×3 (10:21→16:29)
[2017-04-20] MEDS: SERTRALINE HCL 100 MG TAB PO SCH (10:21)
[2017-04-20] MEDS: ARTIFICIAL TEARS OPTH SOLN 15 ML BTL EACH EYE SCH ×3 (10:22→16:27)
[2017-04-20] MEDS: CHLORHEXIDINE 0.12% (ORAL KIT) 15 ML CUP MT SCH ×2 (10:22→22:07)
[2017-04-20] MEDS: SODIUM CHLORIDE 0.9% FLUSH 10 ML FLUSH IV FLUSH SCH ×2 (10:22→22:07)
--- NOTE | 2017-04-20 10:54 | HHI.IDPN ---
Subjective Subjective Remarks Patient is a 56-year-old female, admitted to the hospital after she had a witnessed arrest. Resuscitation was started when the EMS came. She apparently had 2 rounds of epinephrine and there is return of spontaneous circulation. She was intubated at the scene by the paramedics. During the early part of the hospitalization she developed mild clonus, and neurological evaluation revealed that it is most likely some anoxic injury. She has remained on the vent, and there was some gradual mild improvement of her neurological status. She is currently awake, seems to be focusing. She is not following commands however. Patient has been on the vent since admission. She initially has been tolerating TPs trials, and at times would fail and go back on the vent. She underwent tracheostomy and PEG placement on April 02. He was treated for Pseudomonas pneumonia on March 24, and completed treatment April 06. Since April 09 she has required ventilatory support again after she was tolerating TPs trials. Her chest x-ray on April 11 was normal. She has had some occasional low-grade temps, but since April 14 her temperatures started going up higher to 101 and above. He was started on cefepime yesterday. Patient has no central line. She has a Garner. Patient also has a stool collection bag and has diarrhea. Her stool is light brown in color. She is tolerating her tube feeding. Her WBC has been normal in the last 3 days. Infectious disease consultation has been requested to evaluate the patient. Notes reviewed On the vent Had fevers overnight Agitated, has restraints, not interacting Has liquid stool, volume less No change in neuro status Last CXR with worsening infiltrates Sputum with PSAE and Enterobacter Antibiotics Current Medications Cefepime Tobra nebs Medications (Trade) Dose Ordered Sig/Nelly Route Start Time Stop Time Status Last Admin (Oscal-D 250-125) 250 mg TID PO 03/20/17 09:00 04/20/17 10:21 (Vitamin D3) 1,000 units DAILY PO 03/20/17 09:00 04/20/17 10:21 (NS Flush) 2 ml UNSCH PRN IV FLUSH 03/19/17 19:15 04/12/17 08:24 (NS Flush) 2 ml BID IV FLUSH 03/19/17 21:00 04/20/17 10:22 (Morphine Inj) 2 mg Q2H PRN IV PUSH 03/19/17 19:15 04/20/17 08:22 (Tears Naturale Opth Soln) 1 drop TID EACH EYE 03/20/17 09:00 04/20/17 10:22 (Zofran Inj) 4 mg Q6H PRN IV PUSH 03/19/17 19:15 04/07/17 13:26 Miscellaneous Information 1 Q361D XX 03/19/17 19:15 03/19/17 19:15 (Chlorhexidine 2% Cloth) Taper DAILY@04 TOP 03/20/17 04:00 03/16/18 03:59 04/20/17 04:00 (Chlorhexidine 2% Cloth) 3 pack UNSCH PRN TOP 03/19/17 19:15 (Milk Of Magnesia Liq) 30 ml Q12H PRN PO 03/19/17 19:15 (Senokot) 17.2 mg Q12H PRN PO 03/19/17 19:15 (Dulcolax Supp) 10 mg DAILY PRN RECTAL 03/19/17 19:15 (Peridex 0.12% Liq) 15 ml BID@08,20 MT 03/19/17 20:00 04/20/17 10:22 (Pulmicort Respule Neb) 0.5 mg Q12HR NEB NEB 03/22/17 11:45 04/20/17 08:06 Potassium Chloride 100 ml @ 50 mls/hr Q2H PRN IV 03/22/17 11:45 Potassium Chloride 100 ml @ 50 mls/hr Q2H PRN IV 03/22/17 11:45 (K-Lyte Cl Eff) 50 meq UNSCH PRN PO 03/22/17 11:45 04/14/17 16:56 Potassium Chloride 100 ml @ 25 mls/hr UNSCH PRN IV 03/22/17 11:45 Potassium Chloride 100 ml @ 50 mls/hr Q2H PRN IV 03/22/17 11:45 Magnesium Sulfate 4 gm/Sodium Chloride 100 ml @ 50 mls/hr UNSCH PRN IV 03/22/17 11:45 (Mag-Ox) 800 mg UNSCH PRN PO 03/22/17 11:45 04/11/17 09:59 Magnesium Sulfate 2 gm/Sodium Chloride 100 ml @ 50 mls/hr UNSCH PRN IV 03/22/17 11:45 04/11/17 22:43 (K-Phos) 2,000 mg Q4H PRN PO 03/22/17 11:45 Sodium Phosphate 30 mmol/Sodium Chloride 250 ml @ 42 mls/hr UNSCH PRN IV 03/22/17 11:45 (K-Phos) 2,000 mg UNSCH PRN PO/TUBE 03/22/17 11:45 Potassium Phosphate 30 mmol/ Sodium Chloride 260 ml @ 42 mls/hr UNSCH PRN IV 03/22/17 11:45 (Synthroid) 50 mcg DAILY@0600 PO 03/23/17 06:00 04/20/17 06:00 (Albuterol Neb) 2.5 mg Q2HR NEB PRN NEB 03/23/17 13:45 04/17/17 08:46 (D50w (Vial) Inj) 50 ml UNSCH PRN IV PUSH 03/23/17 13:45 (Glucagon Inj) 1 mg UNSCH PRN OTHER 03/23/17 13:45 (NovoLIN R SUPPLEMENTAL SCALE) 1 Q6HR SQ 03/23/17 18:00 04/14/17 05:33 (Colace Liq) 100 mg Q12HR PO 03/25/17 21:00 Future Hold 03/26/17 20:16 (Senna Liq) 8.8 mg BID PO 03/25/17 21:00 Future Hold 03/26/17 20:16 (Coreg) 25 mg BID OG-TUBE 03/26/17 21:00 04/20/17 10:21 (Apresoline Inj) 10 mg Q1HR PRN IV PUSH 03/26/17 14:00 04/16/17 06:43 (Trandate Inj) 10 mg Q1HR PRN IV PUSH 03/26/17 14:00 03/28/17 02:59 (Nitroglycerin 2% Oint) 2 inch Q6HR PRN TOPICAL 03/26/17 14:00 (Prinivil) 20 mg BID PO 03/27/17 21:00 04/20/17 10:20 (Silvadene 1% Cream (50 Gm)) 1 applic DAILY TOP 03/29/17 09:00 04/19/17 09:39 (Betadine 10% Top Soln) 1 applic DAILY TOP 03/29/17 09:00 04/19/17 09:00 (Mycostatin Powder) 1 applic Q12HR PRN TOPICAL 03/31/17 09:00 (Roxicodone Intensol Liq) 5 mg Q6H PO 04/02/17 10:00 04/20/17 10:23 (Tylenol 650 Mg/ 20 ml Liq) 650 mg Q6H PRN PEG 04/02/17 09:30 04/14/17 16:56 (Beneprotein Powder) 1 pack TID G-TUBE 04/03/17 13:00 04/20/17 09:00 (Heparin Inj) 5,000 units Q8H SQ 04/03/17 18:00 04/20/17 10:20 (Atarax) 200 mg HS PO 04/03/17 21:00 04/19/17 22:06 (Prevacid Odt) 30 mg DAILY NG 04/04/17 09:00 04/20/17 10:20 (Zoloft) 100 mg DAILY PO 04/04/17 10:00 04/20/17 10:21 (Keppra Liq) 1,500 mg Q12HR PEG 04/04/17 10:00 04/20/17 10:20 (Chapstick) 1 applic UNSCH PRN TOPICAL 04/06/17 08:30 04/09/17 08:32 (Procardia) 60 mg Q8H PEG 04/08/17 08:00 04/20/17 00:17 (Dilantin Liq) 100 mg Q8HR PEG 04/09/17 22:00 04/20/17 06:00 Cefepime HCl 2000 mg/Sodium Chloride 100 ml @ 200 mls/hr Q8H IV 04/14/17 15:00 04/20/17 00:17 (Catapres-Tts 0.1mg Patch.7d) 1 patch Q7D T-DERMAL 04/15/17 15:00 04/15/17 17:05 Miscellaneous Information 1 Q7D T-DERMAL 04/22/17 15:00 (Tobramycin Neb) 80 mg Q12HR NEB NEB 04/17/17 20:00 04/24/17 19:59 04/20/17 08:53 (SEROquel) 100 mg BID PO 04/19/17 21:00 04/20/17 10:20 (Pepcid Inj) 10 mg Q12H IV PUSH 04/20/17 11:00 Lines PIV Past Medical History Reviewed Allergies: Coded Allergies: phenytoin (Unverified Allergy, Severe, LIVER PROBLEMS, 03/19/17) Objective . Vital Signs Date Time Temp Pulse Resp B/P (MAP) Pulse Ox O2 Delivery O2 Flow Rate FiO2 04/20/17 08:38 16 04/20/17 08:38 16 04/20/17 08:08 99 35 04/20/17 06:00 90 04/20/17 04:53 98 35 04/20/17 04:00 100.6 83 36 116/74 (88) 93 04/20/17 04:00 83 04/20/17 04:00 35 04/20/17 02:00 74 04/20/17 01:55 98 35 04/20/17 00:00 100.3 81 32 149/67 (94) 97 04/20/17 00:00 81 04/20/17 00:00 35 04/19/17 22:02 97 35 04/19/17 22:00 96 04/19/17 20:00 35 04/19/17 20:00 100.1 96 35 145/98 (114) 94 04/19/17 20:00 92 04/19/17 19:30 97 35 04/19/17 18:00 86 04/19/17 17:00 86 04/19/17 16:00 84 04/19/17 16:00 99.6 86 33 140/68 (92) 97 04/19/17 16:00 35 04/19/17 15:23 95 35 04/19/17 14:00 84 04/19/17 13:00 80 04/19/17 12:00 99.2 74 28 107/51 (69) 96 04/19/17 12:00 35 04/19/17 12:00 74 04/19/17 11:00 77 Imaging Last Impressions Chest X-Ray 04/16/17 0000 Signed Impressions: Service Date/Time: March 04:24 - CONCLUSION: Diffuse consolidation likely related to edema. This appears worse when compared to the prior exam. Adam Greer MD Abdomen X-Ray 03/25/17 0000 Signed Impressions: Service Date/Time: Saturday, March 25, 2017 16:53 - CONCLUSION: 1. NGT in the stomach. 2. Nonobstructive bowel gas pattern. Ovidio Galvez MD Brain MRI 03/20/17 0000 Signed Impressions: Service Date/Time: Monday, March 20, 2017 17:29 - CONCLUSION: 1. No evidence of acute intracranial pathology. No masses are identified. 2. Left frontal encephalomalacia Tito Lincoln MD Head CT 03/19/17 1809 Signed Impressions: Service Date/Time: March 19:46 - CONCLUSION: 1. No acute hemorrhage or mass effect. 2. The stable old areas of encephalomalacia in the frontal lobes left greater than right. 3. Mild to moderate atrophy. Julio Rosales MD Hip and Pelvis X-Ray 03/19/17 0000 Signed Impressions: Service Date/Time: March 19:43 - CONCLUSION: 1. Status post right hip arthroplasty with no evidence of fracture or dislocation. 2. Osteopenia and postoperative changes in the left hip. Julio Rosales MD CT Angiography 03/19/17 0000 Signed Impressions: Service Date/Time: March 19:58 - CONCLUSION: 1. No evidence of pulmonary embolism. 2. Small areas of focal pleural-parenchymal change which may be infectious or inflammatory. Julio Rosales MD Physical Exam GENERAL: awake and alert, agitated, on the vent. She is not following commands. SKIN: Warm and dry. No generalized rash. HEAD: Atraumatic. Normocephalic. No temporal wasting, or tenderness. EYES: Pleak conjunctiva. No petechia or hemorrhage. Pupils equal, round and reactive to light. Extraocular movements full and intact. No scleral icterus. No injection or drainage. EARS, NOSE AND THROAT: Nose without bleeding or purulent nasal discharge. No sinus tenderness. NECK: Trachea midline. Supple and not tender, no meningeal signs tracheostomy site looks okay. CARDIOVASCULAR: Regular rate and rhythm. No murmurs, rubs or gallops heard RESPIRATORY: Breath sounds equal bilaterally. No rales, wheezing or rhonchi. Decreased breath sounds at the bases. ABDOMEN: Soft, obese, non-tender, nondistended. Bowel sounds present and normoactive. PEG site looks okay. She has a midline scar. No guarding. No rebound. No organomegaly. EXTREMITIES: No clubbing, cyanosis. Has mild pedal edema. No joint effusion. Well perfused and warm. She has some ecchymosis on her right big toe. : Garner in place, urine looks clear NEUROLOGICAL: Awake and alert. No facial asymmetry noted. ?focusing, not following. PSYCHIATRIC: Awake, not interacting LINE: No evidence of infection Assessment & Plan Remarks IMPRESSION New fevers, source? PSAE and Enterobacter PNA, on Rx Respiratory failure back on vent, likely due to new PNA S/P arrest with some anoxic injury RECOMMENDATION Continue Cefepime Continue Tobra nebs Repeat C/S CXR Follow temps Monitor progress Weaning per CCM Ashley Capps MD Apr 20, 2017 10:54
[2017-04-20] MEDS: SILVER SULFADIAZINE 1% CR 50 GM JAR TOP SCH (11:07)
[2017-04-20 11:56] LABS: AUTOMATED NEUTROPHIL # 8.2 TH/MM3 (1.8-7.7); BASOPHIL # 0.1 TH/MM3 (0-0.2); BASOPHIL % 0.5 % (0.0-2.0); EOSINOPHIL # 0.3 TH/MM3 (0-0.4); EOSINOPHIL % 2.8 % (0.0-4.0); HEMATOCRIT 22.4 % (35.0-46.0); HEMO FLAGS DIFF FINAL; LYMPH % 9.8 % (9.0-44.0); MEAN CELL VOLUME 78.5 FL (80.0-100.0); MEAN CORPUSCULAR HEMOGLOBIN 25.6 PG (27.0-34.0); MEAN CORPUSCULAR HGB CONC 32.5 % (32.0-36.0); MONO % 7.7 % (0.0-8.0); NEUT % 79.2 % (16.0-70.0); PLATELET COUNT 207 TH/MM3 (150-450); RED BLOOD COUNT 2.86 MIL/MM3 (4.00-5.30); RED CELL DISTRIBUTION WIDTH 24.6 % (11.6-17.2); WHITE BLOOD COUNT 10.4 TH/MM3 (4.0-11.0)
--- NOTE | 2017-04-20 12:00 | RADRPT ---
EXAM DATE/TIME: 04/20/2017 11:05 [facility] COMPARISON: CHEST SINGLE AP, April 16, 2017, 4:24. INDICATIONS : Follow up infiltrates. MEDICAL HISTORY : Hypertension. Hepatitis C. Chronic obstructive pulmonary disease SURGICAL HISTORY : Appendectomy. Hysterectomy. Fusion, lumbar. Tracheostomy ENCOUNTER: Subsequent ACUITY: 1 month PAIN SCORE: Non-responsive. LOCATION: Bilateral chest FINDINGS: Portable AP view of the chest demonstrates a normal-sized cardiac silhouette. Tracheostomy overlies t he tracheal air shadow. There is airspace consolidation in the right lower lung zone and in the left upper and left lower lung zone similar to the prior study. No pneumothorax is identified. No definite pleural effusion is seen. Bones demonstrate no acute finding. CONCLUSION: Interval improvement in the right lower lung zone airspace consolidation. The mild left lung consolid ation is stable. Adam Prince MD on April 20, 2017 at 11:56 Board Certified Radiologist. This report was verified electronically.
[2017-04-20 12:15] LABS: ANION GAP 9 MEQ/L (5-15); AST (GOT) 24 U/L (15-37); BICARBONATE 27.4 MEQ/L (21.0-32.0); BLOOD UREA NITROGEN 31 MG/DL (7-18); CHLORIDE 107 MEQ/L (98-107); GLOMERULAR FILTRATION RATE 92 ML/MIN (>89); MAGNESIUM 1.6 MG/DL (1.5-2.5); POTASSIUM 3.5 MEQ/L (3.5-5.1); SODIUM (NA) 143 MEQ/L (136-145)
[2017-04-20 12:18] LABS: ALKALINE PHOSPHATASE 141 U/L (45-117); ALT (GPT) 34 U/L (10-53); TOTAL BILIRUBIN ADULT 0.5 MG/DL (0.2-1.0)
[2017-04-20] MEDS: FAMOTIDINE 20 MG/2 ML VIAL IV PUSH SCH ×2 (13:41→22:10)
[2017-04-20 14:53] LABS: BLOOD, URINE TRACE (NEG); GLUCOSE,URINE NEG (NEG); KETONE, URINE NEG (NEG); MUCUS URINE FEW /lpf (OCC); NITRITE,URINE NEG (NEG); PH, URINE 6.5 (5.0-8.5); SQUAMOUS EPITHELIAL CELL URINE <1 /hpf (0-5); URINE COLOR YELLOW (YELLW/STRAW)
[2017-04-20 14:54] LABS: COMMENT (UR) CATH-CULTURE IND; CULTURE IF INDICATED CATH CULTURE IND
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
[2017-04-20] MEDS: hydrOXYzine HCL 50 MG TAB PO SCH (22:10)
[2017-04-21] VITALS (18 sets, daily range): BP systolic 148–184; BP diastolic 74–117; PULSE 82–98; RESP 14–37; TEMP 99.8–102.4; O2SAT 95–100
[2017-04-21] MEDS: MORPHINE SULFATE 4 MG/ML INJ IV PUSH PRN ×4 (02:06→17:02)
[2017-04-21] MEDS: NIFEdipine 20 MG CAP PEG SCH ×3 (02:06→16:00)
[2017-04-21] MEDS: HEPARIN SODIUM - SQ 10,000 UNITS/ML VIAL SQ SCH ×3 (02:07→16:59)
[2017-04-21] MEDS: CHLORHEXIDINE GLUCONATE 2 % 1 PACK (2 CLOTHS) TOP SCH (04:00)
[2017-04-21] MEDS: oxyCODONE HCL ORAL CONC 5 MG/0.25 ML SYRINGE PO SCH ×4 (04:53→19:54)
[2017-04-21] MEDS: PHENYTOIN SUSP 100 MG/4 ML CUP PEG SCH ×3 (04:54→19:53)
[2017-04-21] MEDS: INSULIN NovoLIN REGULAR SUPPLEMENTAL SCALE SQ SCH ×4 (04:54→16:59)
[2017-04-21] MEDS: LEVOTHYROXINE SODIUM 50 MCG TAB PO SCH (04:54)
[2017-04-21 07:00] LABS: AUTOMATED NEUTROPHIL # 9.7 TH/MM3 (1.8-7.7); BASOPHIL # 0.1 TH/MM3 (0-0.2); BASOPHIL % 0.6 % (0.0-2.0); EOSINOPHIL # 0.3 TH/MM3 (0-0.4); EOSINOPHIL % 2.5 % (0.0-4.0); HEMATOCRIT 23.1 % (35.0-46.0); LYMPH % 9.3 % (9.0-44.0); LYMPHOCYTE # 1.1 TH/MM3 (1.0-4.8); MEAN CELL VOLUME 78.4 FL (80.0-100.0); MEAN CORPUSCULAR HEMOGLOBIN 24.8 PG (27.0-34.0); MEAN CORPUSCULAR HGB CONC 31.6 % (32.0-36.0); MONO % 8.5 % (0.0-8.0); NEUT % 79.1 % (16.0-70.0); PLATELET COUNT 224 TH/MM3 (150-450); RED BLOOD COUNT 2.94 MIL/MM3 (4.00-5.30); RED CELL DISTRIBUTION WIDTH 24.9 % (11.6-17.2); WHITE BLOOD COUNT 12.2 TH/MM3 (4.0-11.0)
[2017-04-21] MEDS: CEFEPIME INJ 2,000 MG in SODIUM CHLORIDE 0.9% INJ 100 ML IV SCH ×3 (07:00→23:00)
[2017-04-21 07:07] LABS: HEMO FLAGS AUTO DIFF
[2017-04-21 07:30] LABS: ALT (GPT) 32 U/L (10-53); ANION GAP 8 MEQ/L (5-15); AST (GOT) 32 U/L (15-37); BICARBONATE 29.1 MEQ/L (21.0-32.0); BLOOD UREA NITROGEN 28 MG/DL (7-18); CHLORIDE 106 MEQ/L (98-107); GLOMERULAR FILTRATION RATE 83 ML/MIN (>89); POTASSIUM 3.5 MEQ/L (3.5-5.1); SODIUM (NA) 143 MEQ/L (136-145)
[2017-04-21 07:33] LABS: ALKALINE PHOSPHATASE 149 U/L (45-117); TOTAL BILIRUBIN ADULT 0.5 MG/DL (0.2-1.0)
[2017-04-21] MEDS: CHLORHEXIDINE 0.12% (ORAL KIT) 15 ML CUP MT SCH ×2 (08:00→19:56)
[2017-04-21 08:37] LABS: KERATOCYTES OCC (NORMAL); OVALOCYTES 1+ (NORMAL); SCAN/DIFF AUTO DIFF CONFIRMED
[2017-04-21] MEDS: RESP: BUDESONIDE 0.5 MG/2 ML NEB NEB SCH ×2 (08:45→20:10)
[2017-04-21] MEDS: RESP: TOBRAMYCIN SULFATE 80 MG/2 ML NEB NEB SCH ×2 (08:45→20:10)
[2017-04-21] MEDS: POVIDONE IODINE 10% SOLN 118 ML BOTTLE TOP SCH (09:00)
[2017-04-21] MEDS: CHOLECALCIFEROL (VIT D3) 1000 UNIT TAB PO SCH (09:00)
[2017-04-21] MEDS: SILVER SULFADIAZINE 1% CR 50 GM JAR TOP SCH (09:00)
[2017-04-21] MEDS: LANSOPRAZOLE SOLUTAB 30 MG TAB NG SCH (09:00)
[2017-04-21] MEDS: BENEPROTEIN POWDER 1 PACK G-TUBE SCH ×3 (09:00→17:00)
[2017-04-21] MEDS: ARTIFICIAL TEARS OPTH SOLN 15 ML BTL EACH EYE SCH ×3 (09:00→17:00)
[2017-04-21] MEDS: hydrALAZINE HCL 20 MG/ML VIAL IV PUSH PRN (09:02)
[2017-04-21] MEDS: ACETAMINOPHEN 650 MG/20.3 ML UDC PEG PRN (09:03)
[2017-04-21] MEDS: QUEtiapine FUMARATE 100 MG TAB PO SCH ×2 (09:04→19:53)
[2017-04-21] MEDS: levETIRAcetam 500 MG/5 ML UDC PEG SCH ×2 (09:04→19:53)
[2017-04-21] MEDS: LISINOPRIL 20 MG TAB PO SCH ×2 (09:04→19:53)
[2017-04-21] MEDS: CARVEDILOL 12.5 MG TAB OG-TUBE SCH ×2 (09:04→19:53)
[2017-04-21] MEDS: CALCIUM/VITAMIN D 250 MG/125 U TAB PO SCH ×3 (09:05→16:58)
[2017-04-21] MEDS: SERTRALINE HCL 100 MG TAB PO SCH (09:05)
--- NOTE | 2017-04-21 10:04 | HHI.IDPN ---
Subjective Subjective Remarks Patient is a 56-year-old female, admitted to the hospital after she had a witnessed arrest. Resuscitation was started when the EMS came. She apparently had 2 rounds of epinephrine and there is return of spontaneous circulation. She was intubated at the scene by the paramedics. During the early part of the hospitalization she developed mild clonus, and neurological evaluation revealed that it is most likely some anoxic injury. She has remained on the vent, and there was some gradual mild improvement of her neurological status. She is currently awake, seems to be focusing. She is not following commands however. Patient has been on the vent since admission. She initially has been tolerating TPs trials, and at times would fail and go back on the vent. She underwent tracheostomy and PEG placement on April 02. He was treated for Pseudomonas pneumonia on March 24, and completed treatment April 06. Since April 09 she has required ventilatory support again after she was tolerating TPs trials. Her chest x-ray on April 11 was normal. She has had some occasional low-grade temps, but since April 14 her temperatures started going up higher to 101 and above. He was started on cefepime yesterday. Patient has no central line. She has a Garner. Patient also has a stool collection bag and has diarrhea. Her stool is light brown in color. She is tolerating her tube feeding. Her WBC has been normal in the last 3 days. Infectious disease consultation has been requested to evaluate the patient. Notes reviewed D/W RN On the vent Continues to have fevers Agitated, has restraints, not interacting No change in neuro status Last CXR 04/20 better Sputum with PSAE and Enterobacter - Enterobacter MDR Antibiotics Current Medications Cefepime Tobra nebs Medications (Trade) Dose Ordered Sig/Nelly Route Start Time Stop Time Status Last Admin (Oscal-D 250-125) 250 mg TID PO 03/20/17 09:00 04/21/17 09:05 (Vitamin D3) 1,000 units DAILY PO 03/20/17 09:00 04/21/17 09:00 (NS Flush) 2 ml UNSCH PRN IV FLUSH 03/19/17 19:15 04/12/17 08:24 (NS Flush) 2 ml BID IV FLUSH 03/19/17 21:00 04/20/17 22:07 (Morphine Inj) 2 mg Q2H PRN IV PUSH 03/19/17 19:15 12/5/17 09:03 (Tears Naturale Opth Soln) 1 drop TID EACH EYE 03/20/17 09:00 04/21/17 09:00 (Zofran Inj) 4 mg Q6H PRN IV PUSH 03/19/17 19:15 04/07/17 13:26 Miscellaneous Information 1 Q361D XX 03/19/17 19:15 03/19/17 19:15 (Chlorhexidine 2% Cloth) Taper DAILY@04 TOP 03/20/17 04:00 03/16/18 03:59 04/20/17 04:00 (Chlorhexidine 2% Cloth) 3 pack UNSCH PRN TOP 03/19/17 19:15 (Milk Of Magnesia Liq) 30 ml Q12H PRN PO 03/19/17 19:15 (Senokot) 17.2 mg Q12H PRN PO 03/19/17 19:15 (Dulcolax Supp) 10 mg DAILY PRN RECTAL 03/19/17 19:15 (Peridex 0.12% Liq) 15 ml BID@08,20 MT 03/19/17 20:00 04/21/17 08:00 (Pulmicort Respule Neb) 0.5 mg Q12HR NEB NEB 03/22/17 11:45 04/21/17 08:45 Potassium Chloride 100 ml @ 50 mls/hr Q2H PRN IV 03/22/17 11:45 Potassium Chloride 100 ml @ 50 mls/hr Q2H PRN IV 03/22/17 11:45 (K-Lyte Cl Eff) 50 meq UNSCH PRN PO 03/22/17 11:45 04/14/17 16:56 Potassium Chloride 100 ml @ 25 mls/hr UNSCH PRN IV 03/22/17 11:45 Potassium Chloride 100 ml @ 50 mls/hr Q2H PRN IV 03/22/17 11:45 Magnesium Sulfate 4 gm/Sodium Chloride 100 ml @ 50 mls/hr UNSCH PRN IV 03/22/17 11:45 (Mag-Ox) 800 mg UNSCH PRN PO 03/22/17 11:45 04/11/17 09:59 Magnesium Sulfate 2 gm/Sodium Chloride 100 ml @ 50 mls/hr UNSCH PRN IV 03/22/17 11:45 04/11/17 22:43 (K-Phos) 2,000 mg Q4H PRN PO 03/22/17 11:45 Sodium Phosphate 30 mmol/Sodium Chloride 250 ml @ 42 mls/hr UNSCH PRN IV 03/22/17 11:45 04/20/17 13:42 (K-Phos) 2,000 mg UNSCH PRN PO/TUBE 03/22/17 11:45 Potassium Phosphate 30 mmol/ Sodium Chloride 260 ml @ 42 mls/hr UNSCH PRN IV 03/22/17 11:45 (Synthroid) 50 mcg DAILY@0600 PO 03/23/17 06:00 04/21/17 04:54 (Albuterol Neb) 2.5 mg Q2HR NEB PRN NEB 03/23/17 13:45 04/17/17 08:46 (D50w (Vial) Inj) 50 ml UNSCH PRN IV PUSH 03/23/17 13:45 (Glucagon Inj) 1 mg UNSCH PRN OTHER 03/23/17 13:45 (NovoLIN R SUPPLEMENTAL SCALE) 1 Q6HR SQ 03/23/17 18:00 04/14/17 05:33 (Colace Liq) 100 mg Q12HR PO 03/25/17 21:00 Future Hold 03/26/17 20:16 (Senna Liq) 8.8 mg BID PO 03/25/17 21:00 Future Hold 03/26/17 20:16 (Coreg) 25 mg BID OG-TUBE 03/26/17 21:00 04/21/17 09:04 (Apresoline Inj) 10 mg Q1HR PRN IV PUSH 03/26/17 14:00 04/21/17 09:02 (Trandate Inj) 10 mg Q1HR PRN IV PUSH 03/26/17 14:00 03/28/17 02:59 (Nitroglycerin 2% Oint) 2 inch Q6HR PRN TOPICAL 03/26/17 14:00 (Prinivil) 20 mg BID PO 03/27/17 21:00 04/21/17 09:04 (Silvadene 1% Cream (50 Gm)) 1 applic DAILY TOP 03/29/17 09:00 04/21/17 09:00 (Betadine 10% Top Soln) 1 applic DAILY TOP 03/29/17 09:00 04/21/17 09:00 (Mycostatin Powder) 1 applic Q12HR PRN TOPICAL 03/31/17 09:00 (Roxicodone Intensol Liq) 5 mg Q6H PO 04/02/17 10:00 04/21/17 09:05 (Tylenol 650 Mg/ 20 ml Liq) 650 mg Q6H PRN PEG 04/02/17 09:30 04/21/17 09:03 (Beneprotein Powder) 1 pack TID G-TUBE 04/03/17 13:00 04/21/17 09:00 (Heparin Inj) 5,000 units Q8H SQ 04/03/17 18:00 04/21/17 02:07 (Atarax) 200 mg HS PO 04/03/17 21:00 04/20/17 22:10 (Prevacid Odt) 30 mg DAILY NG 04/04/17 09:00 04/21/17 09:00 (Zoloft) 100 mg DAILY PO 04/04/17 10:00 04/21/17 09:05 (Keppra Liq) 1,500 mg Q12HR PEG 04/04/17 10:00 04/21/17 09:04 (Chapstick) 1 applic UNSCH PRN TOPICAL 04/06/17 08:30 04/09/17 08:32 (Procardia) 60 mg Q8H PEG 04/08/17 08:00 04/21/17 09:04 (Dilantin Liq) 100 mg Q8HR PEG 04/09/17 22:00 04/21/17 04:54 Cefepime HCl 2000 mg/Sodium Chloride 100 ml @ 200 mls/hr Q8H IV 04/14/17 15:00 04/21/17 07:00 (Catapres-Tts 0.1mg Patch.7d) 1 patch Q7D T-DERMAL 04/15/17 15:00 04/15/17 17:05 Miscellaneous Information 1 Q7D T-DERMAL 04/22/17 15:00 (Tobramycin Neb) 80 mg Q12HR NEB NEB 04/17/17 20:00 04/24/17 19:59 04/21/17 08:45 (SEROquel) 100 mg BID PO 04/19/17 21:00 04/21/17 09:04 (Pepcid Inj) 10 mg Q12H IV PUSH 04/20/17 11:00 04/20/17 22:10 Lines PIV Past Medical History Reviewed Allergies: Coded Allergies: phenytoin (Unverified Allergy, Severe, LIVER PROBLEMS, 03/19/17) Objective . Vital Signs Date Time Temp Pulse Resp B/P (MAP) Pulse Ox O2 Delivery O2 Flow Rate FiO2 04/21/17 08:45 100 35 04/21/17 08:00 98 04/21/17 08:00 35 04/21/17 08:00 102.4 97 16 184/99 (127) 98 04/21/17 06:00 93 04/21/17 04:18 99 35 04/21/17 04:00 101.0 93 14 158/78 (104) 95 04/21/17 04:00 93 04/21/17 04:00 35 04/21/17 02:00 91 04/21/17 00:04 98 35 04/21/17 00:00 85 04/21/17 00:00 35 04/21/17 00:00 100.2 85 14 153/74 (100) 100 04/20/17 22:00 93 04/20/17 20:05 96 35 04/20/17 20:00 100 04/20/17 20:00 100.6 100 14 178/113 (134) 96 04/20/17 20:00 35 04/20/17 18:00 98.8 04/20/17 16:00 30 04/20/17 14:50 94 35 04/20/17 12:00 30 04/20/17 11:30 100 35 . Laboratory Tests Test 04/20/17 11:00 04/21/17 06:15 White Blood Count 10.4 TH/MM3 12.2 TH/MM3 Red Blood Count 2.86 MIL/MM3 2.94 MIL/MM3 Hemoglobin 7.3 GM/DL 7.3 GM/DL Hematocrit 22.4 % 23.1 % Mean Corpuscular Volume 78.5 FL 78.4 FL Mean Corpuscular Hemoglobin 25.6 PG 24.8 PG Mean Corpuscular Hemoglobin Concent 32.5 % 31.6 % Red Cell Distribution Width 24.6 % 24.9 % Platelet Count 207 TH/MM3 224 TH/MM3 Mean Platelet Volume 9.4 FL 9.4 FL Neutrophils (%) (Auto) 79.2 % 79.1 % Lymphocytes (%) (Auto) 9.8 % 9.3 % Monocytes (%) (Auto) 7.7 % 8.5 % Eosinophils (%) (Auto) 2.8 % 2.5 % Basophils (%) (Auto) 0.5 % 0.6 % Neutrophils # (Auto) 8.2 TH/MM3 9.7 TH/MM3 Lymphocytes # (Auto) 1.0 TH/MM3 1.1 TH/MM3 Monocytes # (Auto) 0.8 TH/MM3 1.0 TH/MM3 Eosinophils # (Auto) 0.3 TH/MM3 0.3 TH/MM3 Basophils # (Auto) 0.1 TH/MM3 0.1 TH/MM3 CBC Comment DIFF FINAL AUTO DIFF Differential Comment AUTO DIFF CONFIRMED Ovalocytes 1+ Keratocytes OCC Laboratory Tests Test 04/20/17 11:00 04/21/17 06:15 Blood Urea Nitrogen 31 MG/DL 28 MG/DL Creatinine 0.67 MG/DL 0.73 MG/DL Random Glucose 121 MG/DL 121 MG/DL Total Protein 6.9 GM/DL 7.4 GM/DL Albumin 2.2 GM/DL 2.3 GM/DL Calcium Level 9.5 MG/DL 9.3 MG/DL Phosphorus Level 2.3 MG/DL Magnesium Level 1.6 MG/DL Alkaline Phosphatase 141 U/L 149 U/L Aspartate Amino Transf (AST/SGOT) 24 U/L 32 U/L Alanine Aminotransferase (ALT/SGPT) 34 U/L 32 U/L Total Bilirubin 0.5 MG/DL 0.5 MG/DL Sodium Level 143 MEQ/L 143 MEQ/L Potassium Level 3.5 MEQ/L 3.5 MEQ/L Chloride Level 107 MEQ/L 106 MEQ/L Carbon Dioxide Level 27.4 MEQ/L 29.1 MEQ/L Anion Gap 9 MEQ/L 8 MEQ/L Estimat Glomerular Filtration Rate 92 ML/MIN 83 ML/MIN Microbiology Date/Time Source Procedure Growth Status 04/20/17 12:56 Blood Peripheral Aerobic Blood Culture Pending Received 04/20/17 12:56 Blood Peripheral Anaerobic Blood Culture Pending Received 04/20/17 12:29 Blood Peripheral Aerobic Blood Culture Pending Received 04/20/17 12:29 Blood Peripheral Anaerobic Blood Culture Pending Received 04/20/17 11:00 Urine Catheterized Urine Urine Culture Pending Received Imaging Last Impressions Chest X-Ray 04/16/17 0000 Signed Impressions: Service Date/Time: March 04:24 - CONCLUSION: Diffuse consolidation likely related to edema. This appears worse when compared to the prior exam. Adam Greer MD Abdomen X-Ray 03/25/17 0000 Signed Impressions: Service Date/Time: Saturday, March 25, 2017 16:53 - CONCLUSION: 1. NGT in the stomach. 2. Nonobstructive bowel gas pattern. Ovidio Galvez MD Brain MRI 03/20/17 0000 Signed Impressions: Service Date/Time: Monday, March 20, 2017 17:29 - CONCLUSION: 1. No evidence of acute intracranial pathology. No masses are identified. 2. Left frontal encephalomalacia Tito Lincoln MD Head CT 03/19/17 1809 Signed Impressions: Service Date/Time: March 19:46 - CONCLUSION: 1. No acute hemorrhage or mass effect. 2. The stable old areas of encephalomalacia in the frontal lobes left greater than right. 3. Mild to moderate atrophy. Julio Rosales MD Hip and Pelvis X-Ray 03/19/17 0000 Signed Impressions: Service Date/Time: March 19:43 - CONCLUSION: 1. Status post right hip arthroplasty with no evidence of fracture or dislocation. 2. Osteopenia and postoperative changes in the left hip. Julio Rosales MD CT Angiography 03/19/17 0000 Signed Impressions: Service Date/Time: March 19:58 - CONCLUSION: 1. No evidence of pulmonary embolism. 2. Small areas of focal pleural-parenchymal change which may be infectious or inflammatory. Julio Rosales MD Physical Exam GENERAL: awake and alert, agitated, on the vent. She is not following commands. SKIN: Warm and dry. No generalized rash. HEAD: Atraumatic. Normocephalic. No temporal wasting, or tenderness. EYES: Thiells conjunctiva. No petechia or hemorrhage. Pupils equal, round and reactive to light. Extraocular movements full and intact. No scleral icterus. No injection or drainage. EARS, NOSE AND THROAT: Nose without bleeding or purulent nasal discharge. No sinus tenderness. NECK: Trachea midline. Supple and not tender, no meningeal signs tracheostomy site looks okay. CARDIOVASCULAR: Regular rate and rhythm. No murmurs, rubs or gallops heard RESPIRATORY: Breath sounds equal bilaterally. No rales, wheezing or rhonchi. Decreased breath sounds at the bases. ABDOMEN: Soft, obese, non-tender, nondistended. Bowel sounds present and normoactive. PEG site looks okay. She has a midline scar. No guarding. No rebound. No organomegaly. EXTREMITIES: No clubbing, cyanosis. Has mild pedal edema. No joint effusion. Well perfused and warm. She has some ecchymosis on her right big toe. : Garner in place, urine looks clear NEUROLOGICAL: Awake and alert. No facial asymmetry noted. ?focusing, not following. PSYCHIATRIC: Awake, not interacting LINE: No evidence of infection Assessment & Plan Remarks IMPRESSION New fevers, source? PSAE and Enterobacter PNA, on Rx Respiratory failure back on vent, likely due to new PNA S/P arrest with some anoxic injury RECOMMENDATION Continue Cefepime Add Levaquin for 2nd GNR covergae Continue Tobra nebs Follow repeat C/S Follow temps Monitor progress Weaning per CCM D/W Ashley Peterson MD Apr 21, 2017 10:04
[2017-04-21] MEDS: FAMOTIDINE 20 MG/2 ML VIAL IV PUSH SCH ×2 (12:04→23:00)
[2017-04-21] MEDS: LEVOFLOXACIN 750 MG PREMIX INJ 150 ML IV SCH (12:04)
[2017-04-21] MEDS: SODIUM CHLORIDE 0.9% FLUSH 10 ML FLUSH IV FLUSH SCH ×2 (12:05→19:54)
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
[2017-04-21] MEDS: hydrOXYzine HCL 50 MG TAB PO SCH (19:53)
[2017-04-22] VITALS (19 sets, daily range): BP systolic 138–187; BP diastolic 66–104; PULSE 70–92; RESP 14–30; TEMP 98.5–100.3; O2SAT 87–100
[2017-04-22] MEDS: CHLORHEXIDINE GLUCONATE 2 % 1 PACK (2 CLOTHS) TOP SCH (02:37)
[2017-04-22] MEDS: oxyCODONE HCL ORAL CONC 5 MG/0.25 ML SYRINGE PO SCH ×4 (02:37→20:56)
[2017-04-22] MEDS: HEPARIN SODIUM - SQ 10,000 UNITS/ML VIAL SQ SCH ×3 (02:37→17:57)
[2017-04-22 05:05] LABS: AUTOMATED NEUTROPHIL # 9.5 TH/MM3 (1.8-7.7); BASOPHIL # 0.1 TH/MM3 (0-0.2); BASOPHIL % 0.4 % (0.0-2.0); EOSINOPHIL # 0.2 TH/MM3 (0-0.4); HEMATOCRIT 23.9 % (35.0-46.0); LYMPH % 8.6 % (9.0-44.0); MEAN CELL VOLUME 78.8 FL (80.0-100.0); MEAN CORPUSCULAR HEMOGLOBIN 25.1 PG (27.0-34.0); MEAN CORPUSCULAR HGB CONC 31.9 % (32.0-36.0); MONO % 8.2 % (0.0-8.0); NEUT % 80.8 % (16.0-70.0); PLATELET COUNT 231 TH/MM3 (150-450); RED BLOOD COUNT 3.03 MIL/MM3 (4.00-5.30); RED CELL DISTRIBUTION WIDTH 25.3 % (11.6-17.2); WHITE BLOOD COUNT 11.8 TH/MM3 (4.0-11.0)
[2017-04-22 05:11] LABS: HEMO FLAGS AUTO DIFF
[2017-04-22 05:32] LABS: ALT (GPT) 41 U/L (10-53); ANION GAP 8 MEQ/L (5-15); AST (GOT) 38 U/L (15-37); BICARBONATE 27.2 MEQ/L (21.0-32.0); BLOOD UREA NITROGEN 28 MG/DL (7-18); CHLORIDE 108 MEQ/L (98-107); GLOMERULAR FILTRATION RATE 84 ML/MIN (>89); POTASSIUM 3.4 MEQ/L (3.5-5.1); SODIUM (NA) 143 MEQ/L (136-145)
[2017-04-22 05:34] LABS: ALKALINE PHOSPHATASE 136 U/L (45-117); TOTAL BILIRUBIN ADULT 0.5 MG/DL (0.2-1.0)
[2017-04-22] MEDS: INSULIN NovoLIN REGULAR SUPPLEMENTAL SCALE SQ SCH ×4 (06:00→17:57)
[2017-04-22] MEDS: CEFEPIME INJ 2,000 MG in SODIUM CHLORIDE 0.9% INJ 100 ML IV SCH (06:05)
[2017-04-22] MEDS: PHENYTOIN SUSP 100 MG/4 ML CUP PEG SCH ×3 (06:06→20:54)
[2017-04-22] MEDS: LEVOTHYROXINE SODIUM 50 MCG TAB PO SCH (06:06)
[2017-04-22] MEDS: RESP: BUDESONIDE 0.5 MG/2 ML NEB NEB SCH ×2 (07:37→20:21)
[2017-04-22] MEDS: CHLORHEXIDINE 0.12% (ORAL KIT) 15 ML CUP MT SCH ×2 (08:00→20:57)
[2017-04-22 08:09] LABS: OVALOCYTES 1+ (NORMAL)
[2017-04-22 08:10] LABS: KERATOCYTES OCC (NORMAL)
[2017-04-22 08:11] LABS: SCAN/DIFF AUTO DIFF CONFIRMED
[2017-04-22] MEDS: RESP: TOBRAMYCIN SULFATE 80 MG/2 ML NEB NEB SCH ×2 (08:36→21:22)
[2017-04-22] MEDS: CHOLECALCIFEROL (VIT D3) 1000 UNIT TAB PO SCH (08:51)
[2017-04-22] MEDS: CALCIUM/VITAMIN D 250 MG/125 U TAB PO SCH ×3 (08:51→17:56)
[2017-04-22] MEDS: levETIRAcetam 500 MG/5 ML UDC PEG SCH ×2 (08:51→20:55)
[2017-04-22] MEDS: NIFEdipine 20 MG CAP PEG SCH ×3 (08:51→16:00)
[2017-04-22] MEDS: POVIDONE IODINE 10% SOLN 118 ML BOTTLE TOP SCH (08:52)
[2017-04-22] MEDS: SERTRALINE HCL 100 MG TAB PO SCH (08:52)
[2017-04-22] MEDS: LISINOPRIL 20 MG TAB PO SCH ×2 (08:52→20:55)
[2017-04-22] MEDS: QUEtiapine FUMARATE 100 MG TAB PO SCH ×2 (08:52→20:55)
[2017-04-22] MEDS: SILVER SULFADIAZINE 1% CR 50 GM JAR TOP SCH (08:52)
[2017-04-22] MEDS: CARVEDILOL 12.5 MG TAB OG-TUBE SCH ×2 (08:52→20:55)
[2017-04-22] MEDS: LANSOPRAZOLE SOLUTAB 30 MG TAB NG SCH (08:56)
[2017-04-22] MEDS: ARTIFICIAL TEARS OPTH SOLN 15 ML BTL EACH EYE SCH ×3 (09:00→17:56)
[2017-04-22] MEDS: BENEPROTEIN POWDER 1 PACK G-TUBE SCH ×3 (09:00→17:56)
[2017-04-22] MEDS: MORPHINE SULFATE 4 MG/ML INJ IV PUSH PRN ×2 (09:25→13:43)
--- NOTE | 2017-04-22 10:12 | HHI.IDPN ---
Subjective Subjective Remarks Patient is a 56-year-old female, admitted to the hospital after she had a witnessed arrest. Resuscitation was started when the EMS came. She apparently had 2 rounds of epinephrine and there is return of spontaneous circulation. She was intubated at the scene by the paramedics. During the early part of the hospitalization she developed mild clonus, and neurological evaluation revealed that it is most likely some anoxic injury. She has remained on the vent, and there was some gradual mild improvement of her neurological status. She is currently awake, seems to be focusing. She is not following commands however. Patient has been on the vent since admission. She initially has been tolerating TPs trials, and at times would fail and go back on the vent. She underwent tracheostomy and PEG placement on April 02. He was treated for Pseudomonas pneumonia on March 24, and completed treatment April 06. Since April 09 she has required ventilatory support again after she was tolerating TPs trials. Her chest x-ray on April 11 was normal. She has had some occasional low-grade temps, but since April 14 her temperatures started going up higher to 101 and above. He was started on cefepime yesterday. Patient has no central line. She has a Garner. Patient also has a stool collection bag and has diarrhea. Her stool is light brown in color. She is tolerating her tube feeding. Her WBC has been normal in the last 3 days. Infectious disease consultation has been requested to evaluate the patient. Notes reviewed D/W RN On the vent Continues to have fevers, low grade Nothing new on C/S, BC negative No change in neuro status Last CXR 04/20 better Sputum with PSAE and Enterobacter - Enterobacter MDR Antibiotics Current Medications Cefepime Tobra nebs Levaquin Medications (Trade) Dose Ordered Sig/Nelly Route Start Time Stop Time Status Last Admin (Oscal-D 250-125) 250 mg TID PO 03/20/17 09:00 04/22/17 08:51 (Vitamin D3) 1,000 units DAILY PO 03/20/17 09:00 04/22/17 08:51 (NS Flush) 2 ml UNSCH PRN IV FLUSH 03/19/17 19:15 04/12/17 08:24 (NS Flush) 2 ml BID IV FLUSH 03/19/17 21:00 04/21/17 19:54 (Morphine Inj) 2 mg Q2H PRN IV PUSH 03/19/17 19:15 04/22/17 09:25 (Tears Naturale Opth Soln) 1 drop TID EACH EYE 03/20/17 09:00 04/22/17 09:00 (Zofran Inj) 4 mg Q6H PRN IV PUSH 03/19/17 19:15 04/07/17 13:26 Miscellaneous Information 1 Q361D XX 03/19/17 19:15 03/19/17 19:15 (Chlorhexidine 2% Cloth) Taper DAILY@04 TOP 03/20/17 04:00 03/16/18 03:59 04/20/17 04:00 (Chlorhexidine 2% Cloth) 3 pack UNSCH PRN TOP 03/19/17 19:15 (Milk Of Magnesia Liq) 30 ml Q12H PRN PO 03/19/17 19:15 (Senokot) 17.2 mg Q12H PRN PO 03/19/17 19:15 (Dulcolax Supp) 10 mg DAILY PRN RECTAL 03/19/17 19:15 (Peridex 0.12% Liq) 15 ml BID@08,20 MT 03/19/17 20:00 04/22/17 08:00 (Pulmicort Respule Neb) 0.5 mg Q12HR NEB NEB 03/22/17 11:45 04/22/17 07:37 Potassium Chloride 100 ml @ 50 mls/hr Q2H PRN IV 03/22/17 11:45 Potassium Chloride 100 ml @ 50 mls/hr Q2H PRN IV 03/22/17 11:45 (K-Lyte Cl Eff) 50 meq UNSCH PRN PO 03/22/17 11:45 04/14/17 16:56 Potassium Chloride 100 ml @ 25 mls/hr UNSCH PRN IV 03/22/17 11:45 Potassium Chloride 100 ml @ 50 mls/hr Q2H PRN IV 03/22/17 11:45 Magnesium Sulfate 4 gm/Sodium Chloride 100 ml @ 50 mls/hr UNSCH PRN IV 03/22/17 11:45 (Mag-Ox) 800 mg UNSCH PRN PO 03/22/17 11:45 04/11/17 09:59 Magnesium Sulfate 2 gm/Sodium Chloride 100 ml @ 50 mls/hr UNSCH PRN IV 03/22/17 11:45 04/11/17 22:43 (K-Phos) 2,000 mg Q4H PRN PO 03/22/17 11:45 Sodium Phosphate 30 mmol/Sodium Chloride 250 ml @ 42 mls/hr UNSCH PRN IV 03/22/17 11:45 04/20/17 13:42 (K-Phos) 2,000 mg UNSCH PRN PO/TUBE 03/22/17 11:45 Potassium Phosphate 30 mmol/ Sodium Chloride 260 ml @ 42 mls/hr UNSCH PRN IV 03/22/17 11:45 (Synthroid) 50 mcg DAILY@0600 PO 03/23/17 06:00 04/22/17 06:06 (Albuterol Neb) 2.5 mg Q2HR NEB PRN NEB 03/23/17 13:45 04/17/17 08:46 (D50w (Vial) Inj) 50 ml UNSCH PRN IV PUSH 03/23/17 13:45 (Glucagon Inj) 1 mg UNSCH PRN OTHER 03/23/17 13:45 (NovoLIN R SUPPLEMENTAL SCALE) 1 Q6HR SQ 03/23/17 18:00 04/14/17 05:33 (Colace Liq) 100 mg Q12HR PO 03/25/17 21:00 Future Hold 03/26/17 20:16 (Senna Liq) 8.8 mg BID PO 03/25/17 21:00 Future Hold 03/26/17 20:16 (Coreg) 25 mg BID OG-TUBE 03/26/17 21:00 04/22/17 08:52 (Apresoline Inj) 10 mg Q1HR PRN IV PUSH 03/26/17 14:00 04/21/17 09:02 (Trandate Inj) 10 mg Q1HR PRN IV PUSH 03/26/17 14:00 03/28/17 02:59 (Nitroglycerin 2% Oint) 2 inch Q6HR PRN TOPICAL 03/26/17 14:00 (Prinivil) 20 mg BID PO 03/27/17 21:00 04/22/17 08:52 (Silvadene 1% Cream (50 Gm)) 1 applic DAILY TOP 03/29/17 09:00 04/22/17 08:52 (Betadine 10% Top Soln) 1 applic DAILY TOP 03/29/17 09:00 04/22/17 08:52 (Mycostatin Powder) 1 applic Q12HR PRN TOPICAL 03/31/17 09:00 (Roxicodone Intensol Liq) 5 mg Q6H PO 04/02/17 10:00 04/22/17 09:26 (Tylenol 650 Mg/ 20 ml Liq) 650 mg Q6H PRN PEG 04/02/17 09:30 04/21/17 09:03 (Beneprotein Powder) 1 pack TID G-TUBE 04/03/17 13:00 04/22/17 09:00 (Heparin Inj) 5,000 units Q8H SQ 04/03/17 18:00 04/22/17 09:25 (Atarax) 200 mg HS PO 04/03/17 21:00 04/21/17 19:53 (Prevacid Odt) 30 mg DAILY NG 04/04/17 09:00 04/22/17 08:56 (Zoloft) 100 mg DAILY PO 04/04/17 10:00 04/22/17 08:52 (Keppra Liq) 1,500 mg Q12HR PEG 04/04/17 10:00 04/22/17 08:51 (Chapstick) 1 applic UNSCH PRN TOPICAL 04/06/17 08:30 04/09/17 08:32 (Procardia) 60 mg Q8H PEG 04/08/17 08:00 04/22/17 08:51 (Dilantin Liq) 100 mg Q8HR PEG 04/09/17 22:00 04/22/17 06:06 Cefepime HCl 2000 mg/Sodium Chloride 100 ml @ 200 mls/hr Q8H IV 04/14/17 15:00 04/22/17 06:05 (Catapres-Tts 0.1mg Patch.7d) 1 patch Q7D T-DERMAL 04/15/17 15:00 04/15/17 17:05 Miscellaneous Information 1 Q7D T-DERMAL 04/22/17 15:00 (Tobramycin Neb) 80 mg Q12HR NEB NEB 04/17/17 20:00 04/24/17 19:59 04/22/17 08:36 (SEROquel) 100 mg BID PO 04/19/17 21:00 04/22/17 08:52 (Pepcid Inj) 10 mg Q12H IV PUSH 04/20/17 11:00 04/21/17 23:00 Levofloxacin/ Dextrose 150 ml @ 100 mls/hr Q24H IV 04/21/17 11:00 04/21/17 12:04 Lines PIV Past Medical History Reviewed Allergies: Coded Allergies: phenytoin (Unverified Allergy, Severe, LIVER PROBLEMS, 03/19/17) Objective . Vital Signs Date Time Temp Pulse Resp B/P (MAP) Pulse Ox O2 Delivery O2 Flow Rate FiO2 04/22/17 08:00 100.3 88 22 138/66 (90) 98 04/22/17 08:00 35 04/22/17 08:00 92 04/22/17 07:39 95 35 04/22/17 06:00 92 04/22/17 04:40 96 35 04/22/17 04:00 35 04/22/17 04:00 100.0 88 24 187/104 (131) 87 04/22/17 04:00 82 04/22/17 02:00 86 04/22/17 00:01 100 35 04/22/17 00:00 35 04/22/17 00:00 100.3 92 14 180/104 (129) 100 04/22/17 00:00 90 04/21/17 22:00 86 04/21/17 20:11 95 35 04/21/17 20:00 100.4 89 37 174/117 (136) 100 04/21/17 20:00 35 04/21/17 20:00 82 04/21/17 18:00 98 04/21/17 17:05 100 35 04/21/17 16:00 35 04/21/17 16:00 100.2 89 14 174/79 (110) 98 04/21/17 16:00 98 04/21/17 14:00 98 04/21/17 12:00 35 04/21/17 12:00 99.8 93 14 148/86 (106) 98 04/21/17 12:00 98 04/21/17 11:43 100 35 . Laboratory Tests Test 04/20/17 11:00 04/21/17 06:15 04/22/17 04:15 White Blood Count 10.4 TH/MM3 12.2 TH/MM3 11.8 TH/MM3 Red Blood Count 2.86 MIL/MM3 2.94 MIL/MM3 3.03 MIL/MM3 Hemoglobin 7.3 GM/DL 7.3 GM/DL 7.6 GM/DL Hematocrit 22.4 % 23.1 % 23.9 % Mean Corpuscular Volume 78.5 FL 78.4 FL 78.8 FL Mean Corpuscular Hemoglobin 25.6 PG 24.8 PG 25.1 PG Mean Corpuscular Hemoglobin Concent 32.5 % 31.6 % 31.9 % Red Cell Distribution Width 24.6 % 24.9 % 25.3 % Platelet Count 207 TH/MM3 224 TH/MM3 231 TH/MM3 Mean Platelet Volume 9.4 FL 9.4 FL 9.5 FL Neutrophils (%) (Auto) 79.2 % 79.1 % 80.8 % Lymphocytes (%) (Auto) 9.8 % 9.3 % 8.6 % Monocytes (%) (Auto) 7.7 % 8.5 % 8.2 % Eosinophils (%) (Auto) 2.8 % 2.5 % 2.0 % Basophils (%) (Auto) 0.5 % 0.6 % 0.4 % Neutrophils # (Auto) 8.2 TH/MM3 9.7 TH/MM3 9.5 TH/MM3 Lymphocytes # (Auto) 1.0 TH/MM3 1.1 TH/MM3 1.0 TH/MM3 Monocytes # (Auto) 0.8 TH/MM3 1.0 TH/MM3 1.0 TH/MM3 Eosinophils # (Auto) 0.3 TH/MM3 0.3 TH/MM3 0.2 TH/MM3 Basophils # (Auto) 0.1 TH/MM3 0.1 TH/MM3 0.1 TH/MM3 CBC Comment DIFF FINAL AUTO DIFF AUTO DIFF Differential Comment AUTO DIFF CONFIRMED AUTO DIFF CONFIRMED Ovalocytes 1+ 1+ Keratocytes OCC OCC Laboratory Tests Test 04/20/17 11:00 04/21/17 06:15 04/22/17 04:15 Blood Urea Nitrogen 31 MG/DL 28 MG/DL 28 MG/DL Creatinine 0.67 MG/DL 0.73 MG/DL 0.72 MG/DL Random Glucose 121 MG/DL 121 MG/DL 135 MG/DL Total Protein 6.9 GM/DL 7.4 GM/DL 7.1 GM/DL Albumin 2.2 GM/DL 2.3 GM/DL 2.3 GM/DL Calcium Level 9.5 MG/DL 9.3 MG/DL 9.6 MG/DL Phosphorus Level 2.3 MG/DL Magnesium Level 1.6 MG/DL Alkaline Phosphatase 141 U/L 149 U/L 136 U/L Aspartate Amino Transf (AST/SGOT) 24 U/L 32 U/L 38 U/L Alanine Aminotransferase (ALT/SGPT) 34 U/L 32 U/L 41 U/L Total Bilirubin 0.5 MG/DL 0.5 MG/DL 0.5 MG/DL Sodium Level 143 MEQ/L 143 MEQ/L 143 MEQ/L Potassium Level 3.5 MEQ/L 3.5 MEQ/L 3.4 MEQ/L Chloride Level 107 MEQ/L 106 MEQ/L 108 MEQ/L Carbon Dioxide Level 27.4 MEQ/L 29.1 MEQ/L 27.2 MEQ/L Anion Gap 9 MEQ/L 8 MEQ/L 8 MEQ/L Estimat Glomerular Filtration Rate 92 ML/MIN 83 ML/MIN 84 ML/MIN B-Type Natriuretic Peptide 845 PG/ML Microbiology Date/Time Source Procedure Growth Status 04/20/17 12:56 Blood Peripheral Aerobic Blood Culture - Preliminary NO GROWTH IN 1 DAY Resulted 04/20/17 12:56 Blood Peripheral Anaerobic Blood Culture - Preliminary NO GROWTH IN 1 DAY Resulted 04/20/17 12:29 Blood Peripheral Aerobic Blood Culture - Preliminary NO GROWTH IN 1 DAY Resulted 04/20/17 12:29 Blood Peripheral Anaerobic Blood Culture - Preliminary NO GROWTH IN 1 DAY Resulted 04/20/17 11:00 Urine Catheterized Urine Urine Culture - Final 10-50,000 CFU/ML MIXED LESTER... Complete Imaging Last Impressions Chest X-Ray 04/16/17 0000 Signed Impressions: Service Date/Time: March 04:24 - CONCLUSION: Diffuse consolidation likely related to edema. This appears worse when compared to the prior exam. Adma Greer MD Abdomen X-Ray 03/25/17 0000 Signed Impressions: Service Date/Time: Saturday, March 25, 2017 16:53 - CONCLUSION: 1. NGT in the stomach. 2. Nonobstructive bowel gas pattern. Ovidio Galvez MD Brain MRI 03/20/17 0000 Signed Impressions: Service Date/Time: Monday, March 20, 2017 17:29 - CONCLUSION: 1. No evidence of acute intracranial pathology. No masses are identified. 2. Left frontal encephalomalacia Tito Lincoln MD Head CT [id number]/19/[id number] Signed Impressions: Service Date/Time: March 19:46 - CONCLUSION: 1. No acute hemorrhage or mass effect. 2. The stable old areas of encephalomalacia in the frontal lobes left greater than right. 3. Mild to moderate atrophy. Julio Rosales MD Hip and Pelvis X-Ray 03/19/17 0000 Signed Impressions: Service Date/Time: March 19:43 - CONCLUSION: 1. Status post right hip arthroplasty with no evidence of fracture or dislocation. 2. Osteopenia and postoperative changes in the left hip. Julio Rosales MD CT Angiography 03/19/17 0000 Signed Impressions: Service Date/Time: March 19:58 - CONCLUSION: 1. No evidence of pulmonary embolism. 2. Small areas of focal pleural-parenchymal change which may be infectious or inflammatory. Julio Rosales MD Physical Exam GENERAL: awake and alert, agitated, on the vent. She is not following commands. SKIN: Warm and dry. No generalized rash. HEAD: Atraumatic. Normocephalic. No temporal wasting, or tenderness. EYES: [place] conjunctiva. No petechia or hemorrhage. Pupils equal, round and reactive to light. Extraocular movements full and intact. No scleral icterus. No injection or drainage. EARS, NOSE AND THROAT: Nose without bleeding or purulent nasal discharge. No sinus tenderness. NECK: Trachea midline. Supple and not tender, no meningeal signs tracheostomy site looks okay. CARDIOVASCULAR: Regular rate and rhythm. No murmurs, rubs or gallops heard RESPIRATORY: Breath sounds equal bilaterally. No rales, wheezing or rhonchi. Decreased breath sounds at the bases. ABDOMEN: Soft, obese, non-tender, nondistended. Bowel sounds present and normoactive. PEG site looks okay. She has a midline scar. No guarding. No rebound. No organomegaly. EXTREMITIES: No clubbing, cyanosis. Has mild pedal edema. No joint effusion. Well perfused and warm. She has some ecchymosis on her right big toe. : Garner in place, urine looks clear NEUROLOGICAL: Awake and alert. No facial asymmetry noted. ?focusing, not following. PSYCHIATRIC: Awake, not interacting LINE: No evidence of infection Assessment & Plan Remarks IMPRESSION New fevers, source? - nothing new on C/S - all identified pathogens are covered - CXRR netter - ?drug fever PSAE and Enterobacter PNA, on Rx Respiratory failure back on vent, likely due to new PNA S/P arrest with some anoxic injury RECOMMENDATION Stop e Cefepime Continue Levaquin for 2nd GNR covergae Continue Tobra nebs Follow repeat C/S Follow temps Monitor progress Weaning per CCM D/W Ashley Peterson MD Apr 22, 2017 10:12
[2017-04-22] MEDS: FAMOTIDINE 20 MG/2 ML VIAL IV PUSH SCH (11:00)
[2017-04-22] MEDS: LEVOFLOXACIN 750 MG PREMIX INJ 150 ML IV SCH (11:58)
[2017-04-22] MEDS: cloNIDine HCL 0.1 MG/24 HR PATCH T-DERMAL SCH (13:42)
[2017-04-22] MEDS ORDERED: REMOVE OLD PATCH T-DERMAL SCH (15:00)
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
[2017-04-22] MEDS: SODIUM CHLORIDE 0.9% FLUSH 10 ML FLUSH IV FLUSH SCH (20:56)
[2017-04-23] VITALS (18 sets, daily range): BP systolic 128–163; BP diastolic 67–80; PULSE 78–86; RESP 21–36; TEMP 98.1–100; O2SAT 94–100
[2017-04-23] MEDS: NIFEdipine 20 MG CAP PEG SCH ×4 (00:15→23:33)
[2017-04-23] MEDS: HEPARIN SODIUM - SQ 10,000 UNITS/ML VIAL SQ SCH ×3 (00:15→17:39)
[2017-04-23] MEDS: FAMOTIDINE 20 MG/2 ML VIAL IV PUSH SCH ×3 (00:16→23:33)
[2017-04-23] MEDS: hydrOXYzine HCL 50 MG TAB PO SCH ×2 (00:16→22:10)
[2017-04-23 02:05] LABS: APTT (PATIENT) 24.3 SEC (24.3-30.1)
[2017-04-23] MEDS: CHLORHEXIDINE GLUCONATE 2 % 1 PACK (2 CLOTHS) TOP SCH (04:00)
[2017-04-23] MEDS: LEVOTHYROXINE SODIUM 50 MCG TAB PO SCH (05:18)
[2017-04-23] MEDS: INSULIN NovoLIN REGULAR SUPPLEMENTAL SCALE SQ SCH ×5 (05:19→23:32)
[2017-04-23] MEDS: PHENYTOIN SUSP 100 MG/4 ML CUP PEG SCH ×3 (05:19→22:10)
[2017-04-23] MEDS: oxyCODONE HCL ORAL CONC 5 MG/0.25 ML SYRINGE PO SCH ×4 (05:19→22:11)
[2017-04-23] MEDS: ACETAMINOPHEN 650 MG/20.3 ML UDC PEG PRN (05:21)
[2017-04-23] MEDS: RESP: BUDESONIDE 0.5 MG/2 ML NEB NEB SCH ×2 (07:49→19:57)
[2017-04-23] MEDS: RESP: ALBUTEROL 2.5 MG/3 ML NEB (PRN) NEB (07:49)
[2017-04-23] MEDS: RESP: TOBRAMYCIN SULFATE 80 MG/2 ML NEB NEB SCH ×2 (08:37→21:12)
[2017-04-23] MEDS: POVIDONE IODINE 10% SOLN 118 ML BOTTLE TOP SCH (09:00)
[2017-04-23] MEDS: BENEPROTEIN POWDER 1 PACK G-TUBE SCH ×3 (09:00→17:38)
[2017-04-23] MEDS: CHOLECALCIFEROL (VIT D3) 1000 UNIT TAB PO SCH (09:35)
[2017-04-23] MEDS: CALCIUM/VITAMIN D 250 MG/125 U TAB PO SCH ×3 (09:35→17:39)
[2017-04-23] MEDS: LISINOPRIL 20 MG TAB PO SCH ×2 (09:35→22:10)
[2017-04-23] MEDS: SERTRALINE HCL 100 MG TAB PO SCH (09:36)
[2017-04-23] MEDS: LANSOPRAZOLE SOLUTAB 30 MG TAB NG SCH (09:36)
[2017-04-23] MEDS: QUEtiapine FUMARATE 100 MG TAB PO SCH ×2 (09:36→22:10)
[2017-04-23] MEDS: SILVER SULFADIAZINE 1% CR 50 GM JAR TOP SCH (09:36)
[2017-04-23] MEDS: levETIRAcetam 500 MG/5 ML UDC PEG SCH ×2 (09:36→22:10)
[2017-04-23] MEDS: CARVEDILOL 12.5 MG TAB OG-TUBE SCH ×2 (09:38→22:10)
[2017-04-23] MEDS: CHLORHEXIDINE 0.12% (ORAL KIT) 15 ML CUP MT SCH ×2 (09:38→22:11)
[2017-04-23] MEDS: ARTIFICIAL TEARS OPTH SOLN 15 ML BTL EACH EYE SCH ×3 (09:39→17:38)
[2017-04-23] MEDS: SODIUM CHLORIDE 0.9% FLUSH 10 ML FLUSH IV FLUSH SCH ×2 (09:39→21:00)
[2017-04-23] MEDS: LEVOFLOXACIN 750 MG PREMIX INJ 150 ML IV SCH (10:32)
--- NOTE | 2017-04-23 14:46 | HHI.IDPN ---
Subjective Subjective Remarks Patient is a 56-year-old female, admitted to the hospital after she had a witnessed arrest. Resuscitation was started when the EMS came. She apparently had 2 rounds of epinephrine and there is return of spontaneous circulation. She was intubated at the scene by the paramedics. During the early part of the hospitalization she developed mild clonus, and neurological evaluation revealed that it is most likely some anoxic injury. She has remained on the vent, and there was some gradual mild improvement of her neurological status. She is currently awake, seems to be focusing. She is not following commands however. Patient has been on the vent since admission. She initially has been tolerating TPs trials, and at times would fail and go back on the vent. She underwent tracheostomy and PEG placement on April 02. He was treated for Pseudomonas pneumonia on March 24, and completed treatment April 06. Since April 09 she has required ventilatory support again after she was tolerating TPs trials. Her chest x-ray on April 11 was normal. She has had some occasional low-grade temps, but since April 14 her temperatures started going up higher to 101 and above. He was started on cefepime yesterday. Patient has no central line. She has a Garner. Patient also has a stool collection bag and has diarrhea. Her stool is light brown in color. She is tolerating her tube feeding. Her WBC has been normal in the last 3 days. Infectious disease consultation has been requested to evaluate the patient. Notes reviewed On the vent Still with intermittent fevers Repeat sputum C/S pending No change in neuro status Last CXR 04/20 better Last Sputum with PSAE and Enterobacter - Enterobacter MDR Antibiotics Current Medications Tobra nebs Levaquin Medications (Trade) Dose Ordered Sig/Nelly Route Start Time Stop Time Status Last Admin (Oscal-D 250-125) 250 mg TID PO 03/20/17 09:00 04/23/17 12:38 (Vitamin D3) 1,000 units DAILY PO 03/20/17 09:00 04/23/17 09:35 (NS Flush) 2 ml UNSCH PRN IV FLUSH 03/19/17 19:15 04/12/17 08:24 (NS Flush) 2 ml BID IV FLUSH 03/19/17 21:00 04/23/17 09:39 (Morphine Inj) 2 mg Q2H PRN IV PUSH 03/19/17 19:15 04/22/17 13:43 (Tears Naturale Opth Soln) 1 drop TID EACH EYE 03/20/17 09:00 04/23/17 09:39 (Zofran Inj) 4 mg Q6H PRN IV PUSH 03/19/17 19:15 04/07/17 13:26 Miscellaneous Information 1 Q361D XX 03/19/17 19:15 03/19/17 19:15 (Chlorhexidine 2% Cloth) Taper DAILY@04 TOP 03/20/17 04:00 03/16/18 03:59 04/20/17 04:00 (Chlorhexidine 2% Cloth) 3 pack UNSCH PRN TOP 03/19/17 19:15 (Milk Of Magnesia Liq) 30 ml Q12H PRN PO 03/19/17 19:15 (Senokot) 17.2 mg Q12H PRN PO 03/19/17 19:15 (Dulcolax Supp) 10 mg DAILY PRN RECTAL 03/19/17 19:15 (Peridex 0.12% Liq) 15 ml BID@08,20 MT 03/19/17 20:00 04/23/17 09:38 (Pulmicort Respule Neb) 0.5 mg Q12HR NEB NEB 03/22/17 11:45 04/23/17 07:49 Potassium Chloride 100 ml @ 50 mls/hr Q2H PRN IV 03/22/17 11:45 Potassium Chloride 100 ml @ 50 mls/hr Q2H PRN IV 03/22/17 11:45 (K-Lyte Cl Eff) 50 meq UNSCH PRN PO 03/22/17 11:45 04/14/17 16:56 Potassium Chloride 100 ml @ 25 mls/hr UNSCH PRN IV 03/22/17 11:45 Potassium Chloride 100 ml @ 50 mls/hr Q2H PRN IV 03/22/17 11:45 Magnesium Sulfate 4 gm/Sodium Chloride 100 ml @ 50 mls/hr UNSCH PRN IV 03/22/17 11:45 (Mag-Ox) 800 mg UNSCH PRN PO 03/22/17 11:45 04/11/17 09:59 Magnesium Sulfate 2 gm/Sodium Chloride 100 ml @ 50 mls/hr UNSCH PRN IV 03/22/17 11:45 04/11/17 22:43 (K-Phos) 2,000 mg Q4H PRN PO 03/22/17 11:45 Sodium Phosphate 30 mmol/Sodium Chloride 250 ml @ 42 mls/hr UNSCH PRN IV 03/22/17 11:45 04/20/17 13:42 (K-Phos) 2,000 mg UNSCH PRN PO/TUBE 03/22/17 11:45 Potassium Phosphate 30 mmol/ Sodium Chloride 260 ml @ 42 mls/hr UNSCH PRN IV 03/22/17 11:45 (Synthroid) 50 mcg DAILY@0600 PO 03/23/17 06:00 04/23/17 05:18 (Albuterol Neb) 2.5 mg Q2HR NEB PRN NEB 03/23/17 13:45 04/23/17 07:49 (D50w (Vial) Inj) 50 ml UNSCH PRN IV PUSH 03/23/17 13:45 (Glucagon Inj) 1 mg UNSCH PRN OTHER 03/23/17 13:45 (NovoLIN R SUPPLEMENTAL SCALE) 1 Q6HR SQ 03/23/17 18:00 04/14/17 05:33 (Colace Liq) 100 mg Q12HR PO 03/25/17 21:00 Future Hold 03/26/17 20:16 (Senna Liq) 8.8 mg BID PO 03/25/17 21:00 Future Hold 03/26/17 20:16 (Coreg) 25 mg BID OG-TUBE 03/26/17 21:00 04/23/17 09:38 (Apresoline Inj) 10 mg Q1HR PRN IV PUSH 03/26/17 14:00 04/21/17 09:02 (Trandate Inj) 10 mg Q1HR PRN IV PUSH 03/26/17 14:00 03/28/17 02:59 (Nitroglycerin 2% Oint) 2 inch Q6HR PRN TOPICAL 03/26/17 14:00 (Prinivil) 20 mg BID PO 03/27/17 21:00 04/23/17 09:35 (Silvadene 1% Cream (50 Gm)) 1 applic DAILY TOP 03/29/17 09:00 04/23/17 09:36 (Betadine 10% Top Soln) 1 applic DAILY TOP 03/29/17 09:00 04/23/17 09:00 (Mycostatin Powder) 1 applic Q12HR PRN TOPICAL 03/31/17 09:00 (Roxicodone Intensol Liq) 5 mg Q6H PO 04/02/17 10:00 04/23/17 10:33 (Tylenol 650 Mg/ 20 ml Liq) 650 mg Q6H PRN PEG 04/02/17 09:30 04/23/17 05:21 (Beneprotein Powder) 1 pack TID G-TUBE 04/03/17 13:00 04/23/17 09:00 (Heparin Inj) 5,000 units Q8H SQ 04/03/17 18:00 04/23/17 10:32 (Atarax) 200 mg HS PO 04/03/17 21:00 04/23/17 00:16 (Prevacid Odt) 30 mg DAILY NG 04/04/17 09:00 04/23/17 09:36 (Zoloft) 100 mg DAILY PO 04/04/17 10:00 04/23/17 09:36 (Keppra Liq) 1,500 mg Q12HR PEG 04/04/17 10:00 04/23/17 09:36 (Chapstick) 1 applic UNSCH PRN TOPICAL 04/06/17 08:30 04/09/17 08:32 (Procardia) 60 mg Q8H PEG 04/08/17 08:00 04/23/17 12:38 (Dilantin Liq) 100 mg Q8HR PEG 04/09/17 22:00 04/23/17 05:19 (Catapres-Tts 0.1mg Patch.7d) 1 patch Q7D T-DERMAL 04/15/17 15:00 04/22/17 13:42 Miscellaneous Information 1 Q7D T-DERMAL 04/22/17 15:00 04/22/17 14:13 (Tobramycin Neb) 80 mg Q12HR NEB NEB 04/17/17 20:00 04/24/17 19:59 04/23/17 08:37 (SEROquel) 100 mg BID PO 04/19/17 21:00 04/23/17 09:36 (Pepcid Inj) 10 mg Q12H IV PUSH 04/20/17 11:00 04/23/17 10:32 Levofloxacin/ Dextrose 150 ml @ 100 mls/hr Q24H IV 04/21/17 11:00 04/23/17 10:32 Lines PIV Past Medical History Reviewed Allergies: Coded Allergies: phenytoin (Unverified Allergy, Severe, LIVER PROBLEMS, 03/19/17) Objective . Vital Signs Date Time Temp Pulse Resp B/P (MAP) Pulse Ox O2 Delivery O2 Flow Rate FiO2 04/23/17 11:47 100 35 04/23/17 07:50 98 35 04/23/17 06:00 82 04/23/17 04:08 97 35 04/23/17 04:00 35 04/23/17 04:00 83 04/23/17 04:00 100.0 84 36 128/67 (87) 96 04/23/17 02:00 80 04/23/17 01:22 100 35 04/23/17 00:00 98.7 78 23 137/73 (94) 96 04/23/17 00:00 80 04/23/17 00:00 35 04/22/17 22:00 70 04/22/17 20:22 97 35 04/22/17 20:00 80 04/22/17 20:00 98.5 81 30 158/79 (105) 99 04/22/17 20:00 35 04/22/17 18:00 92 04/22/17 16:38 97 35 04/22/17 16:00 98.8 80 22 151/83 (105) 98 04/22/17 16:00 92 04/22/17 16:00 35 . Laboratory Tests Test 04/22/17 04:15 White Blood Count 11.8 TH/MM3 Red Blood Count 3.03 MIL/MM3 Hemoglobin 7.6 GM/DL Hematocrit 23.9 % Mean Corpuscular Volume 78.8 FL Mean Corpuscular Hemoglobin 25.1 PG Mean Corpuscular Hemoglobin Concent 31.9 % Red Cell Distribution Width 25.3 % Platelet Count 231 TH/MM3 Mean Platelet Volume 9.5 FL Neutrophils (%) (Auto) 80.8 % Lymphocytes (%) (Auto) 8.6 % Monocytes (%) (Auto) 8.2 % Eosinophils (%) (Auto) 2.0 % Basophils (%) (Auto) 0.4 % Neutrophils # (Auto) 9.5 TH/MM3 Lymphocytes # (Auto) 1.0 TH/MM3 Monocytes # (Auto) 1.0 TH/MM3 Eosinophils # (Auto) 0.2 TH/MM3 Basophils # (Auto) 0.1 TH/MM3 CBC Comment AUTO DIFF Differential Comment AUTO DIFF CONFIRMED Ovalocytes 1+ Keratocytes OCC Laboratory Tests Test 04/22/17 04:15 Blood Urea Nitrogen 28 MG/DL Creatinine 0.72 MG/DL Random Glucose 135 MG/DL Total Protein 7.1 GM/DL Albumin 2.3 GM/DL Calcium Level 9.6 MG/DL Alkaline Phosphatase 136 U/L Aspartate Amino Transf (AST/SGOT) 38 U/L Alanine Aminotransferase (ALT/SGPT) 41 U/L Total Bilirubin 0.5 MG/DL Sodium Level 143 MEQ/L Potassium Level 3.4 MEQ/L Chloride Level 108 MEQ/L Carbon Dioxide Level 27.2 MEQ/L Anion Gap 8 MEQ/L Estimat Glomerular Filtration Rate 84 ML/MIN Microbiology Date/Time Source Procedure Growth Status 04/22/17 12:00 Sputum Endotracheal Gram Stain - Final Resulted 04/22/17 12:00 Sputum Endotracheal Sputum Culture Pending Resulted Imaging Last Impressions Chest X-Ray 04/16/17 0000 Signed Impressions: Service Date/Time: March 04:24 - CONCLUSION: Diffuse consolidation likely related to edema. This appears worse when compared to the prior exam. Adam Greer MD Abdomen X-Ray 03/25/17 0000 Signed Impressions: Service Date/Time: Saturday, March 25, 2017 16:53 - CONCLUSION: 1. NGT in the stomach. 2. Nonobstructive bowel gas pattern. Ovidio Galvez MD Brain MRI 03/20/17 0000 Signed Impressions: Service Date/Time: Monday, March 20, 2017 17:29 - CONCLUSION: 1. No evidence of acute intracranial pathology. No masses are identified. 2. Left frontal encephalomalacia Tito Lincoln MD Head CT 03/19/17 1809 Signed Impressions: Service Date/Time: March 19:46 - CONCLUSION: 1. No acute hemorrhage or mass effect. 2. The stable old areas of encephalomalacia in the frontal lobes left greater than right. 3. Mild to moderate atrophy. Julio Rosales MD Hip and Pelvis X-Ray 03/19/17 0000 Signed Impressions: Service Date/Time: March 19:43 - CONCLUSION: 1. Status post right hip arthroplasty with no evidence of fracture or dislocation. 2. Osteopenia and postoperative changes in the left hip. Julio Rosales MD CT Angiography 03/19/17 0000 Signed Impressions: Service Date/Time: March 19:58 - CONCLUSION: 1. No evidence of pulmonary embolism. 2. Small areas of focal pleural-parenchymal change which may be infectious or inflammatory. Julio Rosales MD Physical Exam GENERAL: awake and alert, agitated, on the vent. She is not following commands. SKIN: Warm and dry. No generalized rash. HEAD: Atraumatic. Normocephalic. No temporal wasting, or tenderness. EYES: [place] conjunctiva. No petechia or hemorrhage. Pupils equal, round and reactive to light. No scleral icterus. No injection or drainage. EARS, NOSE AND THROAT: Nose without bleeding or purulent nasal discharge. No sinus tenderness. NECK: Trachea midline. Supple and not tender, no meningeal signs tracheostomy site looks okay. CARDIOVASCULAR: Regular rate and rhythm. No murmurs, rubs or gallops heard RESPIRATORY: Breath sounds equal bilaterally. No rales, wheezing or rhonchi. Decreased breath sounds at the bases. ABDOMEN: Soft, obese, non-tender, nondistended. Bowel sounds present and normoactive. PEG site looks okay. She has a midline scar. No guarding. No rebound. No organomegaly. EXTREMITIES: No clubbing, cyanosis. Has mild pedal edema. No joint effusion. Well perfused and warm. She has some ecchymosis on her right big toe. : Garner in place, urine looks clear NEUROLOGICAL: Awake and alert. No facial asymmetry noted. ?focusing, not following. PSYCHIATRIC: Awake, not interacting LINE: No evidence of infection Assessment & Plan Remarks IMPRESSION New fevers, source? - all identified pathogens are covered - CXR netter - ?drug fever PSAE and Enterobacter PNA, on Rx Respiratory failure back on vent, likely due to new PNA S/P arrest with some anoxic injury RECOMMENDATION Continue Levaquin Continue Tobra nebs Follow repeat C/S Follow temps Monitor progress Weaning per CCM Ashley Capps MD Apr 23, 2017 14:46
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
[2017-04-24] VITALS (12 sets, daily range): BP systolic 136–176; BP diastolic 67–84; PULSE 71–82; RESP 19–35; TEMP 98.7–99; O2SAT 92–100
[2017-04-24] MEDS: HEPARIN SODIUM - SQ 10,000 UNITS/ML VIAL SQ SCH ×2 (02:36→10:33)
[2017-04-24] MEDS: CHLORHEXIDINE GLUCONATE 2 % 1 PACK (2 CLOTHS) TOP SCH (02:37)
[2017-04-24] MEDS: oxyCODONE HCL ORAL CONC 5 MG/0.25 ML SYRINGE PO SCH ×2 (04:24→10:00)
[2017-04-24] MEDS: PHENYTOIN SUSP 100 MG/4 ML CUP PEG SCH (05:39)
[2017-04-24] MEDS: INSULIN NovoLIN REGULAR SUPPLEMENTAL SCALE SQ SCH (05:39)
[2017-04-24] MEDS: LEVOTHYROXINE SODIUM 50 MCG TAB PO SCH (05:39)
[2017-04-24] MEDS: RESP: BUDESONIDE 0.5 MG/2 ML NEB NEB SCH (07:49)
[2017-04-24] MEDS: CHLORHEXIDINE 0.12% (ORAL KIT) 15 ML CUP MT SCH (08:20)
[2017-04-24] MEDS: ARTIFICIAL TEARS OPTH SOLN 15 ML BTL EACH EYE SCH (08:21)
[2017-04-24] MEDS: SERTRALINE HCL 100 MG TAB PO SCH (08:21)
[2017-04-24] MEDS: LISINOPRIL 20 MG TAB PO SCH (08:21)
[2017-04-24] MEDS: CALCIUM/VITAMIN D 250 MG/125 U TAB PO SCH (08:21)
[2017-04-24] MEDS: SODIUM CHLORIDE 0.9% FLUSH 10 ML FLUSH IV FLUSH SCH (08:21)
[2017-04-24] MEDS: BENEPROTEIN POWDER 1 PACK G-TUBE SCH (08:21)
[2017-04-24] MEDS: LANSOPRAZOLE SOLUTAB 30 MG TAB NG SCH (08:21)
[2017-04-24] MEDS: QUEtiapine FUMARATE 100 MG TAB PO SCH (08:22)
[2017-04-24] MEDS: CHOLECALCIFEROL (VIT D3) 1000 UNIT TAB PO SCH (08:22)
[2017-04-24] MEDS: SILVER SULFADIAZINE 1% CR 50 GM JAR TOP SCH (08:22)
[2017-04-24] MEDS: POVIDONE IODINE 10% SOLN 118 ML BOTTLE TOP SCH (08:22)
[2017-04-24] MEDS: CARVEDILOL 12.5 MG TAB OG-TUBE SCH (08:22)
[2017-04-24] MEDS: levETIRAcetam 500 MG/5 ML UDC PEG SCH (08:22)
[2017-04-24] MEDS: NIFEdipine 20 MG CAP PEG SCH (08:23)
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
[2017-04-24] MEDS: RESP: TOBRAMYCIN SULFATE 80 MG/2 ML NEB NEB SCH (08:47)
[2017-04-24] MEDS ORDERED: LEVOFLOXACIN 750 MG TAB PO SCH (10:00)
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
[2017-04-24] MEDS ORDERED: MORPHINE SULFATE 8 MG/ML INJ IV PUSH ONE (13:30)
[2017-04-24] MEDS ORDERED: LORazepam 2 MG/ML VIAL IV PUSH ONE ×2 (13:30→13:45)
[2017-04-24] MEDS ORDERED: fentaNYL DRIP 250 ML IV PRN (13:30)
[2017-04-24] MEDS ORDERED: HYOSCYAMINE 0.5 MG/ML AMP IV PUSH ONE (13:30)
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
[2017-04-24] MEDS ORDERED: MORPHINE SULFATE 4 MG/ML INJ IV PUSH ONE (13:45)
[2017-04-24] MEDS ORDERED: BISACODYL 10 MG SUPP RECTAL PRN (14:00)
[2017-04-24] MEDS ORDERED: HYOSCYAMINE 0.5 MG/ML AMP IV PUSH PRN (14:00)
[2017-04-24] MEDS ORDERED: MORPHINE SULFATE 8 MG/ML INJ IV PUSH PRN (14:00)
[2017-04-24] MEDS ORDERED: MORPHINE SULFATE 4 MG/ML INJ IV PUSH PRN (14:00)
[2017-04-24] MEDS ORDERED: LORazepam 2 MG/ML VIAL IV PUSH PRN ×3 (14:00)
[2017-04-24] MEDS ORDERED: FUROSEMIDE 20 MG/2 ML VIAL IV PUSH PRN (14:00)
[2017-04-24] MEDS ORDERED: ACETAMINOPHEN 650 MG SUPP RECTAL PRN (14:00)
[2017-04-24] MEDS ORDERED: LORazepam 2 MG/ML VIAL IV PUSH SCH (16:00)
[2017-04-24] MEDS ORDERED: MORPHINE SULFATE 4 MG/ML INJ IV PUSH SCH (16:00)
== END 2017-04-24 21:14 | disposition expired | DRG 4 ==
LOC: NEPE 17:59 → NEDA 19:05 → HIMN 20:20
PROVIDERS: ADMIT Internal Medicine Critical Care Medicine; ATTEND Internal Medicine Critical Care Medicine
PROC: 5A1955Z Respiratory Ventilation, Greater than 96 Consecutive Hours (ICD-10-PCS; 2017-03-19)
PROC: 0DH63UZ Insertion of Feeding Device into Stomach, Percutaneous Approach (ICD-10-PCS; 2017-04-02)
PROC: 0BJ08ZZ Inspection of Tracheobronchial Tree, Via Natural or Artificial Opening Endoscopic (ICD-10-PCS; 2017-04-02)
PROC: 0B113F4 Bypass Trachea to Cutaneous with Tracheostomy Device, Percutaneous Approach (ICD-10-PCS; principal; 2017-04-02 14:32)
PROC: 5A1955Z Respiratory Ventilation, Greater than 96 Consecutive Hours (ICD-10-PCS; 2017-04-02 14:32)
DX: I46.9 Cardiac arrest, cause unspecified (principal); A41.9 Sepsis, unspecified organism; G93.1 Anoxic brain damage, not elsewhere classified; J15.1 Pneumonia due to Pseudomonas; J15.6 Pneumonia due to other Gram-negative bacteria; I11.0 Hypertensive heart disease with heart failure; R13.10 Dysphagia, unspecified; E87.2 Acidosis; I50.32 Chronic diastolic (congestive) heart failure; J44.0 Chronic obstructive pulmonary disease with (acute) lower respiratory infection; J96.00 Acute respiratory failure, unspecified whether with hypoxia or hypercapnia; E87.1 Hypo-osmolality and hyponatremia; B37.41 Candidal cystitis and urethritis; J44.1 Chronic obstructive pulmonary disease with (acute) exacerbation; G40.801 Other epilepsy, not intractable, with status epilepticus; B35.6 Tinea cruris; E03.9 Hypothyroidism, unspecified; E87.6 Hypokalemia; B19.20 Unspecified viral hepatitis C without hepatic coma; F20.9 Schizophrenia, unspecified; F31.9 Bipolar disorder, unspecified; G25.3 Myoclonus; D50.9 Iron deficiency anemia, unspecified; Z16.24 Resistance to multiple antibiotics; K21.9 Gastro-esophageal reflux disease without esophagitis; Z66 Do not resuscitate; Z51.5 Encounter for palliative care; F41.9 Anxiety disorder, unspecified; E78.5 Hyperlipidemia, unspecified; G89.29 Other chronic pain; F17.210 Nicotine dependence, cigarettes, uncomplicated; R23.8 Other skin changes; G93.89 Other specified disorders of brain; R19.7 Diarrhea, unspecified; Z86.73 Personal history of transient ischemic attack (TIA), and cerebral infarction without residual deficits; Z87.820 Personal history of traumatic brain injury; Z85.43 Personal history of malignant neoplasm of ovary; Z88.8 Allergy status to other drugs, medicaments and biological substances
CPT/HCPCS: 31600; 31624; 36600; 43753; 51702; 70450; 70551; 71010; 71275; 73501; 74000; 76937; 80048; 80053; 80185; 80186; 80307; 81001; 82140; 82435; 82550; 82805; 82947; 82948; 83605; 83735; 83880; 84100; 84132; 84295; 84436; 84443; 84484; 84520; 84702; 85007; 85025; 85027; 85610; 85730; 87040; 87070; 87077; 87086; 87185; 87186; 87205; 87493; 87641; 93005; 93306; 94002; 94003; 94640; 94664; 95819; 96365; A7521; J0360; J0692; J1165; J1644; J1953; J1956; J1980; J2060; J2212; J2250; J2270; J2405; J2543; J2765; J2920; J2930; J3010; J3260; J3475; J7030; J7042; J7050; J7613; J7626; J7685; Q2009; Q9967